=== PATIENT | male | born 1950 | race Caucasian/White ===

== ENCOUNTER 2018-05-29 06:54 | Day surgery (SDC) | payer OTHER, SELFPAY ==
--- NOTE | 2018-05-29 | PATH_ITS ---
[facility] Accession Number: [id number] . 01 Material submitted: . PART A: ILEOCECAL VALVE POLYP X2 PART B: SIGMOID COLON POLYP . 02 Diagnosis: A. Ileocecal Valve Polyp x2: Portions of tubular adenoma x2; negative for high-grade dysplasia. . B. Sigmoid Colon Polyp: Tubular adenoma; negative for high-grade dysplasia. The apparent, electrocauterized margin is negative for dysplasia. MRV/05/30/2018 . 02 Electronically signed: . Sita Hearn MD, Pathologist NPI- [id number] . 01 Gross description: . Received two formalin-filled containers, both labeled with the patient's name: . A. In a container labeled ileocecal valve polyp x2, are two 0.2-0.4 cm portions of tissue, entirely submitted in cassette A. B. In a container labeled sigmoid colon polyp, is a 0.6 cm portion of tissue. The specimen is bisected and totally submitted in cassette B. ([id number]) /FRR . 02 Pathologist provided ICD-10: K63.5 . 02 CPT . 028973, [id number] Performed at: 01 [facility] [address], [place], [place] [id number] MD Nehemias Green MD Phone: [phone] Performed at: 02 [facility] [address] [place], [place] [id number] MD Cait Tan MD Phone: [phone]
[2018-05-29 07:18] VITALS: BP 173/89; PULSE 16; RESP 16; TEMP 37.8; O2SAT 96; BMI 35.3
[2018-05-29] MEDS: SODIUM CHLORIDE 0.9% 1,000 ML 42 ML IV (07:39)
--- NOTE | 2018-05-29 08:39 | PM.HP.1 ---
History of Present Illness Chief complaint: colonoscopy [id number] Patient History Medical History Hypercholesterolemia (Acute) Hypertension (Acute) Prostatic hypertrophy (Acute) Family & Social History Social History: household members spouse Meds Home Medications Medication Instructions Recorded Confirmed Type atorvastatin [Lipitor] 20 mg PO HS #0 07/19/16 History diclofenac sodium [Voltaren] 1 adrianne TOPICAL QDAY #0 07/19/16 History losartan-hydrochlorothiazide 1 tab PO QDAY #0 07/19/16 History [Hyzaar] multivitamin [Multiple Vitamins] 1 tab PO QDAY #0 07/19/16 History tamsulosin [Flomax] 0.4 mg PO QDAY #0 07/19/16 History Allergies Allergy/AdvReac Type Severity Reaction Status Date / Time No Known Allergies Allergy Uncoded 10/10/17 13:02 Exam Vital Signs (past 8 hours): - 05/29/18 07:18 Temperature 100.0 F H Pulse Rate 16 L Respiratory Rate 16 Blood Pressure 173/89 H Pulse Oximetry 96 Oxygen Delivery Method Room Air Narrative Exam Narrative: Oropharynx free of lesions Chest clear to auscultation percussion Cardiac exam reveals no S3 or murmur Assessment & Plan Plan: Assessment/Plan Narrative: History of colon polyps need for follow-up colonoscopy. Risks benefits alternatives explained.
--- NOTE | 2018-05-29 08:59 | PM.OP.ENDO ---
Operative Date/Time/Diagnoses Date of procedure: 05/29/18 Time of procedure: 08:59 Pre-op diagnosis: See indications and findings Procedure & Clinicians Study performed: Colonoscopy Same procedure as scheduled: Yes Indications: History of colon polyps Surgeon: Sukumar Vasquez Procedure Notes Procedure in detail: After informed consent was obtained the patient was placed in the left lateral decubitus position. The video colonoscope was introduced the rectum slowly advanced to the cecum. Preparation was excellent. On slow withdrawal mucosa was carefully examined. The scope was removed. The patient tolerated the procedure well. Blood loss none Complications none Sedation Versed 9 mg, fentanyl 150 mcg Total sedation time 20 min Findings 1. Two polyps near the IC valve 1 5 mm and 1 3 mm both removed with Jumbo biopsy forceps 2. 10 mm semi pedunculated polyp at 25 cm/sigmoid colon which was hot snared removed completely. 3. Sigmoid diverticulosis 4. Otherwise negative colonoscopy to cecum We will be in touch regarding his polyp pathology and he will need follow-up colonoscopy in 3-5 years.
[2018-05-29] MEDS: fentaNYL 250 MCG/5 ML INJ IV (09:03)
[2018-05-29] MEDS: MIDAZOLAM 5 MG/5 ML VIAL IV (09:04)
[2018-05-29 09:16] VITALS: BP 134/73; PULSE 77; RESP 18; TEMP 36.7; O2SAT 96
--- NOTE | 2018-05-29 09:27 | SUR.PHASEII ---
josef brought back, d/c instructions discussed, both voiced an understanding, pt dressed when ready and left when ready and in stable condition.
== END 2018-05-29 09:28 | disposition home or self-care (01) ==
PROVIDERS: PCP Internal Medicine; Visit Provider Internal Medicine Gastroenterology
PROC: 0DJD8ZZ Inspection of Lower Intestinal Tract, Via Natural or Artificial Opening Endoscopic (ICD-10-PCS; CPT 45378; principal; 2018-05-29 08:30)
DX: Z86.010 Personal history of colon polyps (principal); K57.30 Diverticulosis of large intestine without perforation or abscess without bleeding; K63.5 Polyp of colon; I10 Essential (primary) hypertension; E78.00 Pure hypercholesterolemia, unspecified; N40.0 Benign prostatic hyperplasia without lower urinary tract symptoms
CPT/HCPCS: 45385; 45380; J2250; J3010

== ENCOUNTER → 2020-07-06 19:06 | Outpatient (ROUT) | payer OTHER, SELFPAY ==
[2020-07-06 19:30] LABS: Aspartate Aminotransferase 29 IU/L (17-59); BUN Creatinine Ratio 31.3 (6-22); Blood Urea Nitrogen 20 mg/dL (9-20); Calcium 9.6 mg/dL (8.4-10.2); Carbon Dioxide 30 mmol/L (22-32); Chloride 102 mmol/L (98-107); Cholesterol 168 mg/dL (140-199); Estimated Glomerular Filt Rate > 60.0 mL/min (>60); Glucose 96 mg/dL (80-110); HDL Cholesterol 56 mg/dL (40-60); HEMOLYSIS < 15 (0-50); LDL Cholesterol Calculated 89 mg/dL (<100); Potassium 3.9 mmol/L (3.4-5.1); Sodium 138 mmol/L (137-145); Triglycerides 114 mg/dL (35-150)
== END ==
PROVIDERS: PCP Internal Medicine; Visit Provider Internal Medicine
DX: I10 Essential (primary) hypertension (principal); E78.2 Mixed hyperlipidemia; N40.0 Benign prostatic hyperplasia without lower urinary tract symptoms
CPT/HCPCS: 80048; 80061; 84153; 84450

== ENCOUNTER → 2020-07-23 10:47 | Outpatient (CLI) | payer OTHER, SELFPAY ==
[2020-07-23] MEDS: COVID-19 VACC #1, MRNA(MOD) 100 MCG/0.5 ML VIAL IM (10:57)
== END ==
PROVIDERS: PCP Internal Medicine; Visit Provider Internal Medicine
DX: Z23 Encounter for immunization (principal)
CPT/HCPCS: 0011A; 91301

== ENCOUNTER → 2020-08-20 08:57 | Outpatient (CLI) | payer OTHER, SELFPAY ==
[2020-08-20] MEDS: COVID-19 VACC #2, MRNA(MOD) 100 MCG/0.5 ML VIAL IM (09:04)
== END ==
PROVIDERS: PCP Internal Medicine; Visit Provider Internal Medicine
DX: Z23 Encounter for immunization (principal)
CPT/HCPCS: 0012A; 91301

== ENCOUNTER 2021-12-22 08:15 | Outpatient (RCR) | payer OTHER, SELFPAY ==
--- NOTE | 2021-09-23 12:00 | PT.OPPOC ---
Physical, Occupational & Speech Therapy At [facility] Current Diagnoses Unilateral primary osteoarthritis, right knee (09/23/21) Pain in right knee (09/23/21) Other abnormalities of gait and mobility (09/23/21) Visit Care Team Role Provider Type Johnathan Campbell MD Family Provider Non-Staff Primary Care Provider Specialty: Internal Medicine Address: [address] [place] [address], [id number] Email: Lupe Pena PA-C Attending Provider Non-Staff Referring Provider Specialty: Medical Address: [address] [place] [address], [phone] Email: Plan Of Care PT-OP-T Assessment and Plan Start: 09/13/21 15:41 Freq: Status: Active Protocol: Document 09/23/21 10:30 AMB (Rec: 09/25/21 09:57 AMB [id number]) Physical Therapy Assessment Rehab Potential Rehabilitation Potential Good Evaluation Complexity Number of Personal Factors/Comorbidities 1-2 Number of Body Systems Impaired 4 or More Clinical Presentation at Evaluation Evolving Impairments Impairments Activity Tolerance,Balance, Edema,Functional Activities, Gait,Pain,ROM,Strength Goals Two Impairment Gait Short Term Goal (STG) will ambulate without assistive device over smooth surfaces with step through gait patterning for 200'. STG Duration 4 weeks [facility] Goal (LTG) will ascend and descend a flight of stairs with step over step gait. LTG Duration 8 weeks One Impairment ROM Short Term Goal (STG) will improve his active knee flexion to 90 degrees. STG Duration 4 weeks [facility] Goal (LTG) will improve his AROM to 0-120 degrees. LTG Duration 8 weeks Assessment Summary Assessment attends PT 8 days s/p R TKA. Unfortunately his flexion ROM is very limited at 50 degrees, extension ROM was limited to missing 7 degrees from neutral. Pt was educated in importance of bending the knee throughout the day and given multiple exercise options to facilitate this. Pt had been doing ankle pumps but really had not been doing exercises after coming home from the hospital. He also was not sure of his weightbearing status. Pt educated in this as well. Pt was seen as a day surgery, so if he had been educated in appropriate gait/exercise he unfortunately did not remember it, and this will likely make future PT harder for him considering his already very restricted flexion range of motion. Physical Therapy Plan Frequency and Duration Frequency of Treatment 2x/Week Duration of Treatment 8 weeks Plan of Care Start Date 09/23/21 Plan of Care End Date 11/18/21 Therapeutic Interventions Therapeutic Interventions Balance Training,Gait Training ,Home Exercise Program,Joint Mobilizations,Manual Therapy, Neuromuscular Re-education, Self-Care/Home Management,Soft Tissue Mobilization, Therapeutic Activities, Therapeutic Exercises Next Visit Focus/Plan Next Note Type Treatment Note Next Visit Plan Re measure ROM to see if pt was able to make changes over weekend, then review HEP as necessary. Plan of Care Dates Plan of Care Start Date 09/23/21 Plan of Care End Date 11/18/21 Electronically Signed by: Mary Gates, PT 09/25/21 1007 Please Sign and Return: I have reviewed this Plan of Care and certify that the skilled therapy services above are required to meet the patient?s needs. Physician Signature Date Printed Name and Credentials Clinical Instructor Signature Printed Name and Credentials
--- NOTE | 2021-09-23 12:00 | PT.OIE ---
Current Diagnoses Unilateral primary osteoarthritis, right knee (09/23/21) Pain in right knee (09/23/21) Other abnormalities of gait and mobility (09/23/21) Past Medical History (Last Updated 05/29/18 @ 08:40 by Sukumar Vasquez MD) Hypercholesterolemia Hypertension Prostatic hypertrophy Visit Care Team Role Provider Type Johnathan Campbell MD Family Provider Non-Staff Primary Care Provider Specialty: Internal Medicine Address: [address] [place] [address], [phone] Email: Lupe Pena PA-C Attending Provider Non-Staff Referring Provider Specialty: Medical Address: [address] [place] [address], [phone] Email: Physical Therapy Initial Evaluation PT-OP-A Visit Information Start: 09/13/21 15:41 Freq: Status: Active Protocol: Document 09/23/21 10:30 AMB (Rec: 09/23/21 11:16 AMB [id number]) Out-Patient Physical Therapy Visit Information Visit Information Visit Type Initial Evaluation Visit Start Time 10:30 Visit Stop Time 11:15 Total Visit Minutes 45 Visit Number 1 PT-OP-B Current Condition Start: 09/13/21 15:41 Freq: Status: Active Protocol: Document 09/23/21 10:30 AMB (Rec: 09/23/21 11:16 AMB [id number]) Current Condition History of Current Condition Onset Date 09/15 Current Complaints R TKA History of Current Condition Day surgery RTKA reports was not given exercises, has been icing and doing ankle pumps. 3 steps to enter, uses cane and railing to enter house. Sees next Sunday. Does have pain in the left knee. Does enjoy boating- sailing. Has been sleeping in the recliner. Treatment Goals Patient/Caregiver Goals Be able to go boating this summer Personal Factors Other Personal Factors That May Effect L knee pain, hypertension Therapy/Recovery PT-OP-C Subjective Start: 09/13/21 15:41 Freq: Status: Active Protocol: Document 09/23/21 10:30 AMB (Rec: 09/25/21 09:57 AMB [id number]) OP-PT Pain Assessment Comments Pain Comments 09/08 PT-OP-G Mobility & Gait Start: 09/13/21 15:41 Freq: Status: Active Protocol: Document 09/23/21 10:30 AMB (Rec: 09/25/21 09:57 AMB [id number]) OP Gait Assessment Gait Gait Assistance Required: Standby Assistance Assistive Devices Assistive Device Front Wheeled Walker Gait Deviations General Gait Pattern Antalgic,Decreased Stride Length,Decreased Feet Clearance,Step-to Gait PT-OP-J Posture/Palpation/Skin Start: 09/13/21 15:41 Freq: Status: Active Protocol: Document 09/23/21 10:30 AMB (Rec: 09/25/21 09:57 AMB [id number]) Skin Assessment Other Assessments Skin Assessment Comments Edema throughout but not pitting, no extensive redness or bruising noted, pt wearing LEELA hose over wound covering. PT-OP-K Range of Motion Start: 09/13/21 15:41 Freq: Status: Active Protocol: Document 09/23/21 10:30 AMB (Rec: 09/25/21 09:57 AMB [id number]) Knee Goniometric Range of Motion Knee Left Flexion Active (degrees) 120 Extension Passive (degrees) 0 Right Flexion Active (degrees) 45 Flexion Passive (degrees) 50 Extension Active (degrees) 10 Extension Passive (degrees) 7 PT-OP-M Strength Start: 09/13/21 15:41 Freq: Status: Active Protocol: Document 09/23/21 10:30 AMB (Rec: 09/25/21 09:57 AMB [id number]) Knee Strength Knee Manual Muscle Testing Right Flexion (S2) 3 Fair Extension (L3) 3- Fair- Comments quad lag with SLR PT-OP-Q Treatments Start: 09/13/21 15:41 Freq: Status: Active Protocol: Document 09/23/21 10:30 AMB (Rec: 09/25/21 10:03 AMB [id number]) Therapeutic Exercises Supine Exercises SAQ Side right Reps/Minutes 10 heel slide Side right Reps/Minutes 10 5 hold quad set Side right Reps/Minutes 10 Comments heavy cues for form Sitting Exercises knee extension stretch Side right Reps/Minutes 30 hold knee flexion Side right Reps/Minutes 5 hold PT-OP-T Assessment and Plan Start: 09/13/21 15:41 Freq: Status: Active Protocol: Document 09/23/21 10:30 AMB (Rec: 09/25/21 09:57 [facility] [id number]) Physical Therapy Assessment Rehab Potential Rehabilitation Potential Good Evaluation Complexity Number of Personal Factors/Comorbidities 1-2 Number of Body Systems Impaired 4 or More Clinical Presentation at Evaluation Evolving Impairments Impairments Activity Tolerance,Balance, Edema,Functional Activities, Gait,Pain,ROM,Strength Goals Two Impairment Gait Short Term Goal (STG) will ambulate without assistive device over smooth surfaces with step through gait patterning for 200'. STG Duration 4 weeks Hair Specialist Goal (LTG) will ascend and descend a flight of stairs with step over step gait. LTG Duration 8 weeks One Impairment ROM Short Term Goal (STG) will improve his active knee flexion to 90 degrees. STG Duration 4 weeks Hair Specialist Goal (LTG) will improve his AROM to 0-120 degrees. LTG Duration 8 weeks Assessment Summary Assessment attends PT 8 days s/p R TKA. Unfortunately his flexion ROM is very limited at 50 degrees, extension ROM was limited to missing 7 degrees from neutral. Pt was educated in importance of bending the knee throughout the day and given multiple exercise options to facilitate this. Pt had been doing ankle pumps but really had not been doing exercises after coming home from the hospital. He also was not sure of his weightbearing status. Pt educated in this as well. Pt was seen as a day surgery, so if he had been educated in appropriate gait/exercise he unfortunately did not remember it, and this will likely make future PT harder for him considering his already very restricted flexion range of motion. Physical Therapy Plan Frequency and Duration Frequency of Treatment 2x/Week Duration of Treatment 8 weeks Plan of Care Start Date 09/23/21 Plan of Care End Date 11/18/21 Therapeutic Interventions Therapeutic Interventions Balance Training,Gait Training ,Home Exercise Program,Joint Mobilizations,Manual Therapy, Neuromuscular Re-education, Self-Care/Home Management,Soft Tissue Mobilization, Therapeutic Activities, Therapeutic Exercises Next Visit Focus/Plan Next Note Type Treatment Note Next Visit Plan Re measure ROM to see if pt was able to make changes over weekend, then review HEP as necessary.
--- NOTE | 2021-09-27 10:35 | PT.OTN ---
Current Diagnoses Unilateral primary osteoarthritis, right knee (09/27/21) Pain in right knee (09/27/21) Other abnormalities of gait and mobility (09/27/21) Physical Therapy Treatment Note PT-OP-A Visit Information Start: 09/13/21 15:41 Freq: Status: Active Protocol: Document 09/27/21 09:47 AMB (Rec: 09/27/21 10:22 AMB [id number]) Out-Patient Physical Therapy Visit Information Visit Information Visit Type Treatment Note Visit Start Time 09:45 Visit Stop Time 10:30 Total Visit Minutes 45 Visit Number 2 PT-OP-B Current Condition Start: 09/13/21 15:41 Freq: Status: Active Protocol: Document 09/23/21 10:30 AMB (Rec: 09/23/21 11:16 AMB [id number]) Current Condition History of Current Condition Onset Date 09/15 Current Complaints R TKA History of Current Condition Day surgery RTKA reports was not given exercises, has been icing and doing ankle pumps. 3 steps to enter, uses cane and railing to enter house. Sees next Sunday. Does have pain in the left knee. Does enjoy boating- sailing. Has been sleeping in the recliner. Treatment Goals Patient/Caregiver Goals Be able to go boating this summer Personal Factors Other Personal Factors That May Effect L knee pain, hypertension Therapy/Recovery PT-OP-C Subjective Start: 09/13/21 15:41 Freq: Status: Active Protocol: Document 09/27/21 09:47 AMB (Rec: 09/27/21 10:22 AMB [id number]) OP-PT Subjective Patient Comments Patient Comments Pt has been doing his exercises 4x/day. PT-OP-G Mobility & Gait Start: 09/13/21 15:41 Freq: Status: Active Protocol: Document 09/23/21 10:30 AMB (Rec: 09/25/21 09:57 AMB [id number]) OP Gait Assessment Gait Gait Assistance Required: Standby Assistance Assistive Devices Assistive Device Front Wheeled Walker Gait Deviations General Gait Pattern Antalgic,Decreased Stride Length,Decreased Feet Clearance,Step-to Gait PT-OP-J Posture/Palpation/Skin Start: 09/13/21 15:41 Freq: Status: Active Protocol: Document 09/23/21 10:30 AMB (Rec: 09/25/21 09:57 AMB [id number]) Skin Assessment Other Assessments Skin Assessment Comments Edema throughout but not pitting, no extensive redness or bruising noted, pt wearing LEELA hose over wound covering. PT-OP-K Range of Motion Start: 09/13/21 15:41 Freq: Status: Active Protocol: Document 09/23/21 10:30 AMB (Rec: 09/25/21 09:57 AMB [id number]) Knee Goniometric Range of Motion Knee Left Flexion Active (degrees) 120 Extension Passive (degrees) 0 Right Flexion Active (degrees) 45 Flexion Passive (degrees) 50 Extension Active (degrees) 10 Extension Passive (degrees) 7 PT-OP-M Strength Start: 09/13/21 15:41 Freq: Status: Active Protocol: Document 09/23/21 10:30 AMB (Rec: 09/25/21 09:57 AMB [id number]) Knee Strength Knee Manual Muscle Testing Right Flexion (S2) 3 Fair Extension (L3) 3- Fair- Comments quad lag with SLR PT-OP-Q Treatments Start: 09/13/21 15:41 Freq: Status: Active Protocol: Document 09/27/21 09:47 AMB (Rec: 09/27/21 10:22 AMB [id number]) Cardio Equipment Recumbent Stepper (Sci-Fit) Duration (Minutes) 10 Resistance 0 Seat Position 14>12 Other 63 degrees max Therapeutic Exercises Supine Exercises active hamstring Supine Exercise Name knee flexion contract realax Reps/Minutes 10 SAQ Side right Reps/Minutes 10 heel slide Side right Reps/Minutes 10 5 hold quad set Side right Reps/Minutes 10 Comments heavy cues for form PT-OP-T Assessment and Plan Start: 09/13/21 15:41 Freq: Status: Active Protocol: Document 09/27/21 09:45 AMB (Rec: 09/27/21 10:34 AMB [id number]) Physical Therapy Assessment Assessment Summary Assessment had a maximum of 63 degrees of flexion today. Worked hard, but was challenged by flexion. Extension is improving well, still has a little quad lag so did not increase challenge of HEP yet. Physical Therapy Plan Next Visit Focus/Plan Next Note Type Treatment Note Next Visit Plan Continue to check ROM. Check how apt with PA went.
--- NOTE | 2021-09-29 13:07 | PT.OTN ---
Current Diagnoses Unilateral primary osteoarthritis, right knee (09/29/21) Pain in right knee (09/29/21) Other abnormalities of gait and mobility (09/29/21) Physical Therapy Treatment Note PT-OP-A Visit Information Start: 09/13/21 15:41 Freq: Status: Active Protocol: Document 09/29/21 09:00 AMB (Rec: 09/29/21 09:49 AMB [id number]) Out-Patient Physical Therapy Visit Information Visit Information Visit Type Treatment Note Visit Start Time 09:00 Visit Stop Time 09:45 Total Visit Minutes 45 Visit Number 3 PT-OP-B Current Condition Start: 09/13/21 15:41 Freq: Status: Active Protocol: Document 09/23/21 10:30 AMB (Rec: 09/23/21 11:16 AMB [id number]) Current Condition History of Current Condition Onset Date 09/15 Current Complaints R TKA History of Current Condition Day surgery RTKA reports was not given exercises, has been icing and doing ankle pumps. 3 steps to enter, uses cane and railing to enter house. Sees next Sunday. Does have pain in the left knee. Does enjoy boating- sailing. Has been sleeping in the recliner. Treatment Goals Patient/Caregiver Goals Be able to go boating this summer Personal Factors Other Personal Factors That May Effect L knee pain, hypertension Therapy/Recovery PT-OP-C Subjective Start: 09/13/21 15:41 Freq: Status: Active Protocol: Document 09/29/21 10:30 AMB (Rec: 09/29/21 12:52 AMB [id number]) OP-PT Subjective Patient Comments Patient Comments saw his PA yesterday and was told to really push his flexion and that he needs to get to 90 degrees. PT-OP-G Mobility & Gait Start: 09/13/21 15:41 Freq: Status: Active Protocol: Document 09/23/21 10:30 AMB (Rec: 09/25/21 09:57 AMB [id number]) OP Gait Assessment Gait Gait Assistance Required: Standby Assistance Assistive Devices Assistive Device Front Wheeled Walker Gait Deviations General Gait Pattern Antalgic,Decreased Stride Length,Decreased Feet Clearance,Step-to Gait PT-OP-J Posture/Palpation/Skin Start: 09/13/21 15:41 Freq: Status: Active Protocol: Document 09/23/21 10:30 AMB (Rec: 09/25/21 09:57 AMB [id number]) Skin Assessment Other Assessments Skin Assessment Comments Edema throughout but not pitting, no extensive redness or bruising noted, pt wearing LEELA hose over wound covering. PT-OP-K Range of Motion Start: 09/13/21 15:41 Freq: Status: Active Protocol: Document 09/23/21 10:30 AMB (Rec: 09/25/21 09:57 AMB [id number]) Knee Goniometric Range of Motion Knee Left Flexion Active (degrees) 120 Extension Passive (degrees) 0 Right Flexion Active (degrees) 45 Flexion Passive (degrees) 50 Extension Active (degrees) 10 Extension Passive (degrees) 7 PT-OP-M Strength Start: 09/13/21 15:41 Freq: Status: Active Protocol: Document 09/23/21 10:30 AMB (Rec: 09/25/21 09:57 AMB [id number]) Knee Strength Knee Manual Muscle Testing Right Flexion (S2) 3 Fair Extension (L3) 3- Fair- Comments quad lag with SLR PT-OP-Q Treatments Start: 09/13/21 15:41 Freq: Status: Active Protocol: Document 09/29/21 09:00 AMB (Rec: 09/29/21 09:49 AMB [id number]) Cardio Equipment Recumbent Stepper (Sci-Fit) Duration (Minutes) 10 Resistance 1.5 Seat Position 15>12 Other 76 degrees max Therapeutic Exercises Sitting Exercises knee flexion Side right Reps/Minutes 5 hold Standing Exercises sit to stand Reps/Minutes x3 Comments with cues to control and slow Gait Training Gait Activity stairs Comments 4>6. Step to then alternating, heavy use of railing SPC Comments education re height of SPC, use in L UE. PT-OP-R Modalities Start: 09/13/21 15:41 Freq: Status: Active Protocol: Document 09/29/21 09:00 AMB (Rec: 09/29/21 12:53 AMB [id number]) Hot Pack/Cold Pack Treatment Cold Pack Location R knee Patient Position Supine Treatment Duration (minutes) 10 PT-OP-T Assessment and Plan Start: 09/13/21 15:41 Freq: Status: Active Protocol: Document 09/29/21 09:00 AMB (Rec: 09/29/21 09:49 AMB [id number]) Physical Therapy Assessment Goals Two Impairment Gait Short Term Goal (STG) will ambulate without assistive device over smooth surfaces with step through gait patterning for 200'. STG Duration 4 weeks Residential Goal (LTG) will ascend and descend a flight of stairs with step over step gait. LTG Duration 8 weeks One Impairment ROM Short Term Goal (STG) will improve his active knee flexion to 90 degrees. STG Duration 4 weeks Carpenter Assistant Goal (LTG) will improve his AROM to 0-120 degrees. LTG Duration 8 weeks Assessment Summary Assessment got up to 76 degrees today, very motivated after being reassured by PT and PA that the surgery is doing well and that he needs to push his range. Physical Therapy Plan Frequency and Duration Frequency of Treatment 2x/Week Duration of Treatment 8 weeks Plan of Care Start Date 09/23/21 Plan of Care End Date 11/18/21 Next Visit Focus/Plan Next Note Type Treatment Note Next Visit Plan Follow up on SPC, check flexion ROM, progress HEP, consider shuttle recovery
--- NOTE | 2021-10-04 14:16 | PT.OTN ---
Current Diagnoses Unilateral primary osteoarthritis, right knee (10/04/21) Pain in right knee (10/04/21) Other abnormalities of gait and mobility (10/04/21) Physical Therapy Treatment Note PT-OP-A Visit Information Start: 09/13/21 15:41 Freq: Status: Active Protocol: Document 10/04/21 09:45 AMB (Rec: 10/04/21 10:28 AMB [id number]) Out-Patient Physical Therapy Visit Information Visit Information Visit Type Treatment Note Visit Start Time 09:45 Visit Stop Time 10:30 Total Visit Minutes 45 Visit Number 4 PT-OP-B Current Condition Start: 09/13/21 15:41 Freq: Status: Active Protocol: Document 09/23/21 10:30 AMB (Rec: 09/23/21 11:16 AMB [id number]) Current Condition History of Current Condition Onset Date 09/15 Current Complaints R TKA History of Current Condition Day surgery RTKA reports was not given exercises, has been icing and doing ankle pumps. 3 steps to enter, uses cane and railing to enter house. Sees next Sunday. Does have pain in the left knee. Does enjoy boating- sailing. Has been sleeping in the recliner. Treatment Goals Patient/Caregiver Goals Be able to go boating this summer Personal Factors Other Personal Factors That May Effect L knee pain, hypertension Therapy/Recovery PT-OP-C Subjective Start: 09/13/21 15:41 Freq: Status: Active Protocol: Document 10/04/21 09:45 AMB (Rec: 10/04/21 10:28 AMB [id number]) OP-PT Subjective Patient Comments Patient Comments has been working on his exercises about once an hour. PT-OP-G Mobility & Gait Start: 09/13/21 15:41 Freq: Status: Active Protocol: Document 09/23/21 10:30 AMB (Rec: 09/25/21 09:57 AMB [id number]) OP Gait Assessment Gait Gait Assistance Required: Standby Assistance Assistive Devices Assistive Device Front Wheeled Walker Gait Deviations General Gait Pattern Antalgic,Decreased Stride Length,Decreased Feet Clearance,Step-to Gait PT-OP-J Posture/Palpation/Skin Start: 09/13/21 15:41 Freq: Status: Active Protocol: Document 09/23/21 10:30 AMB (Rec: 09/25/21 09:57 AMB [id number]) Skin Assessment Other Assessments Skin Assessment Comments Edema throughout but not pitting, no extensive redness or bruising noted, pt wearing LEELA hose over wound covering. PT-OP-K Range of Motion Start: 09/13/21 15:41 Freq: Status: Active Protocol: Document 09/23/21 10:30 AMB (Rec: 09/25/21 09:57 AMB [id number]) Knee Goniometric Range of Motion Knee Left Flexion Active (degrees) 120 Extension Passive (degrees) 0 Right Flexion Active (degrees) 45 Flexion Passive (degrees) 50 Extension Active (degrees) 10 Extension Passive (degrees) 7 PT-OP-M Strength Start: 09/13/21 15:41 Freq: Status: Active Protocol: Document 09/23/21 10:30 AMB (Rec: 09/25/21 09:57 AMB [id number]) Knee Strength Knee Manual Muscle Testing Right Flexion (S2) 3 Fair Extension (L3) 3- Fair- Comments quad lag with SLR PT-OP-Q Treatments Start: 09/13/21 15:41 Freq: Status: Active Protocol: Document 10/04/21 09:45 AMB (Rec: 10/04/21 10:28 AMB [id number]) Cardio Equipment Recumbent Elliptical (Biodex) Duration (Minutes) 10 Resistance 1 Seat Position 8 Other 91 degrees max Gym Equipment Shuttle Recovery Unilateral Squats Resistance 50 Reps/Time 2x10 Therapeutic Exercises Supine Exercises SLR Reps/Minutes 2x10 Comments better quad activation today heel slide Side right Reps/Minutes 10 5 hold Gait Training Gait Activity SPC Device Used SPC Surface outdoor (gravel) Distance/Duration 400' Treatment Focus safety PT-OP-R Modalities Start: 09/13/21 15:41 Freq: Status: Active Protocol: Document 09/29/21 09:00 AMB (Rec: 09/29/21 12:53 AMB [id number]) Hot Pack/Cold Pack Treatment Cold Pack Location R knee Patient Position Supine Treatment Duration (minutes) 10 PT-OP-T Assessment and Plan Start: 09/13/21 15:41 Freq: Status: Active Protocol: Document 10/04/21 09:45 AMB (Rec: 10/04/21 10:28 AMB [id number]) Physical Therapy Assessment Goals Two Impairment Gait Short Term Goal (STG) will ambulate without assistive device over smooth surfaces with step through gait patterning for 200'. STG Duration 4 weeks Sharepoint Net Developer Goal (LTG) will ascend and descend a flight of stairs with step over step gait. LTG Duration 8 weeks One Impairment ROM Short Term Goal (STG) will improve his active knee flexion to 90 degrees. STG Duration 4 weeks Half-Way Goal (LTG) will improve his AROM to 0-120 degrees. LTG Duration 8 weeks Assessment Summary Assessment Gave the ok today for to ambulate with his SPC over gravel to his shop. He has improved his flexion ROM significantly during PT and is very motivated. Did well with shuttle recovery today. Physical Therapy Plan Next Visit Focus/Plan Next Note Type Treatment Note Next Visit Plan Follow up on SPC, check flexion ROM, progress HEP,
--- NOTE | 2021-10-06 10:54 | PT.OTN ---
Current Diagnoses Unilateral primary osteoarthritis, right knee (10/06/21) Pain in right knee (10/06/21) Other abnormalities of gait and mobility (10/06/21) Physical Therapy Treatment Note PT-OP-A Visit Information Start: 09/13/21 15:41 Freq: Status: Active Protocol: Document 10/06/21 09:45 AMB (Rec: 10/06/21 10:54 AMB [id number]) Out-Patient Physical Therapy Visit Information Visit Information Visit Type Treatment Note Visit Start Time 09:45 Visit Stop Time 10:30 Total Visit Minutes 45 Visit Number 5 PT-OP-B Current Condition Start: 09/13/21 15:41 Freq: Status: Active Protocol: Document 09/23/21 10:30 AMB (Rec: 09/23/21 11:16 AMB [id number]) Current Condition History of Current Condition Onset Date 09/15 Current Complaints R TKA History of Current Condition Day surgery RTKA reports was not given exercises, has been icing and doing ankle pumps. 3 steps to enter, uses cane and railing to enter house. Sees next Sunday. Does have pain in the left knee. Does enjoy boating- sailing. Has been sleeping in the recliner. Treatment Goals Patient/Caregiver Goals Be able to go boating this summer Personal Factors Other Personal Factors That May Effect L knee pain, hypertension Therapy/Recovery PT-OP-C Subjective Start: 09/13/21 15:41 Freq: Status: Active Protocol: Document 10/06/21 09:45 AMB (Rec: 10/06/21 10:54 AMB [id number]) OP-PT Subjective Patient Comments Patient Comments has been exercising 3x /day but also pushing ROM throughout the day in addition to that. PT-OP-G Mobility & Gait Start: 09/13/21 15:41 Freq: Status: Active Protocol: Document 09/23/21 10:30 AMB (Rec: 09/25/21 09:57 AMB [id number]) OP Gait Assessment Gait Gait Assistance Required: Standby Assistance Assistive Devices Assistive Device Front Wheeled Walker Gait Deviations General Gait Pattern Antalgic,Decreased Stride Length,Decreased Feet Clearance,Step-to Gait PT-OP-J Posture/Palpation/Skin Start: 09/13/21 15:41 Freq: Status: Active Protocol: Document 09/23/21 10:30 AMB (Rec: 09/25/21 09:57 AMB [id number]) Skin Assessment Other Assessments Skin Assessment Comments Edema throughout but not pitting, no extensive redness or bruising noted, pt wearing LEELA hose over wound covering. PT-OP-K Range of Motion Start: 09/13/21 15:41 Freq: Status: Active Protocol: Document 09/23/21 10:30 AMB (Rec: 09/25/21 09:57 AMB [id number]) Knee Goniometric Range of Motion Knee Left Flexion Active (degrees) 120 Extension Passive (degrees) 0 Right Flexion Active (degrees) 45 Flexion Passive (degrees) 50 Extension Active (degrees) 10 Extension Passive (degrees) 7 PT-OP-M Strength Start: 09/13/21 15:41 Freq: Status: Active Protocol: Document 09/23/21 10:30 AMB (Rec: 09/25/21 09:57 AMB [id number]) Knee Strength Knee Manual Muscle Testing Right Flexion (S2) 3 Fair Extension (L3) 3- Fair- Comments quad lag with SLR PT-OP-Q Treatments Start: 09/13/21 15:41 Freq: Status: Active Protocol: Document 10/06/21 09:45 AMB (Rec: 10/06/21 10:54 AMB [id number]) Cardio Equipment Recumbent Bicycle Duration (Minutes) 10 Other fwd/back- unable to make full revolution Gym Equipment Shuttle Recovery Unilateral Squats Resistance 50 Reps/Time 3x12 Therapeutic Exercises Supine Exercises SLR Reps/Minutes 2x10 Comments better quad activation today SAQ Side right Resistance 4# Reps/Minutes 2x10 heel slide Side right Reps/Minutes 10 5 hold Sitting Exercises knee flexion Side right Reps/Minutes 5 hold PT-OP-R Modalities Start: 09/13/21 15:41 Freq: Status: Active Protocol: Document 09/29/21 09:00 AMB (Rec: 09/29/21 12:53 AMB [id number]) Hot Pack/Cold Pack Treatment Cold Pack Location R knee Patient Position Supine Treatment Duration (minutes) 10 PT-OP-T Assessment and Plan Start: 09/13/21 15:41 Freq: Status: Active Protocol: Document 10/06/21 09:45 AMB (Rec: 10/06/21 10:54 AMB [id number]) Physical Therapy Assessment Goals Two Impairment Gait Short Term Goal (STG) will ambulate without assistive device over smooth surfaces with step through gait patterning for 200'. STG Duration 4 weeks Ornamental Metal Worker Helper Goal (LTG) will ascend and descend a flight of stairs with step over step gait. LTG Duration 8 weeks One Impairment ROM Short Term Goal (STG) will improve his active knee flexion to 90 degrees. STG Duration 4 weeks Ornamental Metal Worker Helper Goal (LTG) will improve his AROM to 0-120 degrees. LTG Duration 8 weeks Assessment Summary Assessment Pt had 93 degrees of flexion today, quad strength is coming along. Did encourage to continue to work on extension as well as flexion and to work on toe/heel gait patterning. Physical Therapy Plan Next Visit Focus/Plan Next Note Type Treatment Note Next Visit Plan Follow up on SPC, check flexion ROM, progress HEP, consider stair training
--- NOTE | 2021-10-11 11:35 | PT.OTN ---
Current Diagnoses Unilateral primary osteoarthritis, right knee (10/11/21) Pain in right knee (10/11/21) Other abnormalities of gait and mobility (10/11/21) Physical Therapy Treatment Note PT-OP-A Visit Information Start: 09/13/21 15:41 Freq: Status: Active Protocol: Document 10/11/21 09:45 AMB (Rec: 10/11/21 10:15 AMB [id number]) Out-Patient Physical Therapy Visit Information Visit Information Visit Type Treatment Note Visit Start Time 09:45 Visit Stop Time 10:30 Total Visit Minutes 45 Visit Number 6 PT-OP-B Current Condition Start: 09/13/21 15:41 Freq: Status: Active Protocol: Document 09/23/21 10:30 AMB (Rec: 09/23/21 11:16 AMB [id number]) Current Condition History of Current Condition Onset Date 09/15 Current Complaints R TKA History of Current Condition Day surgery RTKA reports was not given exercises, has been icing and doing ankle pumps. 3 steps to enter, uses cane and railing to enter house. Sees next Sunday. Does have pain in the left knee. Does enjoy boating- sailing. Has been sleeping in the recliner. Treatment Goals Patient/Caregiver Goals Be able to go boating this summer Personal Factors Other Personal Factors That May Effect L knee pain, hypertension Therapy/Recovery PT-OP-C Subjective Start: 09/13/21 15:41 Freq: Status: Active Protocol: Document 10/11/21 09:45 AMB (Rec: 10/11/21 10:15 AMB [id number]) OP-PT Subjective Patient Comments Patient Comments Rupinder reports he continues to have soreness at night. PT-OP-G Mobility & Gait Start: 09/13/21 15:41 Freq: Status: Active Protocol: Document 09/23/21 10:30 AMB (Rec: 09/25/21 09:57 AMB [id number]) OP Gait Assessment Gait Gait Assistance Required: Standby Assistance Assistive Devices Assistive Device Front Wheeled Walker Gait Deviations General Gait Pattern Antalgic,Decreased Stride Length,Decreased Feet Clearance,Step-to Gait PT-OP-J Posture/Palpation/Skin Start: 09/13/21 15:41 Freq: Status: Active Protocol: Document 09/23/21 10:30 AMB (Rec: 09/25/21 09:57 AMB [id number]) Skin Assessment Other Assessments Skin Assessment Comments Edema throughout but not pitting, no extensive redness or bruising noted, pt wearing LEELA hose over wound covering. PT-OP-K Range of Motion Start: 09/13/21 15:41 Freq: Status: Active Protocol: Document 09/23/21 10:30 AMB (Rec: 09/25/21 09:57 AMB [id number]) Knee Goniometric Range of Motion Knee Left Flexion Active (degrees) 120 Extension Passive (degrees) 0 Right Flexion Active (degrees) 45 Flexion Passive (degrees) 50 Extension Active (degrees) 10 Extension Passive (degrees) 7 PT-OP-M Strength Start: 09/13/21 15:41 Freq: Status: Active Protocol: Document 09/23/21 10:30 AMB (Rec: 09/25/21 09:57 AMB [id number]) Knee Strength Knee Manual Muscle Testing Right Flexion (S2) 3 Fair Extension (L3) 3- Fair- Comments quad lag with SLR PT-OP-Q Treatments Start: 09/13/21 15:41 Freq: Status: Active Protocol: Document 10/11/21 09:45 AMB (Rec: 10/11/21 10:15 AMB [id number]) Cardio Equipment Recumbent Bicycle Duration (Minutes) 10 Other fwd/back- unable to make full revolution Gym Equipment Shuttle Recovery Unilateral Squats Resistance 50 Reps/Time 3x12 Therapeutic Exercises Supine Exercises SLR Reps/Minutes 2x10 Comments better quad activation today heel slide Side right Reps/Minutes 10 5 hold Standing Exercises 1 Standing Exercise Name mini lunges Reps/Minutes 10 Comments at railing Manual Therapy Treatment Joint Mobilizations 1 Joint AP and PA Grade III PT-OP-R Modalities Start: 09/13/21 15:41 Freq: Status: Active Protocol: Document 10/11/21 09:45 AMB (Rec: 10/11/21 11:30 AMB [id number]) Hot Pack/Cold Pack Treatment Cold Pack Patient Position Hooklying Treatment Duration (minutes) 10 PT-OP-T Assessment and Plan Start: 09/13/21 15:41 Freq: Status: Active Protocol: Document 10/11/21 09:45 AMB (Rec: 10/11/21 10:15 AMB [id number]) Physical Therapy Assessment Goals Two Impairment Gait Short Term Goal (STG) Rupinder will ambulate without assistive device over smooth surfaces with step through gait patterning for 200'. STG Duration 4 weeks Residential Goal (LTG) Rupinder will ascend and descend a flight of stairs with step over step gait. LTG Duration 8 weeks One Impairment ROM Short Term Goal (STG) Rupinder will improve his active knee flexion to 90 degrees. STG Duration 4 weeks Residential Goal (LTG) Rupinder will improve his AROM to 0-120 degrees. LTG Duration 8 weeks Assessment Summary Assessment Pt had 96 degrees of flexion today, quad strength is coming along. Stair training went well as long as pt has both railings, with single railing and alternating gait struggled more. Physical Therapy Plan Next Visit Focus/Plan Next Note Type Treatment Note Next Visit Plan Follow up on SPC, check flexion ROM, progress HEP, consider stair training
--- NOTE | 2021-10-18 10:33 | PT.OTN ---
Current Diagnoses Unilateral primary osteoarthritis, right knee (10/18/21) Pain in right knee (10/18/21) Other abnormalities of gait and mobility (10/18/21) Physical Therapy Treatment Note PT-OP-A Visit Information Start: 09/13/21 15:41 Freq: Status: Active Protocol: Document 10/18/21 09:51 AMB (Rec: 10/18/21 10:07 AMB [id number]) Out-Patient Physical Therapy Visit Information Visit Information Visit Type Treatment Note Visit Start Time 09:45 Visit Stop Time 10:30 Total Visit Minutes 45 Visit Number 7 PT-OP-B Current Condition Start: 09/13/21 15:41 Freq: Status: Active Protocol: Document 09/23/21 10:30 AMB (Rec: 09/23/21 11:16 AMB [id number]) Current Condition History of Current Condition Onset Date 09/15 Current Complaints R TKA History of Current Condition Day surgery RTKA reports was not given exercises, has been icing and doing ankle pumps. 3 steps to enter, uses cane and railing to enter house. Sees next Sunday. Does have pain in the left knee. Does enjoy boating- sailing. Has been sleeping in the recliner. Treatment Goals Patient/Caregiver Goals Be able to go boating this summer Personal Factors Other Personal Factors That May Effect L knee pain, hypertension Therapy/Recovery PT-OP-C Subjective Start: 09/13/21 15:41 Freq: Status: Active Protocol: Document 10/18/21 09:51 AMB (Rec: 10/18/21 10:07 AMB [id number]) OP-PT Subjective Patient Comments Patient Comments Swelling has increased. Tough to do exercises while in [place]. PT-OP-G Mobility & Gait Start: 09/13/21 15:41 Freq: Status: Active Protocol: Document 09/23/21 10:30 AMB (Rec: 09/25/21 09:57 AMB [id number]) OP Gait Assessment Gait Gait Assistance Required: Standby Assistance Assistive Devices Assistive Device Front Wheeled Walker Gait Deviations General Gait Pattern Antalgic,Decreased Stride Length,Decreased Feet Clearance,Step-to Gait PT-OP-J Posture/Palpation/Skin Start: 09/13/21 15:41 Freq: Status: Active Protocol: Document 09/23/21 10:30 AMB (Rec: 09/25/21 09:57 AMB [id number]) Skin Assessment Other Assessments Skin Assessment Comments Edema throughout but not pitting, no extensive redness or bruising noted, pt wearing LEELA hose over wound covering. PT-OP-K Range of Motion Start: 09/13/21 15:41 Freq: Status: Active Protocol: Document 09/23/21 10:30 AMB (Rec: 09/25/21 09:57 AMB [id number]) Knee Goniometric Range of Motion Knee Left Flexion Active (degrees) 120 Extension Passive (degrees) 0 Right Flexion Active (degrees) 45 Flexion Passive (degrees) 50 Extension Active (degrees) 10 Extension Passive (degrees) 7 PT-OP-M Strength Start: 09/13/21 15:41 Freq: Status: Active Protocol: Document 09/23/21 10:30 AMB (Rec: 09/25/21 09:57 AMB [id number]) Knee Strength Knee Manual Muscle Testing Right Flexion (S2) 3 Fair Extension (L3) 3- Fair- Comments quad lag with SLR PT-OP-Q Treatments Start: 09/13/21 15:41 Freq: Status: Active Protocol: Document 10/18/21 09:51 AMB (Rec: 10/18/21 10:07 AMB [id number]) Cardio Equipment Recumbent Bicycle Duration (Minutes) 10 Other fwd/back- unable to make full revolution Gym Equipment Shuttle Recovery Unilateral Squats Resistance 50 Reps/Time 3x12 Therapeutic Exercises Standing Exercises 1 Standing Exercise Name squats at railing Reps/Minutes 10 Manual Therapy Treatment Soft Tissue Mobilization 1 Body Location scar mobilization, edema massage Body Position Hooklying Joint Mobilizations 1 Joint AP and PA Grade III PT-OP-R Modalities Start: 09/13/21 15:41 Freq: Status: Active Protocol: Document 10/18/21 10:31 AMB (Rec: 10/18/21 10:31 AMB [id number]) Hot Pack/Cold Pack Treatment Cold Pack Patient Position Hooklying Treatment Duration (minutes) 10 PT-OP-T Assessment and Plan Start: 09/13/21 15:41 Freq: Status: Active Protocol: Document 10/18/21 09:51 AMB (Rec: 10/18/21 10:07 AMB [id number]) Physical Therapy Assessment Goals Two Impairment Gait Short Term Goal (STG) will ambulate without assistive device over smooth surfaces with step through gait patterning for 200'. STG Duration 4 weeks Transplant Rn Goal (LTG) will ascend and descend a flight of stairs with step over step gait. LTG Duration 8 weeks One Impairment ROM Short Term Goal (STG) will improve his active knee flexion to 90 degrees. STG Duration 4 weeks Transplant Rn Goal (LTG) will improve his AROM to 0-120 degrees. LTG Duration 8 weeks Assessment Summary Assessment had pitting edema in his knee today. Encouraged to get back on icing. Is using the cane outside but not as much inside at this point. Physical Therapy Plan Next Visit Focus/Plan Next Note Type Treatment Note Next Visit Plan Follow up on SPC, check flexion ROM, progress HEP, consider stair training
--- NOTE | 2021-10-20 11:55 | PT.OTN ---
Current Diagnoses Unilateral primary osteoarthritis, right knee (10/20/21) Pain in right knee (10/20/21) Other abnormalities of gait and mobility (10/20/21) Physical Therapy Treatment Note PT-OP-A Visit Information Start: 09/13/21 15:41 Freq: Status: Active Protocol: Document 10/20/21 09:47 AMB (Rec: 10/20/21 10:29 AMB [id number]) Out-Patient Physical Therapy Visit Information Visit Information Visit Type Treatment Note Visit Start Time 09:45 Visit Stop Time 10:30 Total Visit Minutes 45 Visit Number 8 PT-OP-B Current Condition Start: 09/13/21 15:41 Freq: Status: Active Protocol: Document 09/23/21 10:30 AMB (Rec: 09/23/21 11:16 AMB [id number]) Current Condition History of Current Condition Onset Date 09/15 Current Complaints R TKA History of Current Condition Day surgery RTKA reports was not given exercises, has been icing and doing ankle pumps. 3 steps to enter, uses cane and railing to enter house. Sees next Sunday. Does have pain in the left knee. Does enjoy boating- sailing. Has been sleeping in the recliner. Treatment Goals Patient/Caregiver Goals Be able to go boating this summer Personal Factors Other Personal Factors That May Effect L knee pain, hypertension Therapy/Recovery PT-OP-C Subjective Start: 09/13/21 15:41 Freq: Status: Active Protocol: Document 10/20/21 09:47 AMB (Rec: 10/20/21 10:29 AMB [id number]) OP-PT Subjective Patient Comments Patient Comments Swelling continues, has stopped using the compression sock. PT-OP-G Mobility & Gait Start: 09/13/21 15:41 Freq: Status: Active Protocol: Document 09/23/21 10:30 AMB (Rec: 09/25/21 09:57 AMB [id number]) OP Gait Assessment Gait Gait Assistance Required: Standby Assistance Assistive Devices Assistive Device Front Wheeled Walker Gait Deviations General Gait Pattern Antalgic,Decreased Stride Length,Decreased Feet Clearance,Step-to Gait PT-OP-J Posture/Palpation/Skin Start: 09/13/21 15:41 Freq: Status: Active Protocol: Document 09/23/21 10:30 AMB (Rec: 09/25/21 09:57 AMB [id number]) Skin Assessment Other Assessments Skin Assessment Comments Edema throughout but not pitting, no extensive redness or bruising noted, pt wearing LEELA hose over wound covering. PT-OP-K Range of Motion Start: 09/13/21 15:41 Freq: Status: Active Protocol: Document 09/23/21 10:30 AMB (Rec: 09/25/21 09:57 AMB [id number]) Knee Goniometric Range of Motion Knee Left Flexion Active (degrees) 120 Extension Passive (degrees) 0 Right Flexion Active (degrees) 45 Flexion Passive (degrees) 50 Extension Active (degrees) 10 Extension Passive (degrees) 7 PT-OP-M Strength Start: 09/13/21 15:41 Freq: Status: Active Protocol: Document 09/23/21 10:30 AMB (Rec: 09/25/21 09:57 AMB [id number]) Knee Strength Knee Manual Muscle Testing Right Flexion (S2) 3 Fair Extension (L3) 3- Fair- Comments quad lag with SLR PT-OP-Q Treatments Start: 09/13/21 15:41 Freq: Status: Active Protocol: Document 10/20/21 09:47 AMB (Rec: 10/20/21 10:29 AMB [id number]) Cardio Equipment Recumbent Bicycle Duration (Minutes) 10 Other fwd/back- unable to make full revolution Gym Equipment Shuttle Recovery Unilateral Squats Resistance 50 Reps/Time 3x12 Therapeutic Exercises Standing Exercises heel raises Reps/Minutes 2x10 Manual Therapy Treatment Soft Tissue Mobilization 1 Body Location scar mobilization, edema massage Mobilization Type Myofascial Release Body Position Hooklying Taping 1 Body Location R knee Type of Tape Kinesio Tape Comments swelling laterally PT-OP-R Modalities Start: 09/13/21 15:41 Freq: Status: Active Protocol: Document 10/18/21 10:31 AMB (Rec: 10/18/21 10:31 AMB [id number]) Hot Pack/Cold Pack Treatment Cold Pack Patient Position Hooklying Treatment Duration (minutes) 10 PT-OP-T Assessment and Plan Start: 09/13/21 15:41 Freq: Status: Active Protocol: Document 10/20/21 09:47 AMB (Rec: 10/20/21 10:29 AMB [id number]) Physical Therapy Assessment Goals Two Impairment Gait Short Term Goal (STG) will ambulate without assistive device over smooth surfaces with step through gait patterning for 200'. STG Duration [employer] Public [employer] Studies Director Goal (LTG) will ascend and descend a flight of stairs with step over step gait. LTG Duration 8 weeks One Impairment ROM Short Term Goal (STG) will improve his active knee flexion to 90 degrees. STG Duration MET Fpc Goal (LTG) will improve his AROM to 0-120 degrees. LTG Duration 8 weeks Assessment Summary Assessment had up to 95 degrees of flexion today. Pitting edema worst laterally, encouraged in continued icing, elevation. Seeing MD on Sunday, overall ROM has been improving, but improvement has slowed over last week. PT very motivated and performing HEP appropriately. So far has almost doubled ROM since beginning physical therapy, but reduced ROM, swelling continue to limit mobility. Physical Therapy Plan Next Visit Focus/Plan Next Note Type Treatment Note Next Visit Plan Follow up on SPC, check flexion ROM, progress HEP, consider stair training
--- NOTE | 2021-10-25 10:31 | PT.OTN ---
Current Diagnoses Unilateral primary osteoarthritis, right knee (10/25/21) Pain in right knee (10/25/21) Other abnormalities of gait and mobility (10/25/21) Physical Therapy Treatment Note PT-OP-A Visit Information Start: 09/13/21 15:41 Freq: Status: Active Protocol: Document 10/25/21 09:55 AMB (Rec: 10/25/21 10:07 AMB [id number]) Out-Patient Physical Therapy Visit Information Visit Information Visit Type Treatment Note Visit Start Time 09:45 Visit Stop Time 10:30 Total Visit Minutes 45 Visit Number 9 PT-OP-B Current Condition Start: 09/13/21 15:41 Freq: Status: Active Protocol: Document 09/23/21 10:30 AMB (Rec: 09/23/21 11:16 AMB [id number]) Current Condition History of Current Condition Onset Date 09/15 Current Complaints R TKA History of Current Condition Day surgery RTKA reports was not given exercises, has been icing and doing ankle pumps. 3 steps to enter, uses cane and railing to enter house. Sees next Sunday. Does have pain in the left knee. Does enjoy boating- sailing. Has been sleeping in the recliner. Treatment Goals Patient/Caregiver Goals Be able to go boating this summer Personal Factors Other Personal Factors That May Effect L knee pain, hypertension Therapy/Recovery PT-OP-C Subjective Start: 09/13/21 15:41 Freq: Status: Active Protocol: Document 10/25/21 09:55 AMB (Rec: 10/25/21 10:07 AMB [id number]) OP-PT Subjective Patient Comments Patient Comments Back to using the compression sock, which is helping with the swelling. MD instructed to do more rest/ice due to increased swelling. PT-OP-G Mobility & Gait Start: 09/13/21 15:41 Freq: Status: Active Protocol: Document 09/23/21 10:30 AMB (Rec: 09/25/21 09:57 AMB [id number]) OP Gait Assessment Gait Gait Assistance Required: Standby Assistance Assistive Devices Assistive Device Front Wheeled Walker Gait Deviations General Gait Pattern Antalgic,Decreased Stride Length,Decreased Feet Clearance,Step-to Gait PT-OP-J Posture/Palpation/Skin Start: 09/13/21 15:41 Freq: Status: Active Protocol: Document 09/23/21 10:30 AMB (Rec: 09/25/21 09:57 AMB [id number]) Skin Assessment Other Assessments Skin Assessment Comments Edema throughout but not pitting, no extensive redness or bruising noted, pt wearing LEELA hose over wound covering. PT-OP-K Range of Motion Start: 09/13/21 15:41 Freq: Status: Active Protocol: Document 09/23/21 10:30 AMB (Rec: 09/25/21 09:57 AMB [id number]) Knee Goniometric Range of Motion Knee Left Flexion Active (degrees) 120 Extension Passive (degrees) 0 Right Flexion Active (degrees) 45 Flexion Passive (degrees) 50 Extension Active (degrees) 10 Extension Passive (degrees) 7 PT-OP-M Strength Start: 09/13/21 15:41 Freq: Status: Active Protocol: Document 09/23/21 10:30 AMB (Rec: 09/25/21 09:57 AMB [id number]) Knee Strength Knee Manual Muscle Testing Right Flexion (S2) 3 Fair Extension (L3) 3- Fair- Comments quad lag with SLR PT-OP-Q Treatments Start: 09/13/21 15:41 Freq: Status: Active Protocol: Document 10/25/21 09:55 AMB (Rec: 10/25/21 10:07 AMB [id number]) Cardio Equipment Recumbent Bicycle Duration (Minutes) 10 Seat Position 10 Other fwd/back- unable to make full revolution Gym Equipment Shuttle Recovery Unilateral Squats Resistance 50 Reps/Time 3x12 Manual Therapy Treatment Soft Tissue Mobilization 1 Body Location scar mobilization, edema massage Mobilization Type Instrument Assisted,Myofascial Release Body Position Hooklying Comments suction cups Joint Mobilizations 1 Joint AP and PA Grade III PT-OP-R Modalities Start: 09/13/21 15:41 Freq: Status: Active Protocol: Document 10/18/21 10:31 AMB (Rec: 10/18/21 10:31 AMB [id number]) Hot Pack/Cold Pack Treatment Cold Pack Patient Position Hooklying Treatment Duration (minutes) 10 PT-OP-T Assessment and Plan Start: 09/13/21 15:41 Freq: Status: Active Protocol: Document 10/25/21 09:55 AMB (Rec: 10/25/21 10:07 AMB [id number]) Physical Therapy Assessment Goals Two Impairment Gait Short Term Goal (STG) will ambulate without assistive device over smooth surfaces with step through gait patterning for 200'. STG Duration MET It Program Auditor Goal (LTG) will ascend and descend a flight of stairs with step over step gait. LTG Duration 8 weeks One Impairment ROM Short Term Goal (STG) will improve his active knee flexion to 90 degrees. STG Duration MET Alf Goal (LTG) will improve his AROM to 0-120 degrees. LTG Duration 8 weeks Assessment Summary Assessment had up to 97 degrees of flexion today. Swelling better managed with return to compression sock and more focused on rest/ icing at home . Physical Therapy Plan Next Visit Focus/Plan Next Note Type Treatment Note Next Visit Plan Progress strengthening, edema management.
--- NOTE | 2021-10-27 10:30 | PT.OTN ---
Current Diagnoses Unilateral primary osteoarthritis, right knee (10/27/21) Pain in right knee (10/27/21) Other abnormalities of gait and mobility (10/27/21) Physical Therapy Treatment Note PT-OP-A Visit Information Start: 09/13/21 15:41 Freq: Status: Active Protocol: Document 10/27/21 09:49 SP (Rec: 10/27/21 10:31 SP [id number]) Out-Patient Physical Therapy Visit Information Visit Information Visit Type Treatment Note Visit Note PN next tx 11th visit. Visit Start Time 09:49 Visit Stop Time 10:30 Total Visit Minutes 41 Visit Number 10 Number of [employer] Visits 1 PT-OP-B Current Condition Start: 09/13/21 15:41 Freq: Status: Active Protocol: Document 09/23/21 10:30 AMB (Rec: 09/23/21 11:16 AMB [id number]) Current Condition History of Current Condition Onset Date 09/15 Current Complaints R TKA History of Current Condition Day surgery RTKA reports was not given exercises, has been icing and doing ankle pumps. 3 steps to enter, uses cane and railing to enter house. Sees next Sunday. Does have pain in the left knee. Does enjoy boating- sailing. Has been sleeping in the recliner. Treatment Goals Patient/Caregiver Goals Be able to go boating this summer Personal Factors Other Personal Factors That May Effect L knee pain, hypertension Therapy/Recovery PT-OP-C Subjective Start: 09/13/21 15:41 Freq: Status: Active Protocol: Document 10/27/21 09:49 SP (Rec: 10/27/21 10:31 SP [id number]) OP-PT Subjective Patient Comments Patient Comments Pt arrived compression stocking donned, he reported swelling down to 19. compliant with HEP. Pt stated saw ortho on Sunday and was more concerned with swelling than lack ROM. Pt states wasn' t aware of potential decrease after affects post surgery. PT-OP-G Mobility & Gait Start: 09/13/21 15:41 Freq: Status: Active Protocol: Document 09/23/21 10:30 AMB (Rec: 09/25/21 09:57 AMB [id number]) OP Gait Assessment Gait Gait Assistance Required: Standby Assistance Assistive Devices Assistive Device Front Wheeled Walker Gait Deviations General Gait Pattern Antalgic,Decreased Stride Length,Decreased Feet Clearance,Step-to Gait PT-OP-J Posture/Palpation/Skin Start: 09/13/21 15:41 Freq: Status: Active Protocol: Document 09/23/21 10:30 AMB (Rec: 09/25/21 09:57 AMB [id number]) Skin Assessment Other Assessments Skin Assessment Comments Edema throughout but not pitting, no extensive redness or bruising noted, pt wearing LEELA hose over wound covering. PT-OP-K Range of Motion Start: 09/13/21 15:41 Freq: Status: Active Protocol: Document 10/27/21 09:49 SP (Rec: 10/27/21 10:31 SP [id number]) Knee Goniometric Range of Motion Knee Right Flexion Active (degrees) 99 Flexion Passive (degrees) 109 Extension Active (degrees) 8 Comments 55cm ball under foot w/strap AAROM 109 deg, 6 deg ext AROM quad set (foot over bolster). PT-OP-M Strength Start: 09/13/21 15:41 Freq: Status: Active Protocol: Document 09/23/21 10:30 AMB (Rec: 09/25/21 09:57 AMB [id number]) Knee Strength Knee Manual Muscle Testing Right Flexion (S2) 3 Fair Extension (L3) 3- Fair- Comments quad lag with SLR PT-OP-Q Treatments Start: 09/13/21 15:41 Freq: Status: Active Protocol: Document 10/27/21 09:49 SP (Rec: 10/27/21 10:31 SP [id number]) Cardio Equipment Recumbent Bicycle Duration (Minutes) 10 Resistance 0 Seat Position 10 Other fwd/back- unable to make full revolution Gym Equipment Shuttle Recovery Unilateral Squats Details R LE Resistance 50 Shuttle Recovery Platform Stable Reps/Time x30 Therapeutic Exercises Supine Exercises SLR Supine Exercise Name reviewed Side right Resistance AROM Equipment Used 6 deg lag Reps/Minutes x6 reps Comments tires after 6 reps, ed for only reps straight quad set lift SAQ Supine Exercise Name reviewed HEP Side right Resistance AROM Equipment Used over foam roller Reps/Minutes x10 3 sec hold heel slide Side right Resistance AAROM Equipment Used w/ strap over ball and on table Reps/Minutes 10 5 hold Comments 109 deg AAROM quad set Side right Equipment Used foot over foam roller Reps/Minutes 10 Comments good form, cued slow pacing control stretch flexion Standing Exercises heel raises Standing Exercise Name reviewed HEP Side bilateral Equipment Used rail Reps/Minutes 2x10 Comments good from 1 Standing Exercise Name mini squats at railing- reviewed HEP Equipment Used rail Reps/Minutes 10 Comments cued hip hinge pelvis back Gait Training Gait Activity stairs Device Used B HR Level of Assistance S Treatment Focus eccentric flexion R descend, support safety, quality sequencing Comments ascend/descend 4 stairs B HR, little decrease stance time RLE and eccentric flexion. SPC Device Used SPC Surface outdoor (gravel) Treatment Focus safety PT-OP-R Modalities Start: 09/13/21 15:41 Freq: Status: Active Protocol: Document 10/18/21 10:31 AMB (Rec: 10/18/21 10:31 AMB [id number]) Hot Pack/Cold Pack Treatment Cold Pack Patient Position Hooklying Treatment Duration (minutes) 10 PT-OP-T Assessment and Plan Start: 09/13/21 15:41 Freq: Status: Active Protocol: Document 10/27/21 09:49 SP (Rec: 10/27/21 10:31 SP [id number]) Physical Therapy Assessment Goals Two Impairment Gait Short Term Goal (STG) will ambulate without assistive device over smooth surfaces with step through gait patterning for 200'. STG Duration MET Senior Agricultural Assistant Goal (LTG) will ascend and descend a flight of stairs with step over step gait. 10/27/21: progressing: Pt stated cottage 20 steps BHR step over step, able perform 4 stairs receiprocal stepping B HR, didn't ask complete flights stairs, next tx. LTG Duration 8 weeks progressing One Impairment ROM Short Term Goal (STG) will improve his active knee flexion to 90 degrees. STG Duration MET Care Home Goal (LTG) will improve his AROM to 0-120 degrees. 10/27/21: progresin-99 deg AROM R knee, AAROM w/ strap 109 deg flexion. LTG Duration 8 weeks progressing Assessment Summary Assessment Pt improved increase AAROM w/ strap knee flexion, making gain into extension, ed for knee hangs at home and can add quad set to progress ROM. Pt states improved decrease swelling measurement, see subjective has compression stocking donned. No adverse affect to HEP. Added TKE for quad fac and extension with strengthening effort improved quality movement. Physical Therapy Plan Frequency and Duration Frequency of Treatment 2x/Week Duration of Treatment 8 weeks Plan of Care Start Date 09/23/21 Plan of Care End Date 11/18/21 Therapeutic Interventions Therapeutic Interventions Balance Training,Gait Training ,Home Exercise Program,Joint Mobilizations,Manual Therapy, Neuromuscular Re-education, Self-Care/Home Management,Soft Tissue Mobilization, Therapeutic Activities, Therapeutic Exercises Next Visit Focus/Plan Next Note Type Treatment Note Next Visit Plan Recheck swelling measurement and AROM/ AAROM. Wt shifts in mirror and gait phases w/ SPC next tx. POC: Progress strengthening, edema management.
--- NOTE | 2021-11-01 10:56 | PT.OTN ---
Current Diagnoses Unilateral primary osteoarthritis, right knee (11/01/21) Pain in right knee (11/01/21) Other abnormalities of gait and mobility (11/01/21) Physical Therapy Treatment Note PT-OP-A Visit Information Start: 09/13/21 15:41 Freq: Status: Active Protocol: Document 11/01/21 09:50 AMB (Rec: 11/01/21 10:55 AMB [id number]) Out-Patient Physical Therapy Visit Information Visit Information Visit Type Treatment Note Visit Start Time 09:50 Visit Stop Time 10:30 Total Visit Minutes 40 Visit Number 11 PT-OP-B Current Condition Start: 09/13/21 15:41 Freq: Status: Active Protocol: Document 09/23/21 10:30 AMB (Rec: 09/23/21 11:16 AMB [id number]) Current Condition History of Current Condition Onset Date 09/15 Current Complaints R TKA History of Current Condition Day surgery RTKA reports was not given exercises, has been icing and doing ankle pumps. 3 steps to enter, uses cane and railing to enter house. Sees next Sunday. Does have pain in the left knee. Does enjoy boating- sailing. Has been sleeping in the recliner. Treatment Goals Patient/Caregiver Goals Be able to go boating this summer Personal Factors Other Personal Factors That May Effect L knee pain, hypertension Therapy/Recovery PT-OP-C Subjective Start: 09/13/21 15:41 Freq: Status: Active Protocol: Document 11/01/21 09:50 AMB (Rec: 11/01/21 10:55 AMB [id number]) OP-PT Subjective Patient Comments Patient Comments has been using his compression sock. Got on and off his boat without problem over the weekend. PT-OP-G Mobility & Gait Start: 09/13/21 15:41 Freq: Status: Active Protocol: Document 09/23/21 10:30 AMB (Rec: 09/25/21 09:57 AMB [id number]) OP Gait Assessment Gait Gait Assistance Required: Standby Assistance Assistive Devices Assistive Device Front Wheeled Walker Gait Deviations General Gait Pattern Antalgic,Decreased Stride Length,Decreased Feet Clearance,Step-to Gait PT-OP-J Posture/Palpation/Skin Start: 09/13/21 15:41 Freq: Status: Active Protocol: Document 09/23/21 10:30 AMB (Rec: 09/25/21 09:57 AMB [id number]) Skin Assessment Other Assessments Skin Assessment Comments Edema throughout but not pitting, no extensive redness or bruising noted, pt wearing LEELA hose over wound covering. PT-OP-K Range of Motion Start: 09/13/21 15:41 Freq: Status: Active Protocol: Document 10/27/21 09:49 SP (Rec: 10/27/21 10:31 SP [id number]) Knee Goniometric Range of Motion Knee Right Flexion Active (degrees) 99 Flexion Passive (degrees) 109 Extension Active (degrees) 8 Comments 55cm ball under foot w/strap AAROM 109 deg, 6 deg ext AROM quad set (foot over bolster). PT-OP-M Strength Start: 09/13/21 15:41 Freq: Status: Active Protocol: Document 09/23/21 10:30 AMB (Rec: 09/25/21 09:57 AMB [id number]) Knee Strength Knee Manual Muscle Testing Right Flexion (S2) 3 Fair Extension (L3) 3- Fair- Comments quad lag with SLR PT-OP-Q Treatments Start: 09/13/21 15:41 Freq: Status: Active Protocol: Document 11/01/21 09:50 AMB (Rec: 11/01/21 10:55 AMB [id number]) Cardio Equipment Recumbent Bicycle Duration (Minutes) 10 Resistance 0 Seat Position 10 Other fwd/back- unable to make full revolution Therapeutic Exercises Sitting Exercises knee extension stretch Side right Reps/Minutes 30 hold knee flexion Side right Reps/Minutes 15 hold Standing Exercises sit to stand Reps/Minutes x5 Comments with cues to control and slow Gait Training Gait Activity SPC Device Used SPC Surface indoor Treatment Focus heel toe, arm swing, normalizing gait. Manual Therapy Treatment Soft Tissue Mobilization 1 Body Location scar mobilization, edema massage Mobilization Type Instrument Assisted,Myofascial Release Body Position Hooklying PT-OP-R Modalities Start: 09/13/21 15:41 Freq: Status: Active Protocol: Document 10/18/21 10:31 AMB (Rec: 10/18/21 10:31 AMB [id number]) Hot Pack/Cold Pack Treatment Cold Pack Patient Position Hooklying Treatment Duration (minutes) 10 PT-OP-T Assessment and Plan Start: 09/13/21 15:41 Freq: Status: Active Protocol: Document 11/01/21 09:50 AMB (Rec: 11/01/21 10:55 AMB [id number]) Physical Therapy Assessment Goals Two Impairment Gait Short Term Goal (STG) will ambulate without assistive device over smooth surfaces with step through gait patterning for 200'. STG Duration MET Diamond Driller Goal (LTG) will ascend and descend a flight of stairs with step over step gait. 10/27/21: progressing: Pt stated cottage 20 steps BHR step over step, able perform 4 stairs receiprocal stepping B HR, LTG Duration 8 weeks progressing One Impairment ROM Short Term Goal (STG) will improve his active knee flexion to 90 degrees. STG Duration MET Half-Way Goal (LTG) will improve his AROM to 0-120 degrees. 10/27/21: progresin-99 deg AROM R knee, AAROM w/ strap 109 deg flexion. LTG Duration 8 weeks progressing Assessment Summary Assessment 100 degrees of flexion today. Distal scar continues to be less mobile that proximal scar , swelling improved, but continues to mildly pit. Reviewed gait with pt, encouraged heel/toe pattern, to wear tennis shoes to PT. Physical Therapy Plan Next Visit Focus/Plan Next Note Type Treatment Note Next Visit Plan Recheck swelling measurement and AROM/ AAROM. Wt shifts in mirror and gait phases w/ SPC next tx. POC: Progress strengthening, edema management.
--- NOTE | 2021-11-03 10:30 | PT.OTN ---
Current Diagnoses Unilateral primary osteoarthritis, right knee (11/03/21) Pain in right knee (11/03/21) Other abnormalities of gait and mobility (11/03/21) Physical Therapy Treatment Note PT-OP-A Visit Information Start: 09/13/21 15:41 Freq: Status: Active Protocol: Document 11/03/21 09:51 SP (Rec: 11/03/21 10:34 SP [id number]) Out-Patient Physical Therapy Visit Information Visit Information Visit Type Treatment Note Visit Start Time 09:51 Visit Stop Time 10:30 Total Visit Minutes 39 Visit Number 12 Number of TONGUE STITCHER Visits 1 PT-OP-B Current Condition Start: 09/13/21 15:41 Freq: Status: Active Protocol: Document 09/23/21 10:30 AMB (Rec: 09/23/21 11:16 AMB [id number]) Current Condition History of Current Condition Onset Date 09/15 Current Complaints R TKA History of Current Condition Day surgery RTKA reports was not given exercises, has been icing and doing ankle pumps. 3 steps to enter, uses cane and railing to enter house. Sees next Sunday. Does have pain in the left knee. Does enjoy boating- sailing. Has been sleeping in the recliner. Treatment Goals Patient/Caregiver Goals Be able to go boating this summer Personal Factors Other Personal Factors That May Effect L knee pain, hypertension Therapy/Recovery PT-OP-C Subjective Start: 09/13/21 15:41 Freq: Status: Active Protocol: Document 11/03/21 09:51 SP (Rec: 11/03/21 10:34 SP [id number]) OP-PT Subjective Patient Comments Patient Comments Pt stated felt like went backwards with walking ability and swelling, increased swelling and not able put full wt on RLE today with heavily use of SPC. Yesterday was able to walk 1/4 mile but later in alot pain and swelling only ice and elevation could do. Pt states trying to be mindful physician stated limit distance gait. PT-OP-G Mobility & Gait Start: 09/13/21 15:41 Freq: Status: Active Protocol: Document 09/23/21 10:30 AMB (Rec: 09/25/21 09:57 AMB [id number]) OP Gait Assessment Gait Gait Assistance Required: Standby Assistance Assistive Devices Assistive Device Front Wheeled Walker Gait Deviations General Gait Pattern Antalgic,Decreased Stride Length,Decreased Feet Clearance,Step-to Gait PT-OP-J Posture/Palpation/Skin Start: 09/13/21 15:41 Freq: Status: Active Protocol: Document 09/23/21 10:30 AMB (Rec: 09/25/21 09:57 AMB [id number]) Skin Assessment Other Assessments Skin Assessment Comments Edema throughout but not pitting, no extensive redness or bruising noted, pt wearing LEELA hose over wound covering. PT-OP-K Range of Motion Start: 09/13/21 15:41 Freq: Status: Active Protocol: Document 10/27/21 09:49 SP (Rec: 10/27/21 10:31 SP [id number]) Knee Goniometric Range of Motion Knee Right Flexion Active (degrees) 99 Flexion Passive (degrees) 109 Extension Active (degrees) 8 Comments 55cm ball under foot w/strap AAROM 109 deg, 6 deg ext AROM quad set (foot over bolster). PT-OP-M Strength Start: 09/13/21 15:41 Freq: Status: Active Protocol: Document 09/23/21 10:30 AMB (Rec: 09/25/21 09:57 AMB [id number]) Knee Strength Knee Manual Muscle Testing Right Flexion (S2) 3 Fair Extension (L3) 3- Fair- Comments quad lag with SLR PT-OP-Q Treatments Start: 09/13/21 15:41 Freq: Status: Active Protocol: Document 11/03/21 09:51 SP (Rec: 11/03/21 10:34 SP [id number]) Therapeutic Exercises Supine Exercises heel slide Side right Resistance AAROM Equipment Used w/ strap over ball and on table Reps/Minutes 10 5 hold Comments 89-90 deg AAROM Gait Training Gait Activity SPC Device Used SPC Surface indoor Treatment Focus heel toe, arm swing, normalizing gait. Comments decreased RLE stance time, cued quad fac to prevent knee buckling. Manual Therapy Treatment Soft Tissue Mobilization 1 Body Location scar mobilization, edema massage Mobilization Type Instrument Assisted,Myofascial Release Intensity/Depth Superficial Body Position Hooklying Joint Mobilizations 1 Joint R patella mob Grade II Comments med/lat, inf, superior Manual Techniques swelling measurement Type R knee Comments pre,post: 5 cm above patella: 51.5cm, 52cm mid patella: 49cm, 49cm 5cm below patella: 41.5 cm, 41cm PT-OP-R Modalities Start: 09/13/21 15:41 Freq: Status: Active Protocol: Document 10/18/21 10:31 AMB (Rec: 10/18/21 10:31 AMB [id number]) Hot Pack/Cold Pack Treatment Cold Pack Patient Position Hooklying Treatment Duration (minutes) 10 PT-OP-T Assessment and Plan Start: 09/13/21 15:41 Freq: Status: Active Protocol: Document 11/03/21 09:51 SP (Rec: 11/03/21 10:34 SP [id number]) Physical Therapy Assessment Goals Two Impairment Gait Short Term Goal (STG) will ambulate without assistive device over smooth surfaces with step through gait patterning for 200'. STG Duration MET Fci Goal (LTG) will ascend and descend a flight of stairs with step over step gait. 10/27/21: progressing: Pt stated cottage 20 steps BHR step over step, able perform 4 stairs receiprocal stepping B HR, LTG Duration 8 weeks progressing One Impairment ROM Short Term Goal (STG) will improve his active knee flexion to 90 degrees. STG Duration MET Beam Builder Goal (LTG) will improve his AROM to 0-120 degrees. 10/27/21: progresin-99 deg AROM R knee, AAROM w/ strap 109 deg flexion. 11/03/21: R knee AAROM 89-90 deg w/ strap. LTG Duration 8 weeks progressing Progress Towards Goals Progress Comments decrease R knee flexion AAROM by 13-14 deg. Assessment Summary Assessment Pt decreased AAROM and noted increased swelling R knee today antalgic gait, decrease stance time RLE. Cued quad fac for safety stability R knee during gait. Pt no reduction in swelling measurements with manual or AAROM during tx. Declined modalities, will ice at home. Cued quad fac and please limit walking outside per prior instructions with noted swelling. Physical Therapy Plan Frequency and Duration Frequency of Treatment 2x/Week Duration of Treatment 8 weeks Plan of Care Start Date 09/23/21 Plan of Care End Date 11/18/21 Therapeutic Interventions Therapeutic Interventions Balance Training,Gait Training ,Home Exercise Program,Joint Mobilizations,Manual Therapy, Neuromuscular Re-education, Self-Care/Home Management,Soft Tissue Mobilization, Therapeutic Activities, Therapeutic Exercises Next Visit Focus/Plan Next Note Type Treatment Note Next Visit Plan Recheck swelling measurement and AROM/ AAROM. Wt shifts in mirror and gait phases w/ SPC next tx. POC: Progress strengthening, edema management.
--- NOTE | 2021-11-08 09:00 | PT.OTN ---
Addendum entered and electronically signed by Kirsten Sosa PTA 11/08/21 11:32: Pt maybe due for PN next visit, last seen end August. Original Note: Current Diagnoses Unilateral primary osteoarthritis, right knee (11/08/21) Pain in right knee (11/08/21) Other abnormalities of gait and mobility (11/08/21) Physical Therapy Treatment Note PT-OP-A Visit Information Start: 09/13/21 15:41 Freq: Status: Active Protocol: Document 11/08/21 08:21 SP (Rec: 11/08/21 09:03 SP [id number]) Out-Patient Physical Therapy Visit Information Visit Information Visit Type Treatment Note Visit Note Pt 5 min late for appt then used restroom. Visit Start Time 08:21 Visit Stop Time 09:00 Total Visit Minutes 39 Visit Number 13 Number of WEIGHT SHIFTER Visits 2 PT-OP-B Current Condition Start: 09/13/21 15:41 Freq: Status: Active Protocol: Document 09/23/21 10:30 AMB (Rec: 09/23/21 11:16 AMB [id number]) Current Condition History of Current Condition Onset Date 09/15 Current Complaints R TKA History of Current Condition Day surgery RTKA reports was not given exercises, has been icing and doing ankle pumps. 3 steps to enter, uses cane and railing to enter house. Sees next Sunday. Does have pain in the left knee. Does enjoy boating- sailing. Has been sleeping in the recliner. Treatment Goals Patient/Caregiver Goals Be able to go boating this summer Personal Factors Other Personal Factors That May Effect L knee pain, hypertension Therapy/Recovery PT-OP-C Subjective Start: 09/13/21 15:41 Freq: Status: Active Protocol: Document 11/08/21 08:21 SP (Rec: 11/08/21 09:03 SP [id number]) OP-PT Subjective Patient Comments Patient Comments Pt reported focused on edema mgt over the weekend and knows has lost ROM. Follows up with ortho Dr Gonzalez about 23 of November. PT-OP-G Mobility & Gait Start: 09/13/21 15:41 Freq: Status: Active Protocol: Document 09/23/21 10:30 AMB (Rec: 09/25/21 09:57 AMB [id number]) OP Gait Assessment Gait Gait Assistance Required: Standby Assistance Assistive Devices Assistive Device Front Wheeled Walker Gait Deviations General Gait Pattern Antalgic,Decreased Stride Length,Decreased Feet Clearance,Step-to Gait PT-OP-J Posture/Palpation/Skin Start: 09/13/21 15:41 Freq: Status: Active Protocol: Document 09/23/21 10:30 AMB (Rec: 09/25/21 09:57 AMB [id number]) Skin Assessment Other Assessments Skin Assessment Comments Edema throughout but not pitting, no extensive redness or bruising noted, pt wearing LEELA hose over wound covering. PT-OP-K Range of Motion Start: 09/13/21 15:41 Freq: Status: Active Protocol: Document 11/08/21 08:21 SP (Rec: 11/08/21 09:03 SP [id number]) Knee Goniometric Range of Motion Knee Right Knee ROM WFL No Patient Position Supine Flexion Active (degrees) 93 Flexion Passive (degrees) 95 Extension Active (degrees) 4 Extension Passive (degrees) 6 Comments foot on table. PT-OP-M Strength Start: 09/13/21 15:41 Freq: Status: Active Protocol: Document 09/23/21 10:30 AMB (Rec: 09/25/21 09:57 AMB [id number]) Knee Strength Knee Manual Muscle Testing Right Flexion (S2) 3 Fair Extension (L3) 3- Fair- Comments quad lag with SLR PT-OP-Q Treatments Start: 09/13/21 15:41 Freq: Status: Active Protocol: Document 11/08/21 08:21 SP (Rec: 11/08/21 09:03 SP [id number]) Cardio Equipment Bicycle (Upright) Duration (Minutes) 8 Resistance 1 Seat Position 11 Other rocking, pause 2 sec each direction Gym Equipment Shuttle Recovery Bilateral squat Details cued knee with toes (100 deg RLE) Resistance 62 Shuttle Recovery Platform Stable Reps/Time x20 Unilateral Squats Details R LE Resistance 50 Shuttle Recovery Platform Stable Reps/Time x30 Therapeutic Exercises Supine Exercises quad set Supine Exercise Name passive stretch, then QS Side right Resistance 10# leg wt on quad Equipment Used foot over foam roller Reps/Minutes 2 min Prone Exercises prone hang Prone Exercise Name added to HEP if tolerant on stomach (arms under chest, limited UE ROM) Reps/Minutes 30 sec Comments good tolerance Manual Therapy Treatment Soft Tissue Mobilization 1 Body Location scar mobilization, edema massage Mobilization Type Instrument Assisted,Myofascial Release Intensity/Depth Superficial Body Position Hooklying Joint Mobilizations 1 Joint R patella mob Grade II Comments med/lat, inf, superior Manual Techniques swelling measurement Type R knee Comments Measurements R knee: 5 cm above patella: 50 cm/19 3 /4 mid patella: 47.5cm/18 3/4 5 cm inferior patella: 41cm/ 16 1/4 PT-OP-R Modalities Start: 09/13/21 15:41 Freq: Status: Active Protocol: Document 10/18/21 10:31 AMB (Rec: 10/18/21 10:31 AMB [id number]) Hot Pack/Cold Pack Treatment Cold Pack Patient Position Hooklying Treatment Duration (minutes) 10 PT-OP-T Assessment and Plan Start: 09/13/21 15:41 Freq: Status: Active Protocol: Document 11/08/21 08:21 SP (Rec: 11/08/21 09:03 SP [id number]) Physical Therapy Assessment Goals Two Impairment Gait Short Term Goal (STG) will ambulate without assistive device over smooth surfaces with step through gait patterning for 200'. STG Duration MET Custodial Goal (LTG) will ascend and descend a flight of stairs with step over step gait. 10/27/21: progressing: Pt stated cottage 20 steps BHR step over step, able perform 4 stairs receiprocal stepping B HR, LTG Duration 8 weeks progressing One Impairment ROM Short Term Goal (STG) will improve his active knee flexion to 90 degrees. STG Duration MET Custodial Goal (LTG) will improve his AROM to 0-120 degrees. 10/27/21: progresin-99 deg AROM R knee, AAROM w/ strap 109 deg flexion. 11/03/21: R knee AAROM 89-90 deg w/ strap. 11/08/21: R knee AROM: 6-93 deg , PROM 4-95 deg. Imp LTG Duration 8 weeks progressing Progress Towards Goals Progress Comments Decrease R knee flexion/ extension 4-93 deg AROM, 95 deg PROM. Swelling mid patella decreased by approx 1.5 cm since last tx, see measurements. Assessment Summary Assessment Pt responded well to manual, instruction in self scar STMs 1st then fluid retrograde w/ lotion. He is compliant with ice elevation 3x/day with knee straight. Introduced knee hang supine w/ weight to encourage extension and prone hang up to 30 sec with good feedback response states doing TKE added last tx didn't get today. Encouraged to continue AAROM using strap with swelling awareness not over do and irritate knee more. Continue find balance activity and swelling response. Pt states always has compression sock on, removes sleeping. Physical Therapy Plan Frequency and Duration Frequency of Treatment 2x/Week Duration of Treatment 8 weeks Plan of Care Start Date 09/23/21 Plan of Care End Date 11/18/21 Therapeutic Interventions Therapeutic Interventions Balance Training,Gait Training ,Home Exercise Program,Joint Mobilizations,Manual Therapy, Neuromuscular Re-education, Self-Care/Home Management,Soft Tissue Mobilization, Therapeutic Activities, Therapeutic Exercises Next Visit Focus/Plan Next Note Type Treatment Note Next Visit Plan Recheck swelling measurement and AROM/ AAROM. Wt shifts in mirror and gait phases w/ SPC, functional ROM/ strength if tolerated next tx. POC: Progress strengthening, edema management.
--- NOTE | 2021-11-10 10:54 | PT.OTN ---
Current Diagnoses Unilateral primary osteoarthritis, right knee (11/10/21) Pain in right knee (11/10/21) Other abnormalities of gait and mobility (11/10/21) Physical Therapy Treatment Note PT-OP-A Visit Information Start: 09/13/21 15:41 Freq: Status: Active Protocol: Document 11/10/21 08:26 AMB (Rec: 11/10/21 08:30 AMB [id number]) Out-Patient Physical Therapy Visit Information Visit Information Visit Type Treatment Note Visit Start Time 08:20 Visit Stop Time 09:00 Total Visit Minutes 40 Visit Number 14 PT-OP-B Current Condition Start: 09/13/21 15:41 Freq: Status: Active Protocol: Document 09/23/21 10:30 AMB (Rec: 09/23/21 11:16 AMB [id number]) Current Condition History of Current Condition Onset Date 09/15 Current Complaints R TKA History of Current Condition Day surgery RTKA reports was not given exercises, has been icing and doing ankle pumps. 3 steps to enter, uses cane and railing to enter house. Sees next Sunday. Does have pain in the left knee. Does enjoy boating- sailing. Has been sleeping in the recliner. Treatment Goals Patient/Caregiver Goals Be able to go boating this summer Personal Factors Other Personal Factors That May Effect L knee pain, hypertension Therapy/Recovery PT-OP-C Subjective Start: 09/13/21 15:41 Freq: Status: Active Protocol: Document 11/10/21 08:50 AMB (Rec: 11/10/21 08:56 AMB [id number]) OP-PT Subjective Patient Comments Patient Comments Pt is hoping to get back on his tractor, sick of not doing anything PT-OP-G Mobility & Gait Start: 09/13/21 15:41 Freq: Status: Active Protocol: Document 09/23/21 10:30 AMB (Rec: 09/25/21 09:57 AMB [id number]) OP Gait Assessment Gait Gait Assistance Required: Standby Assistance Assistive Devices Assistive Device Front Wheeled Walker Gait Deviations General Gait Pattern Antalgic,Decreased Stride Length,Decreased Feet Clearance,Step-to Gait PT-OP-J Posture/Palpation/Skin Start: 09/13/21 15:41 Freq: Status: Active Protocol: Document 09/23/21 10:30 AMB (Rec: 09/25/21 09:57 AMB [id number]) Skin Assessment Other Assessments Skin Assessment Comments Edema throughout but not pitting, no extensive redness or bruising noted, pt wearing LEELA hose over wound covering. PT-OP-K Range of Motion Start: 09/13/21 15:41 Freq: Status: Active Protocol: Document 11/08/21 08:21 SP (Rec: 11/08/21 09:03 SP [id number]) Knee Goniometric Range of Motion Knee Right Knee ROM WFL No Patient Position Supine Flexion Active (degrees) 93 Flexion Passive (degrees) 95 Extension Active (degrees) 4 Extension Passive (degrees) 6 Comments foot on table. PT-OP-M Strength Start: 09/13/21 15:41 Freq: Status: Active Protocol: Document 09/23/21 10:30 AMB (Rec: 09/25/21 09:57 AMB [id number]) Knee Strength Knee Manual Muscle Testing Right Flexion (S2) 3 Fair Extension (L3) 3- Fair- Comments quad lag with SLR PT-OP-Q Treatments Start: 09/13/21 15:41 Freq: Status: Active Protocol: Document 11/10/21 08:50 AMB (Rec: 11/10/21 08:56 AMB [id number]) Cardio Equipment Bicycle (Upright) Duration (Minutes) 8 Resistance 1 Seat Position 11 Other rocking, pause 3 sec each direction Gym Equipment Shuttle Recovery Bilateral squat Details cued knee with toes (95 deg RLE) Resistance 62 Shuttle Recovery Platform Stable Reps/Time x20 Manual Therapy Treatment Soft Tissue Mobilization 1 Body Location scar mobilization, edema massage Mobilization Type Myofascial Release Intensity/Depth Superficial Body Position Hooklying Joint Mobilizations 1 Joint R patella mob Grade II Comments med/lat, inf, superior PT-OP-R Modalities Start: 09/13/21 15:41 Freq: Status: Active Protocol: Document 10/18/21 10:31 AMB (Rec: 10/18/21 10:31 AMB [id number]) Hot Pack/Cold Pack Treatment Cold Pack Patient Position Hooklying Treatment Duration (minutes) 10 PT-OP-T Assessment and Plan Start: 09/13/21 15:41 Freq: Status: Active Protocol: Document 11/10/21 08:26 AMB (Rec: 11/10/21 08:30 AMB [id number]) Physical Therapy Assessment Goals Two Impairment Gait Short Term Goal (STG) will ambulate without assistive device over smooth surfaces with step through gait patterning for 200'. STG Duration MET Med Dir Goal (LTG) will ascend and descend a flight of stairs with step over step gait. LTG Duration MET One Impairment ROM Short Term Goal (STG) will improve his active knee flexion to 90 degrees. STG Duration MET Med Dir Goal (LTG) will improve his AROM to 0-120 degrees. 10/27/21: progresin-99 deg AROM R knee, AAROM w/ strap 109 deg flexion. 11/03/21: R knee AAROM 89-90 deg w/ strap. 11/08/21: R knee AROM: 6-93 deg , PROM 4-95 deg. Imp LTG Duration 8 weeks --slow progression Assessment Summary Assessment has been struggling with his range of motion and swelling. At evaluation his flexion and extension ROM was very limited due to the patient not really understanding that he should be working on ROM post op. Then we started him with a HEP and he was very motivated with it and his ROM improved quite quickly. His knee has always been swollen, but unfortunately the swelling has not really improved as would normally be expected. has returned to using his compression sock and icing multiple times per day. The swelling continues to limit his flexibility, and when he really pushes his range, that seems to increase his swelling , so he is unfortunately in a swelling/reduced range of motion loop that has been difficult to break into. His range of motion has actually been decreased his last few visits to PT. He has been instructed to take multiple breaks throughout the day for elevation/icing, and to continue to progress his range of motion, but at his last two visists passive range was 4-95. Physical Therapy Plan Frequency and Duration Frequency of Treatment 2x/Week Duration of Treatment 6 weeks Plan of Care Start Date 11/10/21 Plan of Care End Date 12/22/21 Next Visit Focus/Plan Next Note Type Treatment Note Next Visit Plan Recheck swelling measurement and AROM/ AAROM. Wt shifts in mirror and gait phases w/ SPC, functional ROM/ strength if tolerated next tx. POC: Progress strengthening, edema management.
--- NOTE | 2021-11-10 10:55 | PT.OPPOC ---
Physical, Occupational & Speech Therapy At [facility] Current Diagnoses Unilateral primary osteoarthritis, right knee (11/10/21) Pain in right knee (11/10/21) Other abnormalities of gait and mobility (11/10/21) Visit Care Team Role Provider Type Johnathan Campbell MD Family Provider Non-Staff Primary Care Provider Specialty: Internal Medicine Address: [address] [place] [address], [id number] Email: Lupe Pena PA-C Attending Provider Non-Staff Referring Provider Specialty: Medical Address: [address] [place] [address], [phone] Email: Plan Of Care PT-OP-T Assessment and Plan Start: 09/13/21 15:41 Freq: Status: Active Protocol: Document 11/10/21 08:26 AMB (Rec: 11/10/21 08:30 [facility] [id number]) Physical Therapy Assessment Goals Two Impairment Gait Short Term Goal (STG) will ambulate without assistive device over smooth surfaces with step through gait patterning for 200'. STG Duration MET Intermediate Goal (LTG) will ascend and descend a flight of stairs with step over step gait. LTG Duration MET One Impairment ROM Short Term Goal (STG) will improve his active knee flexion to 90 degrees. STG Duration MET Roll Press Operator Goal (LTG) will improve his AROM to 0-120 degrees. 10/27/21: progresin-99 deg AROM R knee, AAROM w/ strap 109 deg flexion. 11/03/21: R knee AAROM 89-90 deg w/ strap. 11/08/21: R knee AROM: 6-93 deg , PROM 4-95 deg. Imp LTG Duration 8 weeks --slow progression Assessment Summary Assessment has been struggling with his range of motion and swelling. At evaluation his flexion and extension ROM was very limited due to the patient not really understanding that he should be working on ROM post op. Then we started him with a HEP and he was very motivated with it and his ROM improved quite quickly. His knee has always been swollen, but unfortunately the swelling has not really improved as would normally be expected. has returned to using his compression sock and icing multiple times per day. The swelling continues to limit his flexibility, and when he really pushes his range, that seems to increase his swelling , so he is unfortunately in a swelling/reduced range of motion loop that has been difficult to break into. His range of motion has actually been decreased his last few visits to PT. He has been instructed to take multiple breaks throughout the day for elevation/icing, and to continue to progress his range of motion, but at his last two visits passive range was 4-95. Physical Therapy Plan Frequency and Duration Frequency of Treatment 2x/Week Duration of Treatment 6 weeks Plan of Care Start Date 11/10/21 Plan of Care End Date 12/22/21 Next Visit Focus/Plan Next Note Type Treatment Note Next Visit Plan Recheck swelling measurement and AROM/ AAROM. Wt shifts in mirror and gait phases w/ SPC, functional ROM/ strength if tolerated next tx. POC: Progress strengthening, edema management. Plan of Care Dates Plan of Care Start Date 11/10/21 Plan of Care End Date 12/22/21 Electronically Signed by: Mary Gates, PT 11/13/21 0977 If you are in agreement with this Plan of Care, please return a signed and dated copy. I have reviewed this Plan of Care and certify that the skilled therapy services above are required to meet the patient?s needs. Physician Signature Date Printed Name and Credentials Clinical Instructor Signature Printed Name and Credentials
--- NOTE | 2021-11-15 09:05 | PT.OTN ---
Current Diagnoses Unilateral primary osteoarthritis, right knee (11/15/21) Pain in right knee (11/15/21) Other abnormalities of gait and mobility (11/15/21) Physical Therapy Treatment Note PT-OP-A Visit Information Start: 09/13/21 15:41 Freq: Status: Active Protocol: Document 11/15/21 08:20 SP (Rec: 11/15/21 09:49 SP [id number]) Out-Patient Physical Therapy Visit Information Visit Information Visit Type Treatment Note Visit Note pt arrived on time but needed use restroom. Visit Start Time 08:20 Visit Stop Time 09:05 Total Visit Minutes 45 Visit Number 15 Number of PILOT SAFETY INSPECTOR Visits 1 PT-OP-B Current Condition Start: 09/13/21 15:41 Freq: Status: Active Protocol: Document 09/23/21 10:30 AMB (Rec: 09/23/21 11:16 AMB [id number]) Current Condition History of Current Condition Onset Date 09/15 Current Complaints R TKA History of Current Condition Day surgery RTKA reports was not given exercises, has been icing and doing ankle pumps. 3 steps to enter, uses cane and railing to enter house. Sees next Sunday. Does have pain in the left knee. Does enjoy boating- sailing. Has been sleeping in the recliner. Treatment Goals Patient/Caregiver Goals Be able to go boating this summer Personal Factors Other Personal Factors That May Effect L knee pain, hypertension Therapy/Recovery PT-OP-C Subjective Start: 09/13/21 15:41 Freq: Status: Active Protocol: Document 11/15/21 08:20 SP (Rec: 11/15/21 09:49 SP [id number]) OP-PT Subjective Patient Comments Patient Comments Pt stated physician mentioned might consider a manipulation, pt didn't stated nor asked a timeline. Pt does his routine daily but took Sunday off of exercises. He is making an A frame to trail behind tractor, not strenuous. He stated is walking to shop about [address] away about 4x/ day (uneven gravel or wooded path) and takes brakes so sits in office. He stated hasn't gotten on the tractor but hasn 't had time yet, trying to complete projects. PT-OP-G Mobility & Gait Start: 09/13/21 15:41 Freq: Status: Active Protocol: Document 09/23/21 10:30 AMB (Rec: 09/25/21 09:57 AMB [id number]) OP Gait Assessment Gait Gait Assistance Required: Standby Assistance Assistive Devices Assistive Device Front Wheeled Walker Gait Deviations General Gait Pattern Antalgic,Decreased Stride Length,Decreased Feet Clearance,Step-to Gait PT-OP-J Posture/Palpation/Skin Start: 09/13/21 15:41 Freq: Status: Active Protocol: Document 09/23/21 10:30 AMB (Rec: 09/25/21 09:57 AMB [id number]) Skin Assessment Other Assessments Skin Assessment Comments Edema throughout but not pitting, no extensive redness or bruising noted, pt wearing LEELA hose over wound covering. PT-OP-K Range of Motion Start: 09/13/21 15:41 Freq: Status: Active Protocol: Document 11/15/21 08:20 SP (Rec: 11/15/21 09:49 SP [id number]) Knee Goniometric Range of Motion Knee Right Knee ROM WFL No Patient Position Supine Flexion Active (degrees) 103 Flexion Passive (degrees) 108 Comments 95 deg during up bike revolution f/b. PT-OP-M Strength Start: 09/13/21 15:41 Freq: Status: Active Protocol: Document 09/23/21 10:30 AMB (Rec: 09/25/21 09:57 AMB [id number]) Knee Strength Knee Manual Muscle Testing Right Flexion (S2) 3 Fair Extension (L3) 3- Fair- Comments quad lag with SLR PT-OP-Q Treatments Start: 09/13/21 15:41 Freq: Status: Active Protocol: Document 11/15/21 08:20 SP (Rec: 11/15/21 09:49 SP [id number]) Cardio Equipment Bicycle (Upright) Duration (Minutes) 15 Resistance 1 Seat Position 11 (95 deg) Other rocking then able forward revolutionlast 6 min fwd and bwd last 1 min Therapeutic Exercises Sitting Exercises knee flexion Sitting Exercise Name HS curls w/ band Side right Resistance Tb #2 Equipment Used seated green chair (blue foam unavailable) Reps/Minutes x10 Comments good response painfree/foot approx 90 deg AROM Standing Exercises step up downs Standing Exercise Name added toHEP Side right Equipment Used bottom step/rail Reps/Minutes 2x5 alternating BLE Comments concentric/eccentric- able light contact rail knee flexion AAROM Standing Exercise Name added to HEP Side right Equipment Used chair/ step with rail support Reps/Minutes x15 Comments lunge wt shift to encourage ROM TKE Standing Exercise Name reviewed HEP Side right Resistance TB #4 Reps/Minutes 2x10, hold 3 sec Comments conctact chair heel raises Standing Exercise Name reviewed HEP Side bilateral Equipment Used rail Reps/Minutes x10 Comments good form, ed emphasis R Gait Training Gait Activity SPC Description trunk alignment, hipabd /core fac and cued toe off R/ eccentric land LLE Device Used [facility] Level of Assistance S Surface indoor Distance/Duration 20 ft x4 laps forward Treatment Focus toe off R, eccentric land L, normalizing gait. Comments Improved gait phases with thoughtful focus morgan to almost normal. Neuro Re-Education Treatment Balance Activities miguel stepping Details R knee flexion and midstance phases Surface firm Equipment 1 miguel wt shift f/b RLE then forward/ lateral 6 hurdles w/ SPC Reps/Duration x10 over/back, 2 laps each Comments improved R knee flexion and eccentric landing AROM w/ miguel stepping improved stability. Improved self corrections alignment/form. Stated can assimulate kitchen floor lines on floor and emphasize increase ROM. PT-OP-R Modalities Start: 09/13/21 15:41 Freq: Status: Active Protocol: Document 10/18/21 10:31 AMB (Rec: 10/18/21 10:31 AMB [id number]) Hot Pack/Cold Pack Treatment Cold Pack Patient Position Hooklying Treatment Duration (minutes) 10 PT-OP-T Assessment and Plan Start: 09/13/21 15:41 Freq: Status: Active Protocol: Document 11/15/21 08:20 SP (Rec: 11/15/21 09:49 SP [id number]) Physical Therapy Assessment Goals Two Impairment Gait Short Term Goal (STG) will ambulate without assistive device over smooth surfaces with step through gait patterning for 200'. STG Duration MET Transcriptionist Goal (LTG) will ascend and descend a flight of stairs with step over step gait. LTG Duration MET One Impairment ROM Short Term Goal (STG) will improve his active knee flexion to 90 degrees. STG Duration MET Transcriptionist Goal (LTG) will improve his AROM to 0-120 degrees. 10/27/21: progresin-99 deg AROM R knee, AAROM w/ strap 109 deg flexion. 11/03/21: R knee AAROM 89-90 deg w/ strap. 11/08/21: R knee AROM: 6-93 deg , PROM 4-95 deg. Imp 11/15/21: R knee flexion 103, AAROM 110 deg self w/strap. LTG Duration 8 weeks --slow progression Assessment Summary Assessment Pt improved gait phases and increased AAROM, AROM by end of tx by 8-15 degrees. Is more aware of trunk/core/ hip abd awaress for normalizing gait phases. Added lunge stretch, HS curl TB and step up/downs today, no adverse affects to HEP with good demo. Physical Therapy Plan Frequency and Duration Frequency of Treatment 2x/Week Duration of Treatment 6 weeks Plan of Care Start Date 11/10/21 Plan of Care End Date 12/22/21 Therapeutic Interventions Therapeutic Interventions Balance Training,Gait Training ,Home Exercise Program,Joint Mobilizations,Manual Therapy, Neuromuscular Re-education, Self-Care/Home Management,Soft Tissue Mobilization, Therapeutic Activities, Therapeutic Exercises Next Visit Focus/Plan Next Note Type Treatment Note Next Visit Plan Recheck swelling measurement, bike and end tx AROM/ AAROM, ask rest elevation at shop rests/ try mower/ date considering manipulation. POC: continue functional ROM/ strength, edema management.
--- NOTE | 2021-11-17 15:42 | PT.OTN ---
Current Diagnoses Unilateral primary osteoarthritis, right knee (11/17/21) Pain in right knee (11/17/21) Other abnormalities of gait and mobility (11/17/21) Physical Therapy Treatment Note PT-OP-A Visit Information Start: 09/13/21 15:41 Freq: Status: Active Protocol: Document 11/17/21 14:35 AMB (Rec: 11/17/21 15:26 AMB [id number]) Out-Patient Physical Therapy Visit Information Visit Information Visit Type Treatment Note Visit Note pt arrived on time but needed use restroom. Visit Start Time 14:30 Visit Stop Time 15:15 Total Visit Minutes 45 Visit Number 16 PT-OP-B Current Condition Start: 09/13/21 15:41 Freq: Status: Active Protocol: Document 09/23/21 10:30 AMB (Rec: 09/23/21 11:16 AMB [id number]) Current Condition History of Current Condition Onset Date 09/15 Current Complaints R TKA History of Current Condition Day surgery RTKA reports was not given exercises, has been icing and doing ankle pumps. 3 steps to enter, uses cane and railing to enter house. Sees next Sunday. Does have pain in the left knee. Does enjoy boating- sailing. Has been sleeping in the recliner. Treatment Goals Patient/Caregiver Goals Be able to go boating this summer Personal Factors Other Personal Factors That May Effect L knee pain, hypertension Therapy/Recovery PT-OP-C Subjective Start: 09/13/21 15:41 Freq: Status: Active Protocol: Document 11/17/21 14:35 AMB (Rec: 11/17/21 15:26 AMB [id number]) OP-PT Subjective Patient Comments Patient Comments Pt states he is worried about manipulation, but that he has MD appointment next week. Educated pt that he would definitely need more PT if he does elect to get manip, as pt has been hesitant to schedule more because he is planning on having other knee done later this year and wants to conserve PT appts. PT-OP-G Mobility & Gait Start: 09/13/21 15:41 Freq: Status: Active Protocol: Document 09/23/21 10:30 AMB (Rec: 09/25/21 09:57 AMB [id number]) OP Gait Assessment Gait Gait Assistance Required: Standby Assistance Assistive Devices Assistive Device Front Wheeled Walker Gait Deviations General Gait Pattern Antalgic,Decreased Stride Length,Decreased Feet Clearance,Step-to Gait PT-OP-J Posture/Palpation/Skin Start: 09/13/21 15:41 Freq: Status: Active Protocol: Document 09/23/21 10:30 AMB (Rec: 09/25/21 09:57 AMB [id number]) Skin Assessment Other Assessments Skin Assessment Comments Edema throughout but not pitting, no extensive redness or bruising noted, pt wearing LEELA hose over wound covering. PT-OP-K Range of Motion Start: 09/13/21 15:41 Freq: Status: Active Protocol: Document 11/15/21 08:20 SP (Rec: 11/15/21 09:49 SP [id number]) Knee Goniometric Range of Motion Knee Right Knee ROM WFL No Patient Position Supine Flexion Active (degrees) 103 Flexion Passive (degrees) 108 Comments 95 deg during up bike revolution f/b. PT-OP-M Strength Start: 09/13/21 15:41 Freq: Status: Active Protocol: Document 09/23/21 10:30 AMB (Rec: 09/25/21 09:57 AMB [id number]) Knee Strength Knee Manual Muscle Testing Right Flexion (S2) 3 Fair Extension (L3) 3- Fair- Comments quad lag with SLR PT-OP-Q Treatments Start: 09/13/21 15:41 Freq: Status: Active Protocol: Document 11/17/21 14:35 AMB (Rec: 11/17/21 15:26 AMB [id number]) Cardio Equipment Bicycle (Upright) Duration (Minutes) 10 Seat Position 11 (95deg) Other able to make full revolution from beginning Gym Equipment Shuttle Recovery Bilateral squat Details cued knee with toes (95 deg RLE) Resistance 62 Shuttle Recovery Platform Stable Reps/Time x10 Unilateral Squats Resistance 50 Reps/Time x20 Therapeutic Exercises Standing Exercises lunges Standing Exercise Name forward at rail Side bilateral Reps/Minutes 2x10 Comments mini Therapeutic Activity Therapeutic Activity floor transfers Comments Pt required UE support and environmental support, but was able to move from sitting on the floor to standing with Modified [facility] PT-OP-R Modalities Start: 09/13/21 15:41 Freq: Status: Active Protocol: Document 11/17/21 14:30 AMB (Rec: 11/17/21 15:29 AMB [id number]) Hot Pack/Cold Pack Treatment Cold Pack Patient Position Hooklying Treatment Duration (minutes) 10 PT-OP-T Assessment and Plan Start: 09/13/21 15:41 Freq: Status: Active Protocol: Document 11/17/21 14:35 AMB (Rec: 11/17/21 15:26 AMB [id number]) Physical Therapy Assessment Goals Two Impairment Gait Short Term Goal (STG) will ambulate without assistive device over smooth surfaces with step through gait patterning for 200'. STG Duration MET [facility] Goal (LTG) will ascend and descend a flight of stairs with step over step gait. LTG Duration MET One Impairment ROM Short Term Goal (STG) will improve his active knee flexion to 90 degrees. STG Duration MET [facility] Goal (LTG) will improve his AROM to 0-120 degrees. 10/27/21: progresin-99 deg AROM R knee, AAROM w/ strap 109 deg flexion. 11/03/21: R knee AAROM 89-90 deg w/ strap. 11/08/21: R knee AROM: 6-93 deg , PROM 4-95 deg. Imp 11/15/21: R knee flexion 103, AAROM 110 deg self w/strap. LTG Duration 8 weeks --slow progression Assessment Summary Assessment Pt sees next Sunday, has been elevating leg every few hours at home and icing. Swelling increases by about .5 -1cm per pt report. More of his swelling was lateral today , more around fibular head and even distal to that. Encouraged pt that his ROM is better than it was last week. Physical Therapy Plan Next Visit Focus/Plan Next Note Type Treatment Note Next Visit Plan Recheck swelling measurement, POC: continue functional ROM/ strength, edema management.
--- NOTE | 2021-11-17 15:46 | PT.OTN ---
Current Diagnoses Unilateral primary osteoarthritis, right knee (11/17/21) Pain in right knee (11/17/21) Other abnormalities of gait and mobility (11/17/21) Physical Therapy Treatment Note PT-OP-A Visit Information Start: 09/13/21 15:41 Freq: Status: Active Protocol: Document 11/17/21 14:35 AMB (Rec: 11/17/21 15:26 AMB [id number]) Out-Patient Physical Therapy Visit Information Visit Information Visit Type Treatment Note Visit Note pt arrived on time but needed use restroom. Visit Start Time 14:30 Visit Stop Time 15:15 Total Visit Minutes 45 Visit Number 16 PT-OP-B Current Condition Start: 09/13/21 15:41 Freq: Status: Active Protocol: Document 09/23/21 10:30 AMB (Rec: 09/23/21 11:16 AMB [id number]) Current Condition History of Current Condition Onset Date 09/15 Current Complaints R TKA History of Current Condition Day surgery RTKA reports was not given exercises, has been icing and doing ankle pumps. 3 steps to enter, uses cane and railing to enter house. Sees next Sunday. Does have pain in the left knee. Does enjoy boating- sailing. Has been sleeping in the recliner. Treatment Goals Patient/Caregiver Goals Be able to go boating this summer Personal Factors Other Personal Factors That May Effect L knee pain, hypertension Therapy/Recovery PT-OP-C Subjective Start: 09/13/21 15:41 Freq: Status: Active Protocol: Document 11/17/21 14:35 AMB (Rec: 11/17/21 15:26 AMB [id number]) OP-PT Subjective Patient Comments Patient Comments Pt states he is worried about manipulation, but that he has MD appointment next week. Educated pt that he would definitely need more PT if he does elect to get manip, as pt has been hesitant to schedule more because he is planning on having other knee done later this year and wants to conserve PT appts. PT-OP-G Mobility & Gait Start: 09/13/21 15:41 Freq: Status: Active Protocol: Document 09/23/21 10:30 AMB (Rec: 09/25/21 09:57 AMB [id number]) OP Gait Assessment Gait Gait Assistance Required: Standby Assistance Assistive Devices Assistive Device Front Wheeled Walker Gait Deviations General Gait Pattern Antalgic,Decreased Stride Length,Decreased Feet Clearance,Step-to Gait PT-OP-J Posture/Palpation/Skin Start: 09/13/21 15:41 Freq: Status: Active Protocol: Document 09/23/21 10:30 AMB (Rec: 09/25/21 09:57 AMB [id number]) Skin Assessment Other Assessments Skin Assessment Comments Edema throughout but not pitting, no extensive redness or bruising noted, pt wearing LEELA hose over wound covering. PT-OP-K Range of Motion Start: 09/13/21 15:41 Freq: Status: Active Protocol: Document 11/15/21 08:20 SP (Rec: 11/15/21 09:49 SP [id number]) Knee Goniometric Range of Motion Knee Right Knee ROM WFL No Patient Position Supine Flexion Active (degrees) 103 Flexion Passive (degrees) 108 Comments 95 deg during up bike revolution f/b. PT-OP-M Strength Start: 09/13/21 15:41 Freq: Status: Active Protocol: Document 09/23/21 10:30 AMB (Rec: 09/25/21 09:57 AMB [id number]) Knee Strength Knee Manual Muscle Testing Right Flexion (S2) 3 Fair Extension (L3) 3- Fair- Comments quad lag with SLR PT-OP-Q Treatments Start: 09/13/21 15:41 Freq: Status: Active Protocol: Document 11/17/21 14:35 AMB (Rec: 11/17/21 15:26 AMB [id number]) Cardio Equipment Bicycle (Upright) Duration (Minutes) 10 Seat Position 11 (95deg) Other able to make full revolution from beginning Gym Equipment Shuttle Recovery Bilateral squat Details cued knee with toes (95 deg RLE) Resistance 62 Shuttle Recovery Platform Stable Reps/Time x10 Unilateral Squats Resistance 50 Reps/Time x20 Therapeutic Exercises Standing Exercises lunges Standing Exercise Name forward at rail Side bilateral Reps/Minutes 2x10 Comments mini Therapeutic Activity Therapeutic Activity floor transfers Comments Pt required UE support and environmental support, but was able to move from sitting on the floor to standing with Modified [facility] Manual Therapy Treatment Soft Tissue Mobilization 1 Body Location scar mobilization, edema massage Mobilization Type Myofascial Release Intensity/Depth Superficial Body Position Hooklying PT-OP-R Modalities Start: 09/13/21 15:41 Freq: Status: Active Protocol: Document 11/17/21 14:30 AMB (Rec: 11/17/21 15:29 AMB [id number]) Hot Pack/Cold Pack Treatment Cold Pack Patient Position Hooklying Treatment Duration (minutes) 10 PT-OP-T Assessment and Plan Start: 09/13/21 15:41 Freq: Status: Active Protocol: Document 11/17/21 14:35 AMB (Rec: 11/17/21 15:26 AMB [id number]) Physical Therapy Assessment Goals Two Impairment Gait Short Term Goal (STG) will ambulate without assistive device over smooth surfaces with step through gait patterning for 200'. STG Duration MET [facility] Goal (LTG) will ascend and descend a flight of stairs with step over step gait. LTG Duration MET One Impairment ROM Short Term Goal (STG) will improve his active knee flexion to 90 degrees. STG Duration MET [employer] Goal (LTG) will improve his AROM to 0-120 degrees. 10/27/21: progresin-99 deg AROM R knee, AAROM w/ strap 109 deg flexion. 11/03/21: R knee AAROM 89-90 deg w/ strap. 11/08/21: R knee AROM: 6-93 deg , PROM 4-95 deg. Imp 11/15/21: R knee flexion 103, AAROM 110 deg self w/strap. LTG Duration 8 weeks --slow progression Assessment Summary Assessment Pt sees next Sunday, has been elevating leg every few hours at home and icing. Swelling increases by about .5 -1cm per pt report. More of his swelling was lateral today , more around fibular head and even distal to that. Encouraged pt that his ROM is better than it was last week. Physical Therapy Plan Next Visit Focus/Plan Next Note Type Treatment Note Next Visit Plan Recheck swelling measurement, POC: continue functional ROM/ strength, edema management.
--- NOTE | 2021-11-22 09:02 | PT.OTN ---
Current Diagnoses Unilateral primary osteoarthritis, right knee (11/22/21) Pain in right knee (11/22/21) Other abnormalities of gait and mobility (11/22/21) Physical Therapy Treatment Note PT-OP-A Visit Information Start: 09/13/21 15:41 Freq: Status: Active Protocol: Document 11/22/21 08:30 SP (Rec: 11/22/21 09:05 SP [id number]) Out-Patient Physical Therapy Visit Information Visit Information Visit Type Treatment Note Visit Note Pt 12 min late then used restroom, 15 min beginning tx. 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 3 steps to enter, uses cane and railing to enter house. Sees next Sunday. Does have pain in the left knee. Does enjoy boating- sailing. Has been sleeping in the recliner. 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 Measuring 19-19 1/4 swelling in R knee. See Dr Gonzalez tomorrow and hoping don't have to have manipulation will have report next PT 11/24. PT-OP-G Mobility & Gait Start: 09/13/21 15:41 Freq: Status: Active Protocol: Document 09/23/21 10:30 AMB (Rec: 09/25/21 09:57 AMB [id number]) OP Gait Assessment Gait Gait Assistance Required: Standby Assistance Assistive Devices Assistive Device Front Wheeled Walker Gait Deviations General Gait Pattern Antalgic,Decreased Stride Length,Decreased Feet Clearance,Step-to Gait PT-OP-J Posture/Palpation/Skin Start: 09/13/21 15:41 Freq: Status: Active Protocol: Document 09/23/21 10:30 AMB (Rec: 09/25/21 09:57 AMB [id number]) Skin Assessment Other Assessments Skin Assessment Comments Edema throughout but not pitting, no extensive redness or bruising noted, pt wearing LEELA hose over wound covering. PT-OP-K Range of Motion Start: 09/13/21 15:41 Freq: Status: Active Protocol: Document 11/22/21 08:30 SP (Rec: 11/22/21 09:05 SP [id number]) Knee Goniometric Range of Motion Knee Right Knee ROM WFL No Patient Position Supine Flexion Active (degrees) 103 Flexion Passive (degrees) 108 Comments 95 deg during up bike revolution f/b. PT-OP-M Strength Start: 09/13/21 15:41 Freq: Status: Active Protocol: Document 09/23/21 10:30 AMB (Rec: 09/25/21 09:57 AMB [id number]) Knee Strength Knee Manual Muscle Testing Right Flexion (S2) 3 Fair Extension (L3) 3- Fair- Comments quad lag with SLR PT-OP-Q Treatments Start: 09/13/21 15:41 Freq: Status: Active Protocol: Document 11/22/21 08:30 SP (Rec: 11/22/21 09:05 SP [id number]) Cardio Equipment Bicycle (Upright) Duration (Minutes) 8 Seat Position 10> 9>8 (100deg) Other full revolutions, cued try rocking to side knees/feet // Therapeutic Exercises Standing Exercises calf stretch Standing Exercise Name added to HEP Side right Equipment Used JUSTINE (will make for home) Reps/Minutes 30 x3 Comments good form knee flexion AAROM Standing Exercise Name lunge AAROM Side right Equipment Used chair home- 16 box step Reps/Minutes x15, pause 3 sec Comments 104deg R knee flexion heel raises Standing Exercise Name reviewed HEP: 1. standing at rail, 2. over JUSTINE for home MWM assist better Side bilateral Equipment Used rail, rocking over JUSTINE (will make for home) Reps/Minutes x10 Comments good form, ed emphasis R, improved toe off gastroc fac sit to stand Standing Exercise Name eccentric> concentric for AAROM Equipment Used 1 UE support Reps/Minutes x5 Comments with cues to control and slow PT-OP-R Modalities Start: 09/13/21 15:41 Freq: Status: Active Protocol: Document 11/17/21 14:30 AMB (Rec: 11/17/21 15:29 AMB [id number]) Hot Pack/Cold Pack Treatment Cold Pack Patient Position Hooklying Treatment Duration (minutes) 10 PT-OP-T Assessment and Plan Start: 09/13/21 15:41 Freq: Status: Active Protocol: Document 11/22/21 08:30 SP (Rec: 11/22/21 09:05 SP [id number]) Physical Therapy Assessment Goals Two Impairment Gait Short Term Goal (STG) will ambulate without assistive device over smooth surfaces with step through gait patterning for 200'. STG Duration MET [facility] Goal (LTG) will ascend and descend a flight of stairs with step over step gait. LTG Duration MET One Impairment ROM Short Term Goal (STG) will improve his active knee flexion to 90 degrees. STG Duration MET [facility] Goal (LTG) will improve his AROM to 0-120 degrees. 10/27/21: progresin-99 deg AROM R knee, AAROM w/ strap 109 deg flexion. 11/03/21: R knee AAROM 89-90 deg w/ strap. 11/08/21: R knee AROM: 6-93 deg , PROM 4-95 deg. Imp 11/15/21: R knee flexion 103, AAROM 110 deg self w/strap. 11/22/21: R knee flexion AAROM 100 deg upbike (seat 9), 104 deg lunge AAROM. Didn't measure supine today. LTG Duration 8 weeks --slow progression Assessment Summary Assessment Tx focused on ROM with limited tx time 15 min late. Pt making improvements in R knee flexion AAROM 104 deg end tx. Added calf stretching and toe off calf raises on R using JUSTINE , pt stated helped and will make one for home. Pt able to ascend/descend STS 1 UE support with cues hip hinge and allow knees bend to complete sit to encourage ROM. Discussed AAROM R knee at car before enter appt. Physical Therapy Plan Frequency and Duration Frequency of Treatment 2x/Week Duration of Treatment 6 weeks Plan of Care Start Date 11/10/21 Plan of Care End Date 12/22/21 Therapeutic Interventions Therapeutic Interventions Balance Training,Gait Training ,Home Exercise Program,Joint Mobilizations,Manual Therapy, Neuromuscular Re-education, Self-Care/Home Management,Soft Tissue Mobilization, Therapeutic Activities, Therapeutic Exercises Next Visit Focus/Plan Next Note Type Treatment Note Next Visit Plan Recheck swelling measurement, AROM/ AAROM supine pre/ end tx . Ask response to ortho appt . POC: continue functional ROM/ strength, edema management.
--- NOTE | 2021-11-24 09:03 | PT.OTN ---
Current Diagnoses Unilateral primary osteoarthritis, right knee (11/24/21) Pain in right knee (11/24/21) Other abnormalities of gait and mobility (11/24/21) Physical Therapy Treatment Note PT-OP-A Visit Information Start: 09/13/21 15:41 Freq: Status: Active Protocol: Document 11/24/21 08:25 SP (Rec: 11/24/21 09:05 SP [id number]) Out-Patient Physical Therapy Visit Information Visit Information Visit Type Treatment Note Visit Note 10 min late for appt today. 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 3 steps to enter, uses cane and railing to enter house. Sees next Sunday. Does have pain in the left knee. Does enjoy boating- sailing. Has been sleeping in the recliner. Treatment Goals Patient/Caregiver Goals Be able to go boating this summer Personal Factors Other Personal Factors That May Effect L knee pain, hypertension Therapy/Recovery PT-OP-C Subjective Start: 09/13/21 15:41 Freq: Status: Active Protocol: Document 11/24/21 08:25 SP (Rec: 11/24/21 09:05 SP [id number]) OP-PT Subjective Patient Comments Patient Comments Pt was able to drive to appt today, first time. He reports follow up with Dr priti was pleased with AROM 110deg taken in sitting as soon as arrived , but stated did do some self ROM before entering office to warm up. Was suggested 1 more month of PT then release to own progression. Pt considering L knee in Jun. PT-OP-G Mobility & Gait Start: 09/13/21 15:41 Freq: Status: Active Protocol: Document 09/23/21 10:30 AMB (Rec: 09/25/21 09:57 AMB [id number]) OP Gait Assessment Gait Gait Assistance Required: Standby Assistance Assistive Devices Assistive Device Front Wheeled Walker Gait Deviations General Gait Pattern Antalgic,Decreased Stride Length,Decreased Feet Clearance,Step-to Gait PT-OP-J Posture/Palpation/Skin Start: 09/13/21 15:41 Freq: Status: Active Protocol: Document 09/23/21 10:30 AMB (Rec: 09/25/21 09:57 AMB [id number]) Skin Assessment Other Assessments Skin Assessment Comments Edema throughout but not pitting, no extensive redness or bruising noted, pt wearing LEELA hose over wound covering. PT-OP-K Range of Motion Start: 09/13/21 15:41 Freq: Status: Active Protocol: Document 11/24/21 08:25 SP (Rec: 11/24/21 09:05 SP [id number]) Knee Goniometric Range of Motion Knee Right Knee ROM WFL No Patient Position Supine Flexion Active (degrees) 108 Flexion Passive (degrees) 112 Extension Active (degrees) 6 Comments 105 upright bike full revolution end, seat 7 relaxed propped up on roll 8deg extension, 6 degrees durign quad set. PT-OP-M Strength Start: 09/13/21 15:41 Freq: Status: Active Protocol: Document 09/23/21 10:30 AMB (Rec: 09/25/21 09:57 AMB [id number]) Knee Strength Knee Manual Muscle Testing Right Flexion (S2) 3 Fair Extension (L3) 3- Fair- Comments quad lag with SLR PT-OP-Q Treatments Start: 09/13/21 15:41 Freq: Status: Active Protocol: Document 11/24/21 08:25 SP (Rec: 11/24/21 09:05 SP [id number]) Cardio Equipment Bicycle (Upright) Duration (Minutes) 8 Seat Position 8>7 (105 deg) Other full revolutions, cued ankle ROM and // Therapeutic Exercises Sidelying Exercises self STMs Sidelying Exercise Name added to HEP for flexibility- quad, HS, calf, ITB Side right Equipment Used rolling pin (luke rosario) Comments manual and self application Manual Therapy Treatment Soft Tissue Mobilization quad, HS, calf Body Location R Mobilization Type Instrument Assisted,Myofascial Release Intensity/Depth Moderate Body Position Prone, supine, sitting Comments manual and rolling pin, then instruction with pt use rolling pin application for home. 1 Body Location scar mobilization, edema massage retrograde Mobilization Type Myofascial Release Intensity/Depth Moderate Body Position Sitting Comments manual and instruct self Joint Mobilizations L patella femoral Joint R Direction med/lat/inf/ sup Grade II Body Position Supine Comments manual 1 Joint R femorotibial jt Direction AP Grade II Body Position Hooklying Comments good response, improve mobility PT-OP-R Modalities Start: 09/13/21 15:41 Freq: Status: Active Protocol: Document 11/17/21 14:30 AMB (Rec: 11/17/21 15:29 AMB [id number]) Hot Pack/Cold Pack Treatment Cold Pack Patient Position Hooklying Treatment Duration (minutes) 10 PT-OP-T Assessment and Plan Start: 09/13/21 15:41 Freq: Status: Active Protocol: Document 11/24/21 08:25 SP (Rec: 11/24/21 09:05 SP [id number]) Physical Therapy Assessment Goals Two Impairment Gait Short Term Goal (STG) will ambulate without assistive device over smooth surfaces with step through gait patterning for 200'. STG Duration MET Chcf Goal (LTG) will ascend and descend a flight of stairs with step over step gait. LTG Duration MET One Impairment ROM Short Term Goal (STG) will improve his active knee flexion to 90 degrees. STG Duration MET Chcf Goal (LTG) will improve his AROM to 0-120 degrees. 10/27/21: progresin-99 deg AROM R knee, AAROM w/ strap 109 deg flexion. 11/03/21: R knee AAROM 89-90 deg w/ strap. 11/08/21: R knee AROM: 6-93 deg , PROM 4-95 deg. Imp 11/15/21: R knee flexion 103, AAROM 110 deg self w/strap. 11/22/21: R knee flexion AAROM 100 deg upbike (seat 9), 104 deg lunge AAROM. Didn't measure supine today. LTG Duration 8 weeks --slow progression Assessment Summary Assessment Pt able to complete full revolutions and lower to seat 7 end tx, gained 5 deg flexion . He has very tight rectus femoris noted supine when lower leg draped off table, foot elevated approx 70deg R knee flexion, instructed self application at home along with scar mobilty to assist increase decrease tension allow flexion. Pt stated will perform rest of HEP flexion ROM and use CP at home later. Found manual ed/ assist this tx good compliment and noted increase ROM 108* AROM, 112* PROM. Physical Therapy Plan Frequency and Duration Frequency of Treatment 2x/Week Duration of Treatment 6 weeks Plan of Care Start Date 11/10/21 Plan of Care End Date 12/22/21 Therapeutic Interventions Therapeutic Interventions Balance Training,Gait Training ,Home Exercise Program,Joint Mobilizations,Manual Therapy, Neuromuscular Re-education, Self-Care/Home Management,Soft Tissue Mobilization, Therapeutic Activities, Therapeutic Exercises Next Visit Focus/Plan Next Note Type Treatment Note Next Visit Plan Recheck swelling and ROM measurements, response to manual and self at home. POC: continue functional ROM/ strength, edema management.
--- NOTE | 2021-11-29 10:08 | PT.OTN ---
Current Diagnoses Unilateral primary osteoarthritis, right knee (11/29/21) Pain in right knee (11/29/21) Other abnormalities of gait and mobility (11/29/21) Physical Therapy Treatment Note PT-OP-A Visit Information Start: 09/13/21 15:41 Freq: Status: Active Protocol: Document 11/29/21 07:40 AMB (Rec: 11/29/21 08:17 AMB [id number]) Out-Patient Physical Therapy Visit Information Visit Information Visit Type Treatment Note Visit Start Time 07:30 Visit Stop Time 08:15 Total Visit Minutes 45 Visit Number 19 PT-OP-B Current Condition Start: 09/13/21 15:41 Freq: Status: Active Protocol: Document 09/23/21 10:30 AMB (Rec: 09/23/21 11:16 AMB [id number]) Current Condition History of Current Condition Onset Date 09/15 Current Complaints R TKA History of Current Condition Day surgery RTKA reports was not given exercises, has been icing and doing ankle pumps. 3 steps to enter, uses cane and railing to enter house. Sees next Sunday. Does have pain in the left knee. Does enjoy boating- sailing. Has been sleeping in the recliner. Treatment Goals Patient/Caregiver Goals Be able to go boating this summer Personal Factors Other Personal Factors That May Effect L knee pain, hypertension Therapy/Recovery PT-OP-C Subjective Start: 09/13/21 15:41 Freq: Status: Active Protocol: Document 11/29/21 07:40 AMB (Rec: 11/29/21 08:17 AMB [id number]) OP-PT Subjective Patient Comments Patient Comments Pt has been wearing compression sock all day and night. Wondering if he can start not wearing it as much. PT-OP-G Mobility & Gait Start: 09/13/21 15:41 Freq: Status: Active Protocol: Document 09/23/21 10:30 AMB (Rec: 09/25/21 09:57 AMB [id number]) OP Gait Assessment Gait Gait Assistance Required: Standby Assistance Assistive Devices Assistive Device Front Wheeled Walker Gait Deviations General Gait Pattern Antalgic,Decreased Stride Length,Decreased Feet Clearance,Step-to Gait PT-OP-J Posture/Palpation/Skin Start: 09/13/21 15:41 Freq: Status: Active Protocol: Document 09/23/21 10:30 AMB (Rec: 09/25/21 09:57 AMB [id number]) Skin Assessment Other Assessments Skin Assessment Comments Edema throughout but not pitting, no extensive redness or bruising noted, pt wearing LEELA hose over wound covering. PT-OP-K Range of Motion Start: 09/13/21 15:41 Freq: Status: Active Protocol: Document 11/24/21 08:25 SP (Rec: 11/24/21 09:05 SP [id number]) Knee Goniometric Range of Motion Knee Right Knee ROM WFL No Patient Position Supine Flexion Active (degrees) 108 Flexion Passive (degrees) 112 Extension Active (degrees) 6 Comments 105 upright bike full revolution end, seat 7 relaxed propped up on roll 8deg extension, 6 degrees durign quad set. PT-OP-M Strength Start: 09/13/21 15:41 Freq: Status: Active Protocol: Document 09/23/21 10:30 AMB (Rec: 09/25/21 09:57 AMB [id number]) Knee Strength Knee Manual Muscle Testing Right Flexion (S2) 3 Fair Extension (L3) 3- Fair- Comments quad lag with SLR PT-OP-Q Treatments Start: 09/13/21 15:41 Freq: Status: Active Protocol: Document 11/29/21 07:40 AMB (Rec: 11/29/21 08:17 AMB [id number]) Cardio Equipment Bicycle (Upright) Duration (Minutes) 8 Seat Position 8>7>6 (105 deg) Other full revolutions, cued ankle ROM and // Gym Equipment Shuttle Recovery Unilateral Squats Resistance 50 Reps/Time 20x2 Therapeutic Exercises Other Exercises 1 Other Exercise Name quadruped rock back Reps/Minutes 2 min Manual Therapy Treatment Soft Tissue Mobilization 1 Body Location scar mobilization, edema massage retrograde Mobilization Type Myofascial Release Intensity/Depth Moderate Body Position Sitting Comments manual and instruct self Joint Mobilizations 1 Joint R femorotibial jt Direction AP Grade II Body Position Hooklying Comments good response, improve mobility PT-OP-R Modalities Start: 09/13/21 15:41 Freq: Status: Active Protocol: Document 11/17/21 14:30 AMB (Rec: 11/17/21 15:29 AMB [id number]) Hot Pack/Cold Pack Treatment Cold Pack Patient Position Hooklying Treatment Duration (minutes) 10 PT-OP-T Assessment and Plan Start: 09/13/21 15:41 Freq: Status: Active Protocol: Document 11/29/21 07:40 AMB (Rec: 11/29/21 08:17 AMB [id number]) Physical Therapy Assessment Goals Two Impairment Gait Short Term Goal (STG) will ambulate without assistive device over smooth surfaces with step through gait patterning for 200'. STG Duration MET Call Center Director Goal (LTG) will ascend and descend a flight of stairs with step over step gait. LTG Duration MET One Impairment ROM Short Term Goal (STG) will improve his active knee flexion to 90 degrees. STG Duration MET Chcf Goal (LTG) will improve his AROM to 0-120 degrees. 10/27/21: progresin-99 deg AROM R knee, AAROM w/ strap 109 deg flexion. 11/03/21: R knee AAROM 89-90 deg w/ strap. 11/08/21: R knee AROM: 6-93 deg , PROM 4-95 deg. Imp 11/15/21: R knee flexion 103, AAROM 110 deg self w/strap. 11/22/21: R knee flexion AAROM 100 deg upbike (seat 9), 104 deg lunge AAROM. Didn't measure supine today. LTG Duration 8 weeks --slow progression Assessment Summary Assessment Encouraged pt to wear compression garment during the day, but can take off at night and see how he does with that. Got up to 105* flexion today, swelling improved, extension to neutral today. Physical Therapy Plan Next Visit Focus/Plan Next Note Type Treatment Note Next Visit Plan Recheck swelling and ROM measurements, response to manual and self at home. POC: continue functional ROM/ strength, edema management.
--- NOTE | 2021-12-01 11:39 | PT.OTN ---
Current Diagnoses Unilateral primary osteoarthritis, right knee (12/01/21) Pain in right knee (12/01/21) Other abnormalities of gait and mobility (12/01/21) Physical Therapy Treatment Note PT-OP-A Visit Information Start: 09/13/21 15:41 Freq: Status: Active Protocol: Document 12/01/21 10:31 AMB (Rec: 12/01/21 11:39 AMB [id number]) Out-Patient Physical Therapy Visit Information Visit Information Visit Type Treatment Note Visit Start Time 10:30 Visit Stop Time 11:15 Total Visit Minutes 45 Visit Number 20 PT-OP-B Current Condition Start: 09/13/21 15:41 Freq: Status: Active Protocol: Document 09/23/21 10:30 AMB (Rec: 09/23/21 11:16 AMB [id number]) Current Condition History of Current Condition Onset Date 09/15 Current Complaints R TKA History of Current Condition Day surgery RTKA reports was not given exercises, has been icing and doing ankle pumps. 3 steps to enter, uses cane and railing to enter house. Sees next Sunday. Does have pain in the left knee. Does enjoy boating- sailing. Has been sleeping in the recliner. Treatment Goals Patient/Caregiver Goals Be able to go boating this summer Personal Factors Other Personal Factors That May Effect L knee pain, hypertension Therapy/Recovery PT-OP-C Subjective Start: 09/13/21 15:41 Freq: Status: Active Protocol: Document 12/01/21 10:31 AMB (Rec: 12/01/21 11:39 AMB [id number]) OP-PT Subjective Patient Comments Patient Comments Pt was on the boat all day yesterday and leg was a bit sore after that. PT-OP-G Mobility & Gait Start: 09/13/21 15:41 Freq: Status: Active Protocol: Document 09/23/21 10:30 AMB (Rec: 09/25/21 09:57 AMB [id number]) OP Gait Assessment Gait Gait Assistance Required: Standby Assistance Assistive Devices Assistive Device Front Wheeled Walker Gait Deviations General Gait Pattern Antalgic,Decreased Stride Length,Decreased Feet Clearance,Step-to Gait PT-OP-J Posture/Palpation/Skin Start: 09/13/21 15:41 Freq: Status: Active Protocol: Document 09/23/21 10:30 AMB (Rec: 09/25/21 09:57 AMB [id number]) Skin Assessment Other Assessments Skin Assessment Comments Edema throughout but not pitting, no extensive redness or bruising noted, pt wearing LEELA hose over wound covering. PT-OP-K Range of Motion Start: 09/13/21 15:41 Freq: Status: Active Protocol: Document 11/24/21 08:25 SP (Rec: 11/24/21 09:05 SP [id number]) Knee Goniometric Range of Motion Knee Right Knee ROM WFL No Patient Position Supine Flexion Active (degrees) 108 Flexion Passive (degrees) 112 Extension Active (degrees) 6 Comments 105 upright bike full revolution end, seat 7 relaxed propped up on roll 8deg extension, 6 degrees durign quad set. PT-OP-M Strength Start: 09/13/21 15:41 Freq: Status: Active Protocol: Document 09/23/21 10:30 AMB (Rec: 09/25/21 09:57 AMB [id number]) Knee Strength Knee Manual Muscle Testing Right Flexion (S2) 3 Fair Extension (L3) 3- Fair- Comments quad lag with SLR PT-OP-Q Treatments Start: 09/13/21 15:41 Freq: Status: Active Protocol: Document 12/01/21 10:31 AMB (Rec: 12/01/21 11:39 AMB [id number]) Cardio Equipment Bicycle (Upright) Duration (Minutes) 8 Seat Position 9>7 (105 deg) Other full revolutions, cued ankle ROM and // Therapeutic Exercises Supine Exercises quad stretch Supine Exercise Name leg off table Reps/Minutes 2 minutes Comments passive Standing Exercises lunges Standing Exercise Name forward at rail Side bilateral Reps/Minutes 2x10 Comments mini step up downs Standing Exercise Name added toHEP Side right Equipment Used bottom step/rail Reps/Minutes 2x5 alternating BLE Comments concentric/eccentric- able light contact rail Manual Therapy Treatment Soft Tissue Mobilization quad, HS, calf Body Location R Mobilization Type Myofascial Release Intensity/Depth Moderate Body Position supine, Joint Mobilizations 1 Joint R femorotibial jt Direction AP Grade IV Body Position Hooklying Comments good response, improve mobility PT-OP-R Modalities Start: 09/13/21 15:41 Freq: Status: Active Protocol: Document 12/01/21 10:30 AMB (Rec: 12/01/21 11:39 AMB [id number]) Hot Pack/Cold Pack Treatment Cold Pack Location R knee Patient Position Hooklying Treatment Duration (minutes) 10 PT-OP-T Assessment and Plan Start: 09/13/21 15:41 Freq: Status: Active Protocol: Document 12/01/21 10:31 AMB (Rec: 12/01/21 11:39 [facility] [id number]) Physical Therapy Assessment Goals Two Impairment Gait Short Term Goal (STG) will ambulate without assistive device over smooth surfaces with step through gait patterning for 200'. STG Duration MET Uptwister Tender Goal (LTG) will ascend and descend a flight of stairs with step over step gait. LTG Duration MET One Impairment ROM Short Term Goal (STG) will improve his active knee flexion to 90 degrees. STG Duration MET Uptwister Tender Goal (LTG) will improve his AROM to 0-120 degrees. 10/27/21: progresin-99 deg AROM R knee, AAROM w/ strap 109 deg flexion. 11/03/21: R knee AAROM 89-90 deg w/ strap. 11/08/21: R knee AROM: 6-93 deg , PROM 4-95 deg. Imp 11/15/21: R knee flexion 103, AAROM 110 deg self w/strap. 11/22/21: R knee flexion AAROM 100 deg upbike (seat 9), 104 deg lunge AAROM. Didn't measure supine today. LTG Duration 8 weeks --slow progression Assessment Summary Assessment Swelling is better today. Tight with both quad stretch and joint mobilization. Will want to progress at home strengthening, but pt feeling left knee more than surgical knee with stairs. Physical Therapy Plan Next Visit Focus/Plan Next Note Type Treatment Note Next Visit Plan Progress HEP: strengthening- partial squats/lunges if tolerated.
--- NOTE | 2021-12-06 09:48 | PT.OTN ---
Addendum entered and electronically signed by Kirsten Sosa, GERSON 12/06/21 13:45: Last PT appt next then 3 DIRECTOR TRADING. May need PN next. Assess if want more appts after 3 with DIRECTOR TRADING or DC to HEP? Original Note: Current Diagnoses Unilateral primary osteoarthritis, right knee (12/06/21) Pain in right knee (12/06/21) Other abnormalities of gait and mobility (12/06/21) Physical Therapy Treatment Note PT-OP-A Visit Information Start: 09/13/21 15:41 Freq: Status: Active Protocol: Document 12/06/21 09:00 SP (Rec: 12/06/21 09:48 SP [id number]) Out-Patient Physical Therapy Visit Information Visit Information Visit Type Treatment Note Visit Start Time 09:00 Visit Stop Time 09:48 Total Visit Minutes 48 Visit Number 21 Number of DIRECTOR TRADING Visits 1 PT-OP-B Current Condition Start: 09/13/21 15:41 Freq: Status: Active Protocol: Document 09/23/21 10:30 AMB (Rec: 09/23/21 11:16 AMB [id number]) Current Condition History of Current Condition Onset Date 09/15 Current Complaints R TKA History of Current Condition Day surgery RTKA reports was not given exercises, has been icing and doing ankle pumps. 3 steps to enter, uses cane and railing to enter house. Sees next Sunday. Does have pain in the left knee. Does enjoy boating- sailing. Has been sleeping in the recliner. Treatment Goals Patient/Caregiver Goals Be able to go boating this summer Personal Factors Other Personal Factors That May Effect L knee pain, hypertension Therapy/Recovery PT-OP-C Subjective Start: 09/13/21 15:41 Freq: Status: Active Protocol: Document 12/06/21 09:00 SP (Rec: 12/06/21 09:48 SP [id number]) OP-PT Subjective Patient Comments Patient Comments Pt arrives with SPC but trying to walk normal without short distances. He reports feels ROM getting better. Patient Reported Progress Improving PT-OP-G Mobility & Gait Start: 09/13/21 15:41 Freq: Status: Active Protocol: Document 09/23/21 10:30 AMB (Rec: 09/25/21 09:57 AMB [id number]) OP Gait Assessment Gait Gait Assistance Required: Standby Assistance Assistive Devices Assistive Device Front Wheeled Walker Gait Deviations General Gait Pattern Antalgic,Decreased Stride Length,Decreased Feet Clearance,Step-to Gait PT-OP-J Posture/Palpation/Skin Start: 09/13/21 15:41 Freq: Status: Active Protocol: Document 09/23/21 10:30 AMB (Rec: 09/25/21 09:57 AMB [id number]) Skin Assessment Other Assessments Skin Assessment Comments Edema throughout but not pitting, no extensive redness or bruising noted, pt wearing LEELA hose over wound covering. PT-OP-K Range of Motion Start: 09/13/21 15:41 Freq: Status: Active Protocol: Document 12/06/21 09:00 SP (Rec: 12/06/21 09:48 SP [id number]) Knee Goniometric Range of Motion Knee Right Knee ROM WFL No Patient Position Supine Flexion Active (degrees) 110 Flexion Passive (degrees) 112 Comments 110 upright bike full revolution end, seat 7 PT-OP-M Strength Start: 09/13/21 15:41 Freq: Status: Active Protocol: Document 09/23/21 10:30 AMB (Rec: 09/25/21 09:57 AMB [id number]) Knee Strength Knee Manual Muscle Testing Right Flexion (S2) 3 Fair Extension (L3) 3- Fair- Comments quad lag with SLR PT-OP-Q Treatments Start: 09/13/21 15:41 Freq: Status: Active Protocol: Document 12/06/21 09:00 SP (Rec: 12/06/21 09:48 SP [id number]) Cardio Equipment Bicycle (Upright) Duration (Minutes) 8 Seat Position 8>7 ( 110 deg) Other full revolutions, cued ankle ROM and // Therapeutic Exercises Sitting Exercises Plantarflexion Sitting Exercise Name added to HEP Side right Resistance TB #5 & #4 together Reps/Minutes 2x10 Comments cued slow pacing con/ecc- good muscle work in calf STS Sitting Exercise Name added to HEP Equipment Used black table 220.5 height Reps/Minutes 5reps in 25 sec. (2x5 reps, 2x day) Comments uses arms front and momentum, better control with reps hip hinge LAQ Sitting Exercise Name reviewed HEP Side right Resistance TB #2 and #1 loop together Equipment Used 20.5 black table height ( similar home chair) Reps/Minutes x10 5 sec hold Comments full sitting back, good mid quad fac knee flexion Sitting Exercise Name HS curls w/ band Side right Resistance Tb #2>4# Equipment Used black table (similar home chair) therapist anchored Reps/Minutes x10 Comments good response painfree Standing Exercises step up downs Standing Exercise Name reviewed HEP Side right Equipment Used bottom step/rail Reps/Minutes 2x5 repeated step up- unable LLE (pain anterior knee) Comments concentric/eccentric- able light contact rail heel raises Standing Exercise Name reviewed HEP: 1. standing at rail, 2. over JUSTINE for home MWM assist better Side bilateral Equipment Used rail Reps/Minutes x10 Comments good form, ed emphasis R more, improved toe off gastroc fac sit to stand Standing Exercise Name added to HEP Equipment Used 20.5 black table Reps/Minutes 5 reps in 20 sec (improved by 5 s since last assess) Comments improved no UE support after warm up,uses momentum for now PT-OP-R Modalities Start: 09/13/21 15:41 Freq: Status: Active Protocol: Document 12/01/21 10:30 AMB (Rec: 12/01/21 11:39 AMB [id number]) Hot Pack/Cold Pack Treatment Cold Pack Location R knee Patient Position Hooklying Treatment Duration (minutes) 10 PT-OP-T Assessment and Plan Start: 09/13/21 15:41 Freq: Status: Active Protocol: Document 12/06/21 09:00 SP (Rec: 12/06/21 09:48 SP [id number]) Physical Therapy Assessment Goals Two Impairment Gait Short Term Goal (STG) will ambulate without assistive device over smooth surfaces with step through gait patterning for 200'. STG Duration MET Intermediate Goal (LTG) will ascend and descend a flight of stairs with step over step gait. LTG Duration MET One Impairment ROM Short Term Goal (STG) will improve his active knee flexion to 90 degrees. STG Duration MET Intermediate Goal (LTG) will improve his AROM to 0-120 degrees. 10/27/21: progresin-99 deg AROM R knee, AAROM w/ strap 109 deg flexion. 11/03/21: R knee AAROM 89-90 deg w/ strap. 11/08/21: R knee AROM: 6-93 deg , PROM 4-95 deg. Imp 11/15/21: R knee flexion 103, AAROM 110 deg self w/strap. 11/22/21: R knee flexion AAROM 100 deg upbike (seat 9), 104 deg lunge AAROM. Didn't measure supine today. 12/06/21: progressing R knee flexion 110 deg bike and supine. LTG Duration 8 weeks --slow progression Progress Towards Goals Progress Towards Goals Progressing Toward Goals Progress Comments Improved R knee flexion 2 deg supine 110 AROM, 5 deg on bike 110deg Assessment Summary Assessment Pt worked hard during strengthening to HEP, able get mid quad fac with cues for set up and proper form. Discussed toe off end tx when walking for normalizing gait, next tx add metronome gait for equal shreyas. Physical Therapy Plan Frequency and Duration Frequency of Treatment 2x/Week Duration of Treatment 6 weeks Plan of Care Start Date 11/10/21 Plan of Care End Date 12/22/21 Therapeutic Interventions Therapeutic Interventions Balance Training,Gait Training ,Home Exercise Program,Joint Mobilizations,Manual Therapy, Neuromuscular Re-education, Self-Care/Home Management,Soft Tissue Mobilization, Therapeutic Activities, Therapeutic Exercises Next Visit Focus/Plan Next Note Type Treatment Note Next Visit Plan assess response added HEP: Progress HEP: strengthening- partial squats/lunges if tolerated.
--- NOTE | 2021-12-12 12:42 | PT.OTN ---
Current Diagnoses Unilateral primary osteoarthritis, right knee (12/12/21) Pain in right knee (12/12/21) Other abnormalities of gait and mobility (12/12/21) Physical Therapy Treatment Note PT-OP-A Visit Information Start: 09/13/21 15:41 Freq: Status: Active Protocol: Document 12/12/21 08:20 AMB (Rec: 12/12/21 09:03 AMB [id number]) Out-Patient Physical Therapy Visit Information Visit Information Visit Type Progress Note Visit Start Time 09:00 Visit Stop Time 09:48 Total Visit Minutes 48 Visit Number 22 PT-OP-B Current Condition Start: 09/13/21 15:41 Freq: Status: Active Protocol: Document 09/23/21 10:30 AMB (Rec: 09/23/21 11:16 AMB [id number]) Current Condition History of Current Condition Onset Date 09/15 Current Complaints R TKA History of Current Condition Day surgery RTKA reports was not given exercises, has been icing and doing ankle pumps. 3 steps to enter, uses cane and railing to enter house. Sees next Sunday. Does have pain in the left knee. Does enjoy boating- sailing. Has been sleeping in the recliner. Treatment Goals Patient/Caregiver Goals Be able to go boating this summer Personal Factors Other Personal Factors That May Effect L knee pain, hypertension Therapy/Recovery PT-OP-C Subjective Start: 09/13/21 15:41 Freq: Status: Active Protocol: Document 12/12/21 08:15 AMB (Rec: 12/12/21 10:26 AMB [id number]) OP-PT Subjective Patient Comments Patient Comments Pt reports he is feeling good, hoping to have TKA of L LE done in January, will talk with surgeon next week. Can't get compression on sock by himself , so has been wearing it 24hrs a day sometimes, since is is out of town taking care of her elderly parents. PT-OP-G Mobility & Gait Start: 09/13/21 15:41 Freq: Status: Active Protocol: Document 12/12/21 08:15 AMB (Rec: 12/12/21 12:42 AMB [id number]) OP Gait Assessment Comments Gait Comments Pt ambulates with SPC in community, no SPC at home. Mild antalgic gait (Pt finds non surgical leg feels unstable) PT-OP-J Posture/Palpation/Skin Start: 09/13/21 15:41 Freq: Status: Active Protocol: Document 12/12/21 08:15 AMB (Rec: 12/12/21 12:42 AMB [id number]) Skin Assessment Other Assessments Skin Assessment Comments Edema is present more around tibia than at joint line, but overall reduced, some tightness at distal scar but healing well, no redness. PT-OP-K Range of Motion Start: 09/13/21 15:41 Freq: Status: Active Protocol: Document 12/12/21 08:15 AMB (Rec: 12/12/21 12:37 AMB [id number]) Knee Goniometric Range of Motion Knee Right Knee ROM WFL No Patient Position Supine Flexion Active (degrees) 110 Flexion Passive (degrees) 112 PT-OP-M Strength Start: 09/13/21 15:41 Freq: Status: Active Protocol: Document 12/12/21 08:15 AMB (Rec: 12/12/21 12:37 AMB [id number]) Knee Strength Knee Manual Muscle Testing Right Flexion (S2) 4+ Good+ Extension (L3) 4+ Good+ PT-OP-Q Treatments Start: 09/13/21 15:41 Freq: Status: Active Protocol: Document 12/12/21 08:15 AMB (Rec: 12/12/21 10:26 AMB [id number]) Cardio Equipment Bicycle (Upright) Duration (Minutes) 8 Seat Position 8>6 ( 110 deg) Other full revolutions, cued ankle ROM and // Therapeutic Exercises Sitting Exercises LAQ Sitting Exercise Name reviewed HEP Side right Resistance TB #2 and #1 loop together Equipment Used 20.5 black table height ( similar home chair) Reps/Minutes x10 5 sec hold Comments full sitting back, good mid quad fac Standing Exercises lunges Standing Exercise Name forward at rail Side bilateral Reps/Minutes 2x10 Comments mini Gait Training Gait Activity no AD Comments cueing good heel toe, step length, even weightbearing Manual Therapy Treatment Joint Mobilizations 1 Joint R femorotibial jt Direction AP Grade IV Body Position Hooklying Comments good response, improve mobility PT-OP-R Modalities Start: 09/13/21 15:41 Freq: Status: Active Protocol: Document 12/01/21 10:30 AMB (Rec: 12/01/21 11:39 AMB [id number]) Hot Pack/Cold Pack Treatment Cold Pack Location R knee Patient Position Hooklying Treatment Duration (minutes) 10 PT-OP-T Assessment and Plan Start: 09/13/21 15:41 Freq: Status: Active Protocol: Document 12/12/21 08:20 AMB (Rec: 12/12/21 09:03 AMB [id number]) Physical Therapy Assessment Goals Two Impairment Gait Short Term Goal (STG) will ambulate without assistive device over smooth surfaces with step through gait patterning for 200'. STG Duration MET Alf Goal (LTG) will ascend and descend a flight of stairs with step over step gait. LTG Duration MET One Impairment ROM Short Term Goal (STG) will improve his active knee flexion to 90 degrees. STG Duration MET Experimental Mechanic Electrical Goal (LTG) will improve his AROM to 0-120 degrees. 10/27/21: progresin-99 deg AROM R knee, AAROM w/ strap 109 deg flexion. 11/03/21: R knee AAROM 89-90 deg w/ strap. 11/08/21: R knee AROM: 6-93 deg , PROM 4-95 deg. Imp 11/15/21: R knee flexion 103, AAROM 110 deg self w/strap. 11/22/21: R knee flexion AAROM 100 deg upbike (seat 9), 104 deg lunge AAROM. Didn't measure supine today. 12/06/21: progressing R knee flexion 110 deg bike and supine. LTG Duration 8 weeks --slow progression Assessment Summary Assessment 's ROM and swelling have improved, emphasized importance of early ROM and swelling management if he does get L TKA. Strengthening HEP going well at home. Physical Therapy Plan Next Visit Focus/Plan Next Note Type Treatment Note Next Visit Plan Add in metronome to gait. assess response added HEP: Progress HEP: strengthening- partial squats/lunges if tolerated.
--- NOTE | 2021-12-13 16:18 | PT.OPPOC ---
Physical, Occupational & Speech Therapy At [facility] Current Diagnoses Unilateral primary osteoarthritis, right knee (12/12/21) Pain in right knee (12/12/21) Other abnormalities of gait and mobility (12/12/21) Visit Care Team Role Provider Type Johnathan Campbell MD Family Provider Non-Staff Primary Care Provider Specialty: Internal Medicine Address: [address] [place] [address], [phone] Email: Lupe Pena PA-C Attending Provider Non-Staff Referring Provider Specialty: Medical Address: [address] [place] [address], [id number] Email: Plan Of Care PT-OP-T Assessment and Plan Start: 09/13/21 15:41 Freq: Status: Active Protocol: Document 12/12/21 08:20 AMB (Rec: 12/12/21 09:03 AMB [id number]) Physical Therapy Assessment Goals Two Impairment Gait Short Term Goal (STG) will ambulate without assistive device over smooth surfaces with step through gait patterning for 200'. STG Duration MET Chcf Goal (LTG) will ascend and descend a flight of stairs with step over step gait. LTG Duration MET One Impairment ROM Short Term Goal (STG) will improve his active knee flexion to 90 degrees. STG Duration MET Aml Analyst Goal (LTG) will improve his AROM to 0-120 degrees. 10/27/21: progresin-99 deg AROM R knee, AAROM w/ strap 109 deg flexion. 11/03/21: R knee AAROM 89-90 deg w/ strap. 11/08/21: R knee AROM: 6-93 deg , PROM 4-95 deg. Imp 11/15/21: R knee flexion 103, AAROM 110 deg self w/strap. 11/22/21: R knee flexion AAROM 100 deg upbike (seat 9), 104 deg lunge AAROM. Didn't measure supine today. 12/06/21: progressing R knee flexion 110 deg bike and supine. LTG Duration 8 weeks --slow progression Assessment Summary Assessment 's ROM and swelling have improved, emphasized importance of early ROM and swelling management if he does get L TKA. Strengthening HEP going well at home. Physical Therapy Plan Frequency and Duration Frequency of Treatment 2x/Week Duration of Treatment 4 weeks Plan of Care Start Date 12/12/21 Plan of Care End Date 01/09/22 Therapeutic Interventions Therapeutic Interventions Balance Training,Gait Training ,Home Exercise Program,Joint Mobilizations,Manual Therapy, Neuromuscular Re-education, Self-Care/Home Management,Soft Tissue Mobilization, Therapeutic Activities, Therapeutic Exercises Next Visit Focus/Plan Next Note Type Treatment Note Next Visit Plan Add in metronome to gait. assess response added HEP: Progress HEP: strengthening- partial squats/lunges if tolerated. Plan of Care Dates Plan of Care Start Date 12/12/21 Plan of Care End Date 01/09/22 Electronically Signed by: Mary Gates, PT 12/13/21 [id number] If you are in agreement with this Plan of Care, please return a signed and dated copy. I have reviewed this Plan of Care and certify that the skilled therapy services above are required to meet the patient?s needs. Physician Signature Date Printed Name and Credentials Clinical Instructor Signature Printed Name and Credentials
--- NOTE | 2021-12-14 09:03 | PT.OTN ---
Current Diagnoses Unilateral primary osteoarthritis, right knee (12/14/21) Pain in right knee (12/14/21) Other abnormalities of gait and mobility (12/14/21) Physical Therapy Treatment Note PT-OP-A Visit Information Start: 09/13/21 15:41 Freq: Status: Active Protocol: Document 12/14/21 08:21 SP (Rec: 12/14/21 09:04 SP [id number]) Out-Patient Physical Therapy Visit Information Visit Information Visit Type Treatment Note Visit Start Time 08:21 Visit Stop Time 09:03 Total Visit Minutes 42 Visit Number 23 Number of SILICATOR Visits 1 PT-OP-B Current Condition Start: 09/13/21 15:41 Freq: Status: Active Protocol: Document 09/23/21 10:30 AMB (Rec: 09/23/21 11:16 AMB [id number]) Current Condition History of Current Condition Onset Date 09/15 Current Complaints R TKA History of Current Condition Day surgery RTKA reports was not given exercises, has been icing and doing ankle pumps. 3 steps to enter, uses cane and railing to enter house. Sees next Sunday. Does have pain in the left knee. Does enjoy boating- sailing. Has been sleeping in the recliner. Treatment Goals Patient/Caregiver Goals Be able to go boating this summer Personal Factors Other Personal Factors That May Effect L knee pain, hypertension Therapy/Recovery PT-OP-C Subjective Start: 09/13/21 15:41 Freq: Status: Active Protocol: Document 12/14/21 08:21 SP (Rec: 12/14/21 09:04 SP [id number]) OP-PT Subjective Patient Comments Patient Comments Pt reports is pretty pleased with progression and added TB for ankle and knee stretches to improve ROM and strength. Has follow up with ortho Dr Gonzalez next week, will see what he says and if cleared for DC PT or continue and if wanting to do L knee surgery and if so hoping for mid Jan if possible. Pt reports able to crawl around on floor into small spaces and walking on his boat, is taking his boat out with hoysting his sail with help. Is going on sail trip in December with . PT-OP-G Mobility & Gait Start: 09/13/21 15:41 Freq: Status: Active Protocol: Document 12/12/21 08:15 AMB (Rec: 12/12/21 12:42 AMB [id number]) OP Gait Assessment Comments Gait Comments Pt ambulates with SPC in community, no SPC at home. Mild antalgic gait (Pt finds non surgical leg feels unstable) PT-OP-J Posture/Palpation/Skin Start: 09/13/21 15:41 Freq: Status: Active Protocol: Document 12/12/21 08:15 AMB (Rec: 12/12/21 12:42 AMB [id number]) Skin Assessment Other Assessments Skin Assessment Comments Edema is present more around tibia than at joint line, but overall reduced, some tightness at distal scar but healing well, no redness. PT-OP-K Range of Motion Start: 09/13/21 15:41 Freq: Status: Active Protocol: Document 12/12/21 08:15 AMB (Rec: 12/12/21 12:37 AMB [id number]) Knee Goniometric Range of Motion Knee Right Knee ROM WFL No Patient Position Supine Flexion Active (degrees) 110 Flexion Passive (degrees) 112 PT-OP-M Strength Start: 09/13/21 15:41 Freq: Status: Active Protocol: Document 12/12/21 08:15 AMB (Rec: 12/12/21 12:37 AMB [id number]) Knee Strength Knee Manual Muscle Testing Right Flexion (S2) 4+ Good+ Extension (L3) 4+ Good+ PT-OP-Q Treatments Start: 09/13/21 15:41 Freq: Status: Active Protocol: Document 12/14/21 08:21 SP (Rec: 12/14/21 09:04 SP [id number]) Cardio Equipment Bicycle (Upright) Duration (Minutes) 8 Seat Position 8>6>5 (111 deg), Other full revolutions, good ankle ROM and // Therapeutic Exercises Standing Exercises band walk Standing Exercise Name added to HEP-f/b/side stepping Resistance Tb #2 loop Reps/Minutes 20 ft x3 laps Comments cued upright posture, trail LE clearance, eccentric foot strike SLS Standing Exercise Name challenging but stated will work on as HEP Side right Reps/Minutes 6 sec x2 Comments cued upright posture, core/ glut fac star glides Standing Exercise Name challenging without moderate UE support Equipment Used Mod RUE WB on counter Comments revisit future tx lunges Standing Exercise Name forward at rail Side bilateral Resistance 114 deg Equipment Used 18 box step and rail Reps/Minutes 2x10 Comments mini step up downs Standing Exercise Name repeated step ups Side right Equipment Used stair side rail, 6>8 step Reps/Minutes x10 Comments good form, painfree, initial cue for full hip/knee extension Gait Training Gait Activity in mirror Description forward gait Device Used 0 Level of Assistance S Surface firm Distance/Duration 20 ft x5 laps Treatment Focus normalize gait phases, hip abd and core support Comments forward gait in mirror for quality to normalize gait: cued upright posture, hip ext and toe off RLE with eccentric soft LLE heel strike with RLE hip abd and core fac, equal shreyas, improved with reps and thoughtful awareness. PT-OP-R Modalities Start: 09/13/21 15:41 Freq: Status: Active Protocol: Document 12/01/21 10:30 AMB (Rec: 12/01/21 11:39 AMB [id number]) Hot Pack/Cold Pack Treatment Cold Pack Location R knee Patient Position Hooklying Treatment Duration (minutes) 10 PT-OP-T Assessment and Plan Start: 09/13/21 15:41 Freq: Status: Active Protocol: Document 12/14/21 08:21 SP (Rec: 12/14/21 09:04 SP [id number]) Physical Therapy Assessment Goals Two Impairment Gait Short Term Goal (STG) will ambulate without assistive device over smooth surfaces with step through gait patterning for 200'. STG Duration MET Correction Goal (LTG) will ascend and descend a flight of stairs with step over step gait. LTG Duration MET One Impairment ROM Short Term Goal (STG) will improve his active knee flexion to 90 degrees. STG Duration MET Correction Goal (LTG) will improve his AROM to 0-120 degrees. 10/27/21: progresin-99 deg AROM R knee, AAROM w/ strap 109 deg flexion. 11/03/21: R knee AAROM 89-90 deg w/ strap. 11/08/21: R knee AROM: 6-93 deg , PROM 4-95 deg. Imp 11/15/21: R knee flexion 103, AAROM 110 deg self w/strap. 11/22/21: R knee flexion AAROM 100 deg upbike (seat 9), 104 deg lunge AAROM. Didn't measure supine today. 12/06/21: progressing R knee flexion 110 deg bike and supine. 12/14/21: progressindeg R knee flexion on bike, lunge AAROM 114 deg. LTG Duration 8 weeks --slow progression Assessment Summary Assessment Pt improved postural alignment , glut and hip abd fac with gait in mirror self feedback. Pt challenged with SLS time and noted hip abd weakness, good response to added band walk and quality feedback for progressing SLS. Physical Therapy Plan Frequency and Duration Frequency of Treatment 2x/Week Duration of Treatment 4 weeks Plan of Care Start Date 12/12/21 Plan of Care End Date 01/09/22 Therapeutic Interventions Therapeutic Interventions Balance Training,Gait Training ,Home Exercise Program,Joint Mobilizations,Manual Therapy, Neuromuscular Re-education, Self-Care/Home Management,Soft Tissue Mobilization, Therapeutic Activities, Therapeutic Exercises Next Visit Focus/Plan Next Note Type Treatment Note Next Visit Plan Recheck SLS and band walk, add squat and lunges next tx. Add in metronome to gait next tx with assess 6MWT. POC: Progress HEP: strengthening- partial squats/ lunges if tolerated.
--- NOTE | 2021-12-22 09:00 | PT.OTN ---
Current Diagnoses Unilateral primary osteoarthritis, right knee (12/22/21) Pain in right knee (12/22/21) Other abnormalities of gait and mobility (12/22/21) Physical Therapy Treatment Note PT-OP-A Visit Information Start: 09/13/21 15:41 Freq: Status: Active Protocol: Document 12/22/21 08:20 SP (Rec: 12/22/21 09:03 SP [id number]) Out-Patient Physical Therapy Visit Information Visit Information Visit Type Treatment Note Visit Start Time 08:20 Visit Stop Time 09:00 Total Visit Minutes 40 Visit Number 24 Number of TRANSFORMATION SPECIALIST Visits 2 PT-OP-B Current Condition Start: 09/13/21 15:41 Freq: Status: Active Protocol: Document 09/23/21 10:30 AMB (Rec: 09/23/21 11:16 AMB [id number]) Current Condition History of Current Condition Onset Date 09/15 Current Complaints R TKA History of Current Condition Day surgery RTKA reports was not given exercises, has been icing and doing ankle pumps. 3 steps to enter, uses cane and railing to enter house. Sees next Sunday. Does have pain in the left knee. Does enjoy boating- sailing. Has been sleeping in the recliner. Treatment Goals Patient/Caregiver Goals Be able to go boating this summer Personal Factors Other Personal Factors That May Effect L knee pain, hypertension Therapy/Recovery PT-OP-C Subjective Start: 09/13/21 15:41 Freq: Status: Active Protocol: Document 12/22/21 08:20 SP (Rec: 12/22/21 09:03 SP [id number]) OP-PT Subjective Patient Comments Patient Comments Pt stated had phone call from ortho, Dr Gonzalez was unavailible inperson but discussed approved to move forward in Jan, will call when get exact date to have appt soon after surgery in PT. Today will be last day and continue on own with R LE rehab and feels is the stronger leg. His R knee circumference is 19 and times end day can get to 19.5, continues to don compression stocking for support. PT-OP-G Mobility & Gait Start: 09/13/21 15:41 Freq: Status: Active Protocol: Document 12/12/21 08:15 AMB (Rec: 12/12/21 12:42 AMB [id number]) OP Gait Assessment Comments Gait Comments Pt ambulates with SPC in community, no SPC at home. Mild antalgic gait (Pt finds non surgical leg feels unstable) PT-OP-J Posture/Palpation/Skin Start: 09/13/21 15:41 Freq: Status: Active Protocol: Document 12/12/21 08:15 AMB (Rec: 12/12/21 12:42 AMB [id number]) Skin Assessment Other Assessments Skin Assessment Comments Edema is present more around tibia than at joint line, but overall reduced, some tightness at distal scar but healing well, no redness. PT-OP-K Range of Motion Start: 09/13/21 15:41 Freq: Status: Active Protocol: Document 12/22/21 08:20 SP (Rec: 12/22/21 09:03 SP [id number]) Knee Goniometric Range of Motion Knee Left Flexion Active (degrees) 120 Extension Passive (degrees) 0 Right Knee ROM WFL No Patient Position Supine Flexion Active (degrees) 110 Flexion Passive (degrees) 112 PT-OP-M Strength Start: 09/13/21 15:41 Freq: Status: Active Protocol: Document 12/12/21 08:15 AMB (Rec: 12/12/21 12:37 AMB [id number]) Knee Strength Knee Manual Muscle Testing Right Flexion (S2) 4+ Good+ Extension (L3) 4+ Good+ PT-OP-Q Treatments Start: 09/13/21 15:41 Freq: Status: Active Protocol: Document 12/22/21 08:20 SP (Rec: 12/22/21 09:03 SP [id number]) Cardio Equipment Bicycle (Upright) Duration (Minutes) 8 Resistance 1 Seat Position 8>5 (LLE 121*, RLE 119*) Other full revolutions, good ankle ROM and // Therapeutic Exercises Sitting Exercises Plantarflexion Sitting Exercise Name reviewed HEP Side right Resistance TB #5 & #4 together Reps/Minutes 2x10 Comments cued slow pacing con/ecc- good muscle work in calf Standing Exercises hip extension Standing Exercise Name added to HEP Side bilateral Resistance AROM Equipment Used rail contact Reps/Minutes 2x10 Comments cued knee straight and tall posture lunges Standing Exercise Name side at rail Side bilateral Equipment Used contact R HR and L back chair Reps/Minutes x10 each LE Comments wt shift on top 24 box 112 deg AAROM step up downs Standing Exercise Name repeated step ups Side right Equipment Used 8 step, contact rail Reps/Minutes x10 Comments good form, painfree, initial cue for full hip/knee extension heel raises Standing Exercise Name reviewed HEP: 1. standing at rail, 2. over JUSTINE for home MWM assist better Side bilateral Resistance floor>off bottom step Equipment Used rail contact Reps/Minutes x10 Comments good form, ed emphasis R more, improved toe off gastroc fac 1 Standing Exercise Name mini squats at railing- reviewed HEP Equipment Used rail, provided chair posterior for target hover over Reps/Minutes 10 Comments cued hip hinge pelvis back Gait Training Gait Activity in mirror Description forward wt shift R hip ext and PF toe off to assist increase stride Device Used 0 Level of Assistance S Surface firm Distance/Duration 20 ft x5 laps Treatment Focus normalize gait phases, hip abd and core support Comments forward gait in mirror for quality to normalize gait: cued upright posture, hip ext and toe off RLE with eccentric soft LLE heel strike, improved awareness but states hard because R calf is weak. no AD Distance/Duration 160 ft hallway x2 laps Comments cueing Rhip ext and heel toe off, LLE increase step length, even weightbearing. PT-OP-R Modalities Start: 09/13/21 15:41 Freq: Status: Active Protocol: Document 12/01/21 10:30 AMB (Rec: 12/01/21 11:39 AMB [id number]) Hot Pack/Cold Pack Treatment Cold Pack Location R knee Patient Position Hooklying Treatment Duration (minutes) 10 PT-OP-T Assessment and Plan Start: 09/13/21 15:41 Freq: Status: Active Protocol: Document 12/22/21 08:20 SP (Rec: 12/22/21 09:03 SP [id number]) Physical Therapy Assessment Goals Two Impairment Gait Short Term Goal (STG) will ambulate without assistive device over smooth surfaces with step through gait patterning for 200'. STG Duration MET Pepper Picker Goal (LTG) will ascend and descend a flight of stairs with step over step gait. LTG Duration MET One Impairment ROM Short Term Goal (STG) will improve his active knee flexion to 90 degrees. STG Duration MET Care Home Goal (LTG) will improve his AROM to 0-120 degrees. 10/27/21: progresin-99 deg AROM R knee, AAROM w/ strap 109 deg flexion. 11/03/21: R knee AAROM 89-90 deg w/ strap. 11/08/21: R knee AROM: 6-93 deg , PROM 4-95 deg. Imp 11/15/21: R knee flexion 103, AAROM 110 deg self w/strap. 11/22/21: R knee flexion AAROM 100 deg upbike (seat 9), 104 deg lunge AAROM. Didn't measure supine today. 12/06/21: progressing R knee flexion 110 deg bike and supine. 12/14/21: progressindeg R knee flexion on bike, lunge AAROM 114 deg. 12/22/21: progressing AAROM upright bike 119deg R knee flexion, LLE 121 deg. LTG Duration 8 weeks --slow progression Assessment Summary Assessment Pt improved R knee flexion ROM 121 deg on upright bike and 114 deg lunge motion. He continues to demonstrated decrease weakness in R plantar flexion but understands with activity today to continue on own in various positions to progress gait phase quality before having surgery on L knee hoping for Jan. WIll come in next week to set up postop appt with Mary when confirms date of surgery. PT to complete DC. Physical Therapy Plan Frequency and Duration Frequency of Treatment 2x/Week Duration of Treatment 4 weeks Plan of Care Start Date 12/12/21 Plan of Care End Date 01/09/22 Therapeutic Interventions Therapeutic Interventions Balance Training,Gait Training ,Home Exercise Program,Joint Mobilizations,Manual Therapy, Neuromuscular Re-education, Self-Care/Home Management,Soft Tissue Mobilization, Therapeutic Activities, Therapeutic Exercises Discharge Physical Therapy Discharge Reasons Patient Request Discharge Comments States saving remaining appts for L knee surgery in Jan. Next Visit Focus/Plan Next Note Type Discharge Summary Next Visit Plan PT Mary to complete DC Summary.
--- NOTE | 2022-01-19 16:12 | PT.OPDS ---
Current Diagnoses Unilateral primary osteoarthritis, right knee (12/22/21) Pain in right knee (12/22/21) Other abnormalities of gait and mobility (12/22/21) Visit Care Team Role Provider Type Johnathan Campbell MD Family Provider Non-Staff Primary Care Provider Specialty: Internal Medicine Address: [address] [place] [address], [id number] Email: Lupe Pena PA-C Attending Provider Non-Staff Referring Provider Specialty: Medical Address: [address] [place] [address], [phone] Email: Visit Number Visit Number 24 Discharge Summary PT-OP-B Current Condition Start: 09/13/21 15:41 Freq: Status: Active Protocol: Document 09/23/21 10:30 AMB (Rec: 09/23/21 11:16 AMB [id number]) Current Condition History of Current Condition Onset Date 09/15 Current Complaints R TKA History of Current Condition Day surgery RTKA reports was not given exercises, has been icing and doing ankle pumps. 3 steps to enter, uses cane and railing to enter house. Sees next Sunday. Does have pain in the left knee. Does enjoy boating- sailing. Has been sleeping in the recliner. Treatment Goals Patient/Caregiver Goals Be able to go boating this summer Personal Factors Other Personal Factors That May Effect L knee pain, hypertension Therapy/Recovery PT-OP-C Subjective Start: 09/13/21 15:41 Freq: Status: Active Protocol: Document 12/22/21 08:20 SP (Rec: 12/22/21 09:03 SP [id number]) OP-PT Subjective Patient Comments Patient Comments Pt stated had phone call from ortho, Dr Gonzalez was unavailible inperson but discussed approved to move forward in Jan, will call when get exact date to have appt soon after surgery in PT. Today will be last day and continue on own with R LE rehab and feels is the stronger leg. His R knee circumference is 19 and times end day can get to 19.5, continues to don compression stocking for support. PT-OP-G Mobility & Gait Start: 09/13/21 15:41 Freq: Status: Active Protocol: Document 12/12/21 08:15 AMB (Rec: 12/12/21 12:42 AMB [id number]) OP Gait Assessment Comments Gait Comments Pt ambulates with SPC in community, no SPC at home. Mild antalgic gait (Pt finds non surgical leg feels unstable) PT-OP-J Posture/Palpation/Skin Start: 09/13/21 15:41 Freq: Status: Active Protocol: Document 12/12/21 08:15 AMB (Rec: 12/12/21 12:42 AMB [id number]) Skin Assessment Other Assessments Skin Assessment Comments Edema is present more around tibia than at joint line, but overall reduced, some tightness at distal scar but healing well, no redness. PT-OP-K Range of Motion Start: 09/13/21 15:41 Freq: Status: Active Protocol: Document 12/22/21 08:20 SP (Rec: 12/22/21 09:03 SP [id number]) Knee Goniometric Range of Motion Knee Left Flexion Active (degrees) 120 Extension Passive (degrees) 0 Right Knee ROM WFL No Patient Position Supine Flexion Active (degrees) 110 Flexion Passive (degrees) 112 PT-OP-M Strength Start: 09/13/21 15:41 Freq: Status: Active Protocol: Document 12/12/21 08:15 AMB (Rec: 12/12/21 12:37 AMB [id number]) Knee Strength Knee Manual Muscle Testing Right Flexion (S2) 4+ Good+ Extension (L3) 4+ Good+ PT-OP-T Assessment and Plan Start: 09/13/21 15:41 Freq: Status: Active Protocol: Document 01/19/22 16:07 AMB (Rec: 01/19/22 16:08 AMB [id number]) Physical Therapy Assessment Goals Two Impairment Gait Short Term Goal (STG) will ambulate without assistive device over smooth surfaces with step through gait patterning for 200'. STG Duration MET Digital Advisor Goal (LTG) will ascend and descend a flight of stairs with step over step gait. LTG Duration MET One Impairment ROM Short Term Goal (STG) will improve his active knee flexion to 90 degrees. STG Duration MET Longterm Goal (LTG) will improve his AROM to 0-120 degrees. 10/27/21: progresin-99 deg AROM R knee, AAROM w/ strap 109 deg flexion. 11/03/21: R knee AAROM 89-90 deg w/ strap. 11/08/21: R knee AROM: 6-93 deg , PROM 4-95 deg. Imp 11/15/21: R knee flexion 103, AAROM 110 deg self w/strap. 11/22/21: R knee flexion AAROM 100 deg upbike (seat 9), 104 deg lunge AAROM. Didn't measure supine today. 12/06/21: progressing R knee flexion 110 deg bike and supine. 12/14/21: progressindeg R knee flexion on bike, lunge AAROM 114 deg. 12/22/21: progressing AAROM upright bike 119deg R knee flexion, LLE 121 deg. LTG Duration MET Assessment Summary Assessment achieved 120 degrees of flexion at his last visit. Pt is planning on next TKA in January, therefore d/cing at this point to make sure he has enough visits for that upcoming rehab. Physical Therapy Plan Discharge Physical Therapy Discharge Reasons Patient Request Discharge Comments States saving remaining appts for L knee surgery in Jan.
== END 2022-01-23 14:36 ==
LOC: PHYS 08:15
PROVIDERS: Family Provider Internal Medicine; PCP Internal Medicine; Referring Provider Physician Assistant; Visit Provider Physician Assistant
DX: M17.11 Unilateral primary osteoarthritis, right knee (principal); M25.561 Pain in right knee; R26.89 Other abnormalities of gait and mobility
CPT/HCPCS: 97110; 97112; 97116; 97140; 97161; 97162; 97530

== ENCOUNTER → 2022-05-13 17:58 | Outpatient (CLI) | payer OTHER, SELFPAY | PROVIDERS: Family Provider Internal Medicine; PCP Internal Medicine; Visit Provider Physician Assistant | DX: L08.9 Local infection of the skin and subcutaneous tissue, unspecified (principal) | CPT/HCPCS: 87070; 87077; 87147; 87186; 87205 ==

== ENCOUNTER 2022-06-08 11:15 | Outpatient (RCR) | payer OTHER, SELFPAY ==
--- NOTE | 2022-03-07 21:05 | PT.OIE ---
Current Diagnoses Unilateral primary osteoarthritis, left knee (03/07/22) Pain in left knee (03/07/22) Other abnormalities of gait and mobility (03/07/22) Encounter for other preprocedural examination (03/07/22) Past Medical History (Last Updated 05/29/18 @ 08:40 by Sukumar Vasquez MD) Hypercholesterolemia Hypertension Prostatic hypertrophy Visit Care Team Role Provider Type Johnathan Campbell MD Family Provider Physician Primary Care Provider Specialty: Internal Medicine Address: [address] [place] [address], [id number] Email: Michael Gonzalez DO Attending Provider Non-Staff Referring Provider Specialty: Orthopedics Address: [address] [place] [address], [place], [address] Email: Physical Therapy Initial Evaluation PT-OP-A Visit Information Start: 03/03/22 16:08 Freq: Status: Active Protocol: Document 03/07/22 11:14 AMB (Rec: 03/07/22 11:16 AMB [id number]) Out-Patient Physical Therapy Visit Information Visit Information Visit Type Initial Evaluation Visit Note insurance authorized visits Visit Start Time 11:15 Visit Stop Time 12:00 Total Visit Minutes 45 Visit Number 1 PT-OP-B Current Condition Start: 03/03/22 16:08 Freq: Status: Active Protocol: Document 03/07/22 11:16 AMB (Rec: 03/07/22 12:03 AMB [id number]) Current Condition History of Current Condition Onset Date 03/02/22 Current Complaints L TKA History of Current Condition Pt had a left total knee on 03/02/22. He is doing well, icing and using a FWW at home. He is wearing bilateral above knee compression socks. 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 He does have pain both in the knee and above the knee more in the quadriceps. PT-OP-C Subjective Start: 03/03/22 16:08 Freq: Status: Active Protocol: Document 03/07/22 11:15 AMB (Rec: 03/07/22 13:47 AMB [id number]) Patient Questionnaires Lower Extremity Functional Scale LEFS Score 41 LEFS Impairment 40 to 59% Impaired (Score 32- 47) PT-OP-G Mobility & Gait Start: 03/03/22 16:08 Freq: Status: Active Protocol: Document 03/07/22 11:15 AMB (Rec: 03/07/22 15:57 AMB [id number]) OP Gait Assessment Comments Gait Comments Pt ambulating with FWW with reduced step length, reduced knee flexion with swing and reduced extension with stance. PT-OP-J Posture/Palpation/Skin Start: 03/03/22 16:08 Freq: Status: Active Protocol: Document 03/07/22 11:15 AMB (Rec: 03/07/22 13:02 AMB [id number]) Palpation Assessment Location One Palpation Location left knee Palpation Findings Edema Palpation Details edema at mid patella 53cm on left, 47 on R PT-OP-K Range of Motion Start: 03/03/22 16:08 Freq: Status: Active Protocol: Document 03/07/22 11:15 AMB (Rec: 03/07/22 13:02 AMB [id number]) Knee Goniometric Range of Motion Knee Left Patient Position Supine Flexion Passive (degrees) 75 Comments missing 5 degrees of extension PT-OP-M Strength Start: 03/03/22 16:08 Freq: Status: Active Protocol: Document 03/07/22 11:15 AMB (Rec: 03/07/22 15:57 AMB [id number]) Knee Strength Knee Manual Muscle Testing Left Flexion (S2) 3+ Fair+ Extension (L3) 2 Poor Comments very challenged with quad activation PT-OP-Q Treatments Start: 03/03/22 16:08 Freq: Status: Active Protocol: Document 03/07/22 11:15 AMB (Rec: 03/07/22 13:02 AMB [id number]) Therapeutic Exercises Supine Exercises quad set Reps/Minutes 2x5 Comments very challenging heel slide Reps/Minutes 10 Comments passively assist pt Manual Therapy Treatment Manual Techniques edema massage Comments instruction in pt PT-OP-R Modalities Start: 03/03/22 16:08 Freq: Status: Active Protocol: Document 03/07/22 11:15 AMB (Rec: 03/07/22 15:57 AMB [id number]) Hot Pack/Cold Pack Treatment Cold Pack Location LEFT KNEE Patient Position Hooklying PT-OP-T Assessment and Plan Start: 03/03/22 16:08 Freq: Status: Active Protocol: Document 03/07/22 11:15 AMB (Rec: 03/07/22 20:48 [facility] [id number]) Physical Therapy Assessment Rehab Potential Rehabilitation Potential Good Evaluation Complexity Number of Personal Factors/Comorbidities 0 Number of Body Systems Impaired 4 or More Clinical Presentation at Evaluation Stable Impairments Impairments Activity Tolerance,Edema, Functional Activities,Gait, Pain,ROM,Strength,Transfers Goals Gait Short Term Goal (STG) will ambulate without antalgic gait with a SPC over smooth terrain for 6 minutes. STG Duration 4 weeks Extension Service Advisor Goal (LTG) will ascend and descend a flight of stairs with an alternating gait pattern and one railing. LTG Duration 10 weeks Edema Short Term Goal (STG) will reduce his knee circumfrence at mid patella to 50cm or less. STG Duration 4 weeks Mcc Goal (LTG) will tolerate not wearing compression socks and not exhibit pitting edema as a result. LTG Duration 10 weeks ROM Short Term Goal (STG) will improve his PROM to 0-90. STG Duration 4 weeks Extension Service Advisor Goal (LTG) will improve his active knee ROM to 0-120 degrees. LTG Duration 10 weeks Assessment Summary Assessment attends physical therapy 5 days s/p L TKA. He exhibits continued swelling and tightness especially into flexion. He had a R TKA earlier in the year and also dealt with tightness into flexion and edema with that surgery. 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 He was educated in quad sets and heel slides, and understands the concepts of icing, rest, intermixed with gait and exercise. He will benefit from PT for progressive exercise focusing on edema management, quad strengthening , and ROM. Physical Therapy Plan Frequency and Duration Frequency of Treatment 2x/Week Duration of Treatment 10 weeks Plan of Care Start Date 03/07/22 Plan of Care End Date 05/16/22 Therapeutic Interventions Therapeutic Interventions Balance Training,Gait Training ,Home Exercise Program,Joint Mobilizations,Manual Therapy, Neuromuscular Re-education, Self-Care/Home Management,Soft Tissue Mobilization, Therapeutic Activities, Therapeutic Exercises Modalities Cold Pack/Ice Massage,Electric Stimulation Next Visit Focus/Plan Next Note Type Treatment Note Next Visit Plan Start with recumbent stepper, progress quad control and both flexion and extension ROM
--- NOTE | 2022-03-07 21:06 | PT.OPPOC ---
Physical, Occupational & Speech Therapy At [facility] Current Diagnoses Unilateral primary osteoarthritis, left knee (03/07/22) Pain in left knee (03/07/22) Other abnormalities of gait and mobility (03/07/22) Encounter for other preprocedural examination (03/07/22) Visit Care Team Role Provider Type Johnathan Campbell MD Family Provider Physician Primary Care Provider Specialty: Internal Medicine Address: [address] [place] [address], [id number] Email: Michael Gonzalez DO Attending Provider Non-Staff Referring Provider Specialty: Orthopedics Address: [address] [place] [address], [id number] Email: Plan Of Care PT-OP-T Assessment and Plan Start: 03/03/22 16:08 Freq: Status: Active Protocol: Document 03/07/22 11:15 AMB (Rec: 03/07/22 20:48 AMB [id number]) Physical Therapy Assessment Rehab Potential Rehabilitation Potential Good Evaluation Complexity Number of Personal Factors/Comorbidities 0 Number of Body Systems Impaired 4 or More Clinical Presentation at Evaluation Stable Impairments Impairments Activity Tolerance,Edema, Functional Activities,Gait, Pain,ROM,Strength,Transfers Goals Gait Short Term Goal (STG) will ambulate without antalgic gait with a SPC over smooth terrain for 6 minutes. STG Duration 4 weeks Medical Billing Specialist Goal (LTG) will ascend and descend a flight of stairs with an alternating gait pattern and one railing. LTG Duration 10 weeks Edema Short Term Goal (STG) will reduce his knee circumfrence at mid patella to 50cm or less. STG Duration 4 weeks [facility] Goal (LTG) will tolerate not wearing compression socks and not exhibit pitting edema as a result. LTG Duration 10 weeks ROM Short Term Goal (STG) will improve his PROM to 0-90. STG Duration 4 weeks [facility] Goal (LTG) will improve his active knee ROM to 0-120 degrees. LTG Duration 10 weeks Assessment Summary Assessment attends physical therapy 5 days s/p L TKA. He exhibits continued swelling and tightness especially into flexion. He had a R TKA earlier in the year and also dealt with tightness into flexion and edema with that surgery. 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 He was educated in quad sets and heel slides, and understands the concepts of icing, rest, intermixed with gait and exercise. He will benefit from PT for progressive exercise focusing on edema management, quad strengthening , and ROM. Physical Therapy Plan Frequency and Duration Frequency of Treatment 2x/Week Duration of Treatment 10 weeks Plan of Care Start Date 03/07/22 Plan of Care End Date 05/16/22 Therapeutic Interventions Therapeutic Interventions Balance Training,Gait Training ,Home Exercise Program,Joint Mobilizations,Manual Therapy, Neuromuscular Re-education, Self-Care/Home Management,Soft Tissue Mobilization, Therapeutic Activities, Therapeutic Exercises Modalities Cold Pack/Ice Massage,Electric Stimulation Next Visit Focus/Plan Next Note Type Treatment Note Next Visit Plan Start with recumbent stepper, progress quad control and both flexion and extension ROM Plan of Care Dates Plan of Care Start Date 03/07/22 Plan of Care End Date 05/16/22 Electronically Signed by: Mary Gates, PT 03/07/22 [id number] If you are in agreement with this Plan of Care, please return a signed and dated copy. I have reviewed this Plan of Care and certify that the skilled therapy services above are required to meet the patient?s needs. Physician Signature Date Printed Name and Credentials Clinical Instructor Signature Printed Name and Credentials
--- NOTE | 2022-03-10 12:04 | PT.OTN ---
Current Diagnoses Unilateral primary osteoarthritis, left knee (03/09/22) Pain in left knee (03/09/22) Other abnormalities of gait and mobility (03/09/22) Encounter for other preprocedural examination (03/09/22) Physical Therapy Treatment Note PT-OP-A Visit Information Start: 03/03/22 16:08 Freq: Status: Active Protocol: Document 03/09/22 10:39 AMB (Rec: 03/09/22 11:17 AMB [id number]) Out-Patient Physical Therapy Visit Information Visit Information Visit Type Treatment Note Visit Start Time 10:30 Visit Stop Time 11:15 Total Visit Minutes 45 Visit Number 2 PT-OP-B Current Condition Start: 03/03/22 16:08 Freq: Status: Active Protocol: Document 03/07/22 11:16 AMB (Rec: 03/07/22 12:03 AMB [id number]) Current Condition History of Current Condition Onset Date 03/02/22 Current Complaints L TKA History of Current Condition Pt had a left total knee on 03/02/22. He is doing well, icing and using a FWW at home. He is wearing bilateral above knee compression socks. 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 He does have pain both in the knee and above the knee more in the quadriceps. PT-OP-C Subjective Start: 03/03/22 16:08 Freq: Status: Active Protocol: Document 03/09/22 10:39 AMB (Rec: 03/09/22 11:17 AMB [id number]) OP-PT Subjective Patient Comments Patient Comments Pt reports he has tried to do his exercises, but the leg really swelled up yesterday, so he mostly just iced and elevated yesterday. PT-OP-G Mobility & Gait Start: 03/03/22 16:08 Freq: Status: Active Protocol: Document 03/07/22 11:15 AMB (Rec: 03/07/22 15:57 AMB [id number]) OP Gait Assessment Comments Gait Comments Pt ambulating with FWW with reduced step length, reduced knee flexion with swing and reduced extension with stance. PT-OP-J Posture/Palpation/Skin Start: 03/03/22 16:08 Freq: Status: Active Protocol: Document 03/07/22 11:15 AMB (Rec: 03/07/22 13:02 AMB [id number]) Palpation Assessment Location One Palpation Location left knee Palpation Findings Edema Palpation Details edema at mid patella 53cm on left, 47 on R PT-OP-K Range of Motion Start: 03/03/22 16:08 Freq: Status: Active Protocol: Document 03/07/22 11:15 AMB (Rec: 03/07/22 13:02 AMB [id number]) Knee Goniometric Range of Motion Knee Left Patient Position Supine Flexion Passive (degrees) 75 Comments missing 5 degrees of extension PT-OP-M Strength Start: 03/03/22 16:08 Freq: Status: Active Protocol: Document 03/07/22 11:15 AMB (Rec: 03/07/22 15:57 AMB [id number]) Knee Strength Knee Manual Muscle Testing Left Flexion (S2) 3+ Fair+ Extension (L3) 2 Poor Comments very challenged with quad activation PT-OP-Q Treatments Start: 03/03/22 16:08 Freq: Status: Active Protocol: Document 03/09/22 10:39 AMB (Rec: 03/09/22 11:17 AMB [id number]) Cardio Equipment Recumbent Stepper (Sci-Fit) Duration (Minutes) 10 Resistance 3 Seat Position 14 Therapeutic Exercises Supine Exercises heel slide Reps/Minutes 10 Comments passively assist pt Sitting Exercises heel slide Sitting Exercise Name mat table elevated Reps/Minutes 10 Manual Therapy Treatment Manual Techniques PROM Comments knee flexion and extension edema massage Comments supine with leg elevated, swelling over lateral thigh PT-OP-R Modalities Start: 03/03/22 16:08 Freq: Status: Active Protocol: Document 03/09/22 10:30 AMB (Rec: 03/10/22 12:04 AMB [id number]) Hot Pack/Cold Pack Treatment cryccuff Location knee Patient Position Hooklying Treatment Duration (minutes) 10 PT-OP-T Assessment and Plan Start: 03/03/22 16:08 Freq: Status: Active Protocol: Document 03/09/22 10:39 AMB (Rec: 03/09/22 11:17 AMB [id number]) Physical Therapy Assessment Goals Gait Short Term Goal (STG) will ambulate without antalgic gait with a SPC over smooth terrain for 6 minutes. STG Duration 4 weeks Correction Goal (LTG) will ascend and descend a flight of stairs with an alternating gait pattern and one railing. LTG Duration 10 weeks Edema Short Term Goal (STG) will reduce his knee circumfrence at mid patella to 50cm or less. STG Duration 4 weeks Correction Goal (LTG) will tolerate not wearing compression socks and not exhibit pitting edema as a result. LTG Duration 10 weeks ROM Short Term Goal (STG) will improve his PROM to 0-90. STG Duration 4 weeks Mental Health Specialist Goal (LTG) will improve his active knee ROM to 0-120 degrees. LTG Duration 10 weeks Assessment Summary Assessment Swelling is limiting exercise tolerance, but did improve flexion to 80 degrees today. Physical Therapy Plan Next Visit Focus/Plan Next Note Type Treatment Note Next Visit Plan Start with recumbent stepper, progress quad control and both flexion and extension ROM
--- NOTE | 2022-03-14 13:00 | PT.OTN ---
Current Diagnoses Unilateral primary osteoarthritis, left knee (03/14/22) Pain in left knee (03/14/22) Other abnormalities of gait and mobility (03/14/22) Encounter for other preprocedural examination (03/14/22) Physical Therapy Treatment Note PT-OP-A Visit Information Start: 03/03/22 16:08 Freq: Status: Active Protocol: Document 03/14/22 12:14 SP (Rec: 03/14/22 13:04 SP [id number]) Out-Patient Physical Therapy Visit Information Visit Information Visit Type Treatment Note Visit Start Time 12:14 Visit Stop Time 13:00 Total Visit Minutes 44 Visit Number 3 Number of HYDROELECTRIC POWERPLANT SUPERVISOR Visits 1 PT-OP-B Current Condition Start: 03/03/22 16:08 Freq: Status: Active Protocol: Document 03/07/22 11:16 AMB (Rec: 03/07/22 12:03 AMB [id number]) Current Condition History of Current Condition Onset Date 03/02/22 Current Complaints L TKA History of Current Condition Pt had a left total knee on 03/02/22. He is doing well, icing and using a FWW at home. He is wearing bilateral above knee compression socks. 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 He does have pain both in the knee and above the knee more in the quadriceps. PT-OP-C Subjective Start: 03/03/22 16:08 Freq: Status: Active Protocol: Document 03/14/22 12:14 SP (Rec: 03/14/22 13:04 SP [id number]) OP-PT Subjective Patient Comments Patient Comments Pt reported went light with HEP due to swelling, icing, rest btwn rests. He reports 21 swelling today, wondered if should get stronger compression sock to assist. He follows up with ortho tomorrow. Pt reported still bruising over Lateral thigh sensitive to pressure. PT-OP-G Mobility & Gait Start: 03/03/22 16:08 Freq: Status: Active Protocol: Document 03/07/22 11:15 AMB (Rec: 03/07/22 15:57 AMB [id number]) OP Gait Assessment Comments Gait Comments Pt ambulating with FWW with reduced step length, reduced knee flexion with swing and reduced extension with stance. PT-OP-J Posture/Palpation/Skin Start: 03/03/22 16:08 Freq: Status: Active Protocol: Document 03/07/22 11:15 AMB (Rec: 03/07/22 13:02 AMB [id number]) Palpation Assessment Location One Palpation Location left knee Palpation Findings Edema Palpation Details edema at mid patella 53cm on left, 47 on R PT-OP-K Range of Motion Start: 03/03/22 16:08 Freq: Status: Active Protocol: Document 03/14/22 12:14 SP (Rec: 03/14/22 13:04 SP [id number]) Knee Goniometric Range of Motion Knee Left Knee ROM WFL No Patient Position Supine Flexion Active (degrees) 88 Flexion Passive (degrees) 92 Extension Active (degrees) 3 Comments missing 5 degrees of extension resting position, ankle over roller. PT-OP-M Strength Start: 03/03/22 16:08 Freq: Status: Active Protocol: Document 03/07/22 11:15 AMB (Rec: 03/07/22 15:57 AMB [id number]) Knee Strength Knee Manual Muscle Testing Left Flexion (S2) 3+ Fair+ Extension (L3) 2 Poor Comments very challenged with quad activation PT-OP-Q Treatments Start: 03/03/22 16:08 Freq: Status: Active Protocol: Document 03/14/22 12:14 SP (Rec: 03/14/22 13:04 SP [id number]) Cardio Equipment Recumbent Stepper (Sci-Fit) Duration (Minutes) 10 Resistance 3 Seat Position 14 >13 at 5 min> 12 at Other UEs/LEs, 50 RPMs, 1 mile Therapeutic Exercises Supine Exercises quad set Side left Equipment Used ankle on foam roller, towel roll under knee press into Reps/Minutes 10 x10 Comments very challenging heel slide Resistance tball 55cm, strap AAROM Reps/Minutes 10 Comments passively assist pt Sitting Exercises HS stretch Sitting Exercise Name added to HEP Side left Reps/Minutes 30 x3 Comments good feedback stretch in HS heel slide Sitting Exercise Name mat table elevated Side left Equipment Used mesh chair Reps/Minutes 10 Comments almost 90 deg seated Standing Exercises calf stretch Standing Exercise Name added gastroc stretch Side left Equipment Used JUSTINE Reps/Minutes 30 x3 Comments cued posturing and relaxe shld over L Gait Training Gait Activity stairs Device Used L HR Level of Assistance S Distance/Duration 4 step x4 sets step to patterning lead RLE ascend/ LLE descend Treatment Focus assess patterning, ROM, strength can do Comments Unableto ascend with LLE at this time, safe using 1 HR gait SPC Device Used SPC Level of Assistance S Surface firm Distance/Duration 340 ft around clinic (2 lrg laps) Treatment Focus proper patterning, heel toe, foot clearance, knee extension heel strike Comments Occasioal cues for foot clearance. Good proper patterning and stability Manual Therapy Treatment Soft Tissue Mobilization calf, HS, quad, ITB Body Location L Comments manual and ed can use rolling pin over calf, HS, ITB, mid upper quad. Manual Techniques edema massage Comments supine with leg elevated, swelling over lateral thigh Self-Care/Home Management Treatment Education Patient Education Home Exercise Program,Joint Protection,Safety Other Education Use ice for swelling control: 51.5cm= 20.5 inches PT-OP-R Modalities Start: 03/03/22 16:08 Freq: Status: Active Protocol: Document 03/09/22 10:30 AMB (Rec: 03/10/22 12:04 AMB [id number]) Hot Pack/Cold Pack Treatment cryccuff Location knee Patient Position Hooklying Treatment Duration (minutes) 10 PT-OP-T Assessment and Plan Start: 03/03/22 16:08 Freq: Status: Active Protocol: Document 03/14/22 12:14 SP (Rec: 03/14/22 13:04 SP [id number]) Physical Therapy Assessment Goals Gait Short Term Goal (STG) will ambulate without antalgic gait with a SPC over smooth terrain for 6 minutes. STG Duration 4 weeks Care Home Goal (LTG) will ascend and descend a flight of stairs with an alternating gait pattern and one railing. LTG Duration 10 weeks Edema Short Term Goal (STG) will reduce his knee circumfrence at mid patella to 50cm or less. STG Duration 4 weeks Care Home Goal (LTG) will tolerate not wearing compression socks and not exhibit pitting edema as a result. LTG Duration 10 weeks ROM Short Term Goal (STG) will improve his PROM to 0-90. STG Duration 4 weeks Commercial Plumber Goal (LTG) will improve his active knee ROM to 0-120 degrees. LTG Duration 10 weeks Progress Towards Goals Progress Towards Goals Progressing Toward Goals Progress Comments IMprovements in ROM: L knee AROM 92 deg, ext 5 resting, 3 deg active Mid Patella swelling: Use ice for swelling control: 51.5cm= 20.5 inches. Assessment Summary Assessment Pt decreased swelling to 51. 5cm and improvement in AROM L knee 3-88 deg, passive flexion 92 deg. Improve gait with SPC . Physical Therapy Plan Frequency and Duration Frequency of Treatment 2x/Week Duration of Treatment 10 weeks Plan of Care Start Date 03/07/22 Plan of Care End Date 05/16/22 Therapeutic Interventions Therapeutic Interventions Balance Training,Gait Training ,Home Exercise Program,Joint Mobilizations,Manual Therapy, Neuromuscular Re-education, Self-Care/Home Management,Soft Tissue Mobilization, Therapeutic Activities, Therapeutic Exercises Modalities Cold Pack/Ice Massage,Electric Stimulation Next Visit Focus/Plan Next Note Type Treatment Note Next Visit Plan Start with recumbent stepper, progress quad control and both flexion and extension ROM
--- NOTE | 2022-03-16 10:34 | PT.OTN ---
Addendum entered and electronically signed by Itzel Peña, PT 03/16/22 13:27: Pt reports ortho PA advised compression should not exceed 15-20 mm Hg. Original Note: Current Diagnoses Unilateral primary osteoarthritis, left knee (03/16/22) Pain in left knee (03/16/22) Other abnormalities of gait and mobility (03/16/22) Encounter for other preprocedural examination (03/16/22) Physical Therapy Treatment Note PT-OP-A Visit Information Start: 03/03/22 16:08 Freq: Status: Active Protocol: Document 03/16/22 08:59 AW (Rec: 03/16/22 09:00 AW [id number]) Out-Patient Physical Therapy Visit Information Visit Information Visit Type Treatment Note Visit Start Time 09:48 Visit Stop Time 10:40 Total Visit Minutes 52 Visit Number 4 Number of TAPE TRANSFERRER Visits 0 PT-OP-B Current Condition Start: 03/03/22 16:08 Freq: Status: Active Protocol: Document 03/07/22 11:16 AMB (Rec: 03/07/22 12:03 AMB [id number]) Current Condition History of Current Condition Onset Date 03/02/22 Current Complaints L TKA History of Current Condition Pt had a left total knee on 03/02/22. He is doing well, icing and using a FWW at home. He is wearing bilateral above knee compression socks. 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 He does have pain both in the knee and above the knee more in the quadriceps. PT-OP-C Subjective Start: 03/03/22 16:08 Freq: Status: Active Protocol: Document 03/16/22 08:59 AW (Rec: 03/16/22 09:01 AW [id number]) OP-PT Subjective Patient Comments Patient Comments reports left knee has been a better experience overall than the left knee. Still swollen and wearing compression. Saw PA yesterday who advised continued icing but was otherwise satisfied with progress. PT-OP-G Mobility & Gait Start: 03/03/22 16:08 Freq: Status: Active Protocol: Document 03/07/22 11:15 AMB (Rec: 03/07/22 15:57 AMB [id number]) OP Gait Assessment Comments Gait Comments Pt ambulating with FWW with reduced step length, reduced knee flexion with swing and reduced extension with stance. PT-OP-J Posture/Palpation/Skin Start: 03/03/22 16:08 Freq: Status: Active Protocol: Document 03/07/22 11:15 AMB (Rec: 03/07/22 13:02 AMB [id number]) Palpation Assessment Location One Palpation Location left knee Palpation Findings Edema Palpation Details edema at mid patella 53cm on left, 47 on R PT-OP-K Range of Motion Start: 03/03/22 16:08 Freq: Status: Active Protocol: Document 03/16/22 08:59 AW (Rec: 03/16/22 09:01 AW [id number]) Knee Goniometric Range of Motion Knee Left Knee ROM WFL No Patient Position Supine Flexion Active (degrees) 95 Extension Active (degrees) 3 PT-OP-M Strength Start: 03/03/22 16:08 Freq: Status: Active Protocol: Document 03/07/22 11:15 AMB (Rec: 03/07/22 15:57 AMB [id number]) Knee Strength Knee Manual Muscle Testing Left Flexion (S2) 3+ Fair+ Extension (L3) 2 Poor Comments very challenged with quad activation PT-OP-Q Treatments Start: 03/03/22 16:08 Freq: Status: Active Protocol: Document 03/16/22 08:59 AW (Rec: 03/16/22 09:01 AW [id number]) Cardio Equipment Recumbent Stepper (Sci-Fit) Duration (Minutes) 10 Resistance 3 Seat Position 13>12>11 (max flexion tolerated today) Other UEs/LEs, 50 RPMs, 1.18 mile Therapeutic Exercises Supine Exercises SLR Supine Exercise Name SLR Side left Comments HEP quad set Side left Equipment Used ankle on foam roller, towel roll under knee press into Reps/Minutes 10 x10 Comments very challenging heel slide Resistance tball 55cm, strap AAROM Reps/Minutes 10 Comments passively assist pt Manual Therapy Treatment Soft Tissue Mobilization calf, HS, quad, ITB Body Location L Comments manual and reminder can use rolling pin over calf, HS, ITB , mid upper quad. Manual Techniques edema massage Comments supine with leg elevated, swelling over lateral thigh Self-Care/Home Management Treatment Education Patient Education Home Exercise Program,Joint Protection,Safety Other Education Continue with regular icing and elevation. Add SLR to HEP PT-OP-R Modalities Start: 03/03/22 16:08 Freq: Status: Active Protocol: Document 03/16/22 08:59 AW (Rec: 03/16/22 10:33 AW [id number]) Hot Pack/Cold Pack Treatment cryccuff Location knee Patient Position Hooklying Treatment Duration (minutes) 10 PT-OP-T Assessment and Plan Start: 03/03/22 16:08 Freq: Status: Active Protocol: Document 03/16/22 08:59 AW (Rec: 03/16/22 09:00 AW [id number]) Physical Therapy Assessment Goals Gait Short Term Goal (STG) will ambulate without antalgic gait with a SPC over smooth terrain for 6 minutes. STG Duration 4 weeks Curtain Fitter Goal (LTG) will ascend and descend a flight of stairs with an alternating gait pattern and one railing. LTG Duration 10 weeks Edema Short Term Goal (STG) will reduce his knee circumfrence at mid patella to 50cm or less. STG Duration 4 weeks Intermediate Goal (LTG) will tolerate not wearing compression socks and not exhibit pitting edema as a result. LTG Duration 10 weeks ROM Short Term Goal (STG) will improve his PROM to 0-90. STG Duration 4 weeks Curtain Fitter Goal (LTG) will improve his active knee ROM to 0-120 degrees. LTG Duration 10 weeks Assessment Summary Assessment AROM increased to 3-95. Focused on ROM, edema management, and education today. Pt is progressing well and able to maintain extension (lacking 3 degrees) with small range SLR. Physical Therapy Plan Frequency and Duration Frequency of Treatment 2x/Week Duration of Treatment 10 weeks Plan of Care Start Date 03/07/22 Plan of Care End Date 05/16/22 Therapeutic Interventions Therapeutic Interventions Balance Training,Gait Training ,Home Exercise Program,Joint Mobilizations,Manual Therapy, Neuromuscular Re-education, Self-Care/Home Management,Soft Tissue Mobilization, Therapeutic Activities, Therapeutic Exercises Modalities Cold Pack/Ice Massage,Electric Stimulation Next Visit Focus/Plan Next Note Type Treatment Note Next Visit Plan Start with recumbent stepper, progress quad control and both flexion and extension ROM
--- NOTE | 2022-03-21 12:33 | PT.OTN ---
Current Diagnoses Unilateral primary osteoarthritis, left knee (03/21/22) Pain in left knee (03/21/22) Other abnormalities of gait and mobility (03/21/22) Encounter for other preprocedural examination (03/21/22) Physical Therapy Treatment Note PT-OP-A Visit Information Start: 03/03/22 16:08 Freq: Status: Active Protocol: Document 03/21/22 08:59 AW (Rec: 03/21/22 10:35 AW [id number]) Out-Patient Physical Therapy Visit Information Visit Information Visit Type Treatment Note Visit Start Time 09:45 Visit Stop Time 10:24 Total Visit Minutes 41 Visit Number 5 Number of WOOD MACHINIST APPRENTICE Visits 0 PT-OP-B Current Condition Start: 03/03/22 16:08 Freq: Status: Active Protocol: Document 03/07/22 11:16 AMB (Rec: 03/07/22 12:03 AMB [id number]) Current Condition History of Current Condition Onset Date 03/02/22 Current Complaints L TKA History of Current Condition Pt had a left total knee on 03/02/22. He is doing well, icing and using a FWW at home. He is wearing bilateral above knee compression socks. 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 He does have pain both in the knee and above the knee more in the quadriceps. PT-OP-C Subjective Start: 03/03/22 16:08 Freq: Status: Active Protocol: Document 03/21/22 08:59 AW (Rec: 03/21/22 10:35 AW [id number]) OP-PT Subjective Patient Comments Patient Comments Feeling a little tight in the back of the leg. Swelling seems to be reducing PT-OP-G Mobility & Gait Start: 03/03/22 16:08 Freq: Status: Active Protocol: Document 03/07/22 11:15 AMB (Rec: 03/07/22 15:57 AMB [id number]) OP Gait Assessment Comments Gait Comments Pt ambulating with FWW with reduced step length, reduced knee flexion with swing and reduced extension with stance. PT-OP-J Posture/Palpation/Skin Start: 03/03/22 16:08 Freq: Status: Active Protocol: Document 03/07/22 11:15 AMB (Rec: 03/07/22 13:02 AMB [id number]) Palpation Assessment Location One Palpation Location left knee Palpation Findings Edema Palpation Details edema at mid patella 53cm on left, 47 on R PT-OP-K Range of Motion Start: 03/03/22 16:08 Freq: Status: Active Protocol: Document 03/21/22 08:59 AW (Rec: 03/21/22 10:35 AW [id number]) Knee Goniometric Range of Motion Knee Left Knee ROM WFL No Patient Position Supine Flexion Active (degrees) 95 Extension Active (degrees) 3 PT-OP-M Strength Start: 03/03/22 16:08 Freq: Status: Active Protocol: Document 03/07/22 11:15 AMB (Rec: 03/07/22 15:57 AMB [id number]) Knee Strength Knee Manual Muscle Testing Left Flexion (S2) 3+ Fair+ Extension (L3) 2 Poor Comments very challenged with quad activation PT-OP-Q Treatments Start: 03/03/22 16:08 Freq: Status: Active Protocol: Document 03/21/22 08:59 AW (Rec: 03/21/22 10:35 AW [id number]) Therapeutic Exercises Supine Exercises SLR Supine Exercise Name SLR Side left Comments HEP review; quad set Side left Equipment Used ankle on foam roller, towel roll under knee press into Reps/Minutes 10 x10 Comments improving engagement heel slide Resistance tball 55cm, strap AAROM Reps/Minutes 10 Comments passively assist pt Sitting Exercises HS stretch Sitting Exercise Name reviewed Side left Reps/Minutes 30 x4 Comments good feedback stretch in HS Standing Exercises backward walk Standing Exercise Name backward walk Comments focus on knee extension calf stretch Standing Exercise Name HEP review Side left Equipment Used rail Reps/Minutes 30 x4 Gait Training Gait Activity stairs Device Used B HR Level of Assistance SBA Distance/Duration reciprocating Treatment Focus soft left knee Comments needs B HR Manual Therapy Treatment Soft Tissue Mobilization calf, HS, quad, ITB Body Location L Comments manual and reminder can use rolling pin over calf, HS, ITB , mid upper quad. Joint Mobilizations tibiofemoral Joint tibiofemoral Grade II Comments glides for extension and flexion; tolerated well Manual Techniques edema massage Comments Swelling 2.5-3 cm > opposite LE. Improving PT-OP-R Modalities Start: 03/03/22 16:08 Freq: Status: Active Protocol: Document 03/16/22 08:59 AW (Rec: 03/16/22 10:33 AW [id number]) Hot Pack/Cold Pack Treatment cryccuff Location knee Patient Position Hooklying Treatment Duration (minutes) 10 PT-OP-T Assessment and Plan Start: 03/03/22 16:08 Freq: Status: Active Protocol: Document 03/21/22 08:59 AW (Rec: 03/21/22 10:35 AW [id number]) Physical Therapy Assessment Goals Gait Short Term Goal (STG) will ambulate without antalgic gait with a SPC over smooth terrain for 6 minutes. STG Duration 4 weeks Yarn Salvager Goal (LTG) will ascend and descend a flight of stairs with an alternating gait pattern and one railing. LTG Duration 10 weeks Edema Short Term Goal (STG) will reduce his knee circumfrence at mid patella to 50cm or less. STG Duration 4 weeks Chcf Goal (LTG) will tolerate not wearing compression socks and not exhibit pitting edema as a result. LTG Duration 10 weeks ROM Short Term Goal (STG) will improve his PROM to 0-90. STG Duration 4 weeks [facility] Goal (LTG) will improve his active knee ROM to 0-120 degrees. LTG Duration 10 weeks Progress Towards Goals Progress Comments L knee mid patella circumferential measurement 50 .4 cm. R knee 48.5 cm Assessment Summary Assessment Swelling is reducing. ROM is stable compared with last week . Spent extra time today working on gentle joint mobilizations for improved ROM which pt tolerated well. Physical Therapy Plan Frequency and Duration Frequency of Treatment 2x/Week Duration of Treatment 10 weeks Plan of Care Start Date 03/07/22 Plan of Care End Date 05/16/22 Therapeutic Interventions Therapeutic Interventions Balance Training,Gait Training ,Home Exercise Program,Joint Mobilizations,Manual Therapy, Neuromuscular Re-education, Self-Care/Home Management,Soft Tissue Mobilization, Therapeutic Activities, Therapeutic Exercises Modalities Cold Pack/Ice Massage,Electric Stimulation Next Visit Focus/Plan Next Note Type Treatment Note Next Visit Plan Start with recumbent stepper, progress quad control and both flexion and extension ROM
--- NOTE | 2022-03-23 10:32 | PT.OTN ---
Current Diagnoses Unilateral primary osteoarthritis, left knee (03/23/22) Pain in left knee (03/23/22) Other abnormalities of gait and mobility (03/23/22) Encounter for other preprocedural examination (03/23/22) Physical Therapy Treatment Note PT-OP-A Visit Information Start: 03/03/22 16:08 Freq: Status: Active Protocol: Document 03/23/22 08:51 AW (Rec: 03/23/22 10:32 AW [id number]) Out-Patient Physical Therapy Visit Information Visit Information Visit Type Treatment Note Visit Start Time 09:45 Visit Stop Time 10:35 Total Visit Minutes 50 Visit Number 6 Number of CIVIL GEOTECHNICAL ENGINEER Visits 0 PT-OP-B Current Condition Start: 03/03/22 16:08 Freq: Status: Active Protocol: Document 03/07/22 11:16 AMB (Rec: 03/07/22 12:03 AMB [id number]) Current Condition History of Current Condition Onset Date 03/02/22 Current Complaints L TKA History of Current Condition Pt had a left total knee on 03/02/22. He is doing well, icing and using a FWW at home. He is wearing bilateral above knee compression socks. 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 He does have pain both in the knee and above the knee more in the quadriceps. PT-OP-C Subjective Start: 03/03/22 16:08 Freq: Status: Active Protocol: Document 03/23/22 08:51 AW (Rec: 03/23/22 10:32 AW [id number]) OP-PT Subjective Patient Comments Patient Comments Pt feels swelling continues to reduce. PT-OP-G Mobility & Gait Start: 03/03/22 16:08 Freq: Status: Active Protocol: Document 03/07/22 11:15 AMB (Rec: 03/07/22 15:57 AMB [id number]) OP Gait Assessment Comments Gait Comments Pt ambulating with FWW with reduced step length, reduced knee flexion with swing and reduced extension with stance. PT-OP-J Posture/Palpation/Skin Start: 03/03/22 16:08 Freq: Status: Active Protocol: Document 03/07/22 11:15 AMB (Rec: 03/07/22 13:02 AMB [id number]) Palpation Assessment Location One Palpation Location left knee Palpation Findings Edema Palpation Details edema at mid patella 53cm on left, 47 on R PT-OP-K Range of Motion Start: 03/03/22 16:08 Freq: Status: Active Protocol: Document 03/21/22 08:59 AW (Rec: 03/21/22 10:35 AW [id number]) Knee Goniometric Range of Motion Knee Left Knee ROM WFL No Patient Position Supine Flexion Active (degrees) 95 Extension Active (degrees) 3 PT-OP-M Strength Start: 03/03/22 16:08 Freq: Status: Active Protocol: Document 03/07/22 11:15 AMB (Rec: 03/07/22 15:57 AMB [id number]) Knee Strength Knee Manual Muscle Testing Left Flexion (S2) 3+ Fair+ Extension (L3) 2 Poor Comments very challenged with quad activation PT-OP-Q Treatments Start: 03/03/22 16:08 Freq: Status: Active Protocol: Document 03/23/22 08:51 AW (Rec: 03/23/22 10:32 AW [id number]) Cardio Equipment Recumbent Stepper (Sci-Fit) Duration (Minutes) 8 Resistance 3 Seat Position 12>11 Other UEs/LEs, 50-60 RPMs, 1.11 mile Therapeutic Exercises Supine Exercises heel slide Resistance tball 55cm, strap AAROM Reps/Minutes 10 Comments AROM 100; PROM 107 Sitting Exercises HS stretch Sitting Exercise Name reviewed Side left Reps/Minutes 30 x4 Comments good feedback stretch in HS heel slide Sitting Exercise Name mat table elevated Side left Equipment Used slider; leaned over LLE for bodyweight assist Reps/Minutes 10 Comments almost 90 deg seated Standing Exercises heel lifts Standing Exercise Name heel lifts Side bilateral Reps/Minutes x15 Comments RLE weaker calf stretch Standing Exercise Name HEP review Side left Equipment Used JUSTINE, rail Reps/Minutes 30 x4 Other Exercises sit to stand Other Exercise Name sit to stand Equipment Used 23 mat table Reps/Minutes 2x10 Comments no UE support Manual Therapy Treatment Joint Mobilizations tibiofemoral Joint tibiofemoral Grade II Comments glides for extension and flexion; tolerated well Self-Care/Home Management Treatment Education Patient Education Home Exercise Program Other Education Added heel lifts to HEP. Pt states he may try sit to stands at home. PT encouraged him to find an elevated surface. PT-OP-R Modalities Start: 03/03/22 16:08 Freq: Status: Active Protocol: Document 03/23/22 08:51 AW (Rec: 03/23/22 10:32 AW [id number]) Hot Pack/Cold Pack Treatment Cold Pack Location LEFT KNEE Patient Position Hooklying Treatment Duration (minutes) 10 Patient Tolerance Good PT-OP-T Assessment and Plan Start: 03/03/22 16:08 Freq: Status: Active Protocol: Document 03/23/22 08:51 AW (Rec: 03/23/22 10:32 AW [id number]) Physical Therapy Assessment Goals Gait Short Term Goal (STG) will ambulate without antalgic gait with a SPC over smooth terrain for 6 minutes. STG Duration 4 weeks Square Cutter Goal (LTG) will ascend and descend a flight of stairs with an alternating gait pattern and one railing. LTG Duration 10 weeks Edema Short Term Goal (STG) will reduce his knee circumfrence at mid patella to 50cm or less. STG Duration 4 weeks Square Cutter Goal (LTG) will tolerate not wearing compression socks and not exhibit pitting edema as a result. LTG Duration 10 weeks ROM Short Term Goal (STG) will improve his PROM to 0-90. STG Duration 4 weeks Square Cutter Goal (LTG) will improve his active knee ROM to 0-120 degrees. LTG Duration 10 weeks Progress Towards Goals Progress Comments AROM 4-100; PROM 107 Assessment Summary Assessment ROM progressing well. AROM is currently 4-100. Pt is highly engaged with HEP. was able to progress sit to stand to no hands at 23 height. Physical Therapy Plan Frequency and Duration Frequency of Treatment 2x/Week Duration of Treatment 10 weeks Plan of Care Start Date 03/07/22 Plan of Care End Date 05/16/22 Therapeutic Interventions Therapeutic Interventions Balance Training,Gait Training ,Home Exercise Program,Joint Mobilizations,Manual Therapy, Neuromuscular Re-education, Self-Care/Home Management,Soft Tissue Mobilization, Therapeutic Activities, Therapeutic Exercises Modalities Cold Pack/Ice Massage,Electric Stimulation Next Visit Focus/Plan Next Note Type Treatment Note Next Visit Plan Start with recumbent stepper, progress quad control and both flexion and extension ROM. Re -check sit to stand
--- NOTE | 2022-03-28 20:42 | PT.OTN ---
Current Diagnoses Unilateral primary osteoarthritis, left knee (03/28/22) Pain in left knee (03/28/22) Other abnormalities of gait and mobility (03/28/22) Encounter for other preprocedural examination (03/28/22) Physical Therapy Treatment Note PT-OP-A Visit Information Start: 03/03/22 16:08 Freq: Status: Active Protocol: Document 03/28/22 10:37 AMB (Rec: 03/28/22 11:09 AMB [id number]) Out-Patient Physical Therapy Visit Information Visit Information Visit Type Treatment Note Visit Start Time 09:45 Visit Stop Time 10:35 Total Visit Minutes 50 Visit Number 7 Number of THERMOMETER MAKER Visits 0 PT-OP-B Current Condition Start: 03/03/22 16:08 Freq: Status: Active Protocol: Document 03/07/22 11:16 AMB (Rec: 03/07/22 12:03 AMB [id number]) Current Condition History of Current Condition Onset Date 03/02/22 Current Complaints L TKA History of Current Condition Pt had a left total knee on 03/02/22. He is doing well, icing and using a FWW at home. He is wearing bilateral above knee compression socks. 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 He does have pain both in the knee and above the knee more in the quadriceps. PT-OP-C Subjective Start: 03/03/22 16:08 Freq: Status: Active Protocol: Document 03/28/22 10:37 AMB (Rec: 03/28/22 11:09 AMB [id number]) OP-PT Subjective Patient Comments Patient Comments Noticing pain at the tibia especially at night PT-OP-G Mobility & Gait Start: 03/03/22 16:08 Freq: Status: Active Protocol: Document 03/07/22 11:15 AMB (Rec: 03/07/22 15:57 AMB [id number]) OP Gait Assessment Comments Gait Comments Pt ambulating with FWW with reduced step length, reduced knee flexion with swing and reduced extension with stance. PT-OP-J Posture/Palpation/Skin Start: 03/03/22 16:08 Freq: Status: Active Protocol: Document 03/07/22 11:15 AMB (Rec: 03/07/22 13:02 AMB [id number]) Palpation Assessment Location One Palpation Location left knee Palpation Findings Edema Palpation Details edema at mid patella 53cm on left, 47 on R PT-OP-K Range of Motion Start: 03/03/22 16:08 Freq: Status: Active Protocol: Document 03/21/22 08:59 AW (Rec: 03/21/22 10:35 AW [id number]) Knee Goniometric Range of Motion Knee Left Knee ROM WFL No Patient Position Supine Flexion Active (degrees) 95 Extension Active (degrees) 3 PT-OP-M Strength Start: 03/03/22 16:08 Freq: Status: Active Protocol: Document 03/07/22 11:15 AMB (Rec: 03/07/22 15:57 AMB [id number]) Knee Strength Knee Manual Muscle Testing Left Flexion (S2) 3+ Fair+ Extension (L3) 2 Poor Comments very challenged with quad activation PT-OP-Q Treatments Start: 03/03/22 16:08 Freq: Status: Active Protocol: Document 03/28/22 10:37 AMB (Rec: 03/28/22 11:09 AMB [id number]) Cardio Equipment Recumbent Stepper (Sci-Fit) Duration (Minutes) 9 Resistance 3 Seat Position 12>11 Other UEs/LEs, 70 RPMs, 1.41 mile Gym Equipment Shuttle Recovery Bilateral squat Resistance 62 Shuttle Recovery Platform Stable Reps/Time x10 Unilateral Squats Resistance 50 Reps/Time 20x2 Therapeutic Exercises Supine Exercises bridges Reps/Minutes 10 SLR Supine Exercise Name SLR Side left Comments HEP review; heel slide Resistance tball 55cm, strap AAROM Reps/Minutes 10 Comments PROM 107 Standing Exercises heel lifts Standing Exercise Name heel lifts Side bilateral Reps/Minutes x15 Comments RLE weaker calf stretch Standing Exercise Name HEP review Side left Equipment Used JUSTINE, rail Reps/Minutes 30 x4 Other Exercises sit to stand Other Exercise Name sit to stand Equipment Used 23 mat table Reps/Minutes 2x10 Comments no UE support Manual Therapy Treatment Joint Mobilizations tibiofemoral Joint tibiofemoral Grade II Comments glides for extension and flexion; tolerated well PT-OP-R Modalities Start: 03/03/22 16:08 Freq: Status: Active Protocol: Document 03/23/22 08:51 AW (Rec: 03/23/22 10:32 AW [id number]) Hot Pack/Cold Pack Treatment Cold Pack Location LEFT KNEE Patient Position Hooklying Treatment Duration (minutes) 10 Patient Tolerance Good PT-OP-T Assessment and Plan Start: 03/03/22 16:08 Freq: Status: Active Protocol: Document 03/28/22 10:37 AMB (Rec: 03/28/22 11:09 AMB [id number]) Physical Therapy Assessment Goals Gait Short Term Goal (STG) will ambulate without antalgic gait with a SPC over smooth terrain for 6 minutes. STG Duration 4 weeks Flight Follower Goal (LTG) will ascend and descend a flight of stairs with an alternating gait pattern and one railing. LTG Duration 10 weeks Edema Short Term Goal (STG) will reduce his knee circumfrence at mid patella to 50cm or less. STG Duration 4 weeks Flight Follower Goal (LTG) will tolerate not wearing compression socks and not exhibit pitting edema as a result. LTG Duration 10 weeks ROM Short Term Goal (STG) will improve his PROM to 0-90. STG Duration 4 weeks Flight Follower Goal (LTG) will improve his active knee ROM to 0-120 degrees. LTG Duration 10 weeks Assessment Summary Assessment Pt states needs to ice at home today. Flexion still at approx 107 degrees, swelling overall improving. Encouraged to continue to avoid over doing it with yardwork, extended walking, etc. Physical Therapy Plan Frequency and Duration Frequency of Treatment 2x/Week Duration of treatment (weeks) 10 Plan of Care Start Date 03/07/22 Plan of Care End Date 06/27/22 Therapeutic Interventions Therapeutic Interventions Balance Training,Gait Training ,Home Exercise Program,Joint Mobilizations,Manual Therapy, Neuromuscular Re-education, Self-Care/Home Management,Soft Tissue Mobilization, Therapeutic Activities, Therapeutic Exercises Modalities Cold Pack/Ice Massage,Electric Stimulation Next Visit Focus/Plan Next Note Type Treatment Note Next Visit Plan Start with recumbent stepper, progress quad control and both flexion and extension ROM. Re -check sit to stand
--- NOTE | 2022-03-30 12:26 | PT.OTN ---
Current Diagnoses Unilateral primary osteoarthritis, left knee (03/30/22) Pain in left knee (03/30/22) Other abnormalities of gait and mobility (03/30/22) Encounter for other preprocedural examination (03/30/22) Physical Therapy Treatment Note PT-OP-A Visit Information Start: 03/03/22 16:08 Freq: Status: Active Protocol: Document 03/30/22 09:50 AW (Rec: 03/30/22 10:34 AW [id number]) Out-Patient Physical Therapy Visit Information Visit Information Visit Type Treatment Note Visit Start Time 09:45 Visit Stop Time 10:30 Total Visit Minutes 45 Visit Number 8 Number of MAINFRAME APPLICATIONS DEVELOPER Visits 0 PT-OP-B Current Condition Start: 03/03/22 16:08 Freq: Status: Active Protocol: Document 03/07/22 11:16 AMB (Rec: 03/07/22 12:03 AMB [id number]) Current Condition History of Current Condition Onset Date 03/02/22 Current Complaints L TKA History of Current Condition Pt had a left total knee on 03/02/22. He is doing well, icing and using a FWW at home. He is wearing bilateral above knee compression socks. 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 He does have pain both in the knee and above the knee more in the quadriceps. PT-OP-C Subjective Start: 03/03/22 16:08 Freq: Status: Active Protocol: Document 03/30/22 09:50 AW (Rec: 03/30/22 10:34 AW [id number]) OP-PT Subjective Patient Comments Patient Comments Transitioning slowly back to sleeping in bed. Makes it about 2 hours before pain wakes him [facility] PT-OP-G Mobility & Gait Start: 03/03/22 16:08 Freq: Status: Active Protocol: Document 03/07/22 11:15 AMB (Rec: 03/07/22 15:57 AMB [id number]) OP Gait Assessment Comments Gait Comments Pt ambulating with FWW with reduced step length, reduced knee flexion with swing and reduced extension with stance. PT-OP-J Posture/Palpation/Skin Start: 03/03/22 16:08 Freq: Status: Active Protocol: Document 03/07/22 11:15 AMB (Rec: 03/07/22 13:02 AMB [id number]) Palpation Assessment Location One Palpation Location left knee Palpation Findings Edema Palpation Details edema at mid patella 53cm on left, 47 on R PT-OP-K Range of Motion Start: 03/03/22 16:08 Freq: Status: Active Protocol: Document 03/21/22 08:59 AW (Rec: 03/21/22 10:35 AW [id number]) Knee Goniometric Range of Motion Knee Left Knee ROM WFL No Patient Position Supine Flexion Active (degrees) 95 Extension Active (degrees) 3 PT-OP-M Strength Start: 03/03/22 16:08 Freq: Status: Active Protocol: Document 03/07/22 11:15 AMB (Rec: 03/07/22 15:57 AMB [id number]) Knee Strength Knee Manual Muscle Testing Left Flexion (S2) 3+ Fair+ Extension (L3) 2 Poor Comments very challenged with quad activation PT-OP-Q Treatments Start: 03/03/22 16:08 Freq: Status: Active Protocol: Document 03/30/22 09:50 AW (Rec: 03/30/22 10:34 AW [id number]) Cardio Equipment Recumbent Stepper (Sci-Fit) Duration (Minutes) 9 Resistance 3 Seat Position 12>11>10 Other UEs/LEs, 70 RPMs, 1.4 miles Gym Equipment Shuttle Recovery Bilateral squat Resistance 75 Shuttle Recovery Platform Stable Reps/Time x10 Unilateral Squats Resistance 50 R; 37 L Reps/Time x20 Therapeutic Exercises Supine Exercises bridges Reps/Minutes 10 Standing Exercises heel lifts Standing Exercise Name heel lifts Side bilateral Reps/Minutes x15 Comments RLE weaker calf stretch Standing Exercise Name HEP review Side left Equipment Used JUSTINE, rail Reps/Minutes 30 x4 Other Exercises sit to stand Other Exercise Name sit to stand Equipment Used 22.5 mat table Reps/Minutes 2x10 Comments no UE support Manual Therapy Treatment Joint Mobilizations tibiofemoral Joint tibiofemoral Grade II Comments glides for extension and flexion; tolerated well PT-OP-R Modalities Start: 03/03/22 16:08 Freq: Status: Active Protocol: Document 03/23/22 08:51 AW (Rec: 03/23/22 10:32 AW [id number]) Hot Pack/Cold Pack Treatment Cold Pack Location LEFT KNEE Patient Position Hooklying Treatment Duration (minutes) 10 Patient Tolerance Good PT-OP-T Assessment and Plan Start: 03/03/22 16:08 Freq: Status: Active Protocol: Document 03/30/22 09:50 AW (Rec: 03/30/22 10:34 AW [id number]) Physical Therapy Assessment Goals Gait Short Term Goal (STG) will ambulate without antalgic gait with a SPC over smooth terrain for 6 minutes. STG Duration 4 weeks Power Mule Operator Goal (LTG) will ascend and descend a flight of stairs with an alternating gait pattern and one railing. LTG Duration 10 weeks Edema Short Term Goal (STG) will reduce his knee circumfrence at mid patella to 50cm or less. STG Duration 4 weeks Intermediate Goal (LTG) will tolerate not wearing compression socks and not exhibit pitting edema as a result. LTG Duration 10 weeks ROM Short Term Goal (STG) will improve his PROM to 0-90. STG Duration 4 weeks Power Mule Operator Goal (LTG) will improve his active knee ROM to 0-120 degrees. LTG Duration 10 weeks Assessment Summary Assessment ROM not measured today. Pt admits he likely overdid it yesterday. Continues to encourage pt to dial back fo rimproved healing. Swelling and ROM appear stable subjectively. Pt improved sit to stand to 22.5 surface without UE support. Physical Therapy Plan Frequency and Duration Frequency of Treatment 2x/Week Duration of treatment (weeks) 10 Plan of Care Start Date 03/07/22 Plan of Care End Date 06/27/22 Therapeutic Interventions Therapeutic Interventions Balance Training,Gait Training ,Home Exercise Program,Joint Mobilizations,Manual Therapy, Neuromuscular Re-education, Self-Care/Home Management,Soft Tissue Mobilization, Therapeutic Activities, Therapeutic Exercises Modalities Cold Pack/Ice Massage,Electric Stimulation Next Visit Focus/Plan Next Note Type Treatment Note Next Visit Plan Start with recumbent stepper, progress quad control and both flexion and extension ROM. Re -check sit to stand
--- NOTE | 2022-04-04 20:56 | PT.OTN ---
Current Diagnoses Unilateral primary osteoarthritis, left knee (04/04/22) Pain in left knee (04/04/22) Other abnormalities of gait and mobility (04/04/22) Encounter for other preprocedural examination (04/04/22) Physical Therapy Treatment Note PT-OP-A Visit Information Start: 03/03/22 16:08 Freq: Status: Active Protocol: Document 04/04/22 09:42 AMB (Rec: 04/04/22 10:30 AMB [id number]) Out-Patient Physical Therapy Visit Information Visit Information Visit Type Treatment Note Visit Start Time 09:45 Visit Stop Time 10:30 Total Visit Minutes 45 Visit Number 9 PT-OP-B Current Condition Start: 03/03/22 16:08 Freq: Status: Active Protocol: Document 03/07/22 11:16 AMB (Rec: 03/07/22 12:03 AMB [id number]) Current Condition History of Current Condition Onset Date 03/02/22 Current Complaints L TKA History of Current Condition Pt had a left total knee on 03/02/22. He is doing well, icing and using a FWW at home. He is wearing bilateral above knee compression socks. 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 He does have pain both in the knee and above the knee more in the quadriceps. PT-OP-C Subjective Start: 03/03/22 16:08 Freq: Status: Active Protocol: Document 04/04/22 09:42 AMB (Rec: 04/04/22 10:30 AMB [id number]) OP-PT Subjective Patient Comments Patient Comments Lower leg throbs at night, makes bed sleeping difficult. Seeing MD tomorrow. PT-OP-G Mobility & Gait Start: 03/03/22 16:08 Freq: Status: Active Protocol: Document 03/07/22 11:15 AMB (Rec: 03/07/22 15:57 AMB [id number]) OP Gait Assessment Comments Gait Comments Pt ambulating with FWW with reduced step length, reduced knee flexion with swing and reduced extension with stance. PT-OP-J Posture/Palpation/Skin Start: 03/03/22 16:08 Freq: Status: Active Protocol: Document 03/07/22 11:15 AMB (Rec: 03/07/22 13:02 AMB [id number]) Palpation Assessment Location One Palpation Location left knee Palpation Findings Edema Palpation Details edema at mid patella 53cm on left, 47 on R PT-OP-K Range of Motion Start: 03/03/22 16:08 Freq: Status: Active Protocol: Document 03/21/22 08:59 AW (Rec: 03/21/22 10:35 AW [id number]) Knee Goniometric Range of Motion Knee Left Knee ROM WFL No Patient Position Supine Flexion Active (degrees) 95 Extension Active (degrees) 3 PT-OP-M Strength Start: 03/03/22 16:08 Freq: Status: Active Protocol: Document 03/07/22 11:15 AMB (Rec: 03/07/22 15:57 AMB [id number]) Knee Strength Knee Manual Muscle Testing Left Flexion (S2) 3+ Fair+ Extension (L3) 2 Poor Comments very challenged with quad activation PT-OP-Q Treatments Start: 03/03/22 16:08 Freq: Status: Active Protocol: Document 04/04/22 09:42 AMB (Rec: 04/04/22 10:30 AMB [id number]) Cardio Equipment Bicycle (Upright) Duration (Minutes) 8 Resistance 3 Seat Position 9 Gym Equipment Shuttle Recovery Bilateral squat Resistance 75 Shuttle Recovery Platform Stable Reps/Time x10 Unilateral Squats Resistance 50 R; 37 L Reps/Time x20 Therapeutic Exercises Sitting Exercises HS stretch Sitting Exercise Name reviewed Side left Reps/Minutes 30 x4 Comments good feedback stretch in HS Other Exercises sit to stand Other Exercise Name sit to stand Equipment Used 22.5 mat table Reps/Minutes 2x10 Comments no UE support Manual Therapy Treatment Joint Mobilizations tibiofemoral Joint tibiofemoral Grade II Comments glides for extension and flexion; tolerated well Manual Techniques PROM Comments knee flexion and extension PT-OP-R Modalities Start: 03/03/22 16:08 Freq: Status: Active Protocol: Document 04/04/22 09:45 AMB (Rec: 04/04/22 20:52 AMB [id number]) Hot Pack/Cold Pack Treatment Cold Pack Location LEFT KNEE Patient Position Hooklying Treatment Duration (minutes) 10 Patient Tolerance Good PT-OP-T Assessment and Plan Start: 03/03/22 16:08 Freq: Status: Active Protocol: Document 04/04/22 09:42 AMB (Rec: 04/04/22 10:30 AMB [id number]) Physical Therapy Assessment Goals Gait Short Term Goal (STG) will ambulate without antalgic gait with a SPC over smooth terrain for 6 minutes. STG Duration 4 weeks Intermediate Goal (LTG) will ascend and descend a flight of stairs with an alternating gait pattern and one railing. LTG Duration 10 weeks Edema Short Term Goal (STG) will reduce his knee circumfrence at mid patella to 50cm or less. STG Duration MET Intermediate Goal (LTG) will tolerate not wearing compression socks and not exhibit pitting edema as a result. LTG Duration 10 weeks ROM Short Term Goal (STG) will improve his PROM to 0-90. STG Duration MET Intermediate Goal (LTG) will improve his active knee ROM to 0-120 degrees. 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 His biggest concern is the pain behind his knee at night, continues to need to work on extension ROM. Physical Therapy Plan Frequency and Duration Frequency of Treatment 2x/Week Duration of treatment (weeks) 10 Plan of Care Start Date 03/07/22 Plan of Care End Date 06/27/22 Next Visit Focus/Plan Next Note Type Treatment Note Next Visit Plan Start with upright bike progress quad control and both flexion and extension ROM.
--- NOTE | 2022-04-06 17:12 | PT.OTN ---
Current Diagnoses Unilateral primary osteoarthritis, left knee (04/06/22) Pain in left knee (04/06/22) Other abnormalities of gait and mobility (04/06/22) Encounter for other preprocedural examination (04/06/22) Physical Therapy Treatment Note PT-OP-A Visit Information Start: 03/03/22 16:08 Freq: Status: Active Protocol: Document 04/06/22 09:20 AW (Rec: 04/06/22 10:33 AW [id number]) Out-Patient Physical Therapy Visit Information Visit Information Visit Type Progress Note Visit Start Time 09:45 Visit Stop Time 10:30 Total Visit Minutes 45 Visit Number 10 Evaluation Information Evaluation Date 03/07/22 PT-OP-B Current Condition Start: 03/03/22 16:08 Freq: Status: Active Protocol: Document 03/07/22 11:16 AMB (Rec: 03/07/22 12:03 AMB [id number]) Current Condition History of Current Condition Onset Date 03/02/22 Current Complaints L TKA History of Current Condition Pt had a left total knee on 03/02/22. He is doing well, icing and using a FWW at home. He is wearing bilateral above knee compression socks. 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 He does have pain both in the knee and above the knee more in the quadriceps. PT-OP-C Subjective Start: 03/03/22 16:08 Freq: Status: Active Protocol: Document 04/06/22 09:20 AW (Rec: 04/06/22 10:33 AW [id number]) OP-PT Subjective Patient Comments Patient Comments Followed up with ortho yesterday. Prescribed a mm relaxer for night pain and something for swelling. Overall, Dr. Hair was pleased with progress. PT-OP-G Mobility & Gait Start: 03/03/22 16:08 Freq: Status: Active Protocol: Document 03/07/22 11:15 AMB (Rec: 03/07/22 15:57 AMB [id number]) OP Gait Assessment Comments Gait Comments Pt ambulating with FWW with reduced step length, reduced knee flexion with swing and reduced extension with stance. PT-OP-J Posture/Palpation/Skin Start: 03/03/22 16:08 Freq: Status: Active Protocol: Document 03/07/22 11:15 AMB (Rec: 03/07/22 13:02 AMB [id number]) Palpation Assessment Location One Palpation Location left knee Palpation Findings Edema Palpation Details edema at mid patella 53cm on left, 47 on R PT-OP-K Range of Motion Start: 03/03/22 16:08 Freq: Status: Active Protocol: Document 03/21/22 08:59 AW (Rec: 03/21/22 10:35 AW [id number]) Knee Goniometric Range of Motion Knee Left Knee ROM WFL No Patient Position Supine Flexion Active (degrees) 95 Extension Active (degrees) 3 PT-OP-M Strength Start: 03/03/22 16:08 Freq: Status: Active Protocol: Document 03/07/22 11:15 AMB (Rec: 03/07/22 15:57 AMB [id number]) Knee Strength Knee Manual Muscle Testing Left Flexion (S2) 3+ Fair+ Extension (L3) 2 Poor Comments very challenged with quad activation PT-OP-Q Treatments Start: 03/03/22 16:08 Freq: Status: Active Protocol: Document 04/06/22 09:20 AW (Rec: 04/06/22 10:33 AW [id number]) Gym Equipment Shuttle Recovery Bilateral squat Resistance 87 Shuttle Recovery Platform Stable Reps/Time x10 Unilateral Squats Resistance 50 R; 37 L Reps/Time x20 Therapeutic Exercises Sitting Exercises HS stretch Sitting Exercise Name reviewed Side left Reps/Minutes 30 x4 Comments good feedback stretch in HS Gait Training Gait Activity gait SPC Description 6MWT Device Used SPC Surface smooth - tile, carpet Distance/Duration 6 minutes/1023 feet Treatment Focus assessment Comments 0.86 m/s average gait speed with consistent split times. Increased vaulting and WB on cane with increased distance. Manual Therapy Treatment Joint Mobilizations tibiofemoral Joint tibiofemoral Grade II Comments glides for extension and flexion; tolerated well Manual Techniques PROM Comments knee flexion and extension PT-OP-R Modalities Start: 03/03/22 16:08 Freq: Status: Active Protocol: Document 04/06/22 09:20 AW (Rec: 04/06/22 10:33 AW [id number]) Hot Pack/Cold Pack Treatment Cold Pack Location LEFT KNEE Patient Position Hooklying Treatment Duration (minutes) 10 Patient Tolerance Good PT-OP-T Assessment and Plan Start: 03/03/22 16:08 Freq: Status: Active Protocol: Document 04/06/22 09:20 AW (Rec: 04/06/22 10:33 AW [id number]) Physical Therapy Assessment Goals Gait Short Term Goal (STG) will ambulate without antalgic gait with a SPC over smooth terrain for 6 minutes. 04/06/22 - PROGRESSING. Increased antalgia with increased distance but pt does finish 6MWT wtih SPC. STG Duration 4 weeks Prison Goal (LTG) will ascend and descend a flight of stairs with an alternating gait pattern and one railing. LTG Duration 10 weeks Edema Short Term Goal (STG) will reduce his knee circumfrence at mid patella to 50cm or less. 04/06 - Measuring 49.9 cm today (1.4 cm more than right side) STG Duration MET Congressional Aide Goal (LTG) will tolerate not wearing compression socks and not exhibit pitting edema as a result. LTG Duration 10 weeks ROM Short Term Goal (STG) will improve his PROM to 0-90. 04/06/22 - AROM 3-112 STG Duration MET [employer] Aide Goal (LTG) will improve his active knee ROM to 0-120 degrees. LTG Duration 10 weeks Progress Towards Goals Progress Towards Goals Progressing Toward Goals Progress Comments Overall, is progressing well with his recovery. He continues to lack a few degrees of extension but flexion has surpassed short term goals. Gait continues to be antalgic with SPC. should benefit from continued therapy to progress strength, ROM, and gait quality. Assessment Summary Assessment is using his cane less frequently in the house and feeling more confident with his walking overall. On 6 Minute Walk Test, antalgia does increase with increased time. Pt tends to vault on LLE and increase dependence on cane with distance. Average gait speed on 6MWT was 0.86 m/ s with no significant difference in lap times. Physical Therapy Plan Frequency and Duration Frequency of Treatment 2x/Week Duration of treatment (weeks) 10 Plan of Care Start Date 03/07/22 Plan of Care End Date 06/27/22 Next Visit Focus/Plan Next Note Type Treatment Note Next Visit Plan Start with upright bike progress quad control and both flexion and extension ROM.
--- NOTE | 2022-04-11 10:32 | PT.OTN ---
Current Diagnoses Unilateral primary osteoarthritis, left knee (04/11/22) Pain in left knee (04/11/22) Other abnormalities of gait and mobility (04/11/22) Encounter for other preprocedural examination (04/11/22) Physical Therapy Treatment Note PT-OP-A Visit Information Start: 03/03/22 16:08 Freq: Status: Active Protocol: Document 04/11/22 09:54 AMB (Rec: 04/11/22 10:29 AMB [id number]) Out-Patient Physical Therapy Visit Information Visit Information Visit Type Treatment Note Visit Start Time 09:45 Visit Stop Time 10:30 Total Visit Minutes 45 Visit Number 11 PT-OP-B Current Condition Start: 03/03/22 16:08 Freq: Status: Active Protocol: Document 03/07/22 11:16 AMB (Rec: 03/07/22 12:03 AMB [id number]) Current Condition History of Current Condition Onset Date 03/02/22 Current Complaints L TKA History of Current Condition Pt had a left total knee on 03/02/22. He is doing well, icing and using a FWW at home. He is wearing bilateral above knee compression socks. 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 He does have pain both in the knee and above the knee more in the quadriceps. PT-OP-C Subjective Start: 03/03/22 16:08 Freq: Status: Active Protocol: Document 04/11/22 09:54 AMB (Rec: 04/11/22 10:29 AMB [id number]) OP-PT Subjective Patient Comments Patient Comments Hasn't been sleeping well but is able to sleep in the bed at night. PT-OP-G Mobility & Gait Start: 03/03/22 16:08 Freq: Status: Active Protocol: Document 03/07/22 11:15 AMB (Rec: 03/07/22 15:57 AMB [id number]) OP Gait Assessment Comments Gait Comments Pt ambulating with FWW with reduced step length, reduced knee flexion with swing and reduced extension with stance. PT-OP-J Posture/Palpation/Skin Start: 03/03/22 16:08 Freq: Status: Active Protocol: Document 03/07/22 11:15 AMB (Rec: 03/07/22 13:02 AMB [id number]) Palpation Assessment Location One Palpation Location left knee Palpation Findings Edema Palpation Details edema at mid patella 53cm on left, 47 on R PT-OP-K Range of Motion Start: 03/03/22 16:08 Freq: Status: Active Protocol: Document 03/21/22 08:59 AW (Rec: 03/21/22 10:35 AW [id number]) Knee Goniometric Range of Motion Knee Left Knee ROM WFL No Patient Position Supine Flexion Active (degrees) 95 Extension Active (degrees) 3 PT-OP-M Strength Start: 03/03/22 16:08 Freq: Status: Active Protocol: Document 03/07/22 11:15 AMB (Rec: 03/07/22 15:57 AMB [id number]) Knee Strength Knee Manual Muscle Testing Left Flexion (S2) 3+ Fair+ Extension (L3) 2 Poor Comments very challenged with quad activation PT-OP-Q Treatments Start: 03/03/22 16:08 Freq: Status: Active Protocol: Document 04/11/22 09:54 AMB (Rec: 04/11/22 10:29 AMB [id number]) Cardio Equipment Bicycle (Upright) Duration (Minutes) 8 Resistance 3 Seat Position 9 Gym Equipment Shuttle Recovery Bilateral squat Resistance 87 Shuttle Recovery Platform Stable Reps/Time x10 Unilateral Squats Resistance 50 R; Reps/Time x20 Therapeutic Exercises Supine Exercises bridges Reps/Minutes 10 SLR Supine Exercise Name SLR Side left Comments HEP review; quad set Side left Equipment Used ankle on foam roller, towel roll under knee press into Reps/Minutes 10 x10 Comments improving engagement heel slide Resistance tball 55cm, strap AAROM Reps/Minutes 10 Comments PROM 107 Sitting Exercises HS stretch Sitting Exercise Name reviewed Side left Reps/Minutes 30 x4 Comments good feedback stretch in HS Standing Exercises calf stretch Standing Exercise Name HEP review Side left Equipment Used JUSTINE, rail Reps/Minutes 30 x4 Other Exercises sit to stand Other Exercise Name sit to stand Equipment Used 22.5 mat table Reps/Minutes 2x10 Comments no UE support Manual Therapy Treatment Joint Mobilizations tibiofemoral Joint tibiofemoral Grade II Comments glides for extension and flexion; tolerated well Manual Techniques PROM Comments knee flexion and extension PT-OP-R Modalities Start: 03/03/22 16:08 Freq: Status: Active Protocol: Document 04/06/22 09:20 AW (Rec: 04/06/22 10:33 AW [id number]) Hot Pack/Cold Pack Treatment Cold Pack Location LEFT KNEE Patient Position Hooklying Treatment Duration (minutes) 10 Patient Tolerance Good PT-OP-T Assessment and Plan Start: 03/03/22 16:08 Freq: Status: Active Protocol: Document 04/11/22 09:54 AMB (Rec: 04/11/22 10:29 AMB [id number]) Physical Therapy Assessment Goals Gait Short Term Goal (STG) will ambulate without antalgic gait with a SPC over smooth terrain for 6 minutes. 04/06/22 - PROGRESSING. Increased antalgia with increased distance but pt does finish 6MWT wtih SPC. STG Duration 4 weeks Fabric Awning Repairer Goal (LTG) will ascend and descend a flight of stairs with an alternating gait pattern and one railing. LTG Duration 10 weeks Edema Short Term Goal (STG) will reduce his knee circumfrence at mid patella to 50cm or less. 04/06 - Measuring 49.9 cm today (1.4 cm more than right side) STG Duration MET Fabric Awning Repairer Goal (LTG) will tolerate not wearing compression socks and not exhibit pitting edema as a result. LTG Duration 10 weeks ROM Short Term Goal (STG) will improve his PROM to 0-90. 04/06/22 - AROM 3-112 STG Duration MET Fabric Awning Repairer Goal (LTG) will improve his active knee ROM to 0-120 degrees. LTG Duration 10 weeks Assessment Summary Assessment 's ROM is improving ( getting close to 120 flexion) swelling continues but not impairing ROM as much, does fatigue after extended standing/walking. Physical Therapy Plan Next Visit Focus/Plan Next Note Type Treatment Note Next Visit Plan Start with upright bike progress quad control and both flexion and extension ROM.
--- NOTE | 2022-04-13 10:33 | PT.OTN ---
Current Diagnoses Unilateral primary osteoarthritis, left knee (04/13/22) Pain in left knee (04/13/22) Other abnormalities of gait and mobility (04/13/22) Encounter for other preprocedural examination (04/13/22) Physical Therapy Treatment Note PT-OP-A Visit Information Start: 03/03/22 16:08 Freq: Status: Active Protocol: Document 04/13/22 09:01 AW (Rec: 04/13/22 10:33 AW [id number]) Out-Patient Physical Therapy Visit Information Visit Information Visit Start Time 09:45 Visit Stop Time 10:30 Total Visit Minutes 45 Visit Number 12 Evaluation Information Evaluation Date 03/07/22 PT-OP-B Current Condition Start: 03/03/22 16:08 Freq: Status: Active Protocol: Document 03/07/22 11:16 AMB (Rec: 03/07/22 12:03 AMB [id number]) Current Condition History of Current Condition Onset Date 03/02/22 Current Complaints L TKA History of Current Condition Pt had a left total knee on 03/02/22. He is doing well, icing and using a FWW at home. He is wearing bilateral above knee compression socks. 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 He does have pain both in the knee and above the knee more in the quadriceps. PT-OP-C Subjective Start: 03/03/22 16:08 Freq: Status: Active Protocol: Document 04/13/22 09:01 AW (Rec: 04/13/22 10:33 AW [id number]) OP-PT Subjective Patient Comments Patient Comments Still sleeping in the bed and with less pain PT-OP-G Mobility & Gait Start: 03/03/22 16:08 Freq: Status: Active Protocol: Document 03/07/22 11:15 AMB (Rec: 03/07/22 15:57 AMB [id number]) OP Gait Assessment Comments Gait Comments Pt ambulating with FWW with reduced step length, reduced knee flexion with swing and reduced extension with stance. PT-OP-J Posture/Palpation/Skin Start: 03/03/22 16:08 Freq: Status: Active Protocol: Document 03/07/22 11:15 AMB (Rec: 03/07/22 13:02 AMB [id number]) Palpation Assessment Location One Palpation Location left knee Palpation Findings Edema Palpation Details edema at mid patella 53cm on left, 47 on R PT-OP-K Range of Motion Start: 03/03/22 16:08 Freq: Status: Active Protocol: Document 03/21/22 08:59 AW (Rec: 03/21/22 10:35 AW [id number]) Knee Goniometric Range of Motion Knee Left Knee ROM WFL No Patient Position Supine Flexion Active (degrees) 95 Extension Active (degrees) 3 PT-OP-M Strength Start: 03/03/22 16:08 Freq: Status: Active Protocol: Document 03/07/22 11:15 AMB (Rec: 03/07/22 15:57 AMB [id number]) Knee Strength Knee Manual Muscle Testing Left Flexion (S2) 3+ Fair+ Extension (L3) 2 Poor Comments very challenged with quad activation PT-OP-Q Treatments Start: 03/03/22 16:08 Freq: Status: Active Protocol: Document 04/13/22 09:01 AW (Rec: 04/13/22 10:33 AW [id number]) Cardio Equipment Bicycle (Upright) Duration (Minutes) 8 Resistance 3 Seat Position 9 Gym Equipment Shuttle Recovery Bilateral squat Resistance 87 Shuttle Recovery Platform Stable Reps/Time x15 Unilateral Squats Resistance 50 R; 62 R Reps/Time x20 (50#) x 10 (62#) Therapeutic Exercises Supine Exercises bridges Reps/Minutes 10 SLR Supine Exercise Name SLR Side left Comments HEP review; quad set Side left Equipment Used ankle on foam roller, towel roll under knee press into Reps/Minutes 10 x10 Comments improving engagement Sitting Exercises HS stretch Sitting Exercise Name reviewed Side left Reps/Minutes 30 x4 Comments good feedback stretch in HS Standing Exercises calf stretch Standing Exercise Name HEP review Side left Equipment Used JUSTINE, rail Reps/Minutes 30 x4 Other Exercises sit to stand Other Exercise Name sit to stand Equipment Used 22 mat table Reps/Minutes 2x10 Comments arms x chest Manual Therapy Treatment Joint Mobilizations tibiofemoral Joint tibiofemoral Grade II Comments glides for extension and flexion; tolerated well Manual Techniques PROM Comments knee flexion and extension PT-OP-R Modalities Start: 03/03/22 16:08 Freq: Status: Active Protocol: Document 04/06/22 09:20 AW (Rec: 04/06/22 10:33 AW [id number]) Hot Pack/Cold Pack Treatment Cold Pack Location LEFT KNEE Patient Position Hooklying Treatment Duration (minutes) 10 Patient Tolerance Good PT-OP-T Assessment and Plan Start: 03/03/22 16:08 Freq: Status: Active Protocol: Document 04/13/22 09:01 AW (Rec: 04/13/22 10:33 AW [id number]) Physical Therapy Assessment Goals Gait Short Term Goal (STG) will ambulate without antalgic gait with a SPC over smooth terrain for 6 minutes. 04/06/22 - PROGRESSING. Increased antalgia with increased distance but pt does finish 6MWT wtih SPC. STG Duration 4 weeks Blocking Machine Tender Goal (LTG) will ascend and descend a flight of stairs with an alternating gait pattern and one railing. LTG Duration 10 weeks Edema Short Term Goal (STG) will reduce his knee circumfrence at mid patella to 50cm or less. 04/06 - Measuring 49.9 cm today (1.4 cm more than right side) 04/13/22 48.5 cm STG Duration MET Blocking Machine Tender Goal (LTG) will tolerate not wearing compression socks and not exhibit pitting edema as a result. LTG Duration 10 weeks ROM Short Term Goal (STG) will improve his PROM to 0-90. 04/06/22 - AROM 3-112 STG Duration MET Care Home Goal (LTG) will improve his active knee ROM to 0-120 degrees. LTG Duration 10 weeks Assessment Summary Assessment Swelling is reduced to 2 cm more than left side but making good progress. Sit to stand is improving and is able to manage from lower surface in good progression. Physical Therapy Plan Frequency and Duration Frequency of Treatment 2x/Week Duration of treatment (weeks) 10 Plan of Care Start Date 03/07/22 Plan of Care End Date 06/27/22 Next Visit Focus/Plan Next Note Type Treatment Note Next Visit Plan Start with upright bike progress quad control and both flexion and extension ROM.
--- NOTE | 2022-04-18 11:31 | PT.OTN ---
Current Diagnoses Unilateral primary osteoarthritis, left knee (04/18/22) Pain in left knee (04/18/22) Other abnormalities of gait and mobility (04/18/22) Encounter for other preprocedural examination (04/18/22) Physical Therapy Treatment Note PT-OP-A Visit Information Start: 03/03/22 16:08 Freq: Status: Active Protocol: Document 04/18/22 09:54 AMB (Rec: 04/18/22 10:43 AMB [id number]) Out-Patient Physical Therapy Visit Information Visit Information Visit Type Treatment Note Visit Start Time 09:45 Visit Stop Time 10:30 Total Visit Minutes 45 Visit Number 13 PT-OP-B Current Condition Start: 03/03/22 16:08 Freq: Status: Active Protocol: Document 03/07/22 11:16 AMB (Rec: 03/07/22 12:03 AMB [id number]) Current Condition History of Current Condition Onset Date 03/02/22 Current Complaints L TKA History of Current Condition Pt had a left total knee on 03/02/22. He is doing well, icing and using a FWW at home. He is wearing bilateral above knee compression socks. 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 He does have pain both in the knee and above the knee more in the quadriceps. PT-OP-C Subjective Start: 03/03/22 16:08 Freq: Status: Active Protocol: Document 04/18/22 09:45 AMB (Rec: 04/18/22 11:27 AMB [id number]) OP-PT Subjective Patient Comments Patient Comments states he is doing well, walking with the cane outdoors, but not indoors. PT-OP-G Mobility & Gait Start: 03/03/22 16:08 Freq: Status: Active Protocol: Document 03/07/22 11:15 AMB (Rec: 03/07/22 15:57 AMB [id number]) OP Gait Assessment Comments Gait Comments Pt ambulating with FWW with reduced step length, reduced knee flexion with swing and reduced extension with stance. PT-OP-J Posture/Palpation/Skin Start: 03/03/22 16:08 Freq: Status: Active Protocol: Document 03/07/22 11:15 AMB (Rec: 03/07/22 13:02 AMB [id number]) Palpation Assessment Location One Palpation Location left knee Palpation Findings Edema Palpation Details edema at mid patella 53cm on left, 47 on R PT-OP-K Range of Motion Start: 03/03/22 16:08 Freq: Status: Active Protocol: Document 03/21/22 08:59 AW (Rec: 03/21/22 10:35 AW [id number]) Knee Goniometric Range of Motion Knee Left Knee ROM WFL No Patient Position Supine Flexion Active (degrees) 95 Extension Active (degrees) 3 PT-OP-M Strength Start: 03/03/22 16:08 Freq: Status: Active Protocol: Document 03/07/22 11:15 AMB (Rec: 03/07/22 15:57 AMB [id number]) Knee Strength Knee Manual Muscle Testing Left Flexion (S2) 3+ Fair+ Extension (L3) 2 Poor Comments very challenged with quad activation PT-OP-Q Treatments Start: 03/03/22 16:08 Freq: Status: Active Protocol: Document 04/18/22 09:54 AMB (Rec: 04/18/22 10:43 AMB [id number]) Cardio Equipment Bicycle (Upright) Duration (Minutes) 8 Resistance 5 Seat Position 8 Gym Equipment Shuttle Recovery Bilateral squat Resistance 87 Shuttle Recovery Platform Stable Reps/Time x15 Unilateral Squats Resistance 62 R Reps/Time 2x 10 (62#) Therapeutic Exercises Supine Exercises SLR Supine Exercise Name SLR Side left Comments HEP review; Sitting Exercises HS stretch Sitting Exercise Name reviewed Side left Reps/Minutes 30 x4 Comments good feedback stretch in HS Gait Training Gait Activity indoor gait Comments lengthening stride increasing trunk rotation to try to reduce limping habit stairs Device Used B HR Level of Assistance SBA Distance/Duration reciprocating Treatment Focus soft left knee Comments needs B HR Manual Therapy Treatment Joint Mobilizations tibiofemoral Joint tibiofemoral Grade IV Comments glides for extension and flexion; tolerated well Manual Techniques PROM Comments knee flexion and extension PT-OP-R Modalities Start: 03/03/22 16:08 Freq: Status: Active Protocol: Document 04/06/22 09:20 AW (Rec: 04/06/22 10:33 AW [id number]) Hot Pack/Cold Pack Treatment Cold Pack Location LEFT KNEE Patient Position Hooklying Treatment Duration (minutes) 10 Patient Tolerance Good PT-OP-T Assessment and Plan Start: 03/03/22 16:08 Freq: Status: Active Protocol: Document 04/18/22 09:54 AMB (Rec: 04/18/22 10:43 AMB [id number]) Physical Therapy Assessment Goals Gait Short Term Goal (STG) will ambulate without antalgic gait with a SPC over smooth terrain for 6 minutes. 04/06/22 - PROGRESSING. Increased antalgia with increased distance but pt does finish 6MWT wtih SPC. STG Duration 4 weeks Penitentiary Goal (LTG) will ascend and descend a flight of stairs with an alternating gait pattern and one railing. LTG Duration 10 weeks Edema Short Term Goal (STG) will reduce his knee circumfrence at mid patella to 50cm or less. 04/06 - Measuring 49.9 cm today (1.4 cm more than right side) 04/13/22 48.5 cm STG Duration MET Adult Education Professional Goal (LTG) will tolerate not wearing compression socks and not exhibit pitting edema as a result. LTG Duration 10 weeks ROM Short Term Goal (STG) will improve his PROM to 0-90. 04/06/22 - AROM 3-112 STG Duration MET Penitentiary Goal (LTG) will improve his active knee ROM to 0-120 degrees. LTG Duration 10 weeks Assessment Summary Assessment is progressing well, does need to continue to work on normalizing gait more, but did well with cues to lengthen stride. ROM is doing well and pain continues to reduce. Physical Therapy Plan Next Visit Focus/Plan Next Note Type Treatment Note Next Visit Plan Start with upright bike progress quad control and both flexion and extension ROM.
--- NOTE | 2022-04-20 12:08 | PT.OTN ---
Current Diagnoses Unilateral primary osteoarthritis, left knee (04/20/22) Pain in left knee (04/20/22) Other abnormalities of gait and mobility (04/20/22) Encounter for other preprocedural examination (04/20/22) Physical Therapy Treatment Note PT-OP-A Visit Information Start: 03/03/22 16:08 Freq: Status: Active Protocol: Document 04/20/22 09:47 AW (Rec: 04/20/22 10:34 AW [id number]) Out-Patient Physical Therapy Visit Information Visit Information Visit Type Treatment Note Visit Start Time 09:45 Visit Stop Time 10:30 Total Visit Minutes 45 Visit Number 14 Evaluation Information Evaluation Date 03/07/22 PT-OP-B Current Condition Start: 03/03/22 16:08 Freq: Status: Active Protocol: Document 03/07/22 11:16 AMB (Rec: 03/07/22 12:03 AMB [id number]) Current Condition History of Current Condition Onset Date 03/02/22 Current Complaints L TKA History of Current Condition Pt had a left total knee on 03/02/22. He is doing well, icing and using a FWW at home. He is wearing bilateral above knee compression socks. 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 He does have pain both in the knee and above the knee more in the quadriceps. PT-OP-C Subjective Start: 03/03/22 16:08 Freq: Status: Active Protocol: Document 04/20/22 09:47 AW (Rec: 04/20/22 10:34 AW [id number]) OP-PT Subjective Patient Comments Patient Comments Still a little sore once in a while but nothing constant. PT-OP-G Mobility & Gait Start: 03/03/22 16:08 Freq: Status: Active Protocol: Document 03/07/22 11:15 AMB (Rec: 03/07/22 15:57 AMB [id number]) OP Gait Assessment Comments Gait Comments Pt ambulating with FWW with reduced step length, reduced knee flexion with swing and reduced extension with stance. PT-OP-J Posture/Palpation/Skin Start: 03/03/22 16:08 Freq: Status: Active Protocol: Document 03/07/22 11:15 AMB (Rec: 03/07/22 13:02 AMB [id number]) Palpation Assessment Location One Palpation Location left knee Palpation Findings Edema Palpation Details edema at mid patella 53cm on left, 47 on R PT-OP-K Range of Motion Start: 03/03/22 16:08 Freq: Status: Active Protocol: Document 03/21/22 08:59 AW (Rec: 03/21/22 10:35 AW [id number]) Knee Goniometric Range of Motion Knee Left Knee ROM WFL No Patient Position Supine Flexion Active (degrees) 95 Extension Active (degrees) 3 PT-OP-M Strength Start: 03/03/22 16:08 Freq: Status: Active Protocol: Document 03/07/22 11:15 AMB (Rec: 03/07/22 15:57 AMB [id number]) Knee Strength Knee Manual Muscle Testing Left Flexion (S2) 3+ Fair+ Extension (L3) 2 Poor Comments very challenged with quad activation PT-OP-Q Treatments Start: 03/03/22 16:08 Freq: Status: Active Protocol: Document 04/20/22 09:47 AW (Rec: 04/20/22 10:34 AW [id number]) Cardio Equipment Bicycle (Upright) Duration (Minutes) 8 Resistance 5 Seat Position 8 Gym Equipment Shuttle Recovery Bilateral squat Resistance 87 Shuttle Recovery Platform Stable Reps/Time x15 Unilateral Squats Resistance 62 L Reps/Time 2x 10 (62#) Therapeutic Exercises Sitting Exercises HS stretch Sitting Exercise Name reviewed Side left Reps/Minutes 30 x4 Comments good feedback stretch in HS Standing Exercises calf stretch Standing Exercise Name HEP review Side left Equipment Used JUSTINE, rail Reps/Minutes 30 x4 Other Exercises sit to stand Other Exercise Name sit to stand Equipment Used 22 mat table >21 Reps/Minutes 2x10 Comments arms x chest Gait Training Gait Activity pre-gait weight shifts Description pre-gait weight shifts Comments With mirror for feedback. Challenging for balance but better with chair set nearby for support. indoor gait Description level surface indoors Device Used none Comments lengthening stride increasing trunk rotation to try to reduce limping habit stairs Device Used B HR Level of Assistance SBA Distance/Duration reciprocating Treatment Focus soft left knee Comments needs B HR Manual Therapy Treatment Joint Mobilizations tibiofemoral Joint tibiofemoral Grade IV Comments glides for extension and flexion; tolerated well Manual Techniques PROM Comments knee flexion and extension PT-OP-R Modalities Start: 03/03/22 16:08 Freq: Status: Active Protocol: Document 04/06/22 09:20 AW (Rec: 04/06/22 10:33 AW [id number]) Hot Pack/Cold Pack Treatment Cold Pack Location LEFT KNEE Patient Position Hooklying Treatment Duration (minutes) 10 Patient Tolerance Good PT-OP-T Assessment and Plan Start: 03/03/22 16:08 Freq: Status: Active Protocol: Document 04/20/22 09:47 AW (Rec: 04/20/22 10:34 AW [id number]) Physical Therapy Assessment Goals Gait Short Term Goal (STG) will ambulate without antalgic gait with a SPC over smooth terrain for 6 minutes. 04/06/22 - PROGRESSING. Increased antalgia with increased distance but pt does finish 6MWT wtih SPC. STG Duration 4 weeks Retirement Goal (LTG) will ascend and descend a flight of stairs with an alternating gait pattern and one railing. LTG Duration 10 weeks Edema Short Term Goal (STG) will reduce his knee circumfrence at mid patella to 50cm or less. 04/06 - Measuring 49.9 cm today (1.4 cm more than right side) 04/13/22 48.5 cm STG Duration MET Getter Filler Goal (LTG) will tolerate not wearing compression socks and not exhibit pitting edema as a result. LTG Duration 10 weeks ROM Short Term Goal (STG) will improve his PROM to 0-90. 04/06/22 - AROM 3-112 STG Duration MET Retirement Goal (LTG) will improve his active knee ROM to 0-120 degrees. LTG Duration 10 weeks Assessment Summary Assessment does respond well to cues to lengthen stride and increase arm swing. Weight shifting in stride stance was challenging for his balance. ROM continues to improve and swelling is stable. Physical Therapy Plan Frequency and Duration Frequency of Treatment 2x/Week Plan of Care Start Date 03/07/22 Plan of Care End Date 06/27/22 Therapeutic Interventions Therapeutic Interventions Balance Training,Gait Training ,Home Exercise Program,Joint Mobilizations,Manual Therapy, Neuromuscular Re-education, Self-Care/Home Management,Soft Tissue Mobilization, Therapeutic Activities, Therapeutic Exercises Modalities Cold Pack/Ice Massage,Electric Stimulation Next Visit Focus/Plan Next Note Type Treatment Note Next Visit Plan Start with upright bike progress quad control and both flexion and extension ROM. Continue gait training. Consider balance work.
--- NOTE | 2022-04-25 12:33 | PT.OTN ---
Current Diagnoses Unilateral primary osteoarthritis, left knee (04/25/22) Pain in left knee (04/25/22) Other abnormalities of gait and mobility (04/25/22) Encounter for other preprocedural examination (04/25/22) Physical Therapy Treatment Note PT-OP-A Visit Information Start: 03/03/22 16:08 Freq: Status: Active Protocol: Document 04/25/22 09:41 AW (Rec: 04/25/22 10:33 AW [id number]) Out-Patient Physical Therapy Visit Information Visit Information Visit Type Treatment Note Visit Start Time 09:45 Visit Stop Time 10:30 Total Visit Minutes 45 Visit Number 15 Evaluation Information Evaluation Date 03/07/22 PT-OP-B Current Condition Start: 03/03/22 16:08 Freq: Status: Active Protocol: Document 03/07/22 11:16 AMB (Rec: 03/07/22 12:03 AMB [id number]) Current Condition History of Current Condition Onset Date 03/02/22 Current Complaints L TKA History of Current Condition Pt had a left total knee on 03/02/22. He is doing well, icing and using a FWW at home. He is wearing bilateral above knee compression socks. 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 He does have pain both in the knee and above the knee more in the quadriceps. PT-OP-C Subjective Start: 03/03/22 16:08 Freq: Status: Active Protocol: Document 04/25/22 09:41 AW (Rec: 04/25/22 10:33 AW [id number]) OP-PT Subjective Patient Comments Patient Comments Thinks he overdid it with PT on and then yard work afterward. Sunday felt stiff and Sunday it hurt to walk. Sometimes feels a clicking sensation during flexion but nothing painful. PT-OP-G Mobility & Gait Start: 03/03/22 16:08 Freq: Status: Active Protocol: Document 03/07/22 11:15 AMB (Rec: 03/07/22 15:57 AMB [id number]) OP Gait Assessment Comments Gait Comments Pt ambulating with FWW with reduced step length, reduced knee flexion with swing and reduced extension with stance. PT-OP-J Posture/Palpation/Skin Start: 03/03/22 16:08 Freq: Status: Active Protocol: Document 03/07/22 11:15 AMB (Rec: 03/07/22 13:02 AMB [id number]) Palpation Assessment Location One Palpation Location left knee Palpation Findings Edema Palpation Details edema at mid patella 53cm on left, 47 on R PT-OP-K Range of Motion Start: 03/03/22 16:08 Freq: Status: Active Protocol: Document 03/21/22 08:59 AW (Rec: 03/21/22 10:35 AW [id number]) Knee Goniometric Range of Motion Knee Left Knee ROM WFL No Patient Position Supine Flexion Active (degrees) 95 Extension Active (degrees) 3 PT-OP-M Strength Start: 03/03/22 16:08 Freq: Status: Active Protocol: Document 03/07/22 11:15 AMB (Rec: 03/07/22 15:57 AMB [id number]) Knee Strength Knee Manual Muscle Testing Left Flexion (S2) 3+ Fair+ Extension (L3) 2 Poor Comments very challenged with quad activation PT-OP-Q Treatments Start: 03/03/22 16:08 Freq: Status: Active Protocol: Document 04/25/22 09:41 AW (Rec: 04/25/22 10:33 AW [id number]) Cardio Equipment Bicycle (Upright) Duration (Minutes) 8 Resistance 5 Seat Position 8 Gym Equipment Shuttle Balance blue Reps/Duration 10 min Comments -NBOS -stride stance - semi-tandem Therapeutic Exercises Supine Exercises SLR Supine Exercise Name SLR Side left Comments HEP review Standing Exercises TKE Standing Exercise Name TKE Side left Resistance TB3, TB4 Comments HEP heel lifts Standing Exercise Name heel lifts Side bilateral Reps/Minutes x15 Comments RLE weaker backward walk Standing Exercise Name backward walk Comments focus on knee extension calf stretch Standing Exercise Name HEP review Side left Equipment Used JUSTINE, rail Reps/Minutes 30 x4 Other Exercises sit to stand Other Exercise Name sit to stand Equipment Used 20 mesh chair + 2 blue foam Reps/Minutes 2x10 Comments arms in front; arms x chest Manual Therapy Treatment Joint Mobilizations tibiofemoral Joint tibiofemoral Grade IV Comments glides for extension and flexion; tolerated well Manual Techniques PROM Comments knee flexion and extension Self-Care/Home Management Treatment Education Other Education Encouraged pt to trial no compression garment at night, taking measurements at night and first thing in AM. PT-OP-R Modalities Start: 03/03/22 16:08 Freq: Status: Active Protocol: Document 04/06/22 09:20 AW (Rec: 04/06/22 10:33 AW [id number]) Hot Pack/Cold Pack Treatment Cold Pack Location LEFT KNEE Patient Position Hooklying Treatment Duration (minutes) 10 Patient Tolerance Good PT-OP-T Assessment and Plan Start: 03/03/22 16:08 Freq: Status: Active Protocol: Document 04/25/22 09:41 AW (Rec: 04/25/22 10:33 AW [id number]) Physical Therapy Assessment Goals Gait Short Term Goal (STG) will ambulate without antalgic gait with a SPC over smooth terrain for 6 minutes. 04/06/22 - PROGRESSING. Increased antalgia with increased distance but pt does finish 6MWT wtih SPC. STG Duration 4 weeks Half-Way Goal (LTG) will ascend and descend a flight of stairs with an alternating gait pattern and one railing. LTG Duration 10 weeks Edema Short Term Goal (STG) will reduce his knee circumfrence at mid patella to 50cm or less. 04/06 - Measuring 49.9 cm today (1.4 cm more than right side) 04/13/22 48.5 cm STG Duration MET Kier Hand Goal (LTG) will tolerate not wearing compression socks and not exhibit pitting edema as a result. LTG Duration 10 weeks ROM Short Term Goal (STG) will improve his PROM to 0-90. 04/06/22 - AROM 3-112 STG Duration MET Kier Hand Goal (LTG) will improve his active knee ROM to 0-120 degrees. LTG Duration 10 weeks Assessment Summary Assessment Initiated balance work today for joint control. Pt did well with balance board. Encouraged pt to trial night time with no compression garment to begin limiting time in compression and to give skin a break. Swelling is stable within ~1 cm on right knee. Physical Therapy Plan Frequency and Duration Frequency of Treatment 2x/Week Plan of Care Start Date 03/07/22 Plan of Care End Date 06/27/22 Therapeutic Interventions Therapeutic Interventions Balance Training,Gait Training ,Home Exercise Program,Joint Mobilizations,Manual Therapy, Neuromuscular Re-education, Self-Care/Home Management,Soft Tissue Mobilization, Therapeutic Activities, Therapeutic Exercises Modalities Cold Pack/Ice Massage,Electric Stimulation Next Visit Focus/Plan Next Note Type Treatment Note Next Visit Plan Start with upright bike progress quad control and both flexion and extension ROM. Continue gait training. Consider balance work.
--- NOTE | 2022-04-27 10:55 | PT.OTN ---
Current Diagnoses Unilateral primary osteoarthritis, left knee (04/27/22) Pain in left knee (04/27/22) Other abnormalities of gait and mobility (04/27/22) Encounter for other preprocedural examination (04/27/22) Physical Therapy Treatment Note PT-OP-A Visit Information Start: 03/03/22 16:08 Freq: Status: Active Protocol: Document 04/27/22 08:54 AW (Rec: 04/27/22 10:55 AW [id number]) Out-Patient Physical Therapy Visit Information Visit Information Visit Type Treatment Note Visit Start Time 09:45 Visit Stop Time 10:30 Total Visit Minutes 45 Visit Number 16 Evaluation Information Evaluation Date 03/07/22 PT-OP-B Current Condition Start: 03/03/22 16:08 Freq: Status: Active Protocol: Document 03/07/22 11:16 AMB (Rec: 03/07/22 12:03 AMB [id number]) Current Condition History of Current Condition Onset Date 03/02/22 Current Complaints L TKA History of Current Condition Pt had a left total knee on 03/02/22. He is doing well, icing and using a FWW at home. He is wearing bilateral above knee compression socks. 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 He does have pain both in the knee and above the knee more in the quadriceps. PT-OP-C Subjective Start: 03/03/22 16:08 Freq: Status: Active Protocol: Document 04/27/22 08:54 AW (Rec: 04/27/22 10:55 AW [id number]) OP-PT Subjective Patient Comments Patient Comments arrives with more of a limp today. States he did a lot of yard work again yesterday. Has been trying to work on his gait pattern. Has been taking compression garment off at nights; did not measure but subjectively does not appreciate any difference . PT-OP-G Mobility & Gait Start: 03/03/22 16:08 Freq: Status: Active Protocol: Document 03/07/22 11:15 AMB (Rec: 03/07/22 15:57 AMB [id number]) OP Gait Assessment Comments Gait Comments Pt ambulating with FWW with reduced step length, reduced knee flexion with swing and reduced extension with stance. PT-OP-J Posture/Palpation/Skin Start: 03/03/22 16:08 Freq: Status: Active Protocol: Document 03/07/22 11:15 AMB (Rec: 03/07/22 13:02 AMB [id number]) Palpation Assessment Location One Palpation Location left knee Palpation Findings Edema Palpation Details edema at mid patella 53cm on left, 47 on R PT-OP-K Range of Motion Start: 03/03/22 16:08 Freq: Status: Active Protocol: Document 03/21/22 08:59 AW (Rec: 03/21/22 10:35 AW [id number]) Knee Goniometric Range of Motion Knee Left Knee ROM WFL No Patient Position Supine Flexion Active (degrees) 95 Extension Active (degrees) 3 PT-OP-M Strength Start: 03/03/22 16:08 Freq: Status: Active Protocol: Document 03/07/22 11:15 AMB (Rec: 03/07/22 15:57 AMB [id number]) Knee Strength Knee Manual Muscle Testing Left Flexion (S2) 3+ Fair+ Extension (L3) 2 Poor Comments very challenged with quad activation PT-OP-Q Treatments Start: 03/03/22 16:08 Freq: Status: Active Protocol: Document 04/27/22 08:54 AW (Rec: 04/27/22 10:55 AW [id number]) Cardio Equipment Bicycle (Upright) Duration (Minutes) 8 Resistance 5 Seat Position 8 Gym Equipment Shuttle Balance blue Reps/Duration 10 min Comments -NBOS -stride stance - semi-tandem - mini squats Therapeutic Exercises Supine Exercises SLR Supine Exercise Name SLR Side left Comments HEP review Standing Exercises TKE Standing Exercise Name TKE Side left Resistance TB4 Comments HEP heel lifts Standing Exercise Name heel lifts Side bilateral Reps/Minutes x15 Comments RLE weaker calf stretch Standing Exercise Name HEP review Side left Equipment Used JUSTINE, rail Reps/Minutes 30 x4 Manual Therapy Treatment Joint Mobilizations tibiofemoral Joint tibiofemoral Grade IV Comments glides for extension and flexion; tolerated well Manual Techniques PROM Comments knee flexion and extension PT-OP-R Modalities Start: 03/03/22 16:08 Freq: Status: Active Protocol: Document 04/06/22 09:20 AW (Rec: 04/06/22 10:33 AW [id number]) Hot Pack/Cold Pack Treatment Cold Pack Location LEFT KNEE Patient Position Hooklying Treatment Duration (minutes) 10 Patient Tolerance Good PT-OP-T Assessment and Plan Start: 03/03/22 16:08 Freq: Status: Active Protocol: Document 04/27/22 08:54 AW (Rec: 04/27/22 10:55 AW [id number]) Physical Therapy Assessment Goals Gait Short Term Goal (STG) will ambulate without antalgic gait with a SPC over smooth terrain for 6 minutes. 04/06/22 - PROGRESSING. Increased antalgia with increased distance but pt does finish 6MWT wtih SPC. STG Duration 4 weeks Assisted Goal (LTG) will ascend and descend a flight of stairs with an alternating gait pattern and one railing. LTG Duration 10 weeks Edema Short Term Goal (STG) will reduce his knee circumfrence at mid patella to 50cm or less. 04/06 - Measuring 49.9 cm today (1.4 cm more than right side) 04/13/22 48.5 cm STG Duration MET Template Reproduction Technician Goal (LTG) will tolerate not wearing compression socks and not exhibit pitting edema as a result. LTG Duration 10 weeks ROM Short Term Goal (STG) will improve his PROM to 0-90. 04/06/22 - AROM 3-112 STG Duration MET Assisted Goal (LTG) will improve his active knee ROM to 0-120 degrees. LTG Duration 10 weeks Assessment Summary Assessment was limping significantly today due to overuse yesterday. Focused on balance and ROM today and encouraged pt to dial back activity to allow for better progression in strength and gait mechanics. Physical Therapy Plan Frequency and Duration Frequency of Treatment 2x/Week Plan of Care Start Date 03/07/22 Plan of Care End Date 06/27/22 Therapeutic Interventions Therapeutic Interventions Balance Training,Gait Training ,Home Exercise Program,Joint Mobilizations,Manual Therapy, Neuromuscular Re-education, Self-Care/Home Management,Soft Tissue Mobilization, Therapeutic Activities, Therapeutic Exercises Modalities Cold Pack/Ice Massage,Electric Stimulation Next Visit Focus/Plan Next Note Type Treatment Note Next Visit Plan Start with upright bike progress quad control and both flexion and extension ROM. Continue gait training. Consider balance work.
--- NOTE | 2022-05-02 10:44 | PT.OTN ---
Current Diagnoses Unilateral primary osteoarthritis, left knee (05/02/22) Pain in left knee (05/02/22) Other abnormalities of gait and mobility (05/02/22) Encounter for other preprocedural examination (05/02/22) Physical Therapy Treatment Note PT-OP-A Visit Information Start: 03/03/22 16:08 Freq: Status: Active Protocol: Document 05/02/22 09:48 AMB (Rec: 05/02/22 10:44 AMB [id number]) Out-Patient Physical Therapy Visit Information Visit Information Visit Type Treatment Note Visit Start Time 09:45 Visit Stop Time 10:30 Total Visit Minutes 45 Visit Number 17 PT-OP-B Current Condition Start: 03/03/22 16:08 Freq: Status: Active Protocol: Document 03/07/22 11:16 AMB (Rec: 03/07/22 12:03 AMB [id number]) Current Condition History of Current Condition Onset Date 03/02/22 Current Complaints L TKA History of Current Condition Pt had a left total knee on 03/02/22. He is doing well, icing and using a FWW at home. He is wearing bilateral above knee compression socks. 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 He does have pain both in the knee and above the knee more in the quadriceps. PT-OP-C Subjective Start: 03/03/22 16:08 Freq: Status: Active Protocol: Document 05/02/22 09:48 AMB (Rec: 05/02/22 10:44 AMB [id number]) OP-PT Subjective Patient Comments Patient Comments continues to have a more antalgic gait. He did a lot of yard work moving logs around his property and admits he may have overdone it. Stiffness worst in the morning . Sees ortho tomorrow. PT-OP-G Mobility & Gait Start: 03/03/22 16:08 Freq: Status: Active Protocol: Document 03/07/22 11:15 AMB (Rec: 03/07/22 15:57 AMB [id number]) OP Gait Assessment Comments Gait Comments Pt ambulating with FWW with reduced step length, reduced knee flexion with swing and reduced extension with stance. PT-OP-J Posture/Palpation/Skin Start: 03/03/22 16:08 Freq: Status: Active Protocol: Document 03/07/22 11:15 AMB (Rec: 03/07/22 13:02 AMB [id number]) Palpation Assessment Location One Palpation Location left knee Palpation Findings Edema Palpation Details edema at mid patella 53cm on left, 47 on R PT-OP-K Range of Motion Start: 03/03/22 16:08 Freq: Status: Active Protocol: Document 03/21/22 08:59 AW (Rec: 03/21/22 10:35 AW [id number]) Knee Goniometric Range of Motion Knee Left Knee ROM WFL No Patient Position Supine Flexion Active (degrees) 95 Extension Active (degrees) 3 PT-OP-M Strength Start: 03/03/22 16:08 Freq: Status: Active Protocol: Document 03/07/22 11:15 AMB (Rec: 03/07/22 15:57 AMB [id number]) Knee Strength Knee Manual Muscle Testing Left Flexion (S2) 3+ Fair+ Extension (L3) 2 Poor Comments very challenged with quad activation PT-OP-Q Treatments Start: 03/03/22 16:08 Freq: Status: Active Protocol: Document 05/02/22 09:48 AMB (Rec: 05/02/22 10:44 AMB [id number]) Cardio Equipment Bicycle (Upright) Duration (Minutes) 8 Resistance 6 Seat Position 8 Gym Equipment Shuttle Recovery Bilateral squat Resistance 100 Shuttle Recovery Platform Stable Reps/Time 2x15 Unilateral Squats Resistance 75# L Reps/Time 2x 10 Shuttle Balance blue Reps/Duration 10 min Comments A/P-NBOS...head turns -stride stance M/L: challenging with WBOS - Therapeutic Exercises Standing Exercises lunges Standing Exercise Name fwd at railing Reps/Minutes 2x10 calf stretch Standing Exercise Name HEP review Side left Equipment Used JUSTINE, rail Reps/Minutes 30 x4 PT-OP-R Modalities Start: 03/03/22 16:08 Freq: Status: Active Protocol: Document 04/06/22 09:20 AW (Rec: 04/06/22 10:33 AW [id number]) Hot Pack/Cold Pack Treatment Cold Pack Location LEFT KNEE Patient Position Hooklying Treatment Duration (minutes) 10 Patient Tolerance Good PT-OP-T Assessment and Plan Start: 03/03/22 16:08 Freq: Status: Active Protocol: Document 05/02/22 09:48 AMB (Rec: 05/02/22 10:44 AMB [id number]) Physical Therapy Assessment Goals Gait Short Term Goal (STG) will ambulate without antalgic gait with a SPC over smooth terrain for 6 minutes. 04/06/22 - PROGRESSING. Increased antalgia with increased distance but pt does finish 6MWT wtih SPC. STG Duration 4 weeks Correction Goal (LTG) will ascend and descend a flight of stairs with an alternating gait pattern and one railing. LTG Duration 10 weeks Edema Short Term Goal (STG) will reduce his knee circumfrence at mid patella to 50cm or less. 04/06 - Measuring 49.9 cm today (1.4 cm more than right side) 04/13/22 48.5 cm STG Duration MET Correction Goal (LTG) will tolerate not wearing compression socks and not exhibit pitting edema as a result. LTG Duration 10 weeks ROM Short Term Goal (STG) will improve his PROM to 0-90. 04/06/22 - AROM 3-112 STG Duration MET Soaping Machine Back Tender Goal (LTG) will improve his active knee ROM to 0-120 degrees. LTG Duration 10 weeks Assessment Summary Assessment continues to have stiffness when first moving from sit to stand. Needs more strengthening to be able to ascend stairs with alternating gait without UE support. Physical Therapy Plan Next Visit Focus/Plan Next Note Type Treatment Note Next Visit Plan Start with upright bike progress quad control and both flexion and extension ROM. Continue gait training. Consider balance work.
--- NOTE | 2022-05-04 10:26 | PT.OTN ---
Current Diagnoses Unilateral primary osteoarthritis, left knee (05/04/22) Pain in left knee (05/04/22) Other abnormalities of gait and mobility (05/04/22) Encounter for other preprocedural examination (05/04/22) Physical Therapy Treatment Note PT-OP-A Visit Information Start: 03/03/22 16:08 Freq: Status: Active Protocol: Document 05/04/22 08:46 AW (Rec: 05/04/22 10:26 AW [id number]) Out-Patient Physical Therapy Visit Information Visit Information Visit Type Treatment Note Visit Start Time 09:45 Visit Stop Time 10:30 Total Visit Minutes 45 Visit Number 18 Evaluation Information Evaluation Date 03/07/22 PT-OP-B Current Condition Start: 03/03/22 16:08 Freq: Status: Active Protocol: Document 03/07/22 11:16 AMB (Rec: 03/07/22 12:03 AMB [id number]) Current Condition History of Current Condition Onset Date 03/02/22 Current Complaints L TKA History of Current Condition Pt had a left total knee on 03/02/22. He is doing well, icing and using a FWW at home. He is wearing bilateral above knee compression socks. 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 He does have pain both in the knee and above the knee more in the quadriceps. PT-OP-C Subjective Start: 03/03/22 16:08 Freq: Status: Active Protocol: Document 05/04/22 08:46 AW (Rec: 05/04/22 10:26 AW [id number]) OP-PT Subjective Patient Comments Patient Comments Saw ortho yesterday who had no concerns. Still feeling stiff after periods of inactivity. is experimenting with leaving compression off except for longer periods of activity. PT-OP-G Mobility & Gait Start: 03/03/22 16:08 Freq: Status: Active Protocol: Document 03/07/22 11:15 AMB (Rec: 03/07/22 15:57 AMB [id number]) OP Gait Assessment Comments Gait Comments Pt ambulating with FWW with reduced step length, reduced knee flexion with swing and reduced extension with stance. PT-OP-J Posture/Palpation/Skin Start: 03/03/22 16:08 Freq: Status: Active Protocol: Document 03/07/22 11:15 AMB (Rec: 03/07/22 13:02 AMB [id number]) Palpation Assessment Location One Palpation Location left knee Palpation Findings Edema Palpation Details edema at mid patella 53cm on left, 47 on R PT-OP-K Range of Motion Start: 03/03/22 16:08 Freq: Status: Active Protocol: Document 03/21/22 08:59 AW (Rec: 03/21/22 10:35 AW [id number]) Knee Goniometric Range of Motion Knee Left Knee ROM WFL No Patient Position Supine Flexion Active (degrees) 95 Extension Active (degrees) 3 PT-OP-M Strength Start: 03/03/22 16:08 Freq: Status: Active Protocol: Document 03/07/22 11:15 AMB (Rec: 03/07/22 15:57 AMB [id number]) Knee Strength Knee Manual Muscle Testing Left Flexion (S2) 3+ Fair+ Extension (L3) 2 Poor Comments very challenged with quad activation PT-OP-Q Treatments Start: 03/03/22 16:08 Freq: Status: Active Protocol: Document 05/04/22 08:46 AW (Rec: 05/04/22 10:26 AW [id number]) Cardio Equipment Bicycle (Upright) Duration (Minutes) 8 Resistance 6 Seat Position 8 Gym Equipment Shuttle Recovery Bilateral squat Resistance 112 Shuttle Recovery Platform Stable Reps/Time 2x15 Unilateral Squats Resistance 75# L Reps/Time 2x 10 Shuttle Balance blue Reps/Duration 10 min Comments A/P: -NBOS...head turns -stride stance M/L: -WBOS + head turns Therapeutic Exercises Standing Exercises step up Standing Exercise Name step up Side bilateral Equipment Used 4 step, unilateral rail Reps/Minutes 2x10 BLE Comments cued glute drive TKE Standing Exercise Name TKE Side left Resistance TB4 Comments HEP calf stretch Standing Exercise Name HEP review Side left Equipment Used JUSTINE, rail Reps/Minutes 30 x4 Other Exercises sit to stand Other Exercise Name sit to stand Equipment Used mesh chair + carlson airex pad Reps/Minutes 2x10 Comments arms in front; arms x chest PT-OP-R Modalities Start: 03/03/22 16:08 Freq: Status: Active Protocol: Document 04/06/22 09:20 AW (Rec: 04/06/22 10:33 AW [id number]) Hot Pack/Cold Pack Treatment Cold Pack Location LEFT KNEE Patient Position Hooklying Treatment Duration (minutes) 10 Patient Tolerance Good PT-OP-T Assessment and Plan Start: 03/03/22 16:08 Freq: Status: Active Protocol: Document 05/04/22 08:46 AW (Rec: 05/04/22 10:26 AW [id number]) Physical Therapy Assessment Goals Gait Short Term Goal (STG) will ambulate without antalgic gait with a SPC over smooth terrain for 6 minutes. 04/06/22 - PROGRESSING. Increased antalgia with increased distance but pt does finish 6MWT wtih SPC. STG Duration 4 weeks Long-Term Goal (LTG) will ascend and descend a flight of stairs with an alternating gait pattern and one railing. LTG Duration 10 weeks Edema Short Term Goal (STG) will reduce his knee circumfrence at mid patella to 50cm or less. 04/06 - Measuring 49.9 cm today (1.4 cm more than right side) 04/13/22 48.5 cm STG Duration MET Long-Term Goal (LTG) will tolerate not wearing compression socks and not exhibit pitting edema as a result. 05/04/22 - Trialing no compression garment except for longer periods of activity. L knee measures 47.7 cm - just 0.5 cm > R knee. LTG Duration 10 weeks ROM Short Term Goal (STG) will improve his PROM to 0-90. 04/06/22 - AROM 3-112 STG Duration MET Long-Term Goal (LTG) will improve his active knee ROM to 0-120 degrees. LTG Duration 10 weeks Assessment Summary Assessment Swelling is reduced to within 1/2 cm of right side. Began work on step ups with 4 step and was able to reduce reliance on UE support with practice. Physical Therapy Plan Frequency and Duration Frequency of Treatment 2x/Week Plan of Care Start Date 03/07/22 Plan of Care End Date 06/27/22 Therapeutic Interventions Therapeutic Interventions Balance Training,Gait Training ,Home Exercise Program,Joint Mobilizations,Manual Therapy, Neuromuscular Re-education, Self-Care/Home Management,Soft Tissue Mobilization, Therapeutic Activities, Therapeutic Exercises Modalities Cold Pack/Ice Massage,Electric Stimulation Next Visit Focus/Plan Next Note Type Treatment Note Next Visit Plan Start with upright bike progress quad control and both flexion and extension ROM. Continue gait training. Consider balance work.
--- NOTE | 2022-05-09 16:01 | PT.OTN ---
Current Diagnoses Unilateral primary osteoarthritis, left knee (05/09/22) Pain in left knee (05/09/22) Other abnormalities of gait and mobility (05/09/22) Encounter for other preprocedural examination (05/09/22) Physical Therapy Treatment Note PT-OP-A Visit Information Start: 03/03/22 16:08 Freq: Status: Active Protocol: Document 05/09/22 09:53 AMB (Rec: 05/09/22 10:34 AMB [id number]) Out-Patient Physical Therapy Visit Information Visit Information Visit Type Treatment Note Visit Start Time 09:45 Visit Stop Time 10:30 Total Visit Minutes 45 Visit Number 19 PT-OP-B Current Condition Start: 03/03/22 16:08 Freq: Status: Active Protocol: Document 03/07/22 11:16 AMB (Rec: 03/07/22 12:03 AMB [id number]) Current Condition History of Current Condition Onset Date 03/02/22 Current Complaints L TKA History of Current Condition Pt had a left total knee on 03/02/22. He is doing well, icing and using a FWW at home. He is wearing bilateral above knee compression socks. 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 He does have pain both in the knee and above the knee more in the quadriceps. PT-OP-C Subjective Start: 03/03/22 16:08 Freq: Status: Active Protocol: Document 05/09/22 09:53 AMB (Rec: 05/09/22 10:34 AMB [id number]) OP-PT Subjective Patient Comments Patient Comments Has been keeping compression off and not noticing increased pain or swelling so far. PT-OP-G Mobility & Gait Start: 03/03/22 16:08 Freq: Status: Active Protocol: Document 03/07/22 11:15 AMB (Rec: 03/07/22 15:57 AMB [id number]) OP Gait Assessment Comments Gait Comments Pt ambulating with FWW with reduced step length, reduced knee flexion with swing and reduced extension with stance. PT-OP-J Posture/Palpation/Skin Start: 03/03/22 16:08 Freq: Status: Active Protocol: Document 03/07/22 11:15 AMB (Rec: 03/07/22 13:02 AMB [id number]) Palpation Assessment Location One Palpation Location left knee Palpation Findings Edema Palpation Details edema at mid patella 53cm on left, 47 on R PT-OP-K Range of Motion Start: 03/03/22 16:08 Freq: Status: Active Protocol: Document 03/21/22 08:59 AW (Rec: 03/21/22 10:35 AW [id number]) Knee Goniometric Range of Motion Knee Left Knee ROM WFL No Patient Position Supine Flexion Active (degrees) 95 Extension Active (degrees) 3 PT-OP-M Strength Start: 03/03/22 16:08 Freq: Status: Active Protocol: Document 03/07/22 11:15 AMB (Rec: 03/07/22 15:57 AMB [id number]) Knee Strength Knee Manual Muscle Testing Left Flexion (S2) 3+ Fair+ Extension (L3) 2 Poor Comments very challenged with quad activation PT-OP-Q Treatments Start: 03/03/22 16:08 Freq: Status: Active Protocol: Document 05/09/22 09:53 AMB (Rec: 05/09/22 10:34 AMB [id number]) Cardio Equipment Bicycle (Upright) Duration (Minutes) 10 Resistance 6 Seat Position 8 Therapeutic Exercises Standing Exercises step down Standing Exercise Name 4 Reps/Minutes 2x10 Comments Ue support on railing step up Standing Exercise Name step up Side bilateral Equipment Used 4 step, unilateral rail Reps/Minutes 2x10 BLE Comments cued glute drive lunges Standing Exercise Name fwd at railing Reps/Minutes 2x10 calf stretch Standing Exercise Name HEP review Side left Equipment Used JUSTINE, rail Reps/Minutes 30 x4 Other Exercises sit to stand Other Exercise Name sit to stand Equipment Used mesh chair + carlson airex pad Reps/Minutes 2x10 Comments arms in front; arms x chest Manual Therapy Treatment Joint Mobilizations tibiofemoral Joint tibiofemoral Grade IV Comments glides for extension and flexion; tolerated well Manual Techniques scar massage Comments at distal scar PT-OP-R Modalities Start: 03/03/22 16:08 Freq: Status: Active Protocol: Document 04/06/22 09:20 AW (Rec: 04/06/22 10:33 AW [id number]) Hot Pack/Cold Pack Treatment Cold Pack Location LEFT KNEE Patient Position Hooklying Treatment Duration (minutes) 10 Patient Tolerance Good PT-OP-T Assessment and Plan Start: 03/03/22 16:08 Freq: Status: Active Protocol: Document 05/09/22 09:53 AMB (Rec: 05/09/22 10:34 AMB [id number]) Physical Therapy Assessment Goals Gait Short Term Goal (STG) will ambulate without antalgic gait with a SPC over smooth terrain for 6 minutes. 04/06/22 - PROGRESSING. Increased antalgia with increased distance but pt does finish 6MWT wtih SPC. STG Duration 4 weeks Prison Goal (LTG) will ascend and descend a flight of stairs with an alternating gait pattern and one railing. LTG Duration 10 weeks Edema Short Term Goal (STG) will reduce his knee circumfrence at mid patella to 50cm or less. 04/06 - Measuring 49.9 cm today (1.4 cm more than right side) 04/13/22 48.5 cm STG Duration MET Sales Ambassador Goal (LTG) will tolerate not wearing compression socks and not exhibit pitting edema as a result. 05/04/22 - Trialing no compression garment except for longer periods of activity. L knee measures 47.7 cm - just 0.5 cm > R knee. LTG Duration 10 weeks ROM Short Term Goal (STG) will improve his PROM to 0-90. 04/06/22 - AROM 3-112 STG Duration MET Sales Ambassador Goal (LTG) will improve his active knee ROM to 0-120 degrees. LTG Duration 10 weeks Assessment Summary Assessment needs 2 more degrees of extension, but has 115 degrees of flexion bilaterally . Did have edema in ankle after ther ex, but reduced quickly with manual on the table. Continues to need more stability for good eccentric control during stairs. Physical Therapy Plan Frequency and Duration Frequency of Treatment 2x/Week Plan of Care Start Date 03/07/22 Plan of Care End Date 06/27/22 Therapeutic Interventions Therapeutic Interventions Balance Training,Gait Training ,Home Exercise Program,Joint Mobilizations,Manual Therapy, Neuromuscular Re-education, Self-Care/Home Management,Soft Tissue Mobilization, Therapeutic Activities, Therapeutic Exercises Modalities Cold Pack/Ice Massage,Electric Stimulation Next Visit Focus/Plan Next Note Type Treatment Note Next Visit Plan Start with upright bike progress quad control and both flexion and extension ROM. Continue gait training. Consider balance work.
--- NOTE | 2022-05-12 15:38 | PT.OTN ---
Current Diagnoses Unilateral primary osteoarthritis, left knee (05/12/22) Pain in left knee (05/12/22) Other abnormalities of gait and mobility (05/12/22) Encounter for other preprocedural examination (05/12/22) Physical Therapy Treatment Note PT-OP-A Visit Information Start: 03/03/22 16:08 Freq: Status: Active Protocol: Document 05/12/22 13:48 AMB (Rec: 05/12/22 14:31 AMB [id number]) Out-Patient Physical Therapy Visit Information Visit Information Visit Type Treatment Note Visit Start Time 13:45 Visit Stop Time 14:30 Total Visit Minutes 45 Visit Number 20 PT-OP-B Current Condition Start: 03/03/22 16:08 Freq: Status: Active Protocol: Document 03/07/22 11:16 AMB (Rec: 03/07/22 12:03 AMB [id number]) Current Condition History of Current Condition Onset Date 03/02/22 Current Complaints L TKA History of Current Condition Pt had a left total knee on 03/02/22. He is doing well, icing and using a FWW at home. He is wearing bilateral above knee compression socks. 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 He does have pain both in the knee and above the knee more in the quadriceps. PT-OP-C Subjective Start: 03/03/22 16:08 Freq: Status: Active Protocol: Document 05/12/22 13:48 AMB (Rec: 05/12/22 14:31 AMB [id number]) OP-PT Subjective Patient Comments Patient Comments Pt reports he fell in his shop , was shaping a piece of metal and the vice slipped and he fell down on his butt and hit his head, was able to get up with using environmental support. PT-OP-G Mobility & Gait Start: 03/03/22 16:08 Freq: Status: Active Protocol: Document 03/07/22 11:15 AMB (Rec: 03/07/22 15:57 AMB [id number]) OP Gait Assessment Comments Gait Comments Pt ambulating with FWW with reduced step length, reduced knee flexion with swing and reduced extension with stance. PT-OP-J Posture/Palpation/Skin Start: 03/03/22 16:08 Freq: Status: Active Protocol: Document 03/07/22 11:15 AMB (Rec: 03/07/22 13:02 AMB [id number]) Palpation Assessment Location One Palpation Location left knee Palpation Findings Edema Palpation Details edema at mid patella 53cm on left, 47 on R PT-OP-K Range of Motion Start: 03/03/22 16:08 Freq: Status: Active Protocol: Document 03/21/22 08:59 AW (Rec: 03/21/22 10:35 AW [id number]) Knee Goniometric Range of Motion Knee Left Knee ROM WFL No Patient Position Supine Flexion Active (degrees) 95 Extension Active (degrees) 3 PT-OP-M Strength Start: 03/03/22 16:08 Freq: Status: Active Protocol: Document 03/07/22 11:15 AMB (Rec: 03/07/22 15:57 AMB [id number]) Knee Strength Knee Manual Muscle Testing Left Flexion (S2) 3+ Fair+ Extension (L3) 2 Poor Comments very challenged with quad activation PT-OP-Q Treatments Start: 03/03/22 16:08 Freq: Status: Active Protocol: Document 05/12/22 13:48 AMB (Rec: 05/12/22 14:31 AMB [id number]) Cardio Equipment Bicycle (Upright) Duration (Minutes) 10 Resistance 6 Seat Position 8 Gym Equipment Shuttle Recovery Bilateral squat Resistance 112 Shuttle Recovery Platform Stable Reps/Time 2x15 Unilateral Squats Resistance 62# L Reps/Time 2x 10 Therapeutic Exercises Sitting Exercises HS stretch Sitting Exercise Name reviewed Side left Reps/Minutes 30 x4 Comments good feedback stretch in HS Standing Exercises step up Standing Exercise Name step up Side bilateral Equipment Used 6 step, unilateral rail Reps/Minutes 2x10 BLE Comments cued glute drive Other Exercises sit to stand Other Exercise Name sit to stand Equipment Used mesh chair + carlson airex pad Reps/Minutes 2x10 Comments arms in front; arms x chest Manual Therapy Treatment Joint Mobilizations tibiofemoral Joint tibiofemoral Grade IV Comments glides for extension and flexion; tolerated well PT-OP-R Modalities Start: 03/03/22 16:08 Freq: Status: Active Protocol: Document 04/06/22 09:20 AW (Rec: 04/06/22 10:33 AW [id number]) Hot Pack/Cold Pack Treatment Cold Pack Location LEFT KNEE Patient Position Hooklying Treatment Duration (minutes) 10 Patient Tolerance Good PT-OP-T Assessment and Plan Start: 03/03/22 16:08 Freq: Status: Active Protocol: Document 05/12/22 13:48 AMB (Rec: 05/12/22 14:31 AMB [id number]) Physical Therapy Assessment Goals Gait Short Term Goal (STG) will ambulate without antalgic gait with a SPC over smooth terrain for 6 minutes. 04/06/22 - PROGRESSING. Increased antalgia with increased distance but pt does finish 6MWT wtih SPC. STG Duration 4 weeks Compliance Associate Goal (LTG) will ascend and descend a flight of stairs with an alternating gait pattern and one railing. LTG Duration 10 weeks Edema Short Term Goal (STG) will reduce his knee circumfrence at mid patella to 50cm or less. 04/06 - Measuring 49.9 cm today (1.4 cm more than right side) 04/13/22 48.5 cm STG Duration MET Compliance Associate Goal (LTG) will tolerate not wearing compression socks and not exhibit pitting edema as a result. 05/04/22 - Trialing no compression garment except for longer periods of activity. L knee measures 47.7 cm - just 0.5 cm > R knee. LTG Duration 10 weeks ROM Short Term Goal (STG) will improve his PROM to 0-90. 04/06/22 - AROM 3-112 STG Duration MET Mcfp Goal (LTG) will improve his active knee ROM to 0-120 degrees. LTG Duration 10 weeks Assessment Summary Assessment Knee continues to be stiff when first getting up, needs environmental support for floor transfers, but otherwise feels like things are going well. Still working on last degrees of knee extension. Physical Therapy Plan Frequency and Duration Frequency of Treatment 2x/Week Plan of Care Start Date 03/07/22 Plan of Care End Date 06/27/22 Therapeutic Interventions Therapeutic Interventions Balance Training,Gait Training ,Home Exercise Program,Joint Mobilizations,Manual Therapy, Neuromuscular Re-education, Self-Care/Home Management,Soft Tissue Mobilization, Therapeutic Activities, Therapeutic Exercises Modalities Cold Pack/Ice Massage,Electric Stimulation Next Visit Focus/Plan Next Note Type Treatment Note Next Visit Plan Start with upright bike progress quad control and both flexion and extension ROM. Continue gait training. Consider balance work.
--- NOTE | 2022-05-16 14:14 | PT.OTN ---
Current Diagnoses Unilateral primary osteoarthritis, left knee (05/16/22) Pain in left knee (05/16/22) Other abnormalities of gait and mobility (05/16/22) Encounter for other preprocedural examination (05/16/22) Physical Therapy Treatment Note PT-OP-A Visit Information Start: 03/03/22 16:08 Freq: Status: Active Protocol: Document 05/16/22 12:32 AW (Rec: 05/16/22 14:14 AW [id number]) Out-Patient Physical Therapy Visit Information Visit Information Visit Type Treatment Note Visit Start Time 13:30 Visit Stop Time 14:00 Total Visit Minutes 30 Visit Number 21 Evaluation Information Evaluation Date 03/07/22 PT-OP-B Current Condition Start: 03/03/22 16:08 Freq: Status: Active Protocol: Document 03/07/22 11:16 AMB (Rec: 03/07/22 12:03 AMB [id number]) Current Condition History of Current Condition Onset Date 03/02/22 Current Complaints L TKA History of Current Condition Pt had a left total knee on 03/02/22. He is doing well, icing and using a FWW at home. He is wearing bilateral above knee compression socks. 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 He does have pain both in the knee and above the knee more in the quadriceps. PT-OP-C Subjective Start: 03/03/22 16:08 Freq: Status: Active Protocol: Document 05/16/22 12:32 AW (Rec: 05/16/22 14:14 AW [id number]) OP-PT Subjective Patient Comments Patient Comments Went to [facility] last Sunday because he had a blister on his left big toe. Provider lanced it and sent him home on antibiotics. Saw rn surgery today who removed the toenail. just came from that appointment and is feeling sore as numbing wears off. PT-OP-G Mobility & Gait Start: 03/03/22 16:08 Freq: Status: Active Protocol: Document 03/07/22 11:15 AMB (Rec: 03/07/22 15:57 AMB [id number]) OP Gait Assessment Comments Gait Comments Pt ambulating with FWW with reduced step length, reduced knee flexion with swing and reduced extension with stance. PT-OP-J Posture/Palpation/Skin Start: 03/03/22 16:08 Freq: Status: Active Protocol: Document 03/07/22 11:15 AMB (Rec: 03/07/22 13:02 AMB [id number]) Palpation Assessment Location One Palpation Location left knee Palpation Findings Edema Palpation Details edema at mid patella 53cm on left, 47 on R PT-OP-K Range of Motion Start: 03/03/22 16:08 Freq: Status: Active Protocol: Document 03/21/22 08:59 AW (Rec: 03/21/22 10:35 AW [id number]) Knee Goniometric Range of Motion Knee Left Knee ROM WFL No Patient Position Supine Flexion Active (degrees) 95 Extension Active (degrees) 3 PT-OP-M Strength Start: 03/03/22 16:08 Freq: Status: Active Protocol: Document 03/07/22 11:15 AMB (Rec: 03/07/22 15:57 AMB [id number]) Knee Strength Knee Manual Muscle Testing Left Flexion (S2) 3+ Fair+ Extension (L3) 2 Poor Comments very challenged with quad activation PT-OP-Q Treatments Start: 03/03/22 16:08 Freq: Status: Active Protocol: Document 05/16/22 12:32 AW (Rec: 05/16/22 14:14 AW [id number]) Therapeutic Exercises Sitting Exercises HS stretch Sitting Exercise Name reviewed Side left Reps/Minutes 30 x4 Comments good feedback stretch in HS Manual Therapy Treatment Joint Mobilizations tibiofemoral Joint tibiofemoral Grade IV Comments glides for extension and flexion; tolerated well Manual Techniques scar massage Comments at distal scar edema massage Comments Light skin stretch strokes proximal > distal > proximal PT-OP-R Modalities Start: 03/03/22 16:08 Freq: Status: Active Protocol: Document 04/06/22 09:20 AW (Rec: 04/06/22 10:33 AW [id number]) Hot Pack/Cold Pack Treatment Cold Pack Location LEFT KNEE Patient Position Hooklying Treatment Duration (minutes) 10 Patient Tolerance Good PT-OP-T Assessment and Plan Start: 03/03/22 16:08 Freq: Status: Active Protocol: Document 05/16/22 12:32 AW (Rec: 05/16/22 14:14 AW [id number]) Physical Therapy Assessment Goals Gait Short Term Goal (STG) will ambulate without antalgic gait with a SPC over smooth terrain for 6 minutes. 04/06/22 - PROGRESSING. Increased antalgia with increased distance but pt does finish 6MWT wtih SPC. STG Duration 4 weeks Trim Die Maker Goal (LTG) will ascend and descend a flight of stairs with an alternating gait pattern and one railing. LTG Duration 10 weeks Edema Short Term Goal (STG) will reduce his knee circumfrence at mid patella to 50cm or less. 04/06 - Measuring 49.9 cm today (1.4 cm more than right side) 04/13/22 48.5 cm STG Duration MET Chcf Goal (LTG) will tolerate not wearing compression socks and not exhibit pitting edema as a result. 05/04/22 - Trialing no compression garment except for longer periods of activity. L knee measures 47.7 cm - just 0.5 cm > R knee. LTG Duration 10 weeks ROM Short Term Goal (STG) will improve his PROM to 0-90. 04/06/22 - AROM 3-112 STG Duration MET Trim Die Maker Goal (LTG) will improve his active knee ROM to 0-120 degrees. LTG Duration 10 weeks Progress Towards Goals Progress Towards Goals Progressing Toward Goals Progress Comments continues to progress well. Swelling is within 1cm of right knee. Flexion ROM is consistent with R knee. He lacks a few degrees extension. Gait remains antalgic with and without SPC. should benefit from continued therapy to progress strength, ROM, and gait quality. Assessment Summary Assessment Focused on manual therapy today after arrived fresh from having his left great toenail removed due to infection. He is on antibiotics and agrees to follow up on cultures to make sure his abx coverage is sufficient. Physical Therapy Plan Frequency and Duration Frequency of Treatment 2x/Week Plan of Care Start Date 03/07/22 Plan of Care End Date 06/27/22 Therapeutic Interventions Therapeutic Interventions Balance Training,Gait Training ,Home Exercise Program,Joint Mobilizations,Manual Therapy, Neuromuscular Re-education, Self-Care/Home Management,Soft Tissue Mobilization, Therapeutic Activities, Therapeutic Exercises Modalities Cold Pack/Ice Massage,Electric Stimulation Next Visit Focus/Plan Next Note Type Treatment Note Next Visit Plan Upright bike. Focus on extension ROM. Gait training no AD. Balance.
--- NOTE | 2022-05-19 15:36 | PT.OTN ---
Current Diagnoses Unilateral primary osteoarthritis, left knee (05/19/22) Pain in left knee (05/19/22) Other abnormalities of gait and mobility (05/19/22) Encounter for other preprocedural examination (05/19/22) Physical Therapy Treatment Note PT-OP-A Visit Information Start: 03/03/22 16:08 Freq: Status: Active Protocol: Document 05/19/22 14:32 AMB (Rec: 05/19/22 15:36 AMB [id number]) Out-Patient Physical Therapy Visit Information Visit Information Visit Type Treatment Note Visit Start Time 14:30 Visit Stop Time 15:15 Total Visit Minutes 45 Visit Number 22 PT-OP-B Current Condition Start: 03/03/22 16:08 Freq: Status: Active Protocol: Document 03/07/22 11:16 AMB (Rec: 03/07/22 12:03 AMB [id number]) Current Condition History of Current Condition Onset Date 03/02/22 Current Complaints L TKA History of Current Condition Pt had a left total knee on 03/02/22. He is doing well, icing and using a FWW at home. He is wearing bilateral above knee compression socks. 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 He does have pain both in the knee and above the knee more in the quadriceps. PT-OP-C Subjective Start: 03/03/22 16:08 Freq: Status: Active Protocol: Document 05/19/22 14:32 AMB (Rec: 05/19/22 15:36 AMB [id number]) OP-PT Subjective Patient Comments Patient Comments Feeling better today after toenail removed, knee is feeling better today. No longer on NSAIDs for toe. PT-OP-G Mobility & Gait Start: 03/03/22 16:08 Freq: Status: Active Protocol: Document 03/07/22 11:15 AMB (Rec: 03/07/22 15:57 AMB [id number]) OP Gait Assessment Comments Gait Comments Pt ambulating with FWW with reduced step length, reduced knee flexion with swing and reduced extension with stance. PT-OP-J Posture/Palpation/Skin Start: 03/03/22 16:08 Freq: Status: Active Protocol: Document 03/07/22 11:15 AMB (Rec: 03/07/22 13:02 AMB [id number]) Palpation Assessment Location One Palpation Location left knee Palpation Findings Edema Palpation Details edema at mid patella 53cm on left, 47 on R PT-OP-K Range of Motion Start: 03/03/22 16:08 Freq: Status: Active Protocol: Document 03/21/22 08:59 AW (Rec: 03/21/22 10:35 AW [id number]) Knee Goniometric Range of Motion Knee Left Knee ROM WFL No Patient Position Supine Flexion Active (degrees) 95 Extension Active (degrees) 3 PT-OP-M Strength Start: 03/03/22 16:08 Freq: Status: Active Protocol: Document 03/07/22 11:15 AMB (Rec: 03/07/22 15:57 AMB [id number]) Knee Strength Knee Manual Muscle Testing Left Flexion (S2) 3+ Fair+ Extension (L3) 2 Poor Comments very challenged with quad activation PT-OP-Q Treatments Start: 03/03/22 16:08 Freq: Status: Active Protocol: Document 05/19/22 14:32 AMB (Rec: 05/19/22 15:36 AMB [id number]) Cardio Equipment Bicycle (Upright) Duration (Minutes) 10 Resistance 6 Seat Position 8 Therapeutic Exercises Standing Exercises step up Standing Exercise Name step up Side bilateral Equipment Used 6 step, unilateral rail Reps/Minutes 2x10 BLE Comments cued glute drive Neuro Re-Education Treatment Balance Activities walking with head turns Comments both vertical and horizontal challenging foam Details blue foam- WBOS Comments EO/EC-- challenging PT-OP-R Modalities Start: 03/03/22 16:08 Freq: Status: Active Protocol: Document 04/06/22 09:20 AW (Rec: 04/06/22 10:33 AW [id number]) Hot Pack/Cold Pack Treatment Cold Pack Location LEFT KNEE Patient Position Hooklying Treatment Duration (minutes) 10 Patient Tolerance Good PT-OP-T Assessment and Plan Start: 03/03/22 16:08 Freq: Status: Active Protocol: Document 05/19/22 14:32 AMB (Rec: 05/19/22 15:36 AMB [id number]) Physical Therapy Assessment Goals Gait Short Term Goal (STG) will ambulate without antalgic gait with a SPC over smooth terrain for 6 minutes. 04/06/22 - PROGRESSING. Increased antalgia with increased distance but pt does finish 6MWT wtih SPC. STG Duration 4 weeks Snf Goal (LTG) will ascend and descend a flight of stairs with an alternating gait pattern and one railing. LTG Duration 10 weeks Edema Short Term Goal (STG) will reduce his knee circumfrence at mid patella to 50cm or less. 04/06 - Measuring 49.9 cm today (1.4 cm more than right side) 04/13/22 48.5 cm STG Duration MET Radiagraph Operator Goal (LTG) will tolerate not wearing compression socks and not exhibit pitting edema as a result. 05/04/22 - Trialing no compression garment except for longer periods of activity. L knee measures 47.7 cm - just 0.5 cm > R knee. LTG Duration 10 weeks ROM Short Term Goal (STG) will improve his PROM to 0-90. 04/06/22 - AROM 3-112 STG Duration MET Radiagraph Operator Goal (LTG) will improve his active knee ROM to 0-120 degrees. LTG Duration 10 weeks Assessment Summary Assessment Pt's balance is challenged significantly by eyes closed activities, but otherwise he is doing well with strengthening and gait progression. Head turns with gait was also challenging, but pt able to independently recover. 6 stairs continue to require UE assist. Physical Therapy Plan Frequency and Duration Frequency of Treatment 2x/Week Plan of Care Start Date 03/07/22 Plan of Care End Date 06/27/22 Therapeutic Interventions Therapeutic Interventions Balance Training,Gait Training ,Home Exercise Program,Joint Mobilizations,Manual Therapy, Neuromuscular Re-education, Self-Care/Home Management,Soft Tissue Mobilization, Therapeutic Activities, Therapeutic Exercises Modalities Cold Pack/Ice Massage,Electric Stimulation Next Visit Focus/Plan Next Note Type Treatment Note Next Visit Plan Upright bike. Focus on extension ROM. Gait training no AD. Balance. Stairs
--- NOTE | 2022-05-22 15:30 | PT.OTN ---
Current Diagnoses Unilateral primary osteoarthritis, left knee (05/22/22) Pain in left knee (05/22/22) Other abnormalities of gait and mobility (05/22/22) Encounter for other preprocedural examination (05/22/22) Physical Therapy Treatment Note PT-OP-A Visit Information Start: 03/03/22 16:08 Freq: Status: Active Protocol: Document 05/22/22 14:30 AMB (Rec: 05/22/22 15:27 AMB [id number]) Out-Patient Physical Therapy Visit Information Visit Information Visit Type Treatment Note Visit Start Time 14:30 Visit Stop Time 15:15 Total Visit Minutes 45 Visit Number 23 PT-OP-B Current Condition Start: 03/03/22 16:08 Freq: Status: Active Protocol: Document 03/07/22 11:16 AMB (Rec: 03/07/22 12:03 AMB [id number]) Current Condition History of Current Condition Onset Date 03/02/22 Current Complaints L TKA History of Current Condition Pt had a left total knee on 03/02/22. He is doing well, icing and using a FWW at home. He is wearing bilateral above knee compression socks. 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 He does have pain both in the knee and above the knee more in the quadriceps. PT-OP-C Subjective Start: 03/03/22 16:08 Freq: Status: Active Protocol: Document 05/22/22 14:30 AMB (Rec: 05/22/22 15:27 AMB [id number]) OP-PT Subjective Patient Comments Patient Comments Pt feeling better, does want to continue to work on balance and stairs. PT-OP-G Mobility & Gait Start: 03/03/22 16:08 Freq: Status: Active Protocol: Document 03/07/22 11:15 AMB (Rec: 03/07/22 15:57 AMB [id number]) OP Gait Assessment Comments Gait Comments Pt ambulating with FWW with reduced step length, reduced knee flexion with swing and reduced extension with stance. PT-OP-J Posture/Palpation/Skin Start: 03/03/22 16:08 Freq: Status: Active Protocol: Document 03/07/22 11:15 AMB (Rec: 03/07/22 13:02 AMB [id number]) Palpation Assessment Location One Palpation Location left knee Palpation Findings Edema Palpation Details edema at mid patella 53cm on left, 47 on R PT-OP-K Range of Motion Start: 03/03/22 16:08 Freq: Status: Active Protocol: Document 03/21/22 08:59 AW (Rec: 03/21/22 10:35 AW [id number]) Knee Goniometric Range of Motion Knee Left Knee ROM WFL No Patient Position Supine Flexion Active (degrees) 95 Extension Active (degrees) 3 PT-OP-M Strength Start: 03/03/22 16:08 Freq: Status: Active Protocol: Document 03/07/22 11:15 AMB (Rec: 03/07/22 15:57 AMB [id number]) Knee Strength Knee Manual Muscle Testing Left Flexion (S2) 3+ Fair+ Extension (L3) 2 Poor Comments very challenged with quad activation PT-OP-Q Treatments Start: 03/03/22 16:08 Freq: Status: Active Protocol: Document 05/22/22 14:30 AMB (Rec: 05/22/22 15:27 AMB [id number]) Cardio Equipment Bicycle (Upright) Duration (Minutes) 10 Resistance 6 Seat Position 8 Gym Equipment Shuttle Recovery Bilateral squat Shuttle Recovery Platform Stable Unilateral Squats Resistance 62# L Reps/Time 2x 10 Therapeutic Exercises Standing Exercises step down Standing Exercise Name 6 Reps/Minutes 2x10 Comments minimal UE support step up Standing Exercise Name step up Side bilateral Equipment Used 6 step, unilateral rail Reps/Minutes 2x10 BLE Comments cued glute drive calf stretch Standing Exercise Name HEP review Side left Equipment Used JUSTINE, rail Reps/Minutes 30 x4 Neuro Re-Education Treatment Balance Activities hurdles Details carpet vs foam Comments did well with hurdles on firm surfaces, required SPC for hurdles and foam foam Details green foam- modified tandem Reps/Duration 1 minx3 Comments EO/EC-- challenging PT-OP-R Modalities Start: 03/03/22 16:08 Freq: Status: Active Protocol: Document 04/06/22 09:20 AW (Rec: 04/06/22 10:33 AW [id number]) Hot Pack/Cold Pack Treatment Cold Pack Location LEFT KNEE Patient Position Hooklying Treatment Duration (minutes) 10 Patient Tolerance Good PT-OP-T Assessment and Plan Start: 03/03/22 16:08 Freq: Status: Active Protocol: Document 05/22/22 14:30 AMB (Rec: 05/22/22 15:27 AMB [id number]) Physical Therapy Assessment Goals Gait Short Term Goal (STG) will ambulate without antalgic gait with a SPC over smooth terrain for 6 minutes. 04/06/22 - PROGRESSING. Increased antalgia with increased distance but pt does finish 6MWT wtih SPC. STG Duration 4 weeks Fusing Line Inspector Goal (LTG) will ascend and descend a flight of stairs with an alternating gait pattern and one railing. LTG Duration 10 weeks Edema Short Term Goal (STG) will reduce his knee circumfrence at mid patella to 50cm or less. 04/06 - Measuring 49.9 cm today (1.4 cm more than right side) 04/13/22 48.5 cm STG Duration MET Fusing Line Inspector Goal (LTG) will tolerate not wearing compression socks and not exhibit pitting edema as a result. 05/04/22 - Trialing no compression garment except for longer periods of activity. L knee measures 47.7 cm - just 0.5 cm > R knee. LTG Duration 10 weeks ROM Short Term Goal (STG) will improve his PROM to 0-90. 04/06/22 - AROM 3-112 STG Duration MET Fusing Line Inspector Goal (LTG) will improve his active knee ROM to 0-120 degrees. LTG Duration 10 weeks Assessment Summary Assessment Continues to be weaker on L more than right but is improving in tolerance and with stairs. EC balance is a challenge but otherwise dynamic balance is going well. Physical Therapy Plan Frequency and Duration Frequency of Treatment 2x/Week Plan of Care Start Date 03/07/22 Plan of Care End Date 06/27/22 Therapeutic Interventions Therapeutic Interventions Balance Training,Gait Training ,Home Exercise Program,Joint Mobilizations,Manual Therapy, Neuromuscular Re-education, Self-Care/Home Management,Soft Tissue Mobilization, Therapeutic Activities, Therapeutic Exercises Modalities Cold Pack/Ice Massage,Electric Stimulation Next Visit Focus/Plan Next Note Type Treatment Note Next Visit Plan Upright bike. Focus on extension ROM. Gait training no AD. Balance. Stairs
--- NOTE | 2022-05-24 15:27 | PT.OTN ---
Current Diagnoses Unilateral primary osteoarthritis, left knee (05/24/22) Pain in left knee (05/24/22) Other abnormalities of gait and mobility (05/24/22) Encounter for other preprocedural examination (05/24/22) Physical Therapy Treatment Note PT-OP-A Visit Information Start: 03/03/22 16:08 Freq: Status: Active Protocol: Document 05/24/22 14:32 AMB (Rec: 05/24/22 15:10 AMB [id number]) Out-Patient Physical Therapy Visit Information Visit Information Visit Type Treatment Note Visit Start Time 14:30 Visit Stop Time 15:15 Total Visit Minutes 45 Visit Number 24 PT-OP-B Current Condition Start: 03/03/22 16:08 Freq: Status: Active Protocol: Document 03/07/22 11:16 AMB (Rec: 03/07/22 12:03 AMB [id number]) Current Condition History of Current Condition Onset Date 03/02/22 Current Complaints L TKA History of Current Condition Pt had a left total knee on 03/02/22. He is doing well, icing and using a FWW at home. He is wearing bilateral above knee compression socks. 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 He does have pain both in the knee and above the knee more in the quadriceps. PT-OP-C Subjective Start: 03/03/22 16:08 Freq: Status: Active Protocol: Document 05/24/22 14:32 AMB (Rec: 05/24/22 15:10 AMB [id number]) OP-PT Subjective Patient Comments Patient Comments Pt is doing well, knee is feeling good. PT-OP-G Mobility & Gait Start: 03/03/22 16:08 Freq: Status: Active Protocol: Document 03/07/22 11:15 AMB (Rec: 03/07/22 15:57 AMB [id number]) OP Gait Assessment Comments Gait Comments Pt ambulating with FWW with reduced step length, reduced knee flexion with swing and reduced extension with stance. PT-OP-J Posture/Palpation/Skin Start: 03/03/22 16:08 Freq: Status: Active Protocol: Document 03/07/22 11:15 AMB (Rec: 03/07/22 13:02 AMB [id number]) Palpation Assessment Location One Palpation Location left knee Palpation Findings Edema Palpation Details edema at mid patella 53cm on left, 47 on R PT-OP-K Range of Motion Start: 03/03/22 16:08 Freq: Status: Active Protocol: Document 03/21/22 08:59 AW (Rec: 03/21/22 10:35 AW [id number]) Knee Goniometric Range of Motion Knee Left Knee ROM WFL No Patient Position Supine Flexion Active (degrees) 95 Extension Active (degrees) 3 PT-OP-M Strength Start: 03/03/22 16:08 Freq: Status: Active Protocol: Document 03/07/22 11:15 AMB (Rec: 03/07/22 15:57 AMB [id number]) Knee Strength Knee Manual Muscle Testing Left Flexion (S2) 3+ Fair+ Extension (L3) 2 Poor Comments very challenged with quad activation PT-OP-Q Treatments Start: 03/03/22 16:08 Freq: Status: Active Protocol: Document 05/24/22 14:32 AMB (Rec: 05/24/22 15:10 AMB [id number]) Cardio Equipment Bicycle (Upright) Duration (Minutes) 10 Resistance 6 Seat Position 6 Gym Equipment Shuttle Recovery Unilateral Squats Resistance 62# L Reps/Time 2x 10 Therapeutic Exercises Standing Exercises hamstring stretch Side bilateral Reps/Minutes 30x4 Comments on stair step up Standing Exercise Name step up Side bilateral Equipment Used 6 step, unilateral rail Reps/Minutes 2x10 BLE Comments cued glute drive Other Exercises sit to stand Other Exercise Name sit to stand Equipment Used mesh chair + carlson airex pad Reps/Minutes 2x10 Comments arms in front; arms x chest Neuro Re-Education Treatment Balance Activities hurdles Details carpet vs foam Comments did well with hurdles on firm surfaces, required SPC for hurdles and foam foam Details blue foam- modified tandem Reps/Duration 1 minx3 Comments EO/EC-- challenging PT-OP-R Modalities Start: 03/03/22 16:08 Freq: Status: Active Protocol: Document 04/06/22 09:20 AW (Rec: 04/06/22 10:33 AW [id number]) Hot Pack/Cold Pack Treatment Cold Pack Location LEFT KNEE Patient Position Hooklying Treatment Duration (minutes) 10 Patient Tolerance Good PT-OP-T Assessment and Plan Start: 03/03/22 16:08 Freq: Status: Active Protocol: Document 05/24/22 14:32 AMB (Rec: 05/24/22 15:10 AMB [id number]) Physical Therapy Assessment Goals Gait Short Term Goal (STG) will ambulate without antalgic gait with a SPC over smooth terrain for 6 minutes. 04/06/22 - PROGRESSING. Increased antalgia with increased distance but pt does finish 6MWT wtih SPC. STG Duration 4 weeks Rn Building Goal (LTG) will ascend and descend a flight of stairs with an alternating gait pattern and one railing. LTG Duration 10 weeks Edema Short Term Goal (STG) will reduce his knee circumfrence at mid patella to 50cm or less. 04/06 - Measuring 49.9 cm today (1.4 cm more than right side) 04/13/22 48.5 cm STG Duration MET Halfway Goal (LTG) will tolerate not wearing compression socks and not exhibit pitting edema as a result. 05/04/22 - Trialing no compression garment except for longer periods of activity. L knee measures 47.7 cm - just 0.5 cm > R knee. LTG Duration 10 weeks ROM Short Term Goal (STG) will improve his PROM to 0-90. 04/06/22 - AROM 3-112 STG Duration MET Halfway Goal (LTG) will improve his active knee ROM to 0-120 degrees. LTG Duration 10 weeks Assessment Summary Assessment Hurdles were challenging today , as well as hamstring stretching, encouraged for HEP . Step ups continue to need light UE support. Physical Therapy Plan Frequency and Duration Frequency of Treatment 2x/Week Plan of Care Start Date 03/07/22 Plan of Care End Date 06/27/22 Therapeutic Interventions Therapeutic Interventions Balance Training,Gait Training ,Home Exercise Program,Joint Mobilizations,Manual Therapy, Neuromuscular Re-education, Self-Care/Home Management,Soft Tissue Mobilization, Therapeutic Activities, Therapeutic Exercises Modalities Cold Pack/Ice Massage,Electric Stimulation Next Visit Focus/Plan Next Note Type Treatment Note Next Visit Plan Upright bike. Focus on extension ROM. Gait training no AD. Balance. Stairs
--- NOTE | 2022-05-31 09:46 | PT.OTN ---
Current Diagnoses Unilateral primary osteoarthritis, left knee (05/31/22) Pain in left knee (05/31/22) Other abnormalities of gait and mobility (05/31/22) Encounter for other preprocedural examination (05/31/22) Physical Therapy Treatment Note PT-OP-A Visit Information Start: 03/03/22 16:08 Freq: Status: Active Protocol: Document 05/31/22 08:30 AW (Rec: 05/31/22 09:46 AW [id number]) Out-Patient Physical Therapy Visit Information Visit Information Visit Type Treatment Note Visit Start Time 09:00 Visit Stop Time 09:45 Total Visit Minutes 45 Visit Number 25 PT-OP-B Current Condition Start: 03/03/22 16:08 Freq: Status: Active Protocol: Document 03/07/22 11:16 AMB (Rec: 03/07/22 12:03 AMB [id number]) Current Condition History of Current Condition Onset Date 03/02/22 Current Complaints L TKA History of Current Condition Pt had a left total knee on 03/02/22. He is doing well, icing and using a FWW at home. He is wearing bilateral above knee compression socks. 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 He does have pain both in the knee and above the knee more in the quadriceps. PT-OP-C Subjective Start: 03/03/22 16:08 Freq: Status: Active Protocol: Document 05/31/22 08:30 AW (Rec: 05/31/22 09:46 AW [id number]) OP-PT Subjective Patient Comments Patient Comments On Thanksgiving, carried a heavy pot with brined turkey. Afterward, he had pain along the back of his knee and calf with flexion. The knee started to swell and he has been wearing compression since that time. Has been using cane nearly all the time since this happened. PT-OP-G Mobility & Gait Start: 03/03/22 16:08 Freq: Status: Active Protocol: Document 03/07/22 11:15 AMB (Rec: 03/07/22 15:57 AMB [id number]) OP Gait Assessment Comments Gait Comments Pt ambulating with FWW with reduced step length, reduced knee flexion with swing and reduced extension with stance. PT-OP-J Posture/Palpation/Skin Start: 03/03/22 16:08 Freq: Status: Active Protocol: Document 03/07/22 11:15 AMB (Rec: 03/07/22 13:02 AMB [id number]) Palpation Assessment Location One Palpation Location left knee Palpation Findings Edema Palpation Details edema at mid patella 53cm on left, 47 on R PT-OP-K Range of Motion Start: 03/03/22 16:08 Freq: Status: Active Protocol: Document 03/21/22 08:59 AW (Rec: 03/21/22 10:35 AW [id number]) Knee Goniometric Range of Motion Knee Left Knee ROM WFL No Patient Position Supine Flexion Active (degrees) 95 Extension Active (degrees) 3 PT-OP-M Strength Start: 03/03/22 16:08 Freq: Status: Active Protocol: Document 03/07/22 11:15 AMB (Rec: 03/07/22 15:57 AMB [id number]) Knee Strength Knee Manual Muscle Testing Left Flexion (S2) 3+ Fair+ Extension (L3) 2 Poor Comments very challenged with quad activation PT-OP-Q Treatments Start: 03/03/22 16:08 Freq: Status: Active Protocol: Document 05/31/22 08:30 AW (Rec: 05/31/22 09:46 AW [id number]) Cardio Equipment Bicycle (Upright) Duration (Minutes) 10 Resistance 6 Seat Position 6 Gym Equipment Shuttle Balance blue Reps/Duration 10 min Comments A/P: -NBOS...head turns -stride stance Therapeutic Exercises Standing Exercises hamstring stretch Side bilateral Reps/Minutes 30x4 Comments on stair heel lifts Standing Exercise Name heel lifts Side bilateral Reps/Minutes x15 Comments RLE weaker Other Exercises sit to stand Other Exercise Name sit to stand Equipment Used mesh chair + carlson airex pad Reps/Minutes 2x10 Comments arms in front; arms x chest Manual Therapy Treatment Soft Tissue Mobilization calf, HS, quad, ITB Body Location L Joint Mobilizations tibiofemoral Joint tibiofemoral Grade III Comments focus on extension PT-OP-R Modalities Start: 03/03/22 16:08 Freq: Status: Active Protocol: Document 04/06/22 09:20 AW (Rec: 04/06/22 10:33 AW [id number]) Hot Pack/Cold Pack Treatment Cold Pack Location LEFT KNEE Patient Position Hooklying Treatment Duration (minutes) 10 Patient Tolerance Good PT-OP-T Assessment and Plan Start: 03/03/22 16:08 Freq: Status: Active Protocol: Document 05/31/22 08:30 AW (Rec: 05/31/22 09:46 AW [id number]) Physical Therapy Assessment Goals Gait Short Term Goal (STG) will ambulate without antalgic gait with a SPC over smooth terrain for 6 minutes. 04/06/22 - PROGRESSING. Increased antalgia with increased distance but pt does finish 6MWT wtih SPC. STG Duration 4 weeks Fruit Culler Goal (LTG) will ascend and descend a flight of stairs with an alternating gait pattern and one railing. LTG Duration 10 weeks Edema Short Term Goal (STG) will reduce his knee circumfrence at mid patella to 50cm or less. 04/06 - Measuring 49.9 cm today (1.4 cm more than right side) 04/13/22 48.5 cm STG Duration MET Residential Goal (LTG) will tolerate not wearing compression socks and not exhibit pitting edema as a result. 05/04/22 - Trialing no compression garment except for longer periods of activity. L knee measures 47.7 cm - just 0.5 cm > R knee. LTG Duration 10 weeks ROM Short Term Goal (STG) will improve his PROM to 0-90. 04/06/22 - AROM 3-112 STG Duration MET Fruit Culler Goal (LTG) will improve his active knee ROM to 0-120 degrees. LTG Duration 10 weeks Assessment Summary Assessment arrived with some irritable posterior knee and calf pain today after possibly overdoing activity last week. Focused on balance, STM L medial hamstring and calf, and gentle ther ex. Pt approaching discharge. Physical Therapy Plan Frequency and Duration Frequency of Treatment 2x/Week Plan of Care Start Date 03/07/22 Plan of Care End Date 06/27/22 Therapeutic Interventions Therapeutic Interventions Balance Training,Gait Training ,Home Exercise Program,Joint Mobilizations,Manual Therapy, Neuromuscular Re-education, Self-Care/Home Management,Soft Tissue Mobilization, Therapeutic Activities, Therapeutic Exercises Modalities Cold Pack/Ice Massage,Electric Stimulation Next Visit Focus/Plan Next Note Type Treatment Note Next Visit Plan Upright bike. Focus on extension ROM. Gait training no AD. Balance. Stairs
--- NOTE | 2022-06-06 10:45 | PT.OTN ---
Current Diagnoses Unilateral primary osteoarthritis, left knee (06/06/22) Pain in left knee (06/06/22) Other abnormalities of gait and mobility (06/06/22) Encounter for other preprocedural examination (06/06/22) Physical Therapy Treatment Note PT-OP-A Visit Information Start: 03/03/22 16:08 Freq: Status: Active Protocol: Document 06/06/22 08:29 AMB (Rec: 06/06/22 09:02 AMB [id number]) Out-Patient Physical Therapy Visit Information Visit Information Visit Type Treatment Note Visit Start Time 08:15 Visit Stop Time 09:00 Total Visit Minutes 45 Visit Number 26 PT-OP-B Current Condition Start: 03/03/22 16:08 Freq: Status: Active Protocol: Document 03/07/22 11:16 AMB (Rec: 03/07/22 12:03 AMB [id number]) Current Condition History of Current Condition Onset Date 03/02/22 Current Complaints L TKA History of Current Condition Pt had a left total knee on 03/02/22. He is doing well, icing and using a FWW at home. He is wearing bilateral above knee compression socks. 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 He does have pain both in the knee and above the knee more in the quadriceps. PT-OP-C Subjective Start: 03/03/22 16:08 Freq: Status: Active Protocol: Document 06/06/22 08:29 AMB (Rec: 06/06/22 09:02 AMB [id number]) OP-PT Subjective Patient Comments Patient Comments Pt reports pain that was present at last visit has diminished, no longer wearing compression sock and not using cane as much. PT-OP-G Mobility & Gait Start: 03/03/22 16:08 Freq: Status: Active Protocol: Document 03/07/22 11:15 AMB (Rec: 03/07/22 15:57 AMB [id number]) OP Gait Assessment Comments Gait Comments Pt ambulating with FWW with reduced step length, reduced knee flexion with swing and reduced extension with stance. PT-OP-J Posture/Palpation/Skin Start: 03/03/22 16:08 Freq: Status: Active Protocol: Document 03/07/22 11:15 AMB (Rec: 03/07/22 13:02 AMB [id number]) Palpation Assessment Location One Palpation Location left knee Palpation Findings Edema Palpation Details edema at mid patella 53cm on left, 47 on R PT-OP-K Range of Motion Start: 03/03/22 16:08 Freq: Status: Active Protocol: Document 03/21/22 08:59 AW (Rec: 03/21/22 10:35 AW [id number]) Knee Goniometric Range of Motion Knee Left Knee ROM WFL No Patient Position Supine Flexion Active (degrees) 95 Extension Active (degrees) 3 PT-OP-M Strength Start: 03/03/22 16:08 Freq: Status: Active Protocol: Document 03/07/22 11:15 AMB (Rec: 03/07/22 15:57 AMB [id number]) Knee Strength Knee Manual Muscle Testing Left Flexion (S2) 3+ Fair+ Extension (L3) 2 Poor Comments very challenged with quad activation PT-OP-Q Treatments Start: 03/03/22 16:08 Freq: Status: Active Protocol: Document 06/06/22 08:29 AMB (Rec: 06/06/22 09:02 AMB [id number]) Cardio Equipment Bicycle (Upright) Duration (Minutes) 10 Resistance 6 Seat Position 6 Gym Equipment Shuttle Recovery Unilateral Squats Resistance 37# L Reps/Time 2x 10 Therapeutic Exercises Sitting Exercises HS stretch Sitting Exercise Name reviewed Side left Reps/Minutes 30 x4 Comments good feedback stretch in HS Standing Exercises lunges Standing Exercise Name fwd at railing Reps/Minutes 2x10 calf stretch Standing Exercise Name HEP review Side left Equipment Used JUSTINE, rail Reps/Minutes 30 x4 Other Exercises sit to stand Other Exercise Name sit to stand Equipment Used mesh chair + carlson airex pad Reps/Minutes 2x10 Comments arms in front; arms x chest Gait Training Gait Activity stairs Device Used 4 and 6 Level of Assistance SBA Distance/Duration reciprocating Treatment Focus soft left knee Comments 1 HR for 6 can do 4 with just touching railing Neuro Re-Education Treatment Balance Activities bosu ball Comments NBOS EO PT-OP-R Modalities Start: 03/03/22 16:08 Freq: Status: Active Protocol: Document 04/06/22 09:20 AW (Rec: 04/06/22 10:33 AW [id number]) Hot Pack/Cold Pack Treatment Cold Pack Location LEFT KNEE Patient Position Hooklying Treatment Duration (minutes) 10 Patient Tolerance Good PT-OP-T Assessment and Plan Start: 03/03/22 16:08 Freq: Status: Active Protocol: Document 06/06/22 08:29 AMB (Rec: 06/06/22 09:02 AMB [id number]) Physical Therapy Assessment Goals Gait Short Term Goal (STG) will ambulate without antalgic gait with a SPC over smooth terrain for 6 minutes. 04/06/22 - PROGRESSING. Increased antalgia with increased distance but pt does finish 6MWT wtih SPC. STG Duration 4 weeks Porcelain Enameler Goal (LTG) will ascend and descend a flight of stairs with an alternating gait pattern and one railing. LTG Duration 10 weeks Edema Short Term Goal (STG) will reduce his knee circumfrence at mid patella to 50cm or less. 04/06 - Measuring 49.9 cm today (1.4 cm more than right side) 04/13/22 48.5 cm STG Duration MET Nursing Home Goal (LTG) will tolerate not wearing compression socks and not exhibit pitting edema as a result. 05/04/22 - Trialing no compression garment except for longer periods of activity. L knee measures 47.7 cm - just 0.5 cm > R knee. LTG Duration 10 weeks ROM Short Term Goal (STG) will improve his PROM to 0-90. 04/06/22 - AROM 3-112 STG Duration MET Nursing Home Goal (LTG) will improve his active knee ROM to 0-120 degrees. LTG Duration 10 weeks Assessment Summary Assessment 's posterior knee is improved, but it did take almost a week. Did not push weights as much today. He feels he is mostly ready for discharge, knows that if knee gets bad again he could come back with a new referral. Next visit recheck ROM, stairs , make sure pain did not increase after PT today. Physical Therapy Plan Frequency and Duration Frequency of Treatment 2x/Week Plan of Care Start Date 03/07/22 Plan of Care End Date 06/27/22 Next Visit Focus/Plan Next Note Type Discharge Summary Next Visit Plan Upright bike. Focus on extension ROM. Gait training no AD. Balance. Stairs
--- NOTE | 2022-06-08 12:08 | PT.OTN ---
Current Diagnoses Unilateral primary osteoarthritis, left knee (06/08/22) Pain in left knee (06/08/22) Other abnormalities of gait and mobility (06/08/22) Encounter for other preprocedural examination (06/08/22) Physical Therapy Treatment Note PT-OP-A Visit Information Start: 03/03/22 16:08 Freq: Status: Active Protocol: Document 06/08/22 10:33 AW (Rec: 06/08/22 12:08 AW [id number]) Out-Patient Physical Therapy Visit Information Visit Information Visit Type Discharge Summary Visit Start Time 11:15 Visit Stop Time 12:00 Total Visit Minutes 45 Visit Number 27 Evaluation Information Evaluation Date 03/07/22 PT-OP-B Current Condition Start: 03/03/22 16:08 Freq: Status: Active Protocol: Document 03/07/22 11:16 AMB (Rec: 03/07/22 12:03 AMB [id number]) Current Condition History of Current Condition Onset Date 03/02/22 Current Complaints L TKA History of Current Condition Pt had a left total knee on 03/02/22. He is doing well, icing and using a FWW at home. He is wearing bilateral above knee compression socks. 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 He does have pain both in the knee and above the knee more in the quadriceps. PT-OP-C Subjective Start: 03/03/22 16:08 Freq: Status: Active Protocol: Document 06/08/22 10:33 AW (Rec: 06/08/22 12:08 AW [id number]) OP-PT Subjective Patient Comments Patient Comments is happy with his progress. Is feeling ready to get back to work on regular activities. PT-OP-G Mobility & Gait Start: 03/03/22 16:08 Freq: Status: Active Protocol: Document 03/07/22 11:15 AMB (Rec: 03/07/22 15:57 AMB [id number]) OP Gait Assessment Comments Gait Comments Pt ambulating with FWW with reduced step length, reduced knee flexion with swing and reduced extension with stance. PT-OP-J Posture/Palpation/Skin Start: 03/03/22 16:08 Freq: Status: Active Protocol: Document 03/07/22 11:15 AMB (Rec: 03/07/22 13:02 AMB [id number]) Palpation Assessment Location One Palpation Location left knee Palpation Findings Edema Palpation Details edema at mid patella 53cm on left, 47 on R PT-OP-K Range of Motion Start: 03/03/22 16:08 Freq: Status: Active Protocol: Document 03/21/22 08:59 AW (Rec: 03/21/22 10:35 AW [id number]) Knee Goniometric Range of Motion Knee Left Knee ROM WFL No Patient Position Supine Flexion Active (degrees) 95 Extension Active (degrees) 3 PT-OP-M Strength Start: 03/03/22 16:08 Freq: Status: Active Protocol: Document 03/07/22 11:15 AMB (Rec: 03/07/22 15:57 AMB [id number]) Knee Strength Knee Manual Muscle Testing Left Flexion (S2) 3+ Fair+ Extension (L3) 2 Poor Comments very challenged with quad activation PT-OP-Q Treatments Start: 03/03/22 16:08 Freq: Status: Active Protocol: Document 06/08/22 10:33 AW (Rec: 06/08/22 12:08 AW [id number]) Cardio Equipment Bicycle (Upright) Duration (Minutes) 10 Resistance 6 Seat Position 6 Therapeutic Exercises Sitting Exercises HS stretch Sitting Exercise Name reviewed Side left Reps/Minutes 30 x4 Comments good feedback stretch in HS Standing Exercises step down Standing Exercise Name 6 Reps/Minutes 2x10 Comments minimal UE support step up Standing Exercise Name step up - fwd and lateral Side bilateral Equipment Used 6 step, unilateral rail Reps/Minutes 2x10 BLE Comments cued weight over stance leg, glute drive calf stretch Standing Exercise Name HEP review Side left Equipment Used JUSTINE, rail Reps/Minutes 30 x4 Other Exercises sit to stand Other Exercise Name sit to stand Equipment Used mesh chair + carlson airex pad Reps/Minutes 2x10 Comments arms in front; arms x chest Gait Training Gait Activity pre-gait weight shifts Description pre-gait weight shifts Comments With mirror for feedback. Challenging for balance but no external support required. indoor gait Description level surface indoors Device Used none Comments focused on push off stairs Device Used 4 and 6 Level of Assistance SBA Distance/Duration reciprocating Treatment Focus soft left knee Comments 1 HR for 6 can do 4 with just touching railing Neuro Re-Education Treatment Balance Activities SLS Details SLS Comments trials with rail support as needed bosu ball Comments NBOS EO PT-OP-R Modalities Start: 03/03/22 16:08 Freq: Status: Active Protocol: Document 04/06/22 09:20 AW (Rec: 04/06/22 10:33 AW [id number]) Hot Pack/Cold Pack Treatment Cold Pack Location LEFT KNEE Patient Position Hooklying Treatment Duration (minutes) 10 Patient Tolerance Good PT-OP-T Assessment and Plan Start: 03/03/22 16:08 Freq: Status: Active Protocol: Document 06/08/22 10:33 AW (Rec: 06/08/22 12:08 AW [id number]) Physical Therapy Assessment Goals Gait Short Term Goal (STG) will ambulate without antalgic gait with a SPC over smooth terrain for 6 minutes. 04/06/22 - PROGRESSING. Increased antalgia with increased distance but pt does finish 6MWT wtih SPC. STG Duration 4 weeks Snf Goal (LTG) will ascend and descend a flight of stairs with an alternating gait pattern and one railing. LTG Duration GOAL MET Edema Short Term Goal (STG) will reduce his knee circumfrence at mid patella to 50cm or less. 04/06 - Measuring 49.9 cm today (1.4 cm more than right side) 04/13/22 48.5 cm STG Duration MET Tack Coverer Goal (LTG) will tolerate not wearing compression socks and not exhibit pitting edema as a result. 05/04/22 - Trialing no compression garment except for longer periods of activity. L knee measures 47.7 cm - just 0.5 cm > R knee. LTG Duration GOAL MET ROM Short Term Goal (STG) will improve his PROM to 0-90. 04/06/22 - AROM 3-112 STG Duration MET Snf Goal (LTG) will improve his active knee ROM to 0-120 degrees. 06/08/22: 2-118 LTG Duration 10 weeks Assessment Summary Assessment 's knee is feeling much better. Balance is challenged with single leg stance but pt is able with external support . He was encouraged to continue working on this at home. Physical Therapy Plan Frequency and Duration Frequency of Treatment 2x/Week Plan of Care Start Date 03/07/22 Plan of Care End Date 06/27/22 Therapeutic Interventions Therapeutic Interventions Balance Training,Gait Training ,Home Exercise Program,Joint Mobilizations,Manual Therapy, Neuromuscular Re-education, Self-Care/Home Management,Soft Tissue Mobilization, Therapeutic Activities, Therapeutic Exercises Modalities Cold Pack/Ice Massage,Electric Stimulation Discharge Physical Therapy Discharge Reasons Goals Met Discharge Comments Pt is very close to his ROM goal but still lacks a few degrees of extension. He met his stairs goal and swelling is well controlled. continues to use SPC for longer distances and uneven surfaces but is otherwise walking household distances without AD. He is ready to discharge to [facility]. He understands he can return to PT if needed with a new referral.
== END 2022-06-09 08:33 | disposition home or self-care (01) ==
LOC: PHYS 11:15
PROVIDERS: Family Provider Internal Medicine; PCP Internal Medicine; Referring Provider Orthopaedic Surgery; Visit Provider Orthopaedic Surgery
DX: Z01.818 Encounter for other preprocedural examination (principal); M17.12 Unilateral primary osteoarthritis, left knee; M25.562 Pain in left knee; R26.89 Other abnormalities of gait and mobility
CPT/HCPCS: 97110; 97112; 97116; 97140; 97161

== ENCOUNTER → 2022-08-24 10:18 | Outpatient (CLI) | payer OTHER, SELFPAY ==
[2022-08-24 11:02] LABS: Hematocrit 46.3 % (41-53); Hemoglobin 15.1 g/dL (13.5-17.5); Mean Corpuscular HGB Conc 32.6 % (30-36); Mean Corpuscular Hemoglobin 29.5 PG (26-34); Mean Corpuscular Volume 90.3 fL (80-100); Platelet Count 234 X10^3/uL (150-400); Red Blood Cell Count 5.13 X10^6/uL (4.5-5.9); Red Cell Distribution Width 15.8 % (11.6-14.8); White Blood Cell Count 6.3 X10^3/uL (4.5-11.0)
[2022-08-24 11:13] LABS: Hemoglobin A1C% w Est Avg Glu 5.9 % (4.0-6.0)
[2022-08-24 11:20] LABS: Alanine Aminotransferase 28 IU/L (<50); Albumin 4.4 g/dL (3.5-5.0); Albumin Globulin Ratio 1.2 (1.0-2.8); Alkaline Phosphatase 85 U/L (38-126); Aspartate Aminotransferase 29 IU/L (17-59); Bilirubin Total 1.1 mg/dL (0.2-1.3); Blood Urea Nitrogen 18 mg/dL (9-20); Calcium 9.4 mg/dL (8.4-10.2); Carbon Dioxide 26 mmol/L (22-32); Chloride 101 mmol/L (98-107); Cholesterol 195 mg/dL (140-199); Estimated Glomerular Filt Rate > 60 mL/min (>60); Globulin 3.6 g/dL (1.7-4.1); Glucose 109 mg/dL (80-110); HDL Cholesterol 70 mg/dL (40-60); HEMOLYSIS < 15 (0-50); LDL Cholesterol Calculated 106 mg/dL (<100); Potassium 3.8 mmol/L (3.4-5.1); Sodium 138 mmol/L (137-145); Triglycerides 94 mg/dL (35-150)
[2022-08-24 11:50] LABS: Prostate Specific Antigen 2.04 ng/mL (0.10-4.00)
== END ==
PROVIDERS: Family Provider Internal Medicine; PCP Internal Medicine; Referring Provider Internal Medicine; Visit Provider Internal Medicine
DX: E78.2 Mixed hyperlipidemia (principal); I10 Essential (primary) hypertension; N13.8 Other obstructive and reflux uropathy; N40.1 Benign prostatic hyperplasia with lower urinary tract symptoms; R73.01 Impaired fasting glucose
CPT/HCPCS: 36415; 80053; 80061; 83036; 84153; 84443; 85027

== ENCOUNTER 2022-10-13 08:53 | Day surgery (SDC) | payer OTHER, SELFPAY ==
--- NOTE | 2022-10-13 | PATH_ITS ---
[facility] Accession Number: [id number] No. of containers..03 Tissue . 01 Material submitted: . PART A: colon - CECAL POLYPS PART B: colon - TRANSVERSE COLON POLYPS PART C: rectum - RECTAL POLYP . 01 Diagnosis: A. Cecal Polyps, Biopsy: Tubular adenomas. . B. Transverse Colon Polyps, Biopsy: Tubular adenoma. Additional colonic mucosa with no significant diagnostic alterations. . C. Rectal Polyp, Biopsy: Hyperplastic polyp. MRV 10/17/2022 1320 Local . 01 Electronically signed: . Fallon Islas MD, Pathologist NPI- [id number] . 01 Gross description: . Part A: CECAL POLYPS: Received in formalin are multiple fragment(s) of fleming, soft tissue measuring 1.7 x 0.7 x 0.1 cm in aggregate submitted entirely in 1 cassette(s) Part B: TRANSVERSE COLON POLYPS: Received in formalin are multiple fragment(s) of fleming, soft tissue measuring 0.8 x 0.5 x 0.1 cm in aggregate submitted entirely in 1 cassette(s) Part C: RECTAL POLYP: Received in formalin is 1 fragment(s) of fleming, soft tissue measuring 0.2 x 0.2 x 0.2 cm submitted entirely in 1 cassette(s) /CPE 10/14/2022 0915 Local . 01 Pathologist provided ICD-10: D12.0, D12.3, D12.8 . 01 CPT . 370227, 733444, [id number] Specimen Comment: A courtesy copy of this report has been sent to [facility] Pathology Performed at: 01 [facility] [address], [place], [place] [id number] MD Nehemias Green MD Phone: [phone]
[2022-10-13 09:20] VITALS: BP 151/82; PULSE 75; RESP 16; TEMP 36.4; O2SAT 99; BMI 32.7
[2022-10-13] MEDS: LACTATED RINGERS 1,000 ML 100 ML IV ×2 (09:32→12:07)
--- NOTE | 2022-10-13 11:11 | P.HP_ITS ---
History of Present Illness History of Present Illness Date Patient Seen: 10/13/22 Time Patient Seen: 11:11 [place] [facility] [place]: Mr. Marmolejo presents for colon cancer screening. He had a colonoscopy in May 2018 and there were multiple polyps identified. He was given 3-5 year follow-up and is presenting today for this follow-up. No family history of colon cancer no concerning symptoms and no other questions and would like to proceed. 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 household members: spouse Smoking Status: Former smoker alcohol intake: current Meds Home Medications and Allergies Home Medications Medication Instructions Recorded Confirmed Type multivitamin (Multiple Vitamins 1 tab PO QDAY ##0 07/19/16 08/24/22 History tablet) amlodipine 5 mg tablet 5 mg PO DAILY #90 tabs 08/24/22 10/13/22 Rx atorvastatin 20 mg tablet (Lipitor) 20 mg PO HS #90 tabs 08/24/22 08/24/22 Rx losartan 100 1 tab PO DAILY #90 tabs 08/24/22 08/24/22 Rx mg-hydrochlorothiazide 25 mg tablet tamsulosin 0.4 mg capsule (Flomax) 0.4 mg PO QDAY #90 caps 08/24/22 10/13/22 Rx Allergies Allergy/AdvReac Type Severity Reaction Status Date / Time No Known Allergies Allergy Uncoded 10/13/22 09:17 Exam Vital Signs (past 8 hours): - 10/13/22 09:20 Temperature 97.6 F Pulse Rate 75 Respiratory Rate 16 Blood Pressure 151/82 H Pulse Oximetry 99 Oxygen Delivery Method Room Air Oxygen Delivery Method Room Air Const General: cooperative, healthy appearing and comfortable Nutritional Appearance: obese Orientation: alert, awake and oriented x3 Eyes General: appearance normal, both eyes and all related structures Resp Effort & Inspection: normal respiratory effort and able to speak in complete sentences GI Palpation: soft and No tender Assessment & Plan Assessment and plan (1) History of colonic polyps: Status: Acute (2) Screening for colon cancer: Status: Acute Plan Presents today for screening colonoscopy I discussed the risks benefits and alternatives including but not limited to perforation of the colon and an i ncomplete exam he fully understands these risks and would like to proceed.
--- NOTE | 2022-10-13 11:15 | P.OP.COLON_ITS ---
Operative Date/Time/Diagnoses Date of procedure: 10/13/22 Pre-op diagnosis: colon cancer screening, history of polyps Post-op diagnosis: same Procedure & Clinicians Study performed: Colonoscopy and biopsy Same procedure as scheduled: Yes Indications: Colon cancer screening; history of polyps Surgeon: Kaitlin Leon Procedure Notes Procedure in detail: Patient was taken to the endoscopy suite and placed in left lateral decubitus position. A time-out was performed. Anesthesiologist induced conscious sedation and maintained throughout the procedure. A digital rectal exam was performed there were no masses or strictures there were some small external hemorrhoids, the prostate was slightly enlarged but smooth. The colonoscope was then introduced into the anal canal and advanced through to the cecum. Appendiceal orifice was photographed. There was 1 small cecal polyp that was removed in total with a biopsy forceps. Just outside the fold of the cecum there was a large flat sessile polyp that was was probably 1 cm x 2 cm in size it was irregularly shaped. I regret that I did not take a photograph of it before I began to remove it however after I had removed a few pieces I did take photograph. I took an additional photograph after I had moved removed the polyp completely in pieces using biopsy forceps. I continued to withdrawal and encountered 2 separate small transverse colon polyps as well as 3rd small rectal polyp. There were sigmoid diverticula seen throughout the sigmoid colon within normal limits. The bowel prep was good [place] bowel prep score of 2. Total withdrawal time 46 minutes and includes biopsies. Findings: divertiulosis and other findings (Mild external hemorrhoids, enlarged but smooth prostate) Specimen(s): other (1. Cecal polyps: 1 small and 1 large (1x2cm) sessile polyp removed in several pieces 2. Transverse colon polyps x2 3. Rectal polyp) Complications: none Post-procedure Recommendations: Colonoscopy in 3 years Plan for aftercare: Recommend fiber supplement daily
[2022-10-13 12:19] VITALS: BP 95/53; PULSE 58; RESP 15; TEMP 36.4; O2SAT 97
[2022-10-13 12:34] VITALS: BP 118/64; PULSE 58; RESP 16; O2SAT 97
[2022-10-13 12:39] VITALS: BP 117/70; BP 120/78; PULSE 60; PULSE 61; RESP 14; RESP 16; TEMP 36.2; O2SAT 97
== END 2022-10-13 12:55 | disposition home or self-care (01) ==
PROVIDERS: Family Provider Internal Medicine; PCP Internal Medicine; Referring Provider Surgery; Visit Provider Surgery
PROC: 0DJD8ZZ Inspection of Lower Intestinal Tract, Via Natural or Artificial Opening Endoscopic (ICD-10-PCS; CPT 45378; principal; 2022-10-13 10:00)
DX: Z12.11 Encounter for screening for malignant neoplasm of colon (principal); Z86.010 Personal history of colon polyps; N40.0 Benign prostatic hyperplasia without lower urinary tract symptoms; K57.30 Diverticulosis of large intestine without perforation or abscess without bleeding; K64.4 Residual hemorrhoidal skin tags; D12.0 Benign neoplasm of cecum; D12.3 Benign neoplasm of transverse colon; K62.1 Rectal polyp
CPT/HCPCS: 45380; J2704; J3010

== ENCOUNTER → 2023-09-11 08:42 | Outpatient (CLI) | payer OTHER, SELFPAY ==
--- NOTE | 2023-09-11 08:44 | DI.RAD.S_ITS ---
PROCEDURE: XR SHOULDER RT MIN 2V INDICATIONS: right shoulder pain TECHNIQUE: 3 views of the shoulder were acquired. COMPARISON: [facility] [place], CR, XR SHOULDER 2+ VIEWS RIGHT, 08/24/2017, 8:35. FINDINGS: Bones: No acute fracture or dislocation. Severe degenerative changes of the acromioclavicular and glenohumeral joints. Stable surgical staple in the region of the proximal right humerus. Stable appearance of suspected postsurgical changes of the lateral aspect of the right humeral head. Soft tissues: Interval increase in faint soft tissue calcifications in the subacromial space likely representing sequela of calcific tendinopathy. Visualized portion of the lungs are clear. IMPRESSION: Right shoulder without acute fracture or dislocation. Severe degenerative changes of the right glenohumeral and acromioclavicular joints. Stable postsurgical changes of the proximal right humerus. Findings suggestive of sequela of chronic calcific rotator cuff tendinopathy. Dictated by: Kenrick Medina M.D. on 09/11/2023 at 11:23 Approved by: Kenrick Medina M.D. on 09/11/2023 at 11:25
[2023-09-11 09:55] LABS: Hemoglobin A1C% w Est Avg Glu 5.6 % (4.0-6.0)
[2023-09-11 10:10] LABS: Aspartate Aminotransferase 34 IU/L (17-59); Blood Urea Nitrogen 18 mg/dL (9-20); Calcium 9.9 mg/dL (8.4-10.2); Carbon Dioxide 30 mmol/L (22-32); Chloride 105 mmol/L (98-107); Cholesterol 154 mg/dL (140-199); Estimated Glomerular Filt Rate > 60 mL/min (>60); Glucose 94 mg/dL (80-110); HDL Cholesterol 73 mg/dL (40-60); HEMOLYSIS < 15 (0-50); LDL Cholesterol Calculated 68 mg/dL (<100); Potassium 4.1 mmol/L (3.4-5.1); Sodium 141 mmol/L (137-145); Triglycerides 67 mg/dL (35-150)
== END ==
PROVIDERS: Family Provider Internal Medicine; PCP Internal Medicine; Referring Provider Internal Medicine; Visit Provider Internal Medicine
DX: M75.81 Other shoulder lesions, right shoulder (principal); N40.1 Benign prostatic hyperplasia with lower urinary tract symptoms; N13.8 Other obstructive and reflux uropathy; E78.2 Mixed hyperlipidemia; I10 Essential (primary) hypertension; R73.01 Impaired fasting glucose
CPT/HCPCS: 36415; 73030; 80048; 80061; 83036; 84153; 84450

== ENCOUNTER 2023-10-24 08:37 | Emergency (ER) | payer OTHER, SELFPAY ==
[2023-10-24] VITALS (11 sets, daily range): BP systolic 134–173; BP diastolic 65–88; PULSE 67–84; RESP 16; TEMP 36.6; O2SAT 96–99; BMI 30.8
--- NOTE | 2023-10-24 09:05 | ED_ITS ---
HPI - Neck Pain/Injury General Chief Complaint: Neck Pain/Injury Stated Complaint: fall t-1, hit head, neck pain, sent by [facility] Time Seen by Provider: 10/24/23 08:50 Mode of arrival: Family Vehicle History of Present Illness HPI Narrative: 73-year-old gentleman with a history of hypertension, hyperlipidemia who was working on [place] boat [place] on the dock yesterday tripped over a hose fell backward onto the concrete doc landing on his left side. It took him a bit of time to get up but he was able to do so. He rested for a bit and was noting some dizziness and cold flashes. He was able to finish tightening up the boat and got home. Took some Tylenol and over the course of the night pain has continued to worsen. He comes to the emergency department this morning for further evaluation. He is complaining of left head, left ear, neck, upper rib and clavicle pain with significant distracting injury but not complaining of lower thoracic or abdominal pelvic pain. No recent fever, cough, chills no palpitations no nausea or vomiting. He does have a slight headache Related Data Home Medications Medication Instructions Recorded Confirmed multivitamin (Multiple Vitamins 1 tab PO QDAY ##0 07/19/16 09/11/23 tablet) Previous Rx's Medication Instructions Recorded psyllium husk (with sugar) 3.4 1 tbsp PO BID #822 grams 10/13/22 gram/7 gram oral powder (Fiber (psyllium husk-sugar)) amlodipine 5 mg tablet 5 mg PO DAILY #90 tabs 09/11/23 atorvastatin 20 mg tablet (Lipitor) 20 mg PO HS #90 tabs 09/11/23 losartan 100 1 tab PO DAILY #90 tabs 09/11/23 mg-hydrochlorothiazide 25 mg tablet tamsulosin 0.4 mg capsule (Flomax) 0.4 mg PO QDAY #90 caps 09/18/23 oxycodone-acetaminophen 5 mg-325 1 tab PO Q6H PRN pain #14 tabs 10/24/23 mg tablet Allergies Allergy/AdvReac Type Severity Reaction Status Date / Time No Known Drug Allergies Allergy Verified 09/11/23 07:28 Review of Systems Review of Systems Narrative: Pertinent positive and negative findings as per HPI Patient History Medical History (Updated 10/24/23 @ 12:02 by Hannah rAanda MD) Right rotator cuff tendonitis Impaired fasting glucose Obesity (BMI 30.0-34.9) Obstructive sleep apnea History of colonic polyps 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 Mixed hyperlipidemia Essential hypertension Social History 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 Able to give a complete and coherent history. Well-nourished well-developed HEENT: Moist mucous membranes, normal sclera with reactive pupils, contusion to the entire helix of the left ear. Tenderness lateral aspect of the head to palpation without additional bruising Neck: Significant pain, most comfortable with his head slightly to the left, significant trapezius muscle spasm Chest: Abnormality without significant tenderness appreciated in the left sternoclavicular joint. Some minor tenderness with AP compression in the upper portion of the chest without abrasions or contusions. Respiratory: Lungs are clear to auscultation, no wheezing no rales no rhonchi. Full and symmetrical air movement Cardiac: Regular rate and rhythm no murmurs no bruits Abdomen: Soft, nontender, good bowel tones, no flank pain. No abrasions or contusions. No tenderness along the thoracic or lumbar spine. No tenderness with pelvic ring manipulation Skin: Warm and dry, no rashes Neurologic: Grossly neurologically intact with no obvious asymmetries or abnormalities Extremities: No trauma to the extremities. No abrasions or contusions appreciated Psych: Cooperative, appropriate insight and affect Course Orders Ordered: ED Orders 10/24/23 09:21 CT chest abd pel w con Stat 10/24/23 09:23 CT head/brain wo con Stat 10/24/23 09:30 Complete Blood Count AUTO DIFF Stat Comprehensive Metabolic Panel Stat Lipase Stat Type and Screen Stat 10/24/23 10:14 CT cervical spine wo con Stat Hydromorphone HCl (Hydromorphone 0.5 Mg Inj) 0.5 mg IV Q15MIN PRN PRN Reason: Pain, Last Admin: 10/24/23 10:56 Dose: 0.5 mg Documented By: KARLIE Discontinued Medications Ketorolac Tromethamine (Ketorolac 30 Mg/Ml Vial) 15 mg IV NOW ONE Stop: 10/24/23 10:50 Last Admin: 10/24/23 10:56 Dose: 15 mg Documented By: KARLIE Vital Signs Vital signs: Vital Signs - 8 hr 10/24/23 08:38 10/24/23 08:57 10/24/23 09:00 Temperature 98 F Pulse Rate 78 69 70 Respiratory Rate 16 Blood Pressure 173/80 H Pulse Oximetry 98 98 98 Oxygen Delivery Method Room Air 10/24/23 09:49 10/24/23 09:49 10/24/23 10:00 Temperature Pulse Rate 71 67 Respiratory Rate Blood Pressure 140/88 Pulse Oximetry 98 98 Oxygen Delivery Method Room Air 10/24/23 10:00 10/24/23 10:30 10/24/23 10:31 Temperature Pulse Rate 84 Respiratory Rate Blood Pressure 134/66 147/78 H Pulse Oximetry 99 Oxygen Delivery Method 10/24/23 10:31 Temperature Pulse Rate 84 Respiratory Rate Blood Pressure Pulse Oximetry 98 Oxygen Delivery Method MDM - Neck Pain/Injury Lab Data 10/24/23 09:30 10/24/23 09:30 Labs: Lab Results 10/24/23 Range/Units 09:30 WBC 7.0 (4.5-11.0) X10^3/uL RBC 4.60 (4.5-5.9) X10^6/uL Hgb 14.5 (13.5-17.5) g/dL Hct 42.5 (41-53) % MCV 92.4 (80-100) fL MCH 31.6 (26-34) PG MCHC 34.1 (30-36) % RDW 14.1 (11.6-14.8) % Plt Count 245 (150-400) X10^3/uL Neut % (Auto) 78.3 H (50-75) % Lymph % (Auto) 13.5 L (25-40) % Greer % (Auto) 7.5 (3-14) % Eos % (Auto) 0.3 L (2-4) % Baso % (Auto) 0.4 (0-2) % Neut # (Auto) 5500 (5384-5213) /uL Lymph # (Auto) 900 L (5949-7082) /uL Greer # (Auto) 500 (0-900) /uL Eos # (Auto) 0 (0-450) /uL Baso # (Auto) 0 (0-100) /uL Sodium 137 (137-145) mmol/L Potassium 3.5 (3.4-5.1) mmol/L Chloride 105 (98-107) mmol/L Carbon Dioxide 25 (22-32) mmol/L BUN 15 (9-20) mg/dL Creatinine 0.56 L (0.66-1.25) mg/dL Estimated GFR > 60 (>60) mL/min BUN/Creatinine Ratio 26.8 H (6-22) Glucose 115 H (80-110) mg/dL Calcium 9.8 (8.4-10.2) mg/dL Total Bilirubin 1.4 H (0.2-1.3) mg/dL AST 68 H (17-59) IU/L ALT 38 (<50) IU/L Alkaline Phosphatase 78 (38-126) U/L Total Protein 7.9 (6.3-8.2) g/dL Albumin 4.5 (3.5-5.0) g/dL Globulin 3.4 (1.7-4.1) g/dL Albumin/Globulin Ratio 1.3 (1.0-2.8) Lipase 48 (23-300) U/L Blood Type O Positive Antibody Screen Negative Urine Dip Bedside Urine Glucose Negative Bedside Urine Ketone ++ 40 Urine Specific Newell 1.010 Bedside Urine Occult Blood - Negative Bedside Urine pH 8.5 Bedside Urine Protein - Negative Bedside Urine Urobilinogen - Negative Bedside Urine Nitrite - Negative Bedside Urine Leukocytes - Negative Esterase Imaging Data CT scan - head: Radiologist's Impression: PROCEDURE: CT HEAD/BRAIN WO CON INDICATIONS: trauma TECHNIQUE: Noncontrast 4.5 mm thick angled axial sections acquired from the foramen magnum to the vertex, with coronal and sagittal reformats. For radiation dose reduction, the following was used: automated exposure control, adjustment of mA and/or kV according to patient size. COMPARISON: [facility], CT, HEAD WITHOUT CONTRAST, 07/19/2016, 19:56. FINDINGS: Image quality: Diagnostic. CSF spaces: Basal cisterns are patent. No extra-axial fluid collections. The ventricles are symmetric in size and shape. Brain: No intracranial bleeds or masses. There is cerebral volume loss for age, with resultant ventricular and sulcal prominence. There are periventricular and deep white matter chronic small vessel ischemic changes. There is intracranial internal carotid artery atherosclerosis. Skull and face: Calvarium and visualized facial bones appear intact, without suspicious lesions. Sinuses: Visualized sinuses and mastoids are clear. IMPRESSION: 1. No acute intracranial process. 2. Moderate atrophy and chronic microvascular ischemic changes. Dictated by: Lidia Mckeon M.D. on 10/24/2023 at 10:38 CT - cervical spine: Radiologist's Impression: PROCEDURE: CT CERVICAL SPINE WO CON INDICATIONS: trauma TECHNIQUE: Noncontrast 3 mm thick sections acquired from the skull base to the T4 level. Sagittal and coronal reformats were then constructed. For radiation dose reduction, the following was used: automated exposure control, adjustment of mA and/or kV according to patient size. COMPARISON: [facility], CT, C-SPINE WITHOUT CONTRAST, 07/19/2016, 19:56. FINDINGS: Image quality: Excellent. Bones: No fractures or dislocations. Visualized superior ribs are intact. There is trace anterolisthesis of C3 on C4, C4 on C5 and trace retrolisthesis of C5 on C6. Multilevel moderate to severe degenerative disc space narrowing most notable at C5-6, C6-7 C7-T1. Multilevel anterior osteophytes are present. Soft tissues: Prevertebral soft tissues are normal in thickness. No paravertebral hematomas. No apical pneumothoraces. IMPRESSION: Multilevel degenerative changes without visualized fracture. Dictated by: Lidia Mckeon M.D. on 10/24/2023 at 11:30 CT chest abdomen and pelvis: Radiologist's Impression: PROCEDURE: CT CHEST ABD PEL W CON INDICATIONS: blunt trauma TECHNIQUE: After the administration of intravenous contrast, 5 mm thick sections acquired from the lung apices to the symphysis. 2.5 mm thick coronal and sagittal reformats were acquired. Additional 7 mm thick coronal maximum intensity projection (MIP) reformats acquired through the lungs. Optional 10-minute delayed imaging may be performed from the kidneys to the bladder. For radiation dose reduction, the following was used: automated exposure control, adjustment of mA and/or kV according to patient size. COMPARISON: [facility], CR, XR SHOULDER RT MIN 2V, 09/11/2023, 8:46. [facility], CT, THORAX WITHOUT CONTRAST, 11/04/2007, 10:11. [facility], CT, KIDNEY/ URETER/BLADDER, 10/09/2007, 10:31. FINDINGS: Image quality: Diagnostic. CHEST: Lower Neck: No enlarged lymph nodes. Thyroid: Low-attenuation foci are present within the left lobe, unchanged. Axillae: No enlarged lymph nodes. Chest Wall: No subcutaneous gas. Lungs and Pleura: No pulmonary contusions or lacerations. No acute airspace opacities. No pneumothorax or hemothorax. Mediastinum: No mediastinal hematomas. Heart size is mildly prominent. No pericardial effusion. Thoracic aorta and pulmonary arteries demonstrate normal size and enhancement. No mediastinal or hilar adenopathy. Esophagus is normal in caliber. No hiatal hernia. ABDOMEN: Liver: No lacerations. Simple hepatic cysts. Gallbladder: No radiopaque gallstones or wall thickening. Biliary ducts: No biliary dilation. Pancreas: Homogenous enhancement. Spleen: Homogenous enhancement without laceration or hematoma. Adrenal Glands: Symmetric enhancement. Kidneys and Ureters: Symmetric enhancement. No hydronephrosis. No solid mass. No complex renal cystic lesion which requires follow up. Stomach and Bowel: Normal colonic caliber, without significant wall thickening. Prominent colonic diverticula without inflammatory change. Peritoneum: No abnormal intraperitoneal fluid. No free air. Ventral Wall: No hernia. Abdominal Nodes: No retroperitoneal or mesenteric adenopathy by size criteria. Vessels: Aorta and inferior vena cava are normal in size. PELVIS: Pelvic Organs: Unremarkable. Bladder: Normal thickness. Pelvic Nodes: No enlarged lymph nodes. Miscellaneous: No inguinal hernias are seen. Bones: Pelvic ring and hip joints appear intact. No displaced rib fractures. Prominent degenerative changes are present within the shoulders bilaterally. There is appearance right shoulder effusion, likely chronic. IMPRESSION: No evidence of traumatic injury to the chest, abdomen or pelvis. Diverticulosis. Appearance of right shoulder effusion, suspected to be chronic related to arthritic change. However, if clinical symptoms are present within this region and concern for infection persists, further evaluation with potential aspiration may be obtained. Dictated by: Lidia Mckeon M.D. on 10/24/2023 at 10:45 MDM Narrative Medical decision making narrative: CC: Ground level fall landing on his back almost 24 hours ago Complicating co-morbidities: Hypertension, hyperlipidemia Data collected from: patient Medical records reviewed: Primary care notes from September 10 are reviewed Differential considered: Multilevel trauma Exam documented above, pertinent findings include: Left helix with contusion, significant pain along the cervical spine and trapezius muscle, tenderness in the left upper ribs, able to speak in full sentences but in obvious distress Lab Test results independently reviewed as above. Pertinent findings: CBC is unremarkable Chemistries are notable for good renal function with a creatinine at 0.56. Slight increased total bilirubin at 1.4 AST 68, ALT and alkaline phosphatase are unremarkable Imaging studies independently reviewed: CT scan of the head shows no intracranial hemorrhage CT scan of the neck does not show any acute fracture CT scan of the chest abdomen and pelvis shows minor chronic findings but no acute fractures, pneumothorax, hemothorax or mediastinal abnormality Treatments: Toradol, parenteral Dilaudid Re-evaluations: Patient is re-evaluated in his feeling much better after Toradol and half a mg of parenteral Dilaudid Discussion: 73-year-old gentleman with significant ground level fall landing on his back yesterday contusion to the left ear, acute neck strain and left shoulder contusion. No intra cranial or intrathoracic bleeding. No obvious fractures. Findings reviewed in detail with the patient and his . Discussed anticipated course of recovery including increasing pain yesterday, use of hot, cold, making sure that he is up and mobile and reviewed use of pain medications with descriptions and discussion in discharge summary below. Questions answered and he is safe for discharge Discharge Plan Departure Patient Disposition: Home Clinical Impression: Ground-level fall Contusion of left ear Qualifiers: Encounter type: initial encounter Qualified Code(s): S00.432A - Contusion of left ear, initial encounter Acute strain of neck muscle Qualifiers: Encounter type: initial encounter Qualified Code(s): S16.1XXA - Strain of muscle, fascia and tendon at neck level, initial encounter Contusion of left shoulder Qualifiers: Encounter type: initial encounter Qualified Code(s): S40.012A - Contusion of left shoulder, initial encounter Instructions: DI for Contusion, DI for Neck Pain Activity Restrictions/Additional Instructions: Thank you for coming in today You clearly caused some bumps, bruises and pain but fortunately did not break anything with your fall. There was no evidence of bleeding in your head, you did not break any of the bones along your neck spine or into your pelvis. Your heart lungs all abdominal organs are all reassuringly normal. There are no rib fractures and you did not break your collarbone. You are going to be sore and likely increasingly sore in the 1st 48 hours after your fall. Using 400 mg of ibuprofen (2 [id number] pills) and 1 Tylenol every 12 hours can be very helpful in controlling pain. You can also use to Tylenol Finally, for severe pain you can add 1 Percocet which has Tylenol plus oxycodone to this combination. If you do end up using narcotic, please know that a we will cause constipation, please take a stool softener simultaneously Using hot shower or warm, ice to your neck and shoulder and making sure that your up and moving regularly will all help with pain management as well If you find that you are getting worse or develop any new symptoms, please feel free to return to the emergency department for further evaluation. Prescriptions: New oxycodone-acetaminophen 5-325 mg tablet 1 tab PO Q6H PRN (Reason: pain) Qty: 14 0RF No Action multivitamin [Multiple Vitamins] 1 EACH tablet 1 tab PO QDAY Qty: 0 tamsulosin [Flomax] 0.4 mg capsule 0.4 mg PO QDAY Qty: 90 3RF amlodipine 5 mg tablet 5 mg PO DAILY Qty: 90 3RF atorvastatin [Lipitor] 20 mg tablet 20 mg PO HS Qty: 90 3RF losartan-hydrochlorothiazide 100-25 mg tablet 1 tab PO DAILY Qty: 90 3RF Fiber (psyllium husk-sugar) 3.4 gram/7 gram powder 1 tbsp PO BID Qty: 822 0RF Referrals: Jaxon Urbina MD [Primary Care Provider] - Stand Alone Forms: Patient Portal/API
--- NOTE | 2023-10-24 09:21 | DI.CT.S_ITS ---
PROCEDURE: CT CHEST ABD PEL W CON INDICATIONS: blunt trauma TECHNIQUE: After the administration of intravenous contrast, 5 mm thick sections acquired from the lung apices to the symphysis. 2.5 mm thick coronal and sagittal reformats were acquired. Additional 7 mm thick coronal maximum intensity projection (MIP) reformats acquired through the lungs. Optional 10-minute delayed imaging may be performed from the kidneys to the bladder. For radiation dose reduction, the following was used: automated exposure control, adjustment of mA and/or kV according to patient size. COMPARISON: [facility], CR, XR SHOULDER RT MIN 2V, 09/11/2023, 8:46. [facility], CT, THORAX WITHOUT CONTRAST, 11/04/2007, 10:11. [facility], CT, KIDNEY/ URETER/BLADDER, 10/09/2007, 10:31. FINDINGS: Image quality: Diagnostic. CHEST: Lower Neck: No enlarged lymph nodes. Thyroid: Low-attenuation foci are present within the left lobe, unchanged. Axillae: No enlarged lymph nodes. Chest Wall: No subcutaneous gas. Lungs and Pleura: No pulmonary contusions or lacerations. No acute airspace opacities. No pneumothorax or hemothorax. Mediastinum: No mediastinal hematomas. Heart size is mildly prominent. No pericardial effusion. Thoracic aorta and pulmonary arteries demonstrate normal size and enhancement. No mediastinal or hilar adenopathy. Esophagus is normal in caliber. No hiatal hernia. ABDOMEN: Liver: No lacerations. Simple hepatic cysts. Gallbladder: No radiopaque gallstones or wall thickening. Biliary ducts: No biliary dilation. Pancreas: Homogenous enhancement. Spleen: Homogenous enhancement without laceration or hematoma. Adrenal Glands: Symmetric enhancement. Kidneys and Ureters: Symmetric enhancement. No hydronephrosis. No solid mass. No complex renal cystic lesion which requires follow up. Stomach and Bowel: Normal colonic caliber, without significant wall thickening. Prominent colonic diverticula without inflammatory change. Peritoneum: No abnormal intraperitoneal fluid. No free air. Ventral Wall: No hernia. Abdominal Nodes: No retroperitoneal or mesenteric adenopathy by size criteria. Vessels: Aorta and inferior vena cava are normal in size. PELVIS: Pelvic Organs: Unremarkable. Bladder: Normal thickness. Pelvic Nodes: No enlarged lymph nodes. Miscellaneous: No inguinal hernias are seen. Bones: Pelvic ring and hip joints appear intact. No displaced rib fractures. Prominent degenerative changes are present within the shoulders bilaterally. There is appearance right shoulder effusion, likely chronic. IMPRESSION: No evidence of traumatic injury to the chest, abdomen or pelvis. Diverticulosis. Appearance of right shoulder effusion, suspected to be chronic related to arthritic change. However, if clinical symptoms are present within this region and concern for infection persists, further evaluation with potential aspiration may be obtained. Dictated by: Lidia Mckeon M.D. on 10/24/2023 at 10:45 Approved by: Lidia Mckeon M.D. on 10/24/2023 at 10:52
--- NOTE | 2023-10-24 09:23 | DI.CT.S_ITS ---
PROCEDURE: CT HEAD/BRAIN WO CON INDICATIONS: trauma TECHNIQUE: Noncontrast 4.5 mm thick angled axial sections acquired from the foramen magnum to the vertex, with coronal and sagittal reformats. For radiation dose reduction, the following was used: automated exposure control, adjustment of mA and/or kV according to patient size. COMPARISON: [facility], CT, HEAD WITHOUT CONTRAST, 07/19/2016, 19:56. FINDINGS: Image quality: Diagnostic. CSF spaces: Basal cisterns are patent. No extra-axial fluid collections. The ventricles are symmetric in size and shape. Brain: No intracranial bleeds or masses. There is cerebral volume loss for age, with resultant ventricular and sulcal prominence. There are periventricular and deep white matter chronic small vessel ischemic changes. There is intracranial internal carotid artery atherosclerosis. Skull and face: Calvarium and visualized facial bones appear intact, without suspicious lesions. Sinuses: Visualized sinuses and mastoids are clear. IMPRESSION: 1. No acute intracranial process. 2. Moderate atrophy and chronic microvascular ischemic changes. Dictated by: Lidia Mckeon M.D. on 10/24/2023 at 10:38 Approved by: Lidia Mckeon M.D. on 10/24/2023 at 10:38
--- NOTE | 2023-10-24 09:29 | PC.NURSE ---
Left sided neck pain; tender to palpation on left side of neck. No c spine tenderness. Mild swelling and bruising noted to left ear. No blood noted in ear canal. No other obvious deformities noted at this time. Pt denies LOC. Pt denies blood thinners. Pt states he ambulated after the fall and his pain is not controlled with Tylenol.
[2023-10-24 09:48] LABS: Add Manual Diff / Slide Review NO; Basophils Absolute Auto 0 /uL (0-100); Basophils Percent Auto 0.4 % (0-2); Eosinophils Absolute Auto 0 /uL (0-450); Eosinophils Percent Auto 0.3 % (2-4); Hematocrit 42.5 % (41-53); Hemoglobin 14.5 g/dL (13.5-17.5); Lymphocytes Absolute Auto 900 /uL (1100-4500); Lymphocytes Percent Auto 13.5 % (25-40); Mean Corpuscular HGB Conc 34.1 % (30-36); Mean Corpuscular Hemoglobin 31.6 PG (26-34); Mean Corpuscular Volume 92.4 fL (80-100); Monocytes Absolute Auto 500 /uL (0-900); Monocytes Percent Auto 7.5 % (3-14); Neutrophils Absolute Auto 5500 /uL (1500-7000); Neutrophils Percent Auto 78.3 % (50-75); Platelet Count 245 X10^3/uL (150-400); Red Cell Distribution Width 14.1 % (11.6-14.8)
[2023-10-24 10:13] LABS: Alanine Aminotransferase 38 IU/L (<50); Albumin 4.5 g/dL (3.5-5.0); Albumin Globulin Ratio 1.3 (1.0-2.8); Alkaline Phosphatase 78 U/L (38-126); Aspartate Aminotransferase 68 IU/L (17-59); BUN Creatinine Ratio 26.8 (6-22); Bilirubin Total 1.4 mg/dL (0.2-1.3); Blood Urea Nitrogen 15 mg/dL (9-20); Calcium 9.8 mg/dL (8.4-10.2); Carbon Dioxide 25 mmol/L (22-32); Chloride 105 mmol/L (98-107); Estimated Glomerular Filt Rate > 60 mL/min (>60); Globulin 3.4 g/dL (1.7-4.1); Glucose 115 mg/dL (80-110); HEMOLYSIS < 15 (0-50); Lipase 48 U/L (23-300); Potassium 3.5 mmol/L (3.4-5.1); Sodium 137 mmol/L (137-145); Total Protein 7.9 g/dL (6.3-8.2)
--- NOTE | 2023-10-24 10:14 | DI.CT.S_ITS ---
PROCEDURE: CT CERVICAL SPINE WO CON INDICATIONS: trauma TECHNIQUE: Noncontrast 3 mm thick sections acquired from the skull base to the T4 level. Sagittal and coronal reformats were then constructed. For radiation dose reduction, the following was used: automated exposure control, adjustment of mA and/or kV according to patient size. COMPARISON: [facility], CT, C-SPINE WITHOUT CONTRAST, 07/19/2016, 19:56. FINDINGS: Image quality: Excellent. Bones: No fractures or dislocations. Visualized superior ribs are intact. There is trace anterolisthesis of C3 on C4, C4 on C5 and trace retrolisthesis of C5 on C6. Multilevel moderate to severe degenerative disc space narrowing most notable at C5-6, C6-7 C7-T1. Multilevel anterior osteophytes are present. Soft tissues: Prevertebral soft tissues are normal in thickness. No paravertebral hematomas. No apical pneumothoraces. IMPRESSION: Multilevel degenerative changes without visualized fracture. Dictated by: Lidia Mckeon M.D. on 10/24/2023 at 11:30 Approved by: Lidia Mckeon M.D. on 10/24/2023 at 11:31
[2023-10-24] MEDS: KETOROLAC 30 MG/ML VIAL 15 MG IV (10:56)
[2023-10-24] MEDS: HYDROMORPHONE 0.5 MG INJ IV (10:56)
== END 2023-10-24 12:35 | disposition home or self-care (01) ==
PROVIDERS: Emergency Provider Emergency Medicine; Family Provider Internal Medicine; PCP Internal Medicine
DX: S00.432A Contusion of left ear, initial encounter (principal); S16.1XXA Strain of muscle, fascia and tendon at neck level, initial encounter; S40.012A Contusion of left shoulder, initial encounter; R10.2 Pelvic and perineal pain; I10 Essential (primary) hypertension; W01.0XXA Fall on same level from slipping, tripping and stumbling without subsequent striking against object, initial encounter
CPT/HCPCS: 36415; 70450; 71260; 72125; 74177; 80053; 81003; 83690; 85025; 86850; 86900; 86901; 96374; 96375; 99284; J1170; J1885; Q9967

== ENCOUNTER 2023-10-29 03:45 | Emergency (ER) | payer OTHER, SELFPAY ==
--- NOTE | 2023-10-29 03:48 | DI.RAD.S_ITS ---
PROCEDURE: XR SHOULDER LT MIN 2V INDICATIONS: FALL 4 DAYS AGO, PERSISTENT PAIN TECHNIQUE: 3 views of the shoulder were acquired. COMPARISON: [facility], REMA, CHEST 1 VIEW, 07/19/2016, 20:28. [facility], REMA, XR SHOULDER RT MIN 2V, 09/11/2023, 8:46. FINDINGS: Bones: Postsurgical changes are noted in left anterior glenoid with suggestion of fractured metallic staple near its inferior aspect. Small calcification adjacent to inferior aspect of glenoid is seen. Moderate acromioclavicular joint and glenohumeral joint osteoarthritic changes are seen. No suspicious bony lesions. Visualized ribs appear intact. Soft tissues: No suspicious soft tissue calcifications. IMPRESSION: 1. Age indeterminate deformity involving inferior glenoid suggest clinical correlation and comparison with prior studies if available. No other fracture or dislocation. 2. Postsurgical changes in anterior inferior glenoid with suggestion of fractured hardware. 3. Moderate acromioclavicular joint and glenohumeral joint osteoarthritis. No significant discrepancies from preliminary reading. Dictated by: Billy Moon M.D. on 10/29/2023 at 8:15 Approved by: Billy Moon M.D. on 10/29/2023 at 8:18
--- NOTE | 2023-10-29 03:53 | ED_ITS ---
HPI - Extremity Injury (Upper) General Chief Complaint: Extremity Injury, Upper Stated Complaint: shoulder pain Time Seen by Provider: 10/29/23 03:46 History of Present Illness HPI narrative: 73-year-old male presents by EMS from home for left shoulder pain. EMS states that they were called to the patient's home for ?difficulty breathing?, however when they arrived patient was actively hyperventilating and very anxious about his left shoulder. On 10/24/2023 patient was evaluated in the emergency department for left-sided pain after a fall. He underwent CT imaging of his head, neck, chest, abdomen, and pelvis that were all normal. Patient was discharged with pain medications. Patient states that he took the last 2 remaining pills today and they didn't seem to help. Patient is very tearful on arrival. Pain is described as a nerve pain that starts at the back of his neck and shoots into his shoulder. Position of comfort is with arm held over abdomen. ROM limited due to pain. Denies numbness, weakness. Related Data Home Medications Medication Instructions Recorded Confirmed multivitamin (Multiple Vitamins 1 tab PO QDAY ##0 07/19/16 09/11/23 tablet) Previous Rx's Medication Instructions Recorded psyllium husk (with sugar) 3.4 1 tbsp PO BID #822 grams 10/13/22 gram/7 gram oral powder (Fiber (psyllium husk-sugar)) amlodipine 5 mg tablet 5 mg PO DAILY #90 tabs 09/11/23 atorvastatin 20 mg tablet (Lipitor) 20 mg PO HS #90 tabs 09/11/23 losartan 100 1 tab PO DAILY #90 tabs 09/11/23 mg-hydrochlorothiazide 25 mg tablet tamsulosin 0.4 mg capsule (Flomax) 0.4 mg PO QDAY #90 caps 09/18/23 oxycodone-acetaminophen 5 mg-325 1 tab PO Q6H PRN pain #14 tabs 10/24/23 mg tablet gabapentin 300 mg capsule 300 mg PO TID #30 caps 10/29/23 methocarbamol 500 mg tablet 500 mg PO TID PRN muscle spasm #30 10/29/23 tabs tramadol 50 mg tablet 50 mg PO Q8H PRN pain #10 tabs 10/29/23 Allergies Allergy/AdvReac Type Severity Reaction Status Date / Time No Known Drug Allergies Allergy Verified 09/11/23 07:28 Review of Systems Review of Systems Narrative: See HPI Patient History Medical History Right rotator cuff tendonitis Impaired fasting glucose Obesity (BMI 30.0-34.9) Obstructive sleep apnea History of colonic polyps 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 Mixed hyperlipidemia Essential hypertension Social History details: , 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, 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 [employer] household members: spouse Smoking Status: Former smoker alcohol intake: current Smoking Status: Former smoker alcohol intake frequency: a few times a week Substance Use Type: does not use Exam Narrative Exam Narrative: Const: Awake, alert, tearful, tremulous Cardiac: regular rate, regular rhythm RESP: Hyperventilating, clear bilaterally, no wheezing MSK: No deformity, shoulder to his body in position of comfort, no reproducible tenderness to palpation Skin: Warm, Dry, intact, no rashes Neuro: AO x3, CN II-XII grossly intact, moves all extremities Initial Vital Signs Initial Vital Signs: Vital Signs Temperature 97.8 F 10/29/23 04:05 Pulse Rate 76 10/29/23 04:05 Respiratory Rate 22 10/29/23 04:05 Blood Pressure 146/75 H 10/29/23 04:05 Pulse Oximetry 99 10/29/23 04:05 Oxygen Delivery Method Room Air 10/29/23 04:05 Course Orders Ordered: ED Orders 10/29/23 03:48 XR shoulder LT min 2V Stat Ketorolac Tromethamine (Ketorolac 30 Mg/Ml Vial) 30 mg IM NOW ONE Stop: 10/29/23 05:19 Tramadol HCl (Tramadol 50 Mg Prepack) 1 bottle MISC DIRECTED ONE Stop: 10/29/23 05:19 Discontinued Medications Acetaminophen (Acetaminophen 325 Mg Tablet) 975 mg PO NOW ONE Stop: 10/29/23 03:49 Last Admin: 10/29/23 04:02 Dose: 975 mg Documented By: ASHA Lorazepam (Lorazepam 0.5 Mg Tablet) 1 mg PO NOW ONE Stop: 10/29/23 03:51 Last Admin: 10/29/23 04:03 Dose: 1 mg Documented By: ASHA Oxycodone HCl (Oxycodone Ir 5 Mg Tablet) 5 mg PO NOW ONE Stop: 10/29/23 03:49 Last Admin: 10/29/23 04:02 Dose: 5 mg Documented By: ASHA Vital Signs Vital signs: Vital Signs - 8 hr 10/29/23 04:05 Temperature 97.8 F Pulse Rate 76 Respiratory Rate 22 Blood Pressure 146/75 H Pulse Oximetry 99 Oxygen Delivery Method Room Air MDM - Extremity Injury (Upper) MDM Narrative Medical decision making narrative: Patient presenting for left shoulder pain that he states is like ?a pinched nerve?. Patient is very tearful and upset on arrival, hyperventilating. There is no reproducible tenderness to palpation on exam, no obvious deformity, patient recently underwent jean CT scan imaging of his head, neck, chest, abdomen, pelvis. X-ray imaging ordered. Pain and anxiety medications ordered. X-ray imaging shows age indeterminate inferior glenoid chip fracture. Patient states he thinks that may be old due to playing football in his youth. No longer hyperventilating, resting comfortably in bed. He states that his pain is somewhat better. States that he will call his PCP for follow up appointment. Patient was also advised to follow up with Orthopedic surgery if he continues to experience pain. Referral provided since patient's previous orthopedic surgeon is no longer at the office. Patient requested pain medications to go home with, which were provided. Discharge Plan Departure Patient Disposition: Home Clinical Impression: Acute pain of left shoulder Instructions: DI for Shoulder Pain Activity Restrictions/Additional Instructions: Be careful when taking the prescribed medications as they may cause drowsiness. Do not take with alcohol or before operating heavy machinery such as driving a car. I recommend avoiding taking tramadol and methocarbamol together until you know how they affect you. Follow up with Orthopedic surgery and your primary care physician Prescriptions: New tramadol 50 mg tablet 50 mg PO Q8H PRN (Reason: pain) Qty: 10 0RF methocarbamol 500 mg tablet 500 mg PO TID PRN (Reason: muscle spasm) Qty: 30 0RF gabapentin 300 mg capsule 300 mg PO TID Qty: 30 0RF No Action multivitamin [Multiple Vitamins] 1 EACH tablet 1 tab PO QDAY Qty: 0 tamsulosin [Flomax] 0.4 mg capsule 0.4 mg PO QDAY Qty: 90 3RF amlodipine 5 mg tablet 5 mg PO DAILY Qty: 90 3RF atorvastatin [Lipitor] 20 mg tablet 20 mg PO HS Qty: 90 3RF losartan-hydrochlorothiazide 100-25 mg tablet 1 tab PO DAILY Qty: 90 3RF Fiber (psyllium husk-sugar) 3.4 gram/7 gram powder 1 tbsp PO BID Qty: 822 0RF oxycodone-acetaminophen 5-325 mg tablet 1 tab PO Q6H PRN (Reason: pain) Qty: 14 0RF Referrals: Jaxon Urbina MD [Primary Care Provider] - Rory Nix MD [Physician] - Stand Alone Forms: Patient Portal/API
[2023-10-29] MEDS: OXYCODONE IR 5 MG TABLET PO (04:02)
[2023-10-29] MEDS: ACETAMINOPHEN 325 MG TABLET 975 MG PO (04:02)
[2023-10-29] MEDS: LORazepam 0.5 MG TABLET 1 MG PO (04:03)
[2023-10-29 04:05] VITALS: BP 146/75; PULSE 76; RESP 22; TEMP 36.6; O2SAT 99; BMI 30.8
[2023-10-29] MEDS: KETOROLAC 30 MG/ML VIAL IM (05:29)
[2023-10-29] MEDS: TRAMADOL 50 MG PREPACK 1 BOTTLE MISC (05:29)
[2023-10-29 05:32] VITALS: BP 144/72; PULSE 75; RESP 18; O2SAT 100
[2023-10-29 05:46] VITALS: BP 140/71; PULSE 73; RESP 16; O2SAT 97
== END 2023-10-29 05:46 | disposition home or self-care (01) ==
PROVIDERS: Emergency Provider Emergency Medicine; Family Provider Internal Medicine; PCP Internal Medicine
DX: M25.512 Pain in left shoulder (principal)
CPT/HCPCS: 73030; 96372; 99283; 99284; J1885

== ENCOUNTER 2023-12-28 13:45 | Outpatient (RCR) | payer OTHER, SELFPAY ==
--- NOTE | 2023-12-07 15:45 | PT.OIE ---
Current Diagnoses Pain in right shoulder (12/07/23) Pain in left shoulder (12/07/23) Cervicalgia (12/07/23) Weakness (12/07/23) Past Medical History (Last Reviewed 10/29/23 @ 13:07 by Jaxon Urbina MD) BPH w urinary obs/LUTS Essential hypertension History of colonic polyps Impaired fasting glucose Mixed hyperlipidemia Obesity (BMI 30.0-34.9) Obstructive sleep apnea Primary osteoarthritis involving multiple joints Right rotator cuff tendonitis Visit Care Team Role Provider Type Johnathan Campbell MD Family Provider Physician Specialty: Internal Medicine Address: [address] [place] [address], [id number] Email: Jaxon Urbina MD Attending Provider Physician Primary Care Provider Referring Provider Specialty: Internal Medicine Address: [address] [place] [address], [facility] Email: [email or web address] Physical Therapy Initial Evaluation PT-OP-A Visit Information Start: 12/07/23 08:17 Freq: Status: Active Protocol: Document 12/07/23 08:17 NM (Rec: 12/07/23 11:05 NM [id number]) Out-Patient Physical Therapy Visit Information Visit Information Visit Type Initial Evaluation Visit Start Time 08:18 Visit Stop Time 09:03 Visit Number 1 Evaluation Information Evaluation Date 12/07/23 PT-OP-B Current Condition Start: 12/07/23 08:17 Freq: Status: Active Protocol: Document 12/07/23 08:17 NM (Rec: 12/07/23 11:05 NM [id number]) Current Condition History of Current Condition Onset Date 10/23/23 Current Complaints mobility, pain, strength History of Current Condition Pt presents with B shoulder pain, neck pain. [place] fell [place] the dock, landing on concrete, falling from an elevated surface in September. He landed on his L shoulder and L head. Followed up with PCP and walk in clinic> ER. Had imaging, CT and radiographs; pain medication. Dr. Urbina gave pt more pain meds. Went back to ED later that week due to neck pain. Pt has been trying to lose weight, has lost 40 pounds. His BP medication interferes with his balance, creates fuzzy feeling. In July 2023, his R arm was painful and he had difficulty with arm elevation, without known onset. X rays revealed arthritis, recommended shoulder replacement which pt declined at the time. Currently, his R arm is freezing up. Neck is more painful on R side, R arm hurts more than L arm, but both are limited. Pt also reports that when he was 15 y.o. he had B shoulder dislocations and operated on (pinned, moved muscles to back of shoulder, made a X over the joints with ligaments) in 1965; as a result, he has had limited ER, arm elevation. States R shoulder swollen and can't see the knob because swollen, has a knob on the L shoulder (refering to ACJ). Reports soreness and stiffness in neck , no numbness/tingling; reports popping with ROM. Prior Treatments and Tests hx of B TKA 2 years ago Radiograph- L shoulder 10/29/23 : post surgical changes in anterior inferior glenoid with suggestion of fractured hardware, moderate ACJ and GHJ OA, age indeterminate deformity of inferior glenoid. CT Cervical spine scan : multilevel degenerative changes without visualized fracture; trace anterolisthesis of C3 on C4 on C4 and C5, trace retrolisthesis of C5-C6, C6-7, C7-T1. Prior Functional Status Baseline Function- Recreation/Hobbies boating Current Functional Impairments (Reported) Functional Limitations- ADL's UE dressing, reaching Functional Limitations- Mobility/Gait floor transfers due to knee mobility and strength Functional Limitations- Other sleeps in recliner, wakes multiple times per night ( bathroom, change position) PT-OP-C Subjective Start: 12/07/23 08:17 Freq: Status: Active Protocol: Document 12/07/23 08:17 NM (Rec: 12/07/23 11:05 NM [id number]) OP-PT Subjective Patient Comments Patient Comments see hx above for pt report Patient Questionnaires Neck Disability Index NDI Score 21/50 Quick Dash- Upper Extremity Quick Dash UE Score 59% OP-PT Pain Assessment Location L shoulder Intensity 5 Scale Used Numeric (0 - 10) Description Aching,Dull,Sharp,Stabbing Frequency Intermittent Pain Duration with activity, 1-2 hours Pain Aggravating Factors Position,ADL's Pain Alleviating Factors Cold,Heat Other Pain Alleviating Factors CBD salve R shoulder Pain Location Details lateral arm near RTC Intensity 5 Scale Used Numeric (0 - 10) Description Sharp Frequency Frequent Pain Aggravating Factors ADL's,Activity Other Pain Aggravating Factors reaching Pain Alleviating Factors Cold,Heat Other Pain Alleviating Factors CBD salve, sling neck Pain Location Details R>L, midline Intensity 5 Scale Used Numeric (0 - 10) Description Aching,Dull,Tightness Description- Other worse in AM, PM Frequency Frequent Radiating Location B shoulders Pain Aggravating Factors Position,ADL's Other Pain Aggravating Factors sleeping Pain Alleviating Factors Heat Other Pain Alleviating Factors CBD salve PT-OP-E Functional Tests Start: 12/07/23 08:17 Freq: Status: Active Protocol: Document 12/07/23 08:17 NM (Rec: 12/07/23 11:05 NM [id number]) Functional Tests Apley's Scratch Test Action 1- Left pec Action 1- Right pec + 1 in Action 2- Left to ear Action 2- Right behind ear Action 3- Left L5/sacrum Action 3- Right R SIJ PT-OP-F Manual Assessment Start: 12/07/23 08:17 Freq: Status: Active Protocol: Document 12/07/23 08:17 NM (Rec: 12/07/23 11:05 NM [id number]) Manual Assessments Soft Tissue Assessment Soft Tissue Mobility Assessment R shoulder swollen. Decreased cervical spine paraspinal length, suboccipitals tight. Bilateral tight and restricted periscapulars Joint Mobility Assessment Joint Mobility Assessment Limited AROM and PROM B shoulders; however, more PROM than AROM. Denies pain with apley tests, but states tight. No shoulder joint popping, clicking, or catching. Empty end feels bilaterally for shoulders. PT-OP-G Mobility & Gait Start: 12/07/23 08:17 Freq: Status: Active Protocol: Document 12/07/23 08:17 NM (Rec: 12/07/23 11:05 NM [id number]) OP Gait Assessment Gait Gait Assistance Required: Independent Distance (Feet) 150 Assistive Devices Assistive Device Straight Cane Gait Deviations General Gait Pattern Antalgic Factors Limiting Gait Function Factors Limiting Gait Function Pain,Poor Balance Comments Gait Comments spc in L hand. Very stiff gait PT-OP-H Neuro Start: 12/07/23 08:17 Freq: Status: Active Protocol: Document 12/07/23 08:17 NM (Rec: 12/07/23 11:05 NM [id number]) Sensation Evaluation Comments Summary Comments Did not assess formally due to time PT-OP-J Posture/Palpation/Skin Start: 12/07/23 08:17 Freq: Status: Active Protocol: Document 12/07/23 08:17 NM (Rec: 12/07/23 11:05 NM [id number]) Posture Evaluation Position Standing Head/C-Spine Posture Forward Head T-Spine Posture Increased Kyphosis Scapula Posture (L) Elevated,(R) Elevated Palpation Assessment Location L shoulder Palpation Details Prominent AC joint. Tenderness of biceps tendon, rotator cuff R shoulder Palpation Findings Edema Palpation Details Tender of rotator cuff insertion, increased swelling cervical spine Palpation Details Tightness along paraspinals, suboccipitals no midline tenderness Limited ROM and PROM PT-OP-K Range of Motion Start: 12/07/23 08:17 Freq: Status: Active Protocol: Document 12/07/23 08:17 NM (Rec: 12/07/23 11:05 NM [id number]) Cervical Spine Range of Motion Cervical Spine Active Degrees Flexion 40 Extension 15 Rotation Left 40 Rotation Right 38 Lateral Flexion Left 20 Lateral Flexion Right 20 Comments demos rot w/ LF, pain w/ ext; tight for all Shoulder Goniometric Range of Motion Shoulder R PROM Flexion 100 Abduction 40 External Rotation at 0 degrees Abduction 15 R AROM Flexion 60 Extension 30 Abduction 30 External Rotation at 0 degrees Abduction 10 Internal Rotation 75 L PROM Flexion 95 Abduction 50 External Rotation at 0 degrees Abduction 40 L AROM Flexion 38 Extension 35 Abduction 28 External Rotation at 0 degrees Abduction 45 Internal Rotation 55 PT-OP-L Special Tests Start: 12/07/23 08:17 Freq: Status: Active Protocol: Document 12/07/23 08:17 NM (Rec: 12/07/23 11:05 NM [id number]) Special Tests Cervical Spine Special Tests Spurling's Test Test Results + Comments R local Traction Test Results + Transverse Ligament Test Results - Vertebral Artery Test Results - Alar Ligament Test Results - PT-OP-M Strength Start: 12/07/23 08:17 Freq: Status: Active Protocol: Document 12/07/23 08:17 NM (Rec: 12/07/23 11:05 NM [id number]) Cervical Spine Strength Cervical Spine Manual Muscle Testing Flexion (C1-2) 4 Good Extension 4 Good Rotation Left 4 Good Rotation Right 4 Good Lateral Flexion Left (C3) 4 Good Lateral Flexion Right (C3) 4 Good Shoulder Strength Shoulder Manual Muscle Testing Right Flexion 2+ Poor+ Extension 2+ Poor+ Abduction (C5) 2+ Poor+ Adduction 2+ Poor+ External Rotation 2+ Poor+ Internal Rotation 2+ Poor+ Horizontal Abduction 2+ Poor+ Horizontal Adduction 2+ Poor+ Left Flexion 2+ Poor+ Extension 2+ Poor+ Abduction (C5) 2+ Poor+ Adduction 2+ Poor+ External Rotation 2+ Poor+ Internal Rotation 2+ Poor+ Horizontal Abduction 2+ Poor+ Horizontal Adduction 2+ Poor+ PT-OP-T Assessment and Plan Start: 12/07/23 08:17 Freq: Status: Active Protocol: Document 12/07/23 08:17 NM (Rec: 12/07/23 11:05 NM [id number]) Physical Therapy Assessment Rehab Potential Rehabilitation Potential Fair Evaluation Complexity Number of Personal Factors/Comorbidities 3 or More Number of Body Systems Impaired 3 Clinical Presentation at Evaluation Evolving Impairments Impairments Activity Tolerance,Edema, Functional Activities, Functional Mobility,Gait, Integument,Pain,Posture,ROM, Sensation,Soft Tissue Mobility ,Strength,Tone Goals Six Impairment ROM Short Term Goal (STG) Pt will increase L shoulder flexion AROM to at least 50 deg in order to lift food to his mouth STG Duration 4 weeks Entry Level Manufacturing Engineer Goal (LTG) Pt will increase L shoulder flexion AROM to at least 90 deg in order to be able to perfor ADLs LTG Duration 6 weeks Five Impairment ROM Short Term Goal (STG) Pt will increase R shoulder flexion AROM to at least 80 deg in order to be able to don shirt STG Duration 4 weeks Mcfp Goal (LTG) Pt will increase R shoulder flexion AROM to at least 110 deg in order to be able to don shirt and reach overhead LTG Duration 6 weeks Four Impairment strength Entry Level Manufacturing Engineer Goal (LTG) Pt will improve B global shoulder strength to at least 3+/5 MMT in order to perform ADLs/IADLs without assistance LTG Duration 6 weeks Three Impairment strength Mcfp Goal (LTG) Pt will improve B periscapular strength to at least 4/5 in order to demonstrate increased postural muscle strength for neck stabilization and scapular control for B arm mobility in order to perform ADLs LTG Duration 6 weeks Two Impairment strength, stabilization Mcfp Goal (LTG) Pt will improve cervical spine strength globally to at least 4+/5 MMT in order to demonstrate improved strength for ADLs and symptom management LTG Duration 6 weeks One Impairment ROM Impairment cervical spine ROM rotation 40 deg L, 38 deg R Short Term Goal (STG) Pt will increase B cervical spine rotation to at least 50 deg in order to improve visual scanning during driving STG Duration 4 weeks Entry Level Manufacturing Engineer Goal (LTG) Pt will increase B cervical spine rotation to at least 60 deg in order to improve visual scanning during driving LTG Duration 6 weeks Assessment Summary Assessment Pt is a 73 y.o. male presenting with neck and bilateral shoulder pain. Left shoulder and neck onset s/p fall. Right shoulder pain is insidious onset. Pt has had imaging that reveals no fractures except for small L inferior glenoid fracture and possible fractured hardware. At this time, pt's shoulder pain is more concerning to him . He has impairments in mobility, dressing, ADLs, reaching, ROM, strength, and pain. Pt's bilateral shoulders have limited AROM and PROM, with his L shoulder more limited globally. Pt has more PROM than AROM bilaterally, but still significantly limited with empty end feels due to pain. Pt has extreme difficulty with lifting both arms against gravity, able to initiate but unable to complete full range. Pt also has global limitations in cervical spine AROM, but he has better PROM and is able to stabilize against resistance. No ligamentous instability of cervical spine; symptoms improved with traction. Pt would benefit from further assessment of his shoulders, including further imaging and referral to infection control specialist if symptoms do not resolve. PT educated pt on exam findings and plan of care , recommending pt try PT for 6 weeks. Pt would benefit from skilled PT to decrease pain symptoms, improve mobility and strength of his cervical spine and B shoulder unless otherwise recommended. Physical Therapy Plan Frequency and Duration Frequency of Treatment 1-2x/wk Duration of treatment (weeks) 6 Plan of Care Start Date 12/07/23 Plan of Care End Date 01/18/24 Therapeutic Interventions Therapeutic Interventions Balance Training,Gait Training ,Home Exercise Program,Joint Mobilizations,Manual Therapy, Neuromuscular Re-education, Orthotic/Prosthetic Management ,Patient/Caregiver Education, Self-Care/Home Management, Sensory Integration,Soft Tissue Mobilization,Taping, Therapeutic Activities, Therapeutic Exercises Modalities Cold Pack/Ice Massage,Electric Stimulation,Hot Packs, Ultrasound Next Visit Focus/Plan Next Visit Plan cervical spine traction test vertebral artery, sensation at next session STM, MWM, DNF, head ROM, gentle manual therapy
--- NOTE | 2023-12-07 15:46 | PT.OPPOC ---
Physical, Occupational & Speech Therapy At [facility] Current Diagnoses Pain in right shoulder (12/07/23) Pain in left shoulder (12/07/23) Cervicalgia (12/07/23) Weakness (12/07/23) Visit Care Team Role Provider Type Johnathan Campbell MD Family Provider Physician Specialty: Internal Medicine Address: [address] [place] [address], [id number] Email: Jaxon Urbina MD Attending Provider Physician Primary Care Provider Referring Provider Specialty: Internal Medicine Address: [address] [place] [address], [id number] Email: [email or web address] Plan Of Care PT-OP-T Assessment and Plan Start: 12/07/23 08:17 Freq: Status: Active Protocol: Document 12/07/23 08:17 NM (Rec: 12/07/23 11:05 NM [id number]) Physical Therapy Assessment Rehab Potential Rehabilitation Potential Fair Evaluation Complexity Number of Personal Factors/Comorbidities 3 or More Number of Body Systems Impaired 3 Clinical Presentation at Evaluation Evolving Impairments Impairments Activity Tolerance,Edema, Functional Activities, Functional Mobility,Gait, Integument,Pain,Posture,ROM, Sensation,Soft Tissue Mobility ,Strength,Tone Goals Six Impairment ROM Short Term Goal (STG) Pt will increase L shoulder flexion AROM to at least 50 deg in order to lift food to his mouth STG Duration 4 weeks Orchard Hand Goal (LTG) Pt will increase L shoulder flexion AROM to at least 90 deg in order to be able to perfor ADLs LTG Duration 6 weeks Five Impairment ROM Short Term Goal (STG) Pt will increase R shoulder flexion AROM to at least 80 deg in order to be able to don shirt STG Duration 4 weeks Orchard Hand Goal (LTG) Pt will increase R shoulder flexion AROM to at least 110 deg in order to be able to don shirt and reach overhead LTG Duration 6 weeks Four Impairment strength Orchard Hand Goal (LTG) Pt will improve B global shoulder strength to at least 3+/5 MMT in order to perform ADLs/IADLs without assistance LTG Duration 6 weeks Three Impairment strength Longterm Goal (LTG) Pt will improve B periscapular strength to at least 4/5 in order to demonstrate increased postural muscle strength for neck stabilization and scapular control for B arm mobility in order to perform ADLs LTG Duration 6 weeks Two Impairment strength, stabilization Longterm Goal (LTG) Pt will improve cervical spine strength globally to at least 4+/5 MMT in order to demonstrate improved strength for ADLs and symptom management LTG Duration 6 weeks One Impairment ROM Impairment cervical spine ROM rotation 40 deg L, 38 deg R Short Term Goal (STG) Pt will increase B cervical spine rotation to at least 50 deg in order to improve visual scanning during driving STG Duration 4 weeks Longterm Goal (LTG) Pt will increase B cervical spine rotation to at least 60 deg in order to improve visual scanning during driving LTG Duration 6 weeks Assessment Summary Assessment Pt is a 73 y.o. male presenting with neck and bilateral shoulder pain. Left shoulder and neck onset s/p fall. Right shoulder pain is insidious onset. Pt has had imaging that reveals no fractures except for small L inferior glenoid fracture and possible fractured hardware. At this time, pt's shoulder pain is more concerning to him . He has impairments in mobility, dressing, ADLs, reaching, ROM, strength, and pain. Pt's bilateral shoulders have limited AROM and PROM, with his L shoulder more limited globally. Pt has more PROM than AROM bilaterally, but still significantly limited with empty end feels due to pain. Pt has extreme difficulty with lifting both arms against gravity, able to initiate but unable to complete full range. Pt also has global limitations in cervical spine AROM, but he has better PROM and is able to stabilize against resistance. No ligamentous instability of cervical spine; symptoms improved with traction. Pt would benefit from further assessment of his shoulders, including further imaging and referral to [place] specialist if symptoms do not resolve. PT educated pt on exam findings and plan of care , recommending pt try PT for 6 weeks. Pt would benefit from skilled PT to decrease pain symptoms, improve mobility and strength of his cervical spine and B shoulder unless otherwise recommended. Physical Therapy Plan Frequency and Duration Frequency of Treatment 1-2x/wk Duration of treatment (weeks) 6 Plan of Care Start Date 12/07/23 Plan of Care End Date 01/18/24 Therapeutic Interventions Therapeutic Interventions Balance Training,Gait Training ,Home Exercise Program,Joint Mobilizations,Manual Therapy, Neuromuscular Re-education, Orthotic/Prosthetic Management ,Patient/Caregiver Education, Self-Care/Home Management, Sensory Integration,Soft Tissue Mobilization,Taping, Therapeutic Activities, Therapeutic Exercises Modalities Cold Pack/Ice Massage,Electric Stimulation,Hot Packs, Ultrasound Next Visit Focus/Plan Next Visit Plan cervical spine traction test vertebral artery, sensation at next session STM, MWM, DNF, head ROM, gentle manual therapy Plan of Care Dates Plan of Care Start Date 12/07/23 Plan of Care End Date 01/18/24 Electronically Signed by: Letty Reyez, PT 12/12/23 0734 If you are in agreement with this Plan of Care, please return a signed and dated copy. I have reviewed this Plan of Care and certify that the skilled therapy services above are required to meet the patient?s needs. Physician Signature Date Printed Name and Credentials Clinical Instructor Signature Printed Name and Credentials
--- NOTE | 2023-12-12 16:00 | PT.OTN ---
Current Diagnoses Pain in right shoulder (12/12/23) Pain in left shoulder (12/12/23) Cervicalgia (12/12/23) Weakness (12/12/23) Physical Therapy Treatment Note PT-OP-A Visit Information Start: 12/07/23 08:17 Freq: Status: Active Protocol: Document 12/12/23 09:46 NM (Rec: 12/12/23 10:33 NM [id number]) Out-Patient Physical Therapy Visit Information Visit Information Visit Type Treatment Note Visit Start Time 09:47 Visit Stop Time 10:27 Visit Number 2 PT-OP-B Current Condition Start: 12/07/23 08:17 Freq: Status: Active Protocol: Document 12/07/23 08:17 NM (Rec: 12/07/23 11:05 NM [id number]) Current Condition History of Current Condition Onset Date 10/23/23 Current Complaints mobility, pain, strength History of Current Condition Pt presents with B shoulder pain, neck pain. [place] dock, [place] on concrete, falling from an elevated surface in September. He landed on his L shoulder and L head. Followed up with PCP and walk in clinic> ER. Had imaging, CT and radiographs; pain medication. Dr. Urbina gave pt more pain meds. Went back to ED later that week due to neck pain. Pt has been trying to lose weight, has lost 40 pounds. His BP medication interferes with his balance, creates fuzzy feeling. In July 2023, his R arm was painful and he had difficulty with arm elevation, without known onset. X rays revealed arthritis, recommended shoulder replacement which pt declined at the time. Currently, his R arm is freezing up. Neck is more painful on R side, R arm hurts more than L arm, but both are limited. Pt also reports that when he was 15 y.o. he had B shoulder dislocations and operated on (pinned, moved muscles to back of shoulder, made a X over the joints with ligaments) in 1965; as a result, he has had limited ER, arm elevation. States R shoulder swollen and can't see the knob because swollen, has a knob on the L shoulder (refering to ACJ). Reports soreness and stiffness in neck , no numbness/tingling; reports popping with ROM. Prior Treatments and Tests hx of B TKA 2 years ago Radiograph- L shoulder 10/29/23 : post surgical changes in anterior inferior glenoid with suggestion of fractured hardware, moderate ACJ and GHJ OA, age indeterminate deformity of inferior glenoid. CT Cervical spine scan : multilevel degenerative changes without visualized fracture; trace anterolisthesis of C3 on C4 on C4 and C5, trace retrolisthesis of C5-C6, C6-7, C7-T1. Prior Functional Status Baseline Function- Recreation/Hobbies boating Current Functional Impairments (Reported) Functional Limitations- ADL's UE dressing, reaching Functional Limitations- Mobility/Gait floor transfers due to knee mobility and strength Functional Limitations- Other sleeps in recliner, wakes multiple times per night ( bathroom, change position) PT-OP-C Subjective Start: 12/07/23 08:17 Freq: Status: Active Protocol: Document 12/12/23 09:46 NM (Rec: 12/12/23 10:33 NM [id number]) OP-PT Subjective Patient Comments Patient Comments Pt does not present with cane. He is still sleeping upright. States that he had had no change since evaluation in pain levels. He still needs help with dressing his UE. States he overdid it this weekend [place] [employer] [place] walking around. Has been icing R shoulder but doesn't feel good, swelling less PT-OP-E Functional Tests Start: 12/07/23 08:17 Freq: Status: Active Protocol: Document 12/07/23 08:17 NM (Rec: 12/07/23 11:05 NM [id number]) Functional Tests Apley's Scratch Test Action 1- Left pec Action 1- Right pec + 1 in Action 2- Left to ear Action 2- Right behind ear Action 3- Left L5/sacrum Action 3- Right R SIJ PT-OP-F Manual Assessment Start: 12/07/23 08:17 Freq: Status: Active Protocol: Document 12/07/23 08:17 NM (Rec: 12/07/23 11:05 NM [id number]) Manual Assessments Soft Tissue Assessment Soft Tissue Mobility Assessment R shoulder swollen. Decreased cervical spine paraspinal length, suboccipitals tight. Bilateral tight and restricted periscapulars Joint Mobility Assessment Joint Mobility Assessment Limited AROM and PROM B shoulders; however, more PROM than AROM. Denies pain with apley tests, but states tight. No shoulder joint popping, clicking, or catching. Empty end feels bilaterally for shoulders. PT-OP-G Mobility & Gait Start: 12/07/23 08:17 Freq: Status: Active Protocol: Document 12/07/23 08:17 NM (Rec: 12/07/23 11:05 NM [id number]) OP Gait Assessment Gait Gait Assistance Required: Independent Distance (Feet) 150 Assistive Devices Assistive Device Straight Cane Gait Deviations General Gait Pattern Antalgic Factors Limiting Gait Function Factors Limiting Gait Function Pain,Poor Balance Comments Gait Comments spc in L hand. Very stiff gait PT-OP-H Neuro Start: 12/07/23 08:17 Freq: Status: Active Protocol: Document 12/07/23 08:17 NM (Rec: 12/07/23 11:05 NM [id number]) Sensation Evaluation Comments Summary Comments Did not assess formally due to time PT-OP-J Posture/Palpation/Skin Start: 12/07/23 08:17 Freq: Status: Active Protocol: Document 12/07/23 08:17 NM (Rec: 12/07/23 11:05 NM [id number]) Posture Evaluation Position Standing Head/C-Spine Posture Forward Head T-Spine Posture Increased Kyphosis Scapula Posture (L) Elevated,(R) Elevated Palpation Assessment Location L shoulder Palpation Details Prominent AC joint. Tenderness of biceps tendon, rotator cuff R shoulder Palpation Findings Edema Palpation Details Tender of rotator cuff insertion, increased swelling cervical spine Palpation Details Tightness along paraspinals, suboccipitals no midline tenderness Limited ROM and PROM PT-OP-K Range of Motion Start: 12/07/23 08:17 Freq: Status: Active Protocol: Document 12/07/23 08:17 NM (Rec: 12/07/23 11:05 NM [id number]) Cervical Spine Range of Motion Cervical Spine Active Degrees Flexion 40 Extension 15 Rotation Left 40 Rotation Right 38 Lateral Flexion Left 20 Lateral Flexion Right 20 Comments demos rot w/ LF, pain w/ ext; tight for all Shoulder Goniometric Range of Motion Shoulder R PROM Flexion 100 Abduction 40 External Rotation at 0 degrees Abduction 15 R AROM Flexion 60 Extension 30 Abduction 30 External Rotation at 0 degrees Abduction 10 Internal Rotation 75 L PROM Flexion 95 Abduction 50 External Rotation at 0 degrees Abduction 40 L AROM Flexion 38 Extension 35 Abduction 28 External Rotation at 0 degrees Abduction 45 Internal Rotation 55 PT-OP-L Special Tests Start: 12/07/23 08:17 Freq: Status: Active Protocol: Document 12/07/23 08:17 NM (Rec: 12/07/23 11:05 NM [id number]) Special Tests Cervical Spine Special Tests Spurling's Test Test Results + Comments R local Traction Test Results + Transverse Ligament Test Results - Vertebral Artery Test Results - Alar Ligament Test Results - PT-OP-M Strength Start: 12/07/23 08:17 Freq: Status: Active Protocol: Document 12/07/23 08:17 NM (Rec: 12/07/23 11:05 NM [id number]) Cervical Spine Strength Cervical Spine Manual Muscle Testing Flexion (C1-2) 4 Good Extension 4 Good Rotation Left 4 Good Rotation Right 4 Good Lateral Flexion Left (C3) 4 Good Lateral Flexion Right (C3) 4 Good Shoulder Strength Shoulder Manual Muscle Testing Right Flexion 2+ Poor+ Extension 2+ Poor+ Abduction (C5) 2+ Poor+ Adduction 2+ Poor+ External Rotation 2+ Poor+ Internal Rotation 2+ Poor+ Horizontal Abduction 2+ Poor+ Horizontal Adduction 2+ Poor+ Left Flexion 2+ Poor+ Extension 2+ Poor+ Abduction (C5) 2+ Poor+ Adduction 2+ Poor+ External Rotation 2+ Poor+ Internal Rotation 2+ Poor+ Horizontal Abduction 2+ Poor+ Horizontal Adduction 2+ Poor+ PT-OP-Q Treatments Start: 12/07/23 08:17 Freq: Status: Active Protocol: Document 12/12/23 09:46 NM (Rec: 12/12/23 10:33 NM [id number]) Therapeutic Exercises Supine Exercises Cervical spine ROM Supine Exercise Name 1. head nods, 2. head rotation Side bilateral Equipment Used pillow behind head (Trialed towel roll but d/c due to discomfort) Reps/Minutes 10 ea Comments rotation worse Deep Neck Flexors Supine Exercise Name chin tuck Equipment Used pillow under head, PT hand behind head for cue and at chin for 2 Reps/Minutes 10 Comments pain free; verbal and tactile cues for form, improve w/ reps Sitting Exercises thoracic mobility Sitting Exercise Name 1. thoracic extension, 2. thoracic rotation Equipment Used mesh chair, foam roller for ext Reps/Minutes 10 ea direction with 2-3 breaths Comments feels good scapular isometrics Sitting Exercise Name retraction/adduction Equipment Used hands on pillow Reps/Minutes 2x10 ea Comments good control; cued for form. difficulty with adduction Therapeutic Activity Therapeutic Activity diaphragmatic breathing Reps/Minutes 8 minutes Comments Positioned in hooklying with legs elevated on bolster. Hands on abdomen for self tactile cues. Verbally cued breath in roses and blow out candles. Educated on rationale for pain management, relaxation Manual Therapy Treatment Soft Tissue Mobilization cervical spine Body Location paraspinals, periscapulars, lat, pec, UT, LS Mobilization Type Rolling Intensity/Depth Superficial Body Position Hooklying Comments Gentle rolling of cervical spine and chest muscles for tissue elongation, pain reduction. Tenderness along cervical paraspinals, small reduction with gentle rolling. Pt performing diaphragmatic breathing Manual Traction cervical spine Body Position Hooklying Reps/Duration 30x2 Comments Reports reduction in neck pain with gentle manual traction PT-OP-T Assessment and Plan Start: 12/07/23 08:17 Freq: Status: Active Protocol: Document 12/12/23 09:46 NM (Rec: 12/12/23 10:33 NM [id number]) Physical Therapy Assessment Goals Six Impairment ROM Short Term Goal (STG) Pt will increase L shoulder flexion AROM to at least 50 deg in order to lift food to his mouth STG Duration 4 weeks Correction Goal (LTG) Pt will increase L shoulder flexion AROM to at least 90 deg in order to be able to perfor ADLs LTG Duration 6 weeks Five Impairment ROM Short Term Goal (STG) Pt will increase R shoulder flexion AROM to at least 80 deg in order to be able to don shirt STG Duration 4 weeks Tool Grinding Machine Operator Goal (LTG) Pt will increase R shoulder flexion AROM to at least 110 deg in order to be able to don shirt and reach overhead LTG Duration 6 weeks Four Impairment strength Correction Goal (LTG) Pt will improve B global shoulder strength to at least 3+/5 MMT in order to perform ADLs/IADLs without assistance LTG Duration 6 weeks Three Impairment strength Correction Goal (LTG) Pt will improve B periscapular strength to at least 4/5 in order to demonstrate increased postural muscle strength for neck stabilization and scapular control for B arm mobility in order to perform ADLs LTG Duration 6 weeks Two Impairment strength, stabilization Correction Goal (LTG) Pt will improve cervical spine strength globally to at least 4+/5 MMT in order to demonstrate improved strength for ADLs and symptom management LTG Duration 6 weeks One Impairment ROM Impairment cervical spine ROM rotation 40 deg L, 38 deg R Short Term Goal (STG) Pt will increase B cervical spine rotation to at least 50 deg in order to improve visual scanning during driving STG Duration 4 weeks Tool Grinding Machine Operator Goal (LTG) Pt will increase B cervical spine rotation to at least 60 deg in order to improve visual scanning during driving LTG Duration 6 weeks Assessment Summary Assessment Pt tolerated treatment well but with minimal change in pain symptoms. Pt reports that he feels good after session, particularly after thoracic mobility and scapular control exercises. Initiated gentle cervical spine mobility in hooklying, but educated pt that he can perform reclined at home. Most limited in cervical spine rotation, but demonstrates improved tolerance for deep neck flexors and small cervical nods. Initiated gentle soft tissue mobilization of cervical spine muscles and periscapulars for to reduce muscle tension, with slight improvement in reported muscle relaxation. At beginning of session, pt reports anxious and anticipating pain so very upset. Educated on and had pt perform diaphragmatic breathing for relaxation and parasympathetic activation. Pt responds well and able to complete session with less visible anxiety. Pt would benefit from skilled PT for symptom management and to improve ADL tolerance. Physical Therapy Plan Frequency and Duration Frequency of Treatment 1-2x/wk Duration of treatment (weeks) 6 Plan of Care Start Date 12/07/23 Plan of Care End Date 01/18/24 Therapeutic Interventions Therapeutic Interventions Balance Training,Gait Training ,Home Exercise Program,Joint Mobilizations,Manual Therapy, Neuromuscular Re-education, Orthotic/Prosthetic Management ,Patient/Caregiver Education, Self-Care/Home Management, Sensory Integration,Soft Tissue Mobilization,Taping, Therapeutic Activities, Therapeutic Exercises Modalities Cold Pack/Ice Massage,Electric Stimulation,Hot Packs, Ultrasound Next Visit Focus/Plan Next Note Type Treatment Note Next Visit Plan Review HEP. Cont with thoracic and cervical mobility. trial reclined over supine. [place] and AAROM shoulder with noodle, trial pec stretch. test sensation at next session STM, MWM, DNF, head ROM, gentle manual therapy
--- NOTE | 2023-12-14 12:58 | PT.OTN ---
Current Diagnoses Pain in right shoulder (12/14/23) Pain in left shoulder (12/14/23) Cervicalgia (12/14/23) Weakness (12/14/23) Physical Therapy Treatment Note PT-OP-A Visit Information Start: 12/07/23 08:17 Freq: Status: Active Protocol: Document 12/14/23 09:50 NM (Rec: 12/14/23 10:35 NM [id number]) Out-Patient Physical Therapy Visit Information Visit Information Visit Type Treatment Note Visit Start Time 09:51 Visit Stop Time 10:30 Visit Number 3 Evaluation Information Evaluation Date 12/07/23 PT-OP-B Current Condition Start: 12/07/23 08:17 Freq: Status: Active Protocol: Document 12/07/23 08:17 NM (Rec: 12/07/23 11:05 NM [id number]) Current Condition History of Current Condition Onset Date 10/23/23 Current Complaints mobility, pain, strength History of Current Condition Pt presents with B shoulder pain, neck pain. [place] dock, landing on concrete, falling from an elevated surface in September. He landed on his L shoulder and L head. Followed up with PCP and walk in clinic> ER. Had imaging, CT and radiographs; pain medication. Dr. Urbina gave pt more pain meds. Went back to ED later that week due to neck pain. Pt has been trying to lose weight, has lost 40 pounds. His BP medication interferes with his balance, creates fuzzy feeling. In July 2023, his R arm was painful and he had difficulty with arm elevation, without known onset. X rays revealed arthritis, recommended shoulder replacement which pt declined at the time. Currently, his R arm is freezing up. Neck is more painful on R side, R arm hurts more than L arm, but both are limited. Pt also reports that when he was 15 y.o. he had B shoulder dislocations and operated on (pinned, moved muscles to back of shoulder, made a X over the joints with ligaments) in 1965; as a result, he has had limited ER, arm elevation. States R shoulder swollen and can't see the knob because swollen, has a knob on the L shoulder (refering to ACJ). Reports soreness and stiffness in neck , no numbness/tingling; reports popping with ROM. Prior Treatments and Tests hx of B TKA 2 years ago Radiograph- L shoulder 10/29/23 : post surgical changes in anterior inferior glenoid with suggestion of fractured hardware, moderate ACJ and GHJ OA, age indeterminate deformity of inferior glenoid. CT Cervical spine scan : multilevel degenerative changes without visualized fracture; trace anterolisthesis of C3 on C4 on C4 and C5, trace retrolisthesis of C5-C6, C6-7, C7-T1. Prior Functional Status Baseline Function- Recreation/Hobbies boating Current Functional Impairments (Reported) Functional Limitations- ADL's UE dressing, reaching Functional Limitations- Mobility/Gait floor transfers due to knee mobility and strength Functional Limitations- Other sleeps in recliner, wakes multiple times per night ( bathroom, change position) PT-OP-C Subjective Start: 12/07/23 08:17 Freq: Status: Active Protocol: Document 12/14/23 09:50 NM (Rec: 12/14/23 10:35 NM [id number]) OP-PT Subjective Patient Comments Patient Comments Pt reports that he can move his R shoulder better and has less pain, still has L shoulder pain. Has 5/10 neck pain, did exercises 2x yesterday and thinks he overdid it. Wants to know if ok to do biceps exercises wtih small dumbbell PT-OP-E Functional Tests Start: 12/07/23 08:17 Freq: Status: Active Protocol: Document 12/07/23 08:17 NM (Rec: 12/07/23 11:05 NM [id number]) Functional Tests Apley's Scratch Test Action 1- Left pec Action 1- Right pec + 1 in Action 2- Left to ear Action 2- Right behind ear Action 3- Left L5/sacrum Action 3- Right R SIJ PT-OP-F Manual Assessment Start: 12/07/23 08:17 Freq: Status: Active Protocol: Document 12/07/23 08:17 NM (Rec: 12/07/23 11:05 NM [id number]) Manual Assessments Soft Tissue Assessment Soft Tissue Mobility Assessment R shoulder swollen. Decreased cervical spine paraspinal length, suboccipitals tight. Bilateral tight and restricted periscapulars Joint Mobility Assessment Joint Mobility Assessment Limited AROM and PROM B shoulders; however, more PROM than AROM. Denies pain with apley tests, but states tight. No shoulder joint popping, clicking, or catching. Empty end feels bilaterally for shoulders. PT-OP-G Mobility & Gait Start: 12/07/23 08:17 Freq: Status: Active Protocol: Document 12/07/23 08:17 NM (Rec: 12/07/23 11:05 NM [id number]) OP Gait Assessment Gait Gait Assistance Required: Independent Distance (Feet) 150 Assistive Devices Assistive Device Straight Cane Gait Deviations General Gait Pattern Antalgic Factors Limiting Gait Function Factors Limiting Gait Function Pain,Poor Balance Comments Gait Comments spc in L hand. Very stiff gait PT-OP-H Neuro Start: 12/07/23 08:17 Freq: Status: Active Protocol: Document 12/07/23 08:17 NM (Rec: 12/07/23 11:05 NM [id number]) Sensation Evaluation Comments Summary Comments Did not assess formally due to time PT-OP-J Posture/Palpation/Skin Start: 12/07/23 08:17 Freq: Status: Active Protocol: Document 12/07/23 08:17 NM (Rec: 12/07/23 11:05 NM [id number]) Posture Evaluation Position Standing Head/C-Spine Posture Forward Head T-Spine Posture Increased Kyphosis Scapula Posture (L) Elevated,(R) Elevated Palpation Assessment Location L shoulder Palpation Details Prominent AC joint. Tenderness of biceps tendon, rotator cuff R shoulder Palpation Findings Edema Palpation Details Tender of rotator cuff insertion, increased swelling cervical spine Palpation Details Tightness along paraspinals, suboccipitals no midline tenderness Limited ROM and PROM PT-OP-K Range of Motion Start: 12/07/23 08:17 Freq: Status: Active Protocol: Document 12/07/23 08:17 NM (Rec: 12/07/23 11:05 NM [id number]) Cervical Spine Range of Motion Cervical Spine Active Degrees Flexion 40 Extension 15 Rotation Left 40 Rotation Right 38 Lateral Flexion Left 20 Lateral Flexion Right 20 Comments demos rot w/ LF, pain w/ ext; tight for all Shoulder Goniometric Range of Motion Shoulder R PROM Flexion 100 Abduction 40 External Rotation at 0 degrees Abduction 15 R AROM Flexion 60 Extension 30 Abduction 30 External Rotation at 0 degrees Abduction 10 Internal Rotation 75 L PROM Flexion 95 Abduction 50 External Rotation at 0 degrees Abduction 40 L AROM Flexion 38 Extension 35 Abduction 28 External Rotation at 0 degrees Abduction 45 Internal Rotation 55 PT-OP-L Special Tests Start: 12/07/23 08:17 Freq: Status: Active Protocol: Document 12/07/23 08:17 NM (Rec: 12/07/23 11:05 NM [id number]) Special Tests Cervical Spine Special Tests Spurling's Test Test Results + Comments R local Traction Test Results + Transverse Ligament Test Results - Vertebral Artery Test Results - Alar Ligament Test Results - PT-OP-M Strength Start: 12/07/23 08:17 Freq: Status: Active Protocol: Document 12/07/23 08:17 NM (Rec: 12/07/23 11:05 NM [id number]) Cervical Spine Strength Cervical Spine Manual Muscle Testing Flexion (C1-2) 4 Good Extension 4 Good Rotation Left 4 Good Rotation Right 4 Good Lateral Flexion Left (C3) 4 Good Lateral Flexion Right (C3) 4 Good Shoulder Strength Shoulder Manual Muscle Testing Right Flexion 2+ Poor+ Extension 2+ Poor+ Abduction (C5) 2+ Poor+ Adduction 2+ Poor+ External Rotation 2+ Poor+ Internal Rotation 2+ Poor+ Horizontal Abduction 2+ Poor+ Horizontal Adduction 2+ Poor+ Left Flexion 2+ Poor+ Extension 2+ Poor+ Abduction (C5) 2+ Poor+ Adduction 2+ Poor+ External Rotation 2+ Poor+ Internal Rotation 2+ Poor+ Horizontal Abduction 2+ Poor+ Horizontal Adduction 2+ Poor+ PT-OP-Q Treatments Start: 12/07/23 08:17 Freq: Status: Active Protocol: Document 12/14/23 09:50 NM (Rec: 12/14/23 10:35 NM [id number]) Therapeutic Exercises Supine Exercises shoulder flexion Supine Exercise Name trialed with pool noodle, unable to perform bilaterally Comments small rom R, none on L cervical spine isometrics Side bilateral Equipment Used against PT hand, reclined with pillow behind head Reps/Minutes 5x5 Comments pain free for all; 50-60% effort Cervical spine ROM Supine Exercise Name 1. head nods, 2. head rotation Side bilateral Resistance reclined, pillow behind head Reps/Minutes 1. 10 ea, 2. 15 Comments cued to remain within pain free range; feels good, L40 deg,R35 deg Deep Neck Flexors Supine Exercise Name chin tuck Resistance reclined with pillow under head Equipment Used pillow under head, PT hand behind head for cue and at chin for 2 Reps/Minutes 10x2 Comments pain free; improve form; cued to maintain capital flex Sitting Exercises scapular isometrics Sitting Exercise Name retraction/adduction Equipment Used hands in lap Reps/Minutes 15x5 Comments improved activation and control, cued chin tuck Manual Therapy Treatment Soft Tissue Mobilization Shoulders Body Location B pec, lat Mobilization Type Rolling,Strumming Intensity/Depth Moderate Body Position reclined Comments Performed bilaterally, superficial > moderate with slight arm abduction passively . Tight and restricted bilaterally, reduced with soft tissue mobilization cervical spine Body Location paraspinals, periscapulars, UT , LS Mobilization Type Rolling Intensity/Depth Superficial Body Position seated Comments Gentle rolling of cervical spine and chest muscles for tissue elongation, pain reduction. Trigger points of LS and UT, reduced with gentle rolling, no trigger point release today. No tenderness along cervical paraspinals, good reduction and muscle relaxation with gentle rolling . Manual Traction cervical spine Body Position reclined Reps/Duration 30x2 Comments Reports reduction in neck pain with gentle manual traction Manual Techniques PROM Type flex/abd Body Location R shoulder Body Position reclined Reps/Duration 20 ea Comments To pt tolerance, monitored for pain. Up to 60 deg abd, 90 deg flex PT-OP-T Assessment and Plan Start: 12/07/23 08:17 Freq: Status: Active Protocol: Document 12/14/23 09:50 NM (Rec: 12/14/23 10:35 NM [id number]) Physical Therapy Assessment Goals Six Impairment ROM Short Term Goal (STG) Pt will increase L shoulder flexion AROM to at least 50 deg in order to lift food to his mouth STG Duration 4 weeks Premix Operator Concentrate Goal (LTG) Pt will increase L shoulder flexion AROM to at least 90 deg in order to be able to perfor ADLs LTG Duration 6 weeks Five Impairment ROM Short Term Goal (STG) Pt will increase R shoulder flexion AROM to at least 80 deg in order to be able to don shirt STG Duration 4 weeks Skilled Nursing Goal (LTG) Pt will increase R shoulder flexion AROM to at least 110 deg in order to be able to don shirt and reach overhead LTG Duration 6 weeks Four Impairment strength Skilled Nursing Goal (LTG) Pt will improve B global shoulder strength to at least 3+/5 MMT in order to perform ADLs/IADLs without assistance LTG Duration 6 weeks Three Impairment strength Premix Operator Concentrate Goal (LTG) Pt will improve B periscapular strength to at least 4/5 in order to demonstrate increased postural muscle strength for neck stabilization and scapular control for B arm mobility in order to perform ADLs LTG Duration 6 weeks Two Impairment strength, stabilization Skilled Nursing Goal (LTG) Pt will improve cervical spine strength globally to at least 4+/5 MMT in order to demonstrate improved strength for ADLs and symptom management LTG Duration 6 weeks One Impairment ROM Impairment cervical spine ROM rotation 40 deg L, 38 deg R Short Term Goal (STG) Pt will increase B cervical spine rotation to at least 50 deg in order to improve visual scanning during driving STG Duration 4 weeks Premix Operator Concentrate Goal (LTG) Pt will increase B cervical spine rotation to at least 60 deg in order to improve visual scanning during driving LTG Duration 6 weeks Assessment Summary Assessment Pt reports that <5/10 pain in neck, reports looser and more comfortable. Pt tolerated session well and demonstrates observable improvements in R shoulder mobility at end of session although still limited and weak. Initiated cervical spine isometrics for stability and to improve muscle activation with PT providing resistance. Pt has positive feedback to activation, pain free. Continued with deep neck flexor endurance and ROM. Pt has increased tightness of periscapular muscles and cervical paraspinals, which is reduced with soft tissue mobilization. Trialed AAROM wtih B shoulder flexion using pool noodle, but pt unable to perform due to weakness and pain bilaterally. Pt responds well to R shoulder PROM to tolerance. He would benefit from skilled PT for cervical spine mobility and strength in order to improve symptom management. Physical Therapy Plan Frequency and Duration Frequency of Treatment 1-2x/wk Duration of treatment (weeks) 6 Plan of Care Start Date 12/07/23 Plan of Care End Date 01/18/24 Therapeutic Interventions Therapeutic Interventions Balance Training,Gait Training ,Home Exercise Program,Joint Mobilizations,Manual Therapy, Neuromuscular Re-education, Orthotic/Prosthetic Management ,Patient/Caregiver Education, Self-Care/Home Management, Sensory Integration,Soft Tissue Mobilization,Taping, Therapeutic Activities, Therapeutic Exercises Modalities Cold Pack/Ice Massage,Electric Stimulation,Hot Packs, Ultrasound Next Visit Focus/Plan Next Note Type Treatment Note Next Visit Plan Isometrics in sitting or reclined (pt to use R hand if able). Cont with thoracic and cervical mobility. CS grade II -III mobilizations if tolerated. OH and AAROM shoulder with noodle. PROM/ AAROM to shoulder STM, MWM, DNF, head ROM, gentle manual therapy
--- NOTE | 2023-12-18 12:39 | PT.OTN ---
Current Diagnoses Pain in right shoulder (12/18/23) Pain in left shoulder (12/18/23) Cervicalgia (12/18/23) Weakness (12/18/23) Physical Therapy Treatment Note PT-OP-A Visit Information Start: 12/07/23 08:17 Freq: Status: Active Protocol: Document 12/18/23 11:16 AB (Rec: 12/18/23 12:38 AB [id number]) Out-Patient Physical Therapy Visit Information Visit Information Visit Type Treatment Note Visit Note Access code [email or web address] for [facility] Visit Start Time 11:18 Visit Stop Time 12:01 Visit Number 4 Number of INSPECTOR FIBROUS WALLBOARD Visits 1 Evaluation Information Evaluation Date 12/07/23 PT-OP-B Current Condition Start: 12/07/23 08:17 Freq: Status: Active Protocol: Document 12/07/23 08:17 NM (Rec: 12/07/23 11:05 NM [id number]) Current Condition History of Current Condition Onset Date 10/23/23 Current Complaints mobility, pain, strength History of Current Condition Pt presents with B shoulder pain, neck pain. [place] on concrete, falling from an elevated surface in September. He landed on his L shoulder and L head. Followed up with PCP and walk in clinic> ER. Had imaging, CT and radiographs; pain medication. Dr. Urbina gave pt more pain meds. Went back to ED later that week due to neck pain. Pt has been trying to lose weight, has lost 40 pounds. His BP medication interferes with his balance, creates fuzzy feeling. In July 2023, his R arm was painful and he had difficulty with arm elevation, without known onset. X rays revealed arthritis, recommended shoulder replacement which pt declined at the time. Currently, his R arm is freezing up. Neck is more painful on R side, R arm hurts more than L arm, but both are limited. Pt also reports that when he was 15 y.o. he had B shoulder dislocations and operated on (pinned, moved muscles to back of shoulder, made a X over the joints with ligaments) in 1965; as a result, he has had limited ER, arm elevation. States R shoulder swollen and can't see the knob because swollen, has a knob on the L shoulder (refering to ACJ). Reports soreness and stiffness in neck , no numbness/tingling; reports popping with ROM. Prior Treatments and Tests hx of B TKA 2 years ago Radiograph- L shoulder 10/29/23 : post surgical changes in anterior inferior glenoid with suggestion of fractured hardware, moderate ACJ and GHJ OA, age indeterminate deformity of inferior glenoid. CT Cervical spine scan : multilevel degenerative changes without visualized fracture; trace anterolisthesis of C3 on C4 on C4 and C5, trace retrolisthesis of C5-C6, C6-7, C7-T1. Prior Functional Status Baseline Function- Recreation/Hobbies boating Current Functional Impairments (Reported) Functional Limitations- ADL's UE dressing, reaching Functional Limitations- Mobility/Gait floor transfers due to knee mobility and strength Functional Limitations- Other sleeps in recliner, wakes multiple times per night ( bathroom, change position) PT-OP-C Subjective Start: 12/07/23 08:17 Freq: Status: Active Protocol: Document 12/18/23 11:16 AB (Rec: 12/18/23 12:38 AB [id number]) OP-PT Subjective Patient Comments Patient Comments Patient reports his neck is zane same, goes from good to bad. Patient reports shoulders are the same. Patient comments some days he can reach his face. AROM 29 deg left 24 deg right CS rotation seated. PT-OP-E Functional Tests Start: 12/07/23 08:17 Freq: Status: Active Protocol: Document 12/07/23 08:17 NM (Rec: 12/07/23 11:05 NM [id number]) Functional Tests Apley's Scratch Test Action 1- Left pec Action 1- Right pec + 1 in Action 2- Left to ear Action 2- Right behind ear Action 3- Left L5/sacrum Action 3- Right R SIJ PT-OP-F Manual Assessment Start: 12/07/23 08:17 Freq: Status: Active Protocol: Document 12/07/23 08:17 NM (Rec: 12/07/23 11:05 NM [id number]) Manual Assessments Soft Tissue Assessment Soft Tissue Mobility Assessment R shoulder swollen. Decreased cervical spine paraspinal length, suboccipitals tight. Bilateral tight and restricted periscapulars Joint Mobility Assessment Joint Mobility Assessment Limited AROM and PROM B shoulders; however, more PROM than AROM. Denies pain with apley tests, but states tight. No shoulder joint popping, clicking, or catching. Empty end feels bilaterally for shoulders. PT-OP-G Mobility & Gait Start: 12/07/23 08:17 Freq: Status: Active Protocol: Document 12/07/23 08:17 NM (Rec: 12/07/23 11:05 NM [id number]) OP Gait Assessment Gait Gait Assistance Required: Independent Distance (Feet) 150 Assistive Devices Assistive Device Straight Cane Gait Deviations General Gait Pattern Antalgic Factors Limiting Gait Function Factors Limiting Gait Function Pain,Poor Balance Comments Gait Comments spc in L hand. Very stiff gait PT-OP-H Neuro Start: 12/07/23 08:17 Freq: Status: Active Protocol: Document 12/07/23 08:17 NM (Rec: 12/07/23 11:05 NM [id number]) Sensation Evaluation Comments Summary Comments Did not assess formally due to time PT-OP-J Posture/Palpation/Skin Start: 12/07/23 08:17 Freq: Status: Active Protocol: Document 12/07/23 08:17 NM (Rec: 12/07/23 11:05 NM [id number]) Posture Evaluation Position Standing Head/C-Spine Posture Forward Head T-Spine Posture Increased Kyphosis Scapula Posture (L) Elevated,(R) Elevated Palpation Assessment Location L shoulder Palpation Details Prominent AC joint. Tenderness of biceps tendon, rotator cuff R shoulder Palpation Findings Edema Palpation Details Tender of rotator cuff insertion, increased swelling cervical spine Palpation Details Tightness along paraspinals, suboccipitals no midline tenderness Limited ROM and PROM PT-OP-K Range of Motion Start: 12/07/23 08:17 Freq: Status: Active Protocol: Document 12/07/23 08:17 NM (Rec: 12/07/23 11:05 NM [id number]) Cervical Spine Range of Motion Cervical Spine Active Degrees Flexion 40 Extension 15 Rotation Left 40 Rotation Right 38 Lateral Flexion Left 20 Lateral Flexion Right 20 Comments demos rot w/ LF, pain w/ ext; tight for all Shoulder Goniometric Range of Motion Shoulder R PROM Flexion 100 Abduction 40 External Rotation at 0 degrees Abduction 15 R AROM Flexion 60 Extension 30 Abduction 30 External Rotation at 0 degrees Abduction 10 Internal Rotation 75 L PROM Flexion 95 Abduction 50 External Rotation at 0 degrees Abduction 40 L AROM Flexion 38 Extension 35 Abduction 28 External Rotation at 0 degrees Abduction 45 Internal Rotation 55 PT-OP-L Special Tests Start: 12/07/23 08:17 Freq: Status: Active Protocol: Document 12/07/23 08:17 NM (Rec: 12/07/23 11:05 NM [id number]) Special Tests Cervical Spine Special Tests Spurling's Test Test Results + Comments R local Traction Test Results + Transverse Ligament Test Results - Vertebral Artery Test Results - Alar Ligament Test Results - PT-OP-M Strength Start: 12/07/23 08:17 Freq: Status: Active Protocol: Document 12/07/23 08:17 NM (Rec: 12/07/23 11:05 NM [id number]) Cervical Spine Strength Cervical Spine Manual Muscle Testing Flexion (C1-2) 4 Good Extension 4 Good Rotation Left 4 Good Rotation Right 4 Good Lateral Flexion Left (C3) 4 Good Lateral Flexion Right (C3) 4 Good Shoulder Strength Shoulder Manual Muscle Testing Right Flexion 2+ Poor+ Extension 2+ Poor+ Abduction (C5) 2+ Poor+ Adduction 2+ Poor+ External Rotation 2+ Poor+ Internal Rotation 2+ Poor+ Horizontal Abduction 2+ Poor+ Horizontal Adduction 2+ Poor+ Left Flexion 2+ Poor+ Extension 2+ Poor+ Abduction (C5) 2+ Poor+ Adduction 2+ Poor+ External Rotation 2+ Poor+ Internal Rotation 2+ Poor+ Horizontal Abduction 2+ Poor+ Horizontal Adduction 2+ Poor+ PT-OP-Q Treatments Start: 12/07/23 08:17 Freq: Status: Active Protocol: Document 12/18/23 11:16 AB (Rec: 12/18/23 12:38 AB [id number]) Therapeutic Exercises Supine Exercises CS rotation AROM Supine Exercise Name on occipital float Side bilateral Reps/Minutes 2 minutes Comments verbal cues to perform slowly in pain free range shoulder flexion Supine Exercise Name unable with noodle, able with elbow flexed Reps/Minutes X10 each UE for flexion with elbow bent Comments to 57 deg right to 52 deg left cervical spine isometrics Supine Exercise Name initiated trial, patient unable to reach ears with UE's Standing Exercises L stretch Side bilateral Reps/Minutes X6 for 5 seconds Comments verbal and visual cues shoulder flexion Standing Exercise Name elbow flexed back to wall AROM Side bilateral Reps/Minutes X10 Comments verbal cues, monitored for compensations Manual Therapy Treatment Soft Tissue Mobilization Shoulders Body Location B pec, Mobilization Type Cross-Friction,Rolling Intensity/Depth Moderate Body Position Hooklying cervical spine Body Location paraspinals, UT, levator scap, scalenes at lateral clavicle Mobilization Type Cross-Friction,Rolling, Sustained Pressure Intensity/Depth Superficial Body Position seated Comments seated and hooklying, superficial and moderate. prior to exercises Joint Mobilizations scapular mobilization Joint bilateral scapula Direction depression and adduction Grade III Body Position Hooklying Reps/Duration X10 each UE each direction Comments monitored for pain Manual Traction cervical spine Details gentle Body Position Hooklying Reps/Duration 3 min Comments monitored for pain PT-OP-T Assessment and Plan Start: 12/07/23 08:17 Freq: Status: Active Protocol: Document 12/18/23 11:16 AB (Rec: 12/18/23 12:38 AB [id number]) Physical Therapy Assessment Goals Six Impairment ROM Short Term Goal (STG) Pt will increase L shoulder flexion AROM to at least 50 deg in order to lift food to his mouth STG Duration 4 weeks Marketing Services Specialist Goal (LTG) Pt will increase L shoulder flexion AROM to at least 90 deg in order to be able to perfor ADLs LTG Duration 6 weeks Five Impairment ROM Short Term Goal (STG) Pt will increase R shoulder flexion AROM to at least 80 deg in order to be able to don shirt STG Duration 4 weeks Marketing Services Specialist Goal (LTG) Pt will increase R shoulder flexion AROM to at least 110 deg in order to be able to don shirt and reach overhead LTG Duration 6 weeks Four Impairment strength Marketing Services Specialist Goal (LTG) Pt will improve B global shoulder strength to at least 3+/5 MMT in order to perform ADLs/IADLs without assistance LTG Duration 6 weeks Three Impairment strength Marketing Services Specialist Goal (LTG) Pt will improve B periscapular strength to at least 4/5 in order to demonstrate increased postural muscle strength for neck stabilization and scapular control for B arm mobility in order to perform ADLs LTG Duration 6 weeks Two Impairment strength, stabilization Marketing Services Specialist Goal (LTG) Pt will improve cervical spine strength globally to at least 4+/5 MMT in order to demonstrate improved strength for ADLs and symptom management LTG Duration 6 weeks One Impairment ROM Impairment cervical spine ROM rotation 40 deg L, 38 deg R Short Term Goal (STG) Pt will increase B cervical spine rotation to at least 50 deg in order to improve visual scanning during driving STG Duration 4 weeks Prison Goal (LTG) Pt will increase B cervical spine rotation to at least 60 deg in order to improve visual scanning during driving LTG Duration 6 weeks Assessment Summary Assessment 28 deg AROM CS rotation left and right end of session. Patient reports feeling pretty good end of session. Physical Therapy Plan Frequency and Duration Frequency of Treatment 1-2x/wk Duration of treatment (weeks) 6 Plan of Care Start Date 12/07/23 Plan of Care End Date 01/18/24 Next Visit Focus/Plan Next Note Type Treatment Note Next Visit Plan Isometrics in sitting or reclined (pt to use R hand if able). Cont with thoracic and cervical mobility. CS grade II -III mobilizations if tolerated. OH and AAROM shoulder with noodle. PROM/ AAROM to shoulder STM, MWM, DNF, head ROM, gentle manual therapy
--- NOTE | 2023-12-20 12:18 | PT.OTN ---
Current Diagnoses Pain in right shoulder (12/20/23) Pain in left shoulder (12/20/23) Cervicalgia (12/20/23) Weakness (12/20/23) Physical Therapy Treatment Note PT-OP-A Visit Information Start: 12/07/23 08:17 Freq: Status: Active Protocol: Document 12/20/23 11:16 AB (Rec: 12/20/23 12:18 AB [id number]) Out-Patient Physical Therapy Visit Information Visit Information Visit Type Treatment Note Visit Note Access code [email or web address] for [facility] Visit Start Time 11:20 Visit Stop Time 12:04 Visit Number 5 Number of PACKAGING MACHINE OPERATOR Visits 1 Evaluation Information Evaluation Date 12/07/23 PT-OP-B Current Condition Start: 12/07/23 08:17 Freq: Status: Active Protocol: Document 12/07/23 08:17 NM (Rec: 12/07/23 11:05 NM [id number]) Current Condition History of Current Condition Onset Date 10/23/23 Current Complaints mobility, pain, strength History of Current Condition Pt presents with B shoulder pain, neck pain. [place], [place] on concrete, falling from an elevated surface in September. He landed on his L shoulder and L head. Followed up with PCP and walk in clinic> ER. Had imaging, CT and radiographs; pain medication. Dr. Urbina gave pt more pain meds. Went back to ED later that week due to neck pain. Pt has been trying to lose weight, has lost 40 pounds. His BP medication interferes with his balance, creates fuzzy feeling. In July 2023, his R arm was painful and he had difficulty with arm elevation, without known onset. X rays revealed arthritis, recommended shoulder replacement which pt declined at the time. Currently, his R arm is freezing up. Neck is more painful on R side, R arm hurts more than L arm, but both are limited. Pt also reports that when he was 15 y.o. he had B shoulder dislocations and operated on (pinned, moved muscles to back of shoulder, made a X over the joints with ligaments) in 1965; as a result, he has had limited ER, arm elevation. States R shoulder swollen and can't see the knob because swollen, has a knob on the L shoulder (refering to ACJ). Reports soreness and stiffness in neck , no numbness/tingling; reports popping with ROM. Prior Treatments and Tests hx of B TKA 2 years ago Radiograph- L shoulder 10/29/23 : post surgical changes in anterior inferior glenoid with suggestion of fractured hardware, moderate ACJ and GHJ OA, age indeterminate deformity of inferior glenoid. CT Cervical spine scan : multilevel degenerative changes without visualized fracture; trace anterolisthesis of C3 on C4 on C4 and C5, trace retrolisthesis of C5-C6, C6-7, C7-T1. Prior Functional Status Baseline Function- Recreation/Hobbies boating Current Functional Impairments (Reported) Functional Limitations- ADL's UE dressing, reaching Functional Limitations- Mobility/Gait floor transfers due to knee mobility and strength Functional Limitations- Other sleeps in recliner, wakes multiple times per night ( bathroom, change position) PT-OP-C Subjective Start: 12/07/23 08:17 Freq: Status: Active Protocol: Document 12/20/23 11:16 AB (Rec: 12/20/23 12:18 AB [id number]) OP-PT Subjective Patient Comments Patient Comments Patient reports the neck the same. Left shoulder pain is less than right, but left shoulder is very limited, but can reach left eyebrows with left UE. AROM CS rotation seated 31 bilaterally. PT-OP-E Functional Tests Start: 12/07/23 08:17 Freq: Status: Active Protocol: Document 12/07/23 08:17 NM (Rec: 12/07/23 11:05 NM [id number]) Functional Tests Apley's Scratch Test Action 1- Left pec Action 1- Right pec + 1 in Action 2- Left to ear Action 2- Right behind ear Action 3- Left L5/sacrum Action 3- Right R SIJ PT-OP-F Manual Assessment Start: 12/07/23 08:17 Freq: Status: Active Protocol: Document 12/07/23 08:17 NM (Rec: 12/07/23 11:05 NM [id number]) Manual Assessments Soft Tissue Assessment Soft Tissue Mobility Assessment R shoulder swollen. Decreased cervical spine paraspinal length, suboccipitals tight. Bilateral tight and restricted periscapulars Joint Mobility Assessment Joint Mobility Assessment Limited AROM and PROM B shoulders; however, more PROM than AROM. Denies pain with apley tests, but states tight. No shoulder joint popping, clicking, or catching. Empty end feels bilaterally for shoulders. PT-OP-G Mobility & Gait Start: 12/07/23 08:17 Freq: Status: Active Protocol: Document 12/07/23 08:17 NM (Rec: 12/07/23 11:05 NM [id number]) OP Gait Assessment Gait Gait Assistance Required: Independent Distance (Feet) 150 Assistive Devices Assistive Device Straight Cane Gait Deviations General Gait Pattern Antalgic Factors Limiting Gait Function Factors Limiting Gait Function Pain,Poor Balance Comments Gait Comments spc in L hand. Very stiff gait PT-OP-H Neuro Start: 12/07/23 08:17 Freq: Status: Active Protocol: Document 12/07/23 08:17 NM (Rec: 12/07/23 11:05 NM [id number]) Sensation Evaluation Comments Summary Comments Did not assess formally due to time PT-OP-J Posture/Palpation/Skin Start: 12/07/23 08:17 Freq: Status: Active Protocol: Document 12/07/23 08:17 NM (Rec: 12/07/23 11:05 NM [id number]) Posture Evaluation Position Standing Head/C-Spine Posture Forward Head T-Spine Posture Increased Kyphosis Scapula Posture (L) Elevated,(R) Elevated Palpation Assessment Location L shoulder Palpation Details Prominent AC joint. Tenderness of biceps tendon, rotator cuff R shoulder Palpation Findings Edema Palpation Details Tender of rotator cuff insertion, increased swelling cervical spine Palpation Details Tightness along paraspinals, suboccipitals no midline tenderness Limited ROM and PROM PT-OP-K Range of Motion Start: 12/07/23 08:17 Freq: Status: Active Protocol: Document 12/07/23 08:17 NM (Rec: 12/07/23 11:05 NM [id number]) Cervical Spine Range of Motion Cervical Spine Active Degrees Flexion 40 Extension 15 Rotation Left 40 Rotation Right 38 Lateral Flexion Left 20 Lateral Flexion Right 20 Comments demos rot w/ LF, pain w/ ext; tight for all Shoulder Goniometric Range of Motion Shoulder R PROM Flexion 100 Abduction 40 External Rotation at 0 degrees Abduction 15 R AROM Flexion 60 Extension 30 Abduction 30 External Rotation at 0 degrees Abduction 10 Internal Rotation 75 L PROM Flexion 95 Abduction 50 External Rotation at 0 degrees Abduction 40 L AROM Flexion 38 Extension 35 Abduction 28 External Rotation at 0 degrees Abduction 45 Internal Rotation 55 PT-OP-L Special Tests Start: 12/07/23 08:17 Freq: Status: Active Protocol: Document 12/07/23 08:17 NM (Rec: 12/07/23 11:05 NM [id number]) Special Tests Cervical Spine Special Tests Spurling's Test Test Results + Comments R local Traction Test Results + Transverse Ligament Test Results - Vertebral Artery Test Results - Alar Ligament Test Results - PT-OP-M Strength Start: 12/07/23 08:17 Freq: Status: Active Protocol: Document 12/07/23 08:17 NM (Rec: 12/07/23 11:05 NM [id number]) Cervical Spine Strength Cervical Spine Manual Muscle Testing Flexion (C1-2) 4 Good Extension 4 Good Rotation Left 4 Good Rotation Right 4 Good Lateral Flexion Left (C3) 4 Good Lateral Flexion Right (C3) 4 Good Shoulder Strength Shoulder Manual Muscle Testing Right Flexion 2+ Poor+ Extension 2+ Poor+ Abduction (C5) 2+ Poor+ Adduction 2+ Poor+ External Rotation 2+ Poor+ Internal Rotation 2+ Poor+ Horizontal Abduction 2+ Poor+ Horizontal Adduction 2+ Poor+ Left Flexion 2+ Poor+ Extension 2+ Poor+ Abduction (C5) 2+ Poor+ Adduction 2+ Poor+ External Rotation 2+ Poor+ Internal Rotation 2+ Poor+ Horizontal Abduction 2+ Poor+ Horizontal Adduction 2+ Poor+ PT-OP-Q Treatments Start: 12/07/23 08:17 Freq: Status: Active Protocol: Document 12/20/23 11:16 AB (Rec: 12/20/23 12:18 AB [id number]) Therapeutic Exercises Supine Exercises CS rotation AROM Supine Exercise Name on occipital float Side bilateral Reps/Minutes 2 minutes Comments verbal cues to perform slowly in pain free range cervical spine isometrics Side bilateral Equipment Used against PT hand, reclined with pillow behind head Reps/Minutes X10 each side 3 sec hold Sitting Exercises isometric CS rotation Side bilateral Resistance manual/gentle Reps/Minutes X10 each side Comments verbal and tactile cues Standing Exercises L stretch Side bilateral Reps/Minutes X6 for 5 seconds Comments verbal and visual cues Therapeutic Activity Therapeutic Activity functional mobility Name supine to sit and sit to stand Comments VC for trial to roll to side, to bend knees prior to attempting to roll, unable due to shoulder pain. With UE use requires minimal to moderate assist and uses increased momentum. Patient requests assist to rise fromo lobby chair. Verbal cues to increase knee flexion and trunk flexion at hips with min assist. From mat at multiple heights able to stand without assist from 18 inch seat height. Manual Therapy Treatment Soft Tissue Mobilization cervical spine Body Location paraspinals, UT, levator scap, scalenes at lateral clavicle Mobilization Type Cross-Friction,Rolling, Sustained Pressure Intensity/Depth Superficial Body Position seated Comments seated and hooklying, superficial and moderate. prior to exercises Joint Mobilizations scapular mobilization Joint bilateral scapula Direction depression and adduction Grade III Body Position Hooklying Reps/Duration X10 each UE each direction Comments monitored for pain PT-OP-T Assessment and Plan Start: 12/07/23 08:17 Freq: Status: Active Protocol: Document 12/20/23 11:16 AB (Rec: 12/20/23 12:18 AB [id number]) Physical Therapy Assessment Goals Six Impairment ROM Short Term Goal (STG) Pt will increase L shoulder flexion AROM to at least 50 deg in order to lift food to his mouth STG Duration 4 weeks Painter Set Goal (LTG) Pt will increase L shoulder flexion AROM to at least 90 deg in order to be able to perfor ADLs LTG Duration 6 weeks Five Impairment ROM Short Term Goal (STG) Pt will increase R shoulder flexion AROM to at least 80 deg in order to be able to don shirt STG Duration 4 weeks Painter Set Goal (LTG) Pt will increase R shoulder flexion AROM to at least 110 deg in order to be able to don shirt and reach overhead LTG Duration 6 weeks Four Impairment strength Alf Goal (LTG) Pt will improve B global shoulder strength to at least 3+/5 MMT in order to perform ADLs/IADLs without assistance LTG Duration 6 weeks Three Impairment strength Painter Set Goal (LTG) Pt will improve B periscapular strength to at least 4/5 in order to demonstrate increased postural muscle strength for neck stabilization and scapular control for B arm mobility in order to perform ADLs LTG Duration 6 weeks Two Impairment strength, stabilization Painter Set Goal (LTG) Pt will improve cervical spine strength globally to at least 4+/5 MMT in order to demonstrate improved strength for ADLs and symptom management LTG Duration 6 weeks One Impairment ROM Impairment cervical spine ROM rotation 40 deg L, 38 deg R Short Term Goal (STG) Pt will increase B cervical spine rotation to at least 50 deg in order to improve visual scanning during driving STG Duration 4 weeks Alf Goal (LTG) Pt will increase B cervical spine rotation to at least 60 deg in order to improve visual scanning during driving LTG Duration 6 weeks Assessment Summary Assessment No increased AROM CS rotation end of session, but into session with a slight increase compared to end of previous session. Patient unable to transfer supine to sit without increased forces through CS due to decreased ablilty to anup rolling onto side due to shoulder pain and decreased ablity to use either UE. Marktent did have enough shoulder ROM to perform CS isometrics, but does use left UE to position right UE in supine. Physical Therapy Plan Frequency and Duration Frequency of Treatment 1-2x/wk Duration of treatment (weeks) 6 Plan of Care Start Date 12/07/23 Plan of Care End Date 01/18/24 Next Visit Focus/Plan Next Note Type Treatment Note Next Visit Plan Cont with thoracic and cervical mobility. CS grade II -III mobilizations if tolerated. OH and AAROM shoulder with noodle. PROM/ AAROM to shoulder STM, MWM, DNF, head ROM, gentle manual therapy
--- NOTE | 2023-12-28 15:58 | PT.OTN ---
Current Diagnoses Pain in right shoulder (12/28/23) Pain in left shoulder (12/28/23) Cervicalgia (12/28/23) Weakness (12/28/23) Physical Therapy Treatment Note PT-OP-A Visit Information Start: 12/07/23 08:17 Freq: Status: Active Protocol: Document 12/28/23 13:43 NM (Rec: 12/28/23 14:33 NM [id number]) Out-Patient Physical Therapy Visit Information Visit Information Visit Type Treatment Note Visit Start Time 13:45 Visit Stop Time 14:30 Visit Number 6 Evaluation Information Evaluation Date 12/07/23 PT-OP-B Current Condition Start: 12/07/23 08:17 Freq: Status: Active Protocol: Document 12/07/23 08:17 NM (Rec: 12/07/23 11:05 NM [id number]) Current Condition History of Current Condition Onset Date 10/23/23 Current Complaints mobility, pain, strength History of Current Condition Pt presents with B shoulder pain, neck pain. [place] the dock, landing on concrete, falling from an elevated surface in September. He landed on his L shoulder and L head. Followed up with PCP and walk in clinic> ER. Had imaging, CT and radiographs; pain medication. Dr. Urbina gave pt more pain meds. Went back to ED later that week due to neck pain. Pt has been trying to lose weight, has lost 40 pounds. His BP medication interferes with his balance, creates fuzzy feeling. In July 2023, his R arm was painful and he had difficulty with arm elevation, without known onset. X rays revealed arthritis, recommended shoulder replacement which pt declined at the time. Currently, his R arm is freezing up. Neck is more painful on R side, R arm hurts more than L arm, but both are limited. Pt also reports that when he was 15 y.o. he had B shoulder dislocations and operated on (pinned, moved muscles to back of shoulder, made a X over the joints with ligaments) in 1965; as a result, he has had limited ER, arm elevation. States R shoulder swollen and can't see the knob because swollen, has a knob on the L shoulder (refering to ACJ). Reports soreness and stiffness in neck , no numbness/tingling; reports popping with ROM. Prior Treatments and Tests hx of B TKA 2 years ago Radiograph- L shoulder 10/29/23 : post surgical changes in anterior inferior glenoid with suggestion of fractured hardware, moderate ACJ and GHJ OA, age indeterminate deformity of inferior glenoid. CT Cervical spine scan : multilevel degenerative changes without visualized fracture; trace anterolisthesis of C3 on C4 on C4 and C5, trace retrolisthesis of C5-C6, C6-7, C7-T1. Prior Functional Status Baseline Function- Recreation/Hobbies boating Current Functional Impairments (Reported) Functional Limitations- ADL's UE dressing, reaching Functional Limitations- Mobility/Gait floor transfers due to knee mobility and strength Functional Limitations- Other sleeps in recliner, wakes multiple times per night ( bathroom, change position) PT-OP-C Subjective Start: 12/07/23 08:17 Freq: Status: Active Protocol: Document 12/28/23 13:43 NM (Rec: 12/28/23 14:33 NM [id number]) OP-PT Subjective Patient Comments Patient Comments Pt planning to stop coming to PT. He reports that he most likely to have a R shoulder replacement. Reports less pain in his L shoulder. Still has neck pain, can go 2-3 hrs at most until needs to have support. Feels like there are pins pressing on it. He is planning to have a MRI, has an appt with Dr. Leyva for B shoulders. PT-OP-E Functional Tests Start: 12/07/23 08:17 Freq: Status: Active Protocol: Document 12/07/23 08:17 NM (Rec: 12/07/23 11:05 NM [id number]) Functional Tests Apley's Scratch Test Action 1- Left pec Action 1- Right pec + 1 in Action 2- Left to ear Action 2- Right behind ear Action 3- Left L5/sacrum Action 3- Right R SIJ PT-OP-F Manual Assessment Start: 12/07/23 08:17 Freq: Status: Active Protocol: Document 12/07/23 08:17 NM (Rec: 12/07/23 11:05 NM [id number]) Manual Assessments Soft Tissue Assessment Soft Tissue Mobility Assessment R shoulder swollen. Decreased cervical spine paraspinal length, suboccipitals tight. Bilateral tight and restricted periscapulars Joint Mobility Assessment Joint Mobility Assessment Limited AROM and PROM B shoulders; however, more PROM than AROM. Denies pain with apley tests, but states tight. No shoulder joint popping, clicking, or catching. Empty end feels bilaterally for shoulders. PT-OP-G Mobility & Gait Start: 12/07/23 08:17 Freq: Status: Active Protocol: Document 12/07/23 08:17 NM (Rec: 12/07/23 11:05 NM [id number]) OP Gait Assessment Gait Gait Assistance Required: Independent Distance (Feet) 150 Assistive Devices Assistive Device Straight Cane Gait Deviations General Gait Pattern Antalgic Factors Limiting Gait Function Factors Limiting Gait Function Pain,Poor Balance Comments Gait Comments spc in L hand. Very stiff gait PT-OP-H Neuro Start: 12/07/23 08:17 Freq: Status: Active Protocol: Document 12/07/23 08:17 NM (Rec: 12/07/23 11:05 NM [id number]) Sensation Evaluation Comments Summary Comments Did not assess formally due to time PT-OP-J Posture/Palpation/Skin Start: 12/07/23 08:17 Freq: Status: Active Protocol: Document 12/07/23 08:17 NM (Rec: 12/07/23 11:05 NM [id number]) Posture Evaluation Position Standing Head/C-Spine Posture Forward Head T-Spine Posture Increased Kyphosis Scapula Posture (L) Elevated,(R) Elevated Palpation Assessment Location L shoulder Palpation Details Prominent AC joint. Tenderness of biceps tendon, rotator cuff R shoulder Palpation Findings Edema Palpation Details Tender of rotator cuff insertion, increased swelling cervical spine Palpation Details Tightness along paraspinals, suboccipitals no midline tenderness Limited ROM and PROM PT-OP-K Range of Motion Start: 12/07/23 08:17 Freq: Status: Active Protocol: Document 12/28/23 13:43 NM (Rec: 12/28/23 14:33 NM [id number]) Cervical Spine Range of Motion Cervical Spine Active Degrees Flexion 40 Extension 15 Rotation Left 40 Rotation Right 38 Lateral Flexion Left 20 Lateral Flexion Right 20 Comments demos rot w/ LF, pain w/ ext; tight for all 12/28/23: 40 deg flex, 10 deg ext, L lateral flexion 30 deg, R lateral flexion 10 deg , L rotation 40 deg, R rotation 30 deg Shoulder Goniometric Range of Motion Shoulder R AROM Flexion 60 Extension 30 Abduction 30 External Rotation at 0 degrees Abduction 10 Internal Rotation 75 Comments 12/28/23: 70 deg flexion, 40 deg abduction L AROM Flexion 38 Extension 35 Abduction 28 External Rotation at 0 degrees Abduction 45 Internal Rotation 55 Comments 12/28/23: 40 deg flexion, 30 deg abduction PT-OP-L Special Tests Start: 12/07/23 08:17 Freq: Status: Active Protocol: Document 12/07/23 08:17 NM (Rec: 12/07/23 11:05 NM [id number]) Special Tests Cervical Spine Special Tests Spurling's Test Test Results + Comments R local Traction Test Results + Transverse Ligament Test Results - Vertebral Artery Test Results - Alar Ligament Test Results - PT-OP-M Strength Start: 12/07/23 08:17 Freq: Status: Active Protocol: Document 12/28/23 13:43 NM (Rec: 12/28/23 14:33 NM [id number]) Cervical Spine Strength Cervical Spine Manual Muscle Testing Flexion (C1-2) 4 Good Extension 4 Good Rotation Left 4 Good Rotation Right 4 Good Lateral Flexion Left (C3) 4 Good Lateral Flexion Right (C3) 4 Good Comments 12/28/23: 4/5, no change from evaluation Shoulder Strength Shoulder Manual Muscle Testing Right Flexion 2+ Poor+ Extension 2+ Poor+ Abduction (C5) 2+ Poor+ Adduction 2+ Poor+ External Rotation 2+ Poor+ Internal Rotation 2+ Poor+ Horizontal Abduction 2+ Poor+ Horizontal Adduction 2+ Poor+ Comments 12/28/23: no change from evaluation Left Flexion 2+ Poor+ Extension 2+ Poor+ Abduction (C5) 2+ Poor+ Adduction 2+ Poor+ External Rotation 2+ Poor+ Internal Rotation 2+ Poor+ Horizontal Abduction 2+ Poor+ Horizontal Adduction 2+ Poor+ Comments 12/28/23: no change from evaluation PT-OP-Q Treatments Start: 12/07/23 08:17 Freq: Status: Active Protocol: Document 12/28/23 13:43 NM (Rec: 12/28/23 14:33 NM [id number]) Therapeutic Exercises Sitting Exercises scapular isometrics Sitting Exercise Name retraction/adduction Equipment Used hands in lap Reps/Minutes 5x5 Comments improved activation and control, cued chin tuck Standing Exercises cervical spine isometrics Standing Exercise Name ext, flex, B lateral flex, B rotation Resistance self force 25% Equipment Used pillow at wall Reps/Minutes 10x5 ea Comments cued to remain pain free; reports no pain but feels activation rows Standing Exercise Name 1. mid rows, 2. low row isometric on wall Side bilateral Resistance 1. level 1 band Equipment Used pillow behind head Reps/Minutes 1. 10 ea, 10x5 hold L stretch Standing Exercise Name educated not to perform at home unless cleared by specialist Other Exercises self soft tissue mobilization Other Exercise Name periscapulars, cervical paraspinals, pectoralis Side bilateral Equipment Used racquetball and theracane Reps/Minutes 4 minutes Comments educated for use at home w/ assistance; feels good Self-Care/Home Management Treatment Education Patient Education Home Exercise Program,Joint Protection,Pain Management Other Education 8 minutes- Reviewed past HEP and educated pt to continue with cervical spine AROM and isometrics, but to discontinue with shoulder strength/ROM unless cleared to continue by specialist. Educated on modalities and sleeping position for pain management PT-OP-T Assessment and Plan Start: 12/07/23 08:17 Freq: Status: Active Protocol: Document 12/28/23 13:43 NM (Rec: 12/28/23 14:33 NM [id number]) Physical Therapy Assessment Goals Six Impairment ROM Short Term Goal (STG) Pt will increase L shoulder flexion AROM to at least 50 deg in order to lift food to his mouth STG Duration 4 weeks [facility] Goal (LTG) Pt will increase L shoulder flexion AROM to at least 90 deg in order to be able to perfor ADLs 12/28/23: 40 deg flexion, 30 deg abduction LTG Duration 6 weeks NOT MET Five Impairment ROM Short Term Goal (STG) Pt will increase R shoulder flexion AROM to at least 80 deg in order to be able to don shirt STG Duration 4 weeks [facility] Goal (LTG) Pt will increase R shoulder flexion AROM to at least 110 deg in order to be able to don shirt and reach overhead 12/28/23: 70 deg flexion, 40 deg abduction LTG Duration 6 weeks NOT MET Four Impairment strength [facility] Goal (LTG) Pt will improve B global shoulder strength to at least 3+/5 MMT in order to perform ADLs/IADLs without assistance LTG Duration 6 weeks NOT MET Three Impairment strength Clearing Hand Goal (LTG) Pt will improve B periscapular strength to at least 4/5 in order to demonstrate increased postural muscle strength for neck stabilization and scapular control for B arm mobility in order to perform ADLs LTG Duration 6 weeks NOT MET Two Impairment strength, stabilization [facility] Goal (LTG) Pt will improve cervical spine strength globally to at least 4+/5 MMT in order to demonstrate improved strength for ADLs and symptom management LTG Duration 6 weeks NOT MET One Impairment ROM Impairment cervical spine ROM rotation 40 deg L, 38 deg R Short Term Goal (STG) Pt will increase B cervical spine rotation to at least 50 deg in order to improve visual scanning during driving STG Duration 4 weeks [facility] Goal (LTG) Pt will increase B cervical spine rotation to at least 60 deg in order to improve visual scanning during driving LTG Duration 6 weeks NOT MET Progress Towards Goals Progress Comments Goals not met Assessment Summary Assessment Pt tolerated session well reporting no increase in B shoulder or neck pain levels with exercise. Pt wanting to discharge from PT today to save insurance visits, planning to have specialist visit for B arms. Established HEP for cervical spine maintenance, periscapular muscle activation. Initiated cervical spine isometrics in standing at wall with pillow. Pt has limited ROM, but able to perform well without pain and about 25% force. Trialed banded mid rows and isometric low rows with moderate cueing for scapular control. Physical Therapy Plan Frequency and Duration Frequency of Treatment 1-2x/wk Duration of treatment (weeks) 6 Plan of Care Start Date 12/07/23 Plan of Care End Date 01/18/24 Therapeutic Interventions Therapeutic Interventions Balance Training,Gait Training ,Home Exercise Program,Joint Mobilizations,Manual Therapy, Neuromuscular Re-education, Orthotic/Prosthetic Management ,Patient/Caregiver Education, Self-Care/Home Management, Sensory Integration,Soft Tissue Mobilization,Taping, Therapeutic Activities, Therapeutic Exercises Modalities Cold Pack/Ice Massage,Electric Stimulation,Hot Packs, Ultrasound Discharge Physical Therapy Discharge Reasons Patient Request Discharge Comments Planning to go to ortho specialist on Sunday, requesting discharge today to maximize insurance visits Next Visit Focus/Plan Next Visit Plan Discharge from PT
== END 2024-01-08 14:49 | disposition home or self-care (01) ==
LOC: PHYS 13:45
PROVIDERS: Family Provider Internal Medicine; PCP Internal Medicine; Referring Provider Internal Medicine; Visit Provider Internal Medicine
DX: M54.2 Cervicalgia (principal); M25.511 Pain in right shoulder; M25.512 Pain in left shoulder; R53.1 Weakness
CPT/HCPCS: 97110; 97140; 97162; 97530; 97535

== ENCOUNTER → 2023-12-31 11:38 | Outpatient (CLI) | payer OTHER, SELFPAY ==
--- NOTE | 2023-12-31 11:40 | EKG_ITS ---
[facility] [place] [id number] [place] [id number] Test Date: 2023-12-31 Pat Name: Michael Marmolejo Department: [facility] Room: Gender: Male [employer]: YAS : 1950 Requested By: Order Number: [id number] Reading MD: Nehemiah Clarke Measurements Intervals [place] Rate: 73 P: 75 MN: 198 QRS: 46 QRSD: 104 T: 97 QT: 404 QTc: 445 Interpretive Statements Normal sinus rhythm Nonspecific T wave abnormality Electronically Signed On 01-01-2024 18:25:59 PDT by Nehemiah Clarke
[2023-12-31 12:09] LABS: Add Manual Diff / Slide Review NO; Basophils Absolute Auto 100 /uL (0-100); Basophils Percent Auto 0.7 % (0-2); Eosinophils Absolute Auto 100 /uL (0-450); Eosinophils Percent Auto 1.1 % (2-4); Hematocrit 34.2 % (41-53); Hemoglobin 11.4 g/dL (13.5-17.5); Lymphocytes Absolute Auto 1400 /uL (1100-4500); Lymphocytes Percent Auto 18.7 % (25-40); Mean Corpuscular HGB Conc 33.5 % (30-36); Mean Corpuscular Hemoglobin 29.7 PG (26-34); Mean Corpuscular Volume 88.6 fL (80-100); Monocytes Absolute Auto 600 /uL (0-900); Monocytes Percent Auto 7.6 % (3-14); Neutrophils Absolute Auto 5600 /uL (1500-7000); Neutrophils Percent Auto 71.9 % (50-75); Platelet Count 425 X10^3/uL (150-400); Red Blood Cell Count 3.86 X10^6/uL (4.5-5.9); Red Cell Distribution Width 14.3 % (11.6-14.8); White Blood Cell Count 7.7 X10^3/uL (4.5-11.0)
[2023-12-31 12:39] LABS: BUN Creatinine Ratio 33.3 (6-22); Blood Urea Nitrogen 19 mg/dL (9-20); Calcium 9.1 mg/dL (8.4-10.2); Carbon Dioxide 31 mmol/L (22-32); Chloride 103 mmol/L (98-107); Estimated Glomerular Filt Rate > 60 mL/min (>60); Glucose 130 mg/dL (80-110); HEMOLYSIS < 15 (0-50); Potassium 4.2 mmol/L (3.4-5.1); Sodium 139 mmol/L (137-145)
[2023-12-31 12:57] LABS: Appearance Urine UA CLEAR; Bilirubin Urine UA NEGATIVE (NEGATIVE); Color Urine UA YELLOW; Glucose Urine UA NEGATIVE (Negative); Ketones Urine UA NEGATIVE (NEGATIVE); Leukocyte Esterase Urine UA NEGATIVE (NEGATIVE); Nitrite Urine UA NEGATIVE (Negative); Occult Blood Urine UA NEGATIVE (Negative); Protein Urine UA NEGATIVE (Negative); Specific Gravity Urine UA <=1.005 (1.000-1.035); Urobilinogen Urine UA 0.2 E.U./dL (0.2); pH Urine UA 6.5 (4.5-8.0)
[2023-12-31 13:03] LABS: Bacteria Urine None Seen; Culture Indicated Urine Cult Not Indicated; RBC Urine None Seen (0-5/HPF); Squamous Epithelial Cell Urine None Seen (0-5/HPF); Urine Volume 10mL (spun); WBC Urine None Seen (0-5/HPF)
== END ==
PROVIDERS: Family Provider Internal Medicine; PCP Internal Medicine; Referring Provider Orthopaedic Surgery; Visit Provider Orthopaedic Surgery
DX: Z01.818 Encounter for other preprocedural examination (principal); Z01.812 Encounter for preprocedural laboratory examination; N39.0 Urinary tract infection, site not specified
CPT/HCPCS: 36415; 80048; 81001; 85025; 93005

== ENCOUNTER → 2024-01-02 11:45 | Outpatient (CLI) | payer OTHER, SELFPAY ==
--- NOTE | 2024-01-02 11:46 | DI.CT.S_ITS ---
PROCEDURE: CT UE RT WO CON INDICATIONS: Primary osteoarthritis, right shoulder TECHNIQUE: Noncontrast 0.75 mm thick sections acquired from the acromioclavicular joint to the inferior scapula, with coronal and sagittal reformatting. COMPARISON: [facility], CR, XR SHOULDER RT MIN 2V, 09/11/2023, 8:46. [facility], CR, XR SHOULDER LT MIN 2V, 10/29/2023, 3:49. FINDINGS: Image quality: Excellent. Bones: Moderate acromioclavicular joint osteoarthritic changes are seen with joint space narrowing, subchondral sclerosis and subcortical cyst formation. Marginal osteophyte formation are also noted depressing the musculotendinous junction of supraspinatus. Severe glenohumeral joint osteoarthritic changes are seen with complete loss of joint space, subchondral sclerosis and marginal osteophyte formation. No acute shoulder fracture or dislocation. No suspicious intraosseous lesion. The visualized right upper to mid ribs are intact. Soft tissues: There is a surgical clip seen in right axilla. No axillary lymphadenopathy by size criteria. Moderate joint effusion and subacromial subdeltoid bursal fluid is seen, no gross calcified intra-articular loose bodies. No gross full-thickness rotator cuff tendon rupture. Sagittal images shows moderate supraspinatus muscle atrophy. The visualized right lung field is clear.. IMPRESSION: 1. Study is for surgical planning. 2. Severe glenohumeral joint osteoarthritis and moderate acromioclavicular joint osteoarthritis. No fracture or dislocation. No suspicious bony lesions. 3. Moderate joint effusion and subacromial subdeltoid bursal fluid. No calcified intra-articular loose bodies. 4. No full-thickness rotator cuff tendon rupture. Moderate supraspinatus muscle atrophy. No abnormal soft tissue calcifications. Surgical clips seen in anterior right axilla suggest clinical correlation. Dictated by: Billy Moon M.D. on 01/02/2024 at 17:59 Approved by: Billy Moon M.D. on 01/02/2024 at 18:02
== END ==
PROVIDERS: Family Provider Internal Medicine; PCP Internal Medicine; Referring Provider Orthopaedic Surgery; Visit Provider Orthopaedic Surgery
DX: M19.011 Primary osteoarthritis, right shoulder (principal); M25.411 Effusion, right shoulder
CPT/HCPCS: 73200

== ENCOUNTER 2024-01-31 06:18 | Day surgery (SDC) | payer OTHER, SELFPAY ==
[2024-01-23 08:35] VITALS: BMI 30.9
[2024-01-31] VITALS (7 sets, daily range): BP systolic 107–131; BP diastolic 61–83; PULSE 70–96; RESP 14–22; TEMP 36.2–37.2; O2SAT 93–99; BMI 30.8
--- NOTE | 2024-01-31 07:41 | PM.PREOP ---
Pre-operative Note Interval Note History & Physical reviewed/Exam performed by Physician: Yes Changes to H&P: No
[2024-01-31] MEDS: CEFAZOLIN 2 GM/100 ML PREMIX 100 ML IV (08:07)
[2024-01-31] MEDS: TRANEXAMIC ACID 1,000 MG VIAL 1000 MG INJ (08:11)
--- NOTE | 2024-01-31 08:13 | DI.RAD.S_ITS ---
PROCEDURE: XR SHOULDER RT MIN 2V INDICATIONS: TSA TECHNIQUE: 1 views of the shoulder were acquired. COMPARISON: [facility], CR, XR SHOULDER LT MIN 2V, 10/29/2023, 3:49. FINDINGS: Evaluation is markedly limited on a single view. Bones: Right total shoulder arthroplasty hardware is intact and appears anatomic on limited single view. Soft tissues: No suspicious soft tissue calcifications. Lung volume is low with basilar atelectasis. Postsurgical changes about the shoulder. IMPRESSION: Limited single view demonstrates right total shoulder arthroplasty hardware which appears intact. Dictated by: Ajit Hendricks M.D. on 01/31/2024 at 10:41 Approved by: Ajit Hendricks M.D. on 01/31/2024 at 10:42
--- NOTE | 2024-01-31 08:30 | SUR.OPER ---
Beach chair with Chantelle/Tabatha shoulder positioner. Lower body on padded OR bed. Head in foam padded head cradle, secured with straps. Non-operative arm secured <90 degrees abduction. Pillow under knees. Safety belt at thigh. Cloth tape over blanket over lower legs.
[2024-01-31] MEDS: BUPIVACAINE 0.25% (PF) 30 ML, EPINEPHrine 0.15 MG INJ (08:37)
[2024-01-31] MEDS: LACTATED RINGERS 1,000 ML 42 ML IV (10:21)
--- NOTE | 2024-01-31 10:22 | P.OP_ITS ---
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 Symptoms have been present for years, insidious onset. Patient has failed a reasonable attempt at conservative therapy. After extensive discussion in clinic, they wished to go forward with surgery. Risks and benefits were described including the risk of infection, bleeding, damage to internal structures including nerves. We also discussed the risk of failure of surgery and the need for revision surgery as well as the risk of anesthesia. The patient expressed understanding with these risks and wished to go forward with surgery. Surgeon: Andry Leyva Machine Ceramic Coater: Malaika Mckeon Click Yes if Unassisted: Yes Anesthesia Type: General Operative Notes Findings: Findings: Osteoarthritis of the glenoid and humeral head as well as a defient rotator cuff as noted on preoperative imaging and under direct visualization Closure Type: primary Specimen(s): none sent Prosthetic devices, grafts, tissues, transplants, or devices: Tornier implants Base plate: 29 mm, +3 mm offset Glenosphere: 42 mm Stem: Perform 4 Poly: +3 constrained Estimated Blood Loss (mL): 100 Blood products transfused: none Procedure in detail: Patient was seen in the preoperative holding unit. The correct right shoulder was identified and marked with my initials. Again we discussed the risks and benefits of surgery and they wished to go forward with surgery. The patient was brought back to the operating room and placed supine on the operating table. Smooth endotracheal intubation was performed by anesthesia. All prominences were padded and they were placed into the beach chair position. Intravenous antibiotics were given. The right shoulder was then prepped with the standard sterile preparation and draping. A time-out was then performed in my initials were again identified on the correct shoulder. 1 g of IV tranexamic acid was given. A standard deltopectoral incision was made. Skin flaps were made. The cephalic vein was identified and retracted laterally. This was protected throughout the remainder of the case. Sharp dissection was made along the deltoid, subacromial and subcoracoid space to release adhesions. The conjoined tendon was identified and the axillary nerve was palpated and continuous using the tug test. It was protected throughout the remainder of the case. A brown retractor was placed underneath the deltoid muscle and a darach retractor underneath the conjoint tendon. The subscapularis muscle was ntoed to be intact. The anterior circumflex artery and associated veins on the lower border of the subscapularis were identified and tied off using 0-Vicryl. The biceps tendon was identified in the bicipital groove. This was released from its sheath, and taken from its origin on the glenoid and tied into the pectoralis tendon for a solid tenodesis. We then began a subscapularis peel. The subscapularis was tagged with an Ethibond suture. A 360 degree circumferential release of the subscapularis was performed with protection of the axillary nerve. The coracohumeral ligament was released at the base of the coracoid. The shoulder was then dislocated. Osteophytes were removed using combination of rongeur and osteotome. The rotator cuff was noted to be insufficient. An intramedullary guide was used set at version of 20?. Using an oscillating saw a conservative humeral head cut was made. Impaction reamers were reamed up to a size 4 stem with a built-in angle 135?. A neck protector was placed. Attention was then turned to the glenoid. After retracting the humeral head posteriorly a circumferential release was performed of the capsule with protection of the axillary nerve. The labrum was then released starting at the biceps anchor and going around the rim a small amount of triceps was released from the inferior glenoid. A center guide pin was then placed using the guide, followed by Reamer. After adequate cartilage was removed the boss was reamed and the centeral hole was drilled and measured. The base plate was then implant ed and screwed into place. The peripheral screws were then sequentially drilled, measured, and placed. A 42 mm glenosphere was then selected and screwed into place onto the base plate. Turning back to the humerus, the humeral head was delivered and trialed with a +3 constrained. The arm was taken through range of motion and this was felt to be stable. The trial was then removed and a dilute Betadine wash was then performed with 1 L of sterile saline. Before placing the final implant, drill holes were made in the bicipital groove for the subscapularis repair, and sutures were passed through the drill holes. The final stem was then impacted into the humerus. The shoulder was then reduced and again brought through range of motion and was felt to be stable. The subscapularis was then repaired using a modified racking hitch with nice loupes.The skin was closed with 2-0 vicryl and 3-0 Monocryl followed by Aquacel dressing. Patient was awoken from anesthesia and brought back to the postoperative recovery unit without issue. They were placed into a sling. Assisting participation: This operation could not have been safely performed (without compromising the technical results or length of the procedure) without the assistance of a skilled sales assistant displays. The sales assistant displays was medically necessary for proper positioning, retraction and manipulation of instruments, proper exposure, graft prep, and manipulation of tissue. Complications: none Post-operative Condition: stable Disposition: PACU Plan for aftercare: Postoperative instructions: Sling to remain on for 6 weeks. No external rotation past neutral for 6 weeks. Okay for the sling to come off for shower. Okay to shower over the Aquacel dressing. If any water gets underneath the dressing, remove the dressing. First postoperative visit in 2 weeks.
== END 2024-01-31 11:00 | disposition home or self-care (01) ==
PROVIDERS: Family Provider Internal Medicine; PCP Internal Medicine; Referring Provider Orthopaedic Surgery; Visit Provider Orthopaedic Surgery
PROC: (CPT 23472; principal; 2024-01-31 07:45)
DX: M19.011 Primary osteoarthritis, right shoulder (principal); G89.18 Other acute postprocedural pain; M25.711 Osteophyte, right shoulder
CPT/HCPCS: 23472; 64450; 73020; C1713; C1776; J0171; J0330; J0690; J1170; J2250; J2405; J2704; J3010

== ENCOUNTER → 2024-12-10 13:54 | Outpatient (CLI) | payer OTHER, SELFPAY ==
[2024-12-10 14:56] LABS: Hemoglobin A1C% w Est Avg Glu 5.3 % (4.0-6.0)
[2024-12-10 15:20] LABS: Aspartate Aminotransferase 35 IU/L (17-59); BUN Creatinine Ratio 23.9 (6-22); Blood Urea Nitrogen 16 mg/dL (9-20); Calcium 9.5 mg/dL (8.4-10.2); Carbon Dioxide 27 mmol/L (22-32); Chloride 104 mmol/L (98-107); Cholesterol 172 mg/dL (140-199); Estimated Glomerular Filt Rate > 60 mL/min (>60); Glucose 100 mg/dL (70-99); HDL Cholesterol 70 mg/dL (40-60); HEMOLYSIS < 15 (0-50); LDL Cholesterol Calculated 89 mg/dL (<100); Potassium 3.9 mmol/L (3.4-5.1); Sodium 137 mmol/L (137-145); Triglycerides 67 mg/dL (35-150)
[2024-12-10 15:51] LABS: Prostate Specific Antigen 3.68 ng/mL (0.10-4.00)
== END ==
PROVIDERS: Family Provider Internal Medicine; PCP Internal Medicine; Referring Provider Internal Medicine; Visit Provider Internal Medicine
DX: I10 Essential (primary) hypertension (principal); N40.1 Benign prostatic hyperplasia with lower urinary tract symptoms; N13.8 Other obstructive and reflux uropathy; E78.2 Mixed hyperlipidemia
CPT/HCPCS: 36415; 80048; 80061; 83036; 84153; 84450

== ENCOUNTER → 2025-03-30 10:27 | Outpatient (CLI) | payer OTHER, SELFPAY ==
[2025-04-01 06:36] LABS: PSA, Total 1.7 ng/mL (0.0-4.0)
== END ==
PROVIDERS: Family Provider Internal Medicine; PCP Internal Medicine; Referring Provider Internal Medicine; Visit Provider Internal Medicine
DX: R97.20 Elevated prostate specific antigen [PSA] (principal)
CPT/HCPCS: 36415; 84153; 84154